=== PATIENT | female | born 2000 | race Caucasian/White ===

== ENCOUNTER 2020-01-25 14:28 | Observation (INO) | payer OTHER, SELFPAY ==
[2020-01-25 14:51] VITALS: BP 123/79; PULSE 106
[2020-01-25 14:55] VITALS: BMI 36.1
--- NOTE | 2020-01-27 13:14 | PM.OBTRLD ---
OB - Triage/Final Diagnosis Final Diagnosis (1) Vaginal discharge during : Code(s): O26.899 - Other specified related conditions, unspecified trimester; N89.8 - Other specified noninflammatory disorders of vagina Status: Acute Plan: ROM was ruled out FHT were reassuring Discharged home in a stable condition
== END 2020-01-25 16:05 | disposition home or self-care (01) ==
PROVIDERS: Admitting Provider Obstetrics & Gynecology; PCP Family Medicine; Visit Provider Obstetrics & Gynecology
DX: O26.893 Other specified pregnancy related conditions, third trimester (principal); Z3A.38 38 weeks gestation of pregnancy; N89.8 Other specified noninflammatory disorders of vagina
CPT/HCPCS: G0378; G0379

== ENCOUNTER 2020-01-30 18:03 | Inpatient (IN) | payer OTHER, SELFPAY ==
[2020-01-30 18:30] VITALS: BMI 36.1
[2020-01-30] MEDS: DINOPROSTONE 10 MG VAG INSERT VAGINAL (19:32)
[2020-01-30 19:38] LABS: Basophils Percent Auto 0.2 % (0.2-1.2); Eosinophils Percent Auto 0.2 % (0-4.4); Hematocrit 36.3 % (37.0-47.0); Hemoglobin 11.8 g/dL (12.0-15.0); Immature Granulocyte Absolute 0.01 K/mm3 (0.00-0.031); Immature Granulocyte Percent A 0.1 % (0-0.5); Lymphocytes Absolute Auto 1.93 K/mm3 (0.9-3.2); Mean Corpuscular HGB Conc 32.5 g/dl (32-36); Mean Corpuscular Hemoglobin 26.9 pg (26-34); Mean Corpuscular Volume 82.7 fl (80-100); Mean Platelet Volume 11.7 fl (7.4-10.4); Monocytes Absolute Auto 0.6 K/mm3 (0.1-0.6); Monocytes Percent Auto 7.2 % (2.6-8.5); Neutrophils Absolute Auto 5.5 K/mm3 (1.3-6.7); Neutrophils Percent Auto 68.3 % (45.5-73.1); Platelet Count Result 250 k/mm3 (150-375); Red Blood Count 4.39 M/mm3 (4.2-5.4); Red Cell Distribution Width 13.7 % (11.5-14.5); White Blood Count 8.1 K/mm3 (4.5-10.0)
--- NOTE | 2020-01-30 19:53 | LDADM ---
This patient, Melissa Jackson, was admitted to Labor/Delivery/Recovery 107 on 01/30/20 at 18:03. Plans for labor, pain management and were discussed with patient. Patient/family oriented to hospital policies and general routines including ID bracelet, bed and alarms, visiting hours, pain management, procedures, bathroom and other care routines, personal items, smoking policy, room service/diet and guest tray routines, security routines, and visiting hours. Patient/Family are encouraged to report perceived risks to care and to ask questions if they do not understand what they are told or what they should do. See OBIX for further documentation.
[2020-01-30] MEDS: AMPICILLIN 2 GM/NS 100 ML 2 GM/100 ML BAG IVPB (20:05)
[2020-01-30] MEDS: metFORMIN HCL 500 MG TABLET PO (20:32)
[2020-01-30 21:37] LABS: Amphetamine Screen Urine Negative (Negative); Barbiturate Screen Urine Negative (Negative); Benzodiazepines Screen Urine Negative (Negative); Cannabinoid Screen Urine Negative (Negative); Cocaine Screen Urine Negative (Negative); Methadone Screen Urine Negative (Negative); Opiate Screen Urine Negative (Negative); Phencyclidine Screen Urine Negative (Negative)
[2020-01-30 22:10] LABS: Glucose Point of Care 102 (65-105)
--- NOTE | 2020-01-30 22:23 | PC.NURSE ---
On arrival @ 1803 pt and significant other smelled strongly of marijuana, pt denies use. Significant other admits use.
[2020-01-30] MEDS: AMPICILLIN 1 GM/NS 50 ML 1 GM/50 ML BAG IVPB (23:52)
[2020-01-30 23:53] VITALS: TEMP 36.7
[2020-01-31] VITALS (175 sets, daily range): BP systolic 79–135; BP diastolic 51–92; PULSE 58–130; RESP 20; TEMP 36.4–36.9; O2SAT 93–100
[2020-01-31] MEDS: AMPICILLIN 1 GM/NS 50 ML 1 GM/50 ML BAG IVPB ×3 (04:08→12:26)
[2020-01-31] MEDS: OXYTOCIN 30 UNITS/NS 500 ML 30 UNITS/500 ML BAG 6 UNITS IV CONT (05:09)
[2020-01-31] MEDS: LACTATED RINGERS 1,000 ML 125 ML IV CONT ×2 (05:10→07:58)
[2020-01-31] MEDS: metFORMIN HCL 500 MG TABLET PO ×2 (06:43→19:15)
[2020-01-31 06:53] LABS: Rapid Plasma Reagin Non-Reactive (NonReactive)
[2020-01-31 06:54] LABS: Glucose Point of Care 97 (65-105)
--- NOTE | 2020-01-31 09:20 | WPDANESEPPF ---
Anes - Initial Pre Proc Eval Date/Time: 01/31/20 08:45 Surgeon: Julio Garcia MD Pre Op Diagnosis: Induction of Labor Patient Data Age: 19 Gender: F Height: 1.52 m Weight: 84 kg Last Vital Signs Temp 36.6 C 01/31/20 08:00 Pulse 87 01/31/20 09:19 BP 124/64 01/31/20 09:19 Pulse Ox 97 01/31/20 09:16 Allergies Allergy/AdvReac Type Severity Reaction Status Date / Time No Known Allergies Allergy Verified 01/26/20 12:36 Home Medications Medication Instructions Recorded Confirmed Type metformin 500 mg PO BID 08/15/19 01/30/20 History aspirin [Aspirin Low Dose] 81 mg PO DAILY 01/26/20 01/26/20 History ferrous sulfate 325 mg PO DAILY 01/26/20 01/26/20 History Laboratory Tests 01/30/20 01/30/20 01/30/20 18:54 18:54 18:54 WBC 8.1 K/mm3 K/mm3 (4.5-10.0) RBC 4.39 M/mm3 M/mm3 (4.2-5.4) Hgb 11.8 g/dL L g/dL (12.0-15.0) Hct 36.3 % L % (37.0-47.0) MCV 82.7 fl fl (80-100) MCH 26.9 pg pg (26-34) MCHC 32.5 g/dl g/dl (32-36) RDW 13.7 % % (11.5-14.5) Plt Count 250 k/mm3 k/mm3 (150-375) MPV 11.7 fl H fl (7.4-10.4) Immature Gran % (Auto) 0.1 % % (0-0.5) Neut % (Auto) 68.3 % % (45.5-73.1) Lymph % (Auto) 24.0 % % (18.3-44.2) [place] % (Auto) 7.2 % % (2.6-8.5) Eos % (Auto) 0.2 % % (0-4.4) Baso % (Auto) 0.2 % % (0.2-1.2) Lymph # (Auto) 1.93 K/mm3 K/mm3 (0.9-3.2) [place] # (Auto) 0.6 K/mm3 K/mm3 (0.1-0.6) Eos # (Auto) 0.0 K/mm3 K/mm3 (0-0.3) Baso # (Auto) 0.0 K/mm3 K/mm3 (0.0-0.1) Abs Immat Gran (auto) 0.01 K/mm3 K/mm3 (0.00-0.031) Absolute Neuts (auto) 5.5 K/mm3 K/mm3 (1.3-6.7) Absolute Nucleated RBC 0.0 K/mm3 K/mm3 (0.0-0.012) Nucleated RBC % 0.0 % % (0.0-0.2) POC Capillary Glucose Urine Opiates Screen Urine Methadone Screen Ur Barbiturates Screen Ur Phencyclidine Scrn Ur Amphetamine Screen U Benzodiazepines Scrn Urine Cocaine Screen U Cannabinoids Screen RPR Non-reactive (NonReactive) Blood Type A Positive Antibody Screen Negative 01/30/20 01/30/20 01/31/20 21:15 22:08 06:52 WBC RBC Hgb Hct MCV MCH MCHC RDW Plt Count MPV Immature Gran % (Auto) Neut % (Auto) Lymph % (Auto) [place] % (Auto) Eos % (Auto) Baso % (Auto) Lymph # (Auto) [place] # (Auto) Eos # (Auto) Baso # (Auto) Abs Immat Gran (auto) Absolute Neuts (auto) Absolute Nucleated RBC Nucleated RBC % POC Capillary Glucose 102 mg/dl mg/dl 97 mg/dl mg/dl (65-105) (65-105) Urine Opiates Screen Negative (Negative) Urine Methadone Screen Negative (Negative) Ur Barbiturates Screen Negative (Negative) Ur Phencyclidine Scrn Negative (Negative) Ur Amphetamine Screen Negative (Negative) U Benzodiazepines Scrn Negative (Negative) Urine Cocaine Screen Negative (Negative) U Cannabinoids Screen Negative (Negative) RPR Blood Type Antibody Screen Patient hx anesthesia problems: none Family hx anesthesia problems: none PMFSH Past Medical History Medical History Anemia Diabetes GERD (gastroesophageal reflux disease) IBS (irritable bowel syndrome) No pertinent past medical history PCOS (polycystic ovarian syndrome) 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
[2020-01-31] MEDS: ONDANSETRON INJ 4 MG/2 ML VIAL IV PUSH (12:53)
--- NOTE | 2020-01-31 16:58 | PM.OBPRVD ---
OB - Delivery Note Procedure Route of delivery: Laceration description: Perineal - 1st Degree Delivery repair: chromic Specimen: No Estimated blood loss (mL): 300 Anesthesia type: Epidural Disposition: floor Narrative: Patient prepped and draped in usual manner for this procedure. Maternal expulsive efforts readily delivered vertex which was section naso-oropharynx. Rest of baby was delivered without difficulty. Placenta delivered spontaneously. Cervix vagina and vulva were inspected with first-degree midline laceration right vulvar laceration noted. Both were approximated using 2 0 chromic in running interlocking manner with good hemostasis and approximation of tissue. Uterus was well contracted this point seizure was considered terminated with immediate postop condition of mother and baby both excellent. [place] Baby Weeks of gestation at delivery: 39 Infant gender: Male Weight (pounds): 6 Weight (ounces): 14 score one minute: 9 score five minutes: 9
[2020-01-31] MEDS: OXYTOCIN 30 UNITS/NS 500 ML 30 UNITS/500 ML BAG 125 UNITS IV CONT (17:12)
[2020-01-31] MEDS: WITCH HAZEL 40 PADS 1 PAD TOPICAL (19:15)
[2020-01-31] MEDS: BENZOCAINE 20% AER SPR (*SP) 56 GM CAN 1 SPRAY TOPICAL (19:15)
--- NOTE | 2020-01-31 19:45 | OBPPTRN ---
Patient transferred to post room #290 at 1945 via . Support person present. Oriented to unit, room, information board, rooming in, admission packet and security measures. Patient verbalizes understanding. Infant brought to room with mother in crib.
--- NOTE | 2020-01-31 19:45 | OBPPTRN ---
Patient transferred to post room # via ( ). Support person present. Oriented to unit, room, information board, rooming in, admission packet and security measures. Patient verbalizes understanding.
[2020-02-01] MEDS: IBUPROFEN 600 MG TABLET PO ×3 (06:11→20:25)
[2020-02-01 06:21] LABS: Hematocrit 30.1 % (37.0-47.0); Hemoglobin 9.6 g/dL (12.0-15.0)
[2020-02-01 08:35] VITALS: BP 104/60; PULSE 85; RESP 18; TEMP 36.9; O2SAT 100
[2020-02-01] MEDS: metFORMIN HCL 500 MG TABLET PO ×2 (09:04→16:50)
--- NOTE | 2020-02-01 11:44 | PM.OBDSVD ---
OB - DS: Summary OB Procedures : None OB Procedures Intrapartum: Spontaneous Vag Delivery OB Procedures: : None Time Spent with Patient Time attestation: Total time spent providing and/or coordinating discharge services: DS: Data Data Completed and Pending Labs on day of discharge: Labs from last 24 hours 02/01/20 04:35 Hgb 9.6 L Hct 30.1 L Discharge Plan Discharge Discharging Clinician: Julio Garcia Patient Disposition: Home, Self-Care Activity: as tolerated Diet: as tolerated Patient Instructions: Antibiotic Form Stand Alone Forms: General Discharge Information Follow-up/Referrals: Julio Garcia MD [Physician] - 3 Weeks Discharge Medications: New ibuprofen 600 mg Tablet 600 mg PO Q6H PRN (Reason: Cramping) Qty: 30 RF: 0 Continued metformin 500 mg Tablet 500 mg PO BID RF: 0 ferrous sulfate 325 mg (65 mg iron) Tablet 325 mg PO DAILY RF: 0 Discontinued aspirin [Aspirin Low Dose] 81 mg Tablet,Delayed Release (Dr/Ec) 81 mg PO DAILY RF: 0 Date of admission: 01/30/20 18:03 Primary Care Provider: Tyrell,Esperanza Cabrales Admitting Provider: Julio Garcia Attending physician on admission: Julio Garcia
--- NOTE | 2020-02-01 12:10 | PC.NURSE ---
Upon entering mother has to breast. Infant does not have nipple drawn in. Mother reports has been eagerly nursing and just stopped. Mother is using the latch assist to draw out nipples. Reviewed feeding cues, frequencies, duration of feedings, feeding elimination flow sheet, and signs of adequate intake. Demonstrated stimulation techniques to wake infant for feeding. Mother does not wish to wake reporting he is sleepy due to circumcision.
--- NOTE | 2020-02-01 16:30 | PC.NURSE ---
Mother called out for assist with feeding. Infant is sleepy and making no attempt to latch. Demonstrated stimulation techniques to wake infant for feeding. Assisted with to breast. Reviewed positioning/alignment in football, holding breast in C hold and guided asymmetrical latch on. Infant was able to latch after 15 minutes of attempts. Offered and explained the nipple shield, mother is willing to attempt. Nipple shield provided to mother due to ineffective feeding/flat nipples. Discussed nipple shield precautions and possible complications. Patient able to return demonstration on proper application of shield. Instructions given on application and cleaning of shield. Discussed the need to initiate pumping if infant continues to nurse with the shield. Patient verbalizes understanding.correctly. Infant was able to latch. Infant made minimal effort to suckle with a few suckles. Attempt for 15 minutes. Discussed feeding options at this time. Mother does not wish to supplement. Discussed with mother report of feeding to primary RN.
[2020-02-02 07:45] VITALS: BP 110/66; PULSE 79; RESP 18; TEMP 36.9; O2SAT 99
--- NOTE | 2020-02-02 07:50 | PC.NURSE ---
Consult with pt., mother reports was more awake and eager during the night. Mother states she used the shield a few times for latching. Mother pumped 20 mls last evening and bottle fed EBM during sleepy period. Mother is now pumping stating she feels full and will bottle feed EBM for this feeding. Offered assist with latching, mother declines stating she will bottle feed at this time. LC has not seen a successful . Mother is feeding as required and waking to feed if needed. is currently meeting outcomes for weight, output, jaundice and feeding frequencies. Mother states she feels confident to continue at home, she will pump and bottle feed if does not latch. Reviewed transition to breast milk, signs of adequate intake, and engorgement/relief. Instructed to call ICP if intake/output less than required. Reviewed regular medications mother is taking. Information provided per [facility]. Reviewed community resources on the [facility] website and in the Mom/Baby guide. Information on outpatient services provided. Mother has no further questions at this time.
--- NOTE | 2020-02-02 09:00 | PC.NURSE ---
PT introductions made and plan of care discussed per post , pain management, breast feeding, daily care activities and pending discharge to home. PT verbalized understanding of such care
[2020-02-02] MEDS: POLYSACCHARIDE IRON COMPLEX 150 MG CAPSULE PO (09:30)
[2020-02-02 09:32] VITALS: PULSE 79; RESP 18; O2SAT 99
[2020-02-02] MEDS: IBUPROFEN 600 MG TABLET PO (09:32)
--- NOTE | 2020-02-02 12:30 | PC.NURSE ---
PT received discharge instructions per protocol and verbalized understanding of such instructions.
--- NOTE | 2020-02-02 13:00 | PC.NURSE ---
PT discharged to home ambulatory accompanied by infant and significant other to waiting car. Follow up appts confirmed
[2020-02-03 08:40] VITALS: BP 117/70; PULSE 89; RESP 22; TEMP 36.9
--- NOTE | 2020-02-08 09:03 | PM.OBPRVD ---
OB - Delivery Note Procedure Laceration description: Perineal - 1st Degree Estimated blood loss (mL): 300 Anesthesia type: Epidural Baby Weeks of gestation at delivery: 39 gender: Male Weight (pounds): 6 Weight (ounces): 14 score one minute: 9 score five minutes: 9
--- NOTE | 2020-02-08 09:03 | PM.OBDSVD ---
DS: Diagnosis Admitting Diagnosis Admitting Diagnosis: Encounter for supervision of normal , unspecified, third trimester OB - DS: Summary OB Procedures : None OB Procedures Intrapartum: Spontaneous Vag Delivery OB Procedures: : None Time Spent with Patient Time attestation: Total time spent providing and/or coordinating discharge services: Discharge Plan Discharge Discharging Clinician: Julio Garcia Patient Disposition: Home, Self-Care Activity: as tolerated Diet: as tolerated Discharge Instructions: Education: Mom and Baby Guide Given to: Mother Follow-Up: Call your delivering provider's office for an appointment to be seen in: 3 weeks Mom and baby should come to the [facility] for the follow-up appointment. Appointment Date/Time: February 03, 2020 at 8:00 am What to expect at your follow-up visit: Blood Pressure Check Call [phone] if you are unable to keep your appointment time. BREAST CARE: 1. Wear a snug supportive bra. 2. For engorgement discomfort: Breast Feeding: A. Apply warm moist washcloths B. Express milk as needed to relieve engorgement C. Wear loose clothing Bottle Feeding: A. May apply ice packs 3. For sore nipples: A. Identify correct latch-on B. Apply warm moist washcloths before and after nursing C. Air dry nipples after nursing D. May apply Lansinoh cream to nipples PERINEAL CARE: 1. Until bleeding stops, use your radha bottle after urinating 2. Change your pad frequently throughout the day 3. You may take sitz baths several times a day (fill your bathtub with warm water and soak for 20 minutes.) Do NOT bathe in the water 4. No tub baths until seen by your physician - You may shower ACTIVITY: 1. Rest as much as possible. 2. Do not exercise or lift anything heavier than your baby (such as laundry or other children.) 3. Avoid stairs or driving as much as possible. 4. Do not put anything into the vagina. No douching, tampons, or sexual activity until seen by physician. NOTIFY PHYSICIAN IF YOU HAVE ANY QUESTIONS OR IF ANY OF THE FOLLOWING SYMPTOMS OCCUR: 1. If your perineum becomes red, swollen, or more painful than what you have experienced in the hospital. 2. If your vaginal bleeding becomes foul smelling. 3. If your vaginal bleeding becomes more heavy than a period or if your bleeding changes from pink to bright red. However, you may pass an occasional walnut-sized clot once or twice for the first week . 4. If you experience a sharp, shooting pain in you calves. 5. If you discover a hard, reddened area on your breast or if you experience flu-like symptoms. DIET: 1. Eat regular, well-balanced meals. 2. Drink plenty of fluids daily. If , drink to thirst. Patient Instructions: Antibiotic Form Stand Alone Forms: General Discharge Information Follow-up/Referrals: Julio Garcia MD [Physician] - 3 Weeks Discharge Medications: New ibuprofen 600 mg Tablet 600 mg PO Q6H PRN (Reason: Cramping) Qty: 30 RF: 0 Continued metformin 500 mg Tablet 500 mg PO BID RF: 0 ferrous sulfate 325 mg (65 mg iron) Tablet 325 mg PO DAILY RF: 0 Discontinued aspirin [Aspirin Low Dose] 81 mg Tablet,Delayed Release (Dr/Ec) 81 mg PO DAILY RF: 0 Date of admission: 01/30/20 18:03 Primary Care Provider: Tyrell,Esperanza Cabrales Admitting Provider: Julio Garcia Discharge Date/Time: 02/02/20 13:00 Attending physician on admission: Julio Garcia
== END 2020-02-02 13:00 | disposition home or self-care (01) | DRG 560 ==
LOC: ANHLDR 18:19 → ANHOB2 01-31 19:48
PROVIDERS: Admitting Provider Obstetrics & Gynecology; PCP Family Medicine; Visit Provider Obstetrics & Gynecology
DX: O99.284 Endocrine, nutritional and metabolic diseases complicating childbirth (principal); E28.2 Polycystic ovarian syndrome; O70.0 First degree perineal laceration during delivery; O24.12 Pre-existing type 2 diabetes mellitus, in childbirth; E11.9 Type 2 diabetes mellitus without complications; Z3A.39 39 weeks gestation of pregnancy; Z37.0 Single live birth; Z23 Encounter for immunization; O99.214 Obesity complicating childbirth; E66.9 Obesity, unspecified
CPT/HCPCS: 36415; 80307; 85014; 85018; 85025; 86592; 86850; 86900; 86901; A9270; J0290; J2405; J2590; J2795; J3010; J7120

== ENCOUNTER 2020-09-16 06:46 | Outpatient (NON) | payer OTHER, SELFPAY ==
[2020-09-17 00:44] LABS: SARS-CoV-2 RNA PCR Negative
== END 2020-09-16 06:47 ==
PROVIDERS: PCP Family Medicine; Visit Provider Nurse Practitioner Family
DX: R07.0 Pain in throat (principal); R50.9 Fever, unspecified; R43.8 Other disturbances of smell and taste; R06.02 Shortness of breath; Z20.828 Contact with and (suspected) exposure to other viral communicable diseases
CPT/HCPCS: 87635; C9803; U0003

== ENCOUNTER 2020-11-07 14:00 | Outpatient (RCR) | payer OTHER, SELFPAY ==
[2020-11-07 14:08] VITALS: BMI 38.0
[2020-11-07 14:12] VITALS: BMI 38.0
== END 2021-01-22 14:43 | disposition home or self-care (01) ==
LOC: ANHDMC 14:00
PROVIDERS: PCP Family Medicine; Visit Provider Family Medicine
DX: E11.9 Type 2 diabetes mellitus without complications (principal); Z71.3 Dietary counseling and surveillance
CPT/HCPCS: 97802

== ENCOUNTER 2021-03-27 18:11 | Emergency (ER) | payer OTHER, SELFPAY ==
[2021-03-27 18:17] VITALS: BP 140/92; PULSE 96; RESP 16; TEMP 37; O2SAT 100
--- NOTE | 2021-03-27 20:36 | ED.GENADULT ---
HPI - General Adult General Chief complaint: Skin/Abscess/Foreign Body Stated complaint: Rash,arms,shoulders,back and face Time Seen by Provider: 03/27/21 19:46 Source: patient and RN notes reviewed Mode of arrival: ambulatory Limitations: no limitations History of Present Illness HPI narrative: Patient is a 21-year-old female who presents with 2 weeks duration of small areas of itching in various locations denies any known allergic exposures or contacts or individuals at home with similar rash patient has not taken anything for symptoms her primary complaint is itching. Patient denies any fever chills nausea vomiting or other complaints patient is currently breast-feeding she has plan follow-up with primary care on Friday Related Data Home Medications Medication Instructions Recorded Confirmed metformin 500 mg PO BID 08/15/19 01/30/20 Allergies Allergy/AdvReac Type Severity Reaction Status Date / Time No Known Allergies Allergy Verified 03/27/21 19:48 Review of Systems Review of Systems: All systems reviewed & are unremarkable except as noted in HPI and below PMFSH Past Medical History Medical History (Updated 03/27/21 @ 20:38 by Sheng Freeman PA-C) Anemia Diabetes GERD (gastroesophageal reflux disease) IBS (irritable bowel syndrome) No pertinent past medical history PCOS (polycystic ovarian syndrome) 16 weeks Sleep apnea UTI (urinary tract infection) Surgical History Surgical History No history of previous surgery Family History Family History Grandparent Diabetes mellitus Social History Social History Smoking status: Never smoker Substance use: never Gender identity (if verbalized by the patient): Female Spiritual care concerns: No Exam Narrative: Exam Narrative: GENERAL: Well-appearing, well-nourished, and in no acute distress. HEAD: Normocephalic, atraumatic. EYES: PERRLA and EOMI. ENT: Nares clear, no rhinorrhea or epistaxis. Mucous membranes moist. EXTREMITIES: Normal range of motion. No edema. SKIN: Warm, dry, patient with a few small patches of raised areas no erythema or other concerning findings NEURO: No focal deficits. Alert and oriented x3. PSYCH: Normal mood and affect. Course Course Emergency Course: Patient will be treated with antihistamines and topical cortisone cream with follow-up on Friday Vital Signs Vital signs: Vital Signs Temperature 98.6 F 03/27/21 18:17 Pulse Rate 96 03/27/21 18:17 Respiratory Rate 16 03/27/21 18:17 Blood Pressure 140/92 H 03/27/21 18:17 Pulse Oximetry 100 03/27/21 18:17 Temperature 98.6 F 03/27/21 18:17 Pulse Rate 96 03/27/21 18:17 Respiratory Rate 16 03/27/21 18:17 Blood Pressure 140/92 H 03/27/21 18:17 Pulse Oximetry 100 03/27/21 18:17 Medical Decision Making MDM Narrative Medical decision making narrative: Patient with nonspecific rash felt appropriate for outpatient reevaluation Vital Signs Vital Signs: Vital Signs Temperature 98.6 F 03/27/21 18:17 Pulse Rate 96 03/27/21 18:17 Respiratory Rate 16 03/27/21 18:17 Blood Pressure 140/92 H 03/27/21 18:17 Pulse Oximetry 100 03/27/21 18:17 Temperature 98.6 F 03/27/21 18:17 Pulse Rate 96 03/27/21 18:17 Respiratory Rate 16 03/27/21 18:17 Blood Pressure 140/92 H 03/27/21 18:17 Pulse Oximetry 100 03/27/21 18:17 Discharge Plan Discharge Clinical Impression: Rash and nonspecific skin eruption Patient Disposition: Home, Self-Care Condition: Stable Instructions: Antibiotic Form, Acute Rash (ED) Additional Instructions: Follow-up with primary care on Friday as planned Return if symptoms worsen or concerns Only take medications as directed Prescriptions: New famotidine [Pepcid] 20 mg tablet 20 mg PO BID Qty
== END 2021-03-27 20:45 | disposition home or self-care (01) ==
PROVIDERS: Emergency Provider Emergency Medicine; PCP Family Medicine
DX: R21 Rash and other nonspecific skin eruption (principal); E11.42 Type 2 diabetes mellitus with diabetic polyneuropathy; K21.9 Gastro-esophageal reflux disease without esophagitis; K58.9 Irritable bowel syndrome, unspecified; E28.2 Polycystic ovarian syndrome; Z87.440 Personal history of urinary (tract) infections; Z86.2 Personal history of diseases of the blood and blood-forming organs and certain disorders involving the immune mechanism; Z79.84 Long term (current) use of oral hypoglycemic drugs
CPT/HCPCS: 99283

== ENCOUNTER 2021-04-29 09:11 | Emergency (ER) | payer OTHER, SELFPAY ==
--- NOTE | ~2021-04-29 | XR_ITS ---
XR ankle LT min 3V DATE: 04/29/2021 09:32 INDICATION: Fall. Lateral ankle pain. TECHNIQUE: 4 views COMPARISON: None FINDINGS: No fracture or dislocation of the ankle or disruption of the ankle mortise is detected. No periosteal reaction or bone destruction. IMPRESSION: No fracture or dislocation Reviewed, dictated and finalized at location A. IMPRESSION: No fracture or dislocation
[2021-04-29 09:20] VITALS: BP 134/88; PULSE 106; RESP 16; TEMP 36.6; O2SAT 100
--- NOTE | 2021-04-29 09:29 | ED.LOWEXIN ---
HPI - Extremity Injury (Lower) General Chief Complaint: Extremity Injury, Lower Stated Complaint: Left ankle Pain Time Seen by Provider: 04/29/21 09:29 Source: patient Mode of arrival: ambulatory Limitations: no limitations History of Present Illness HPI Narrative: Melissa Jackson is a 21 yo female with a PMH of diabetes, comes to [facility] after falling off a curb last night when the morning while looking in her cell phone. She has left lateral ankle pain and swelling and states she is unable to wiggle her toes although she is able to limp on her foot with partial weightbearing. States the pain is 8 of 10. Related Data Home Medications Medication Instructions Recorded Confirmed metformin 500 mg PO BID 04/29/21 04/29/21 terconazole 0.4 applic VAGINAL DIRECTED 04/29/21 04/29/21 triamcinolone acetonide 0.1 applic TOPICAL DAILY 04/29/21 04/29/21 Allergies Allergy/AdvReac Type Severity Reaction Status Date / Time No Known Allergies Allergy Verified 04/29/21 09:23 Review of Systems Review of Systems: Narrative: CONSTITUTIONAL: Denies fever, chills, sweats. EYES: Denies visual changes, redness, discharge. ENT: Denies rhinorrhea, congestion, sore throat, otalgia. CARDIOVASCULAR: Denies chest pain, palpitations, edema. RESPIRATORY: Denies dyspnea, wheezing, cough GASTROINTESTINAL: Denies abdominal pain, nausea, vomiting, diarrhea. GENITOURINARY: Denies dysuria, hematuria, abnormal discharge SKIN: Denies rash or itching. NEUROLOGIC: Denies numbness, or focal weakness. PSYCHIATRIC: Denies anxiety or depression. Left ankle pain and swelling on the lateral side PMFSH Past Medical History Medical History Anemia Diabetes GERD (gastroesophageal reflux disease) IBS (irritable bowel syndrome) PCOS (polycystic ovarian syndrome) 16 weeks Sleep apnea UTI (urinary tract infection) Surgical History Surgical History No history of previous surgery Family History Family History Grandparent Diabetes mellitus Social History Social History (Updated 04/29/21 @ 09:44 by Karely Oviedo CNP) Smoking status: Never smoker Alcohol intake: current Substance use: never Gender identity (if verbalized by the patient): Female Spiritual care concerns: No Comments At time of signature, I agree with nursing past medical, surgical, social and family history. There is no relevant family history pertinent to the presenting complaint. Exam Narrative: Exam Narrative: GENERAL: This is a well-nourished, well-developed patient, in moderate distress. HEAD: normocephalic, atraumatic. EYES: Sclera clear/white. Vision is grossly intact. EARS: External ears normal. Hearing grossly intact. NOSE: External nose normal without nasal discharge, nares without redness, no rhinorrhea. THROAT: Mucous membranes moist, NECK: Neck supple, CARDIOVASCULAR: Tachycardic rate and rhythm without murmurs, gallops, or rubs. RESPIRATORY: Clear to auscultation. Breath sounds equal bilaterally. No wheezes, rales, or rhonchi. GASTROINTESTINAL: Abdomen soft, SKIN: warm, intact with no suspicious lesions or rash, good texture and turgor. NEURO: awake, alert, and oriented to person, place and time. There were no obvious focal neurologic abnormalities. Steady gait EXTREMITIES: Normal range of motion on right, on left she has swelling of the lateral malleolus with pain on palpation no Achilles involvement states the top of her foot is sore and that she cannot walk wiggle her toes without pain, able to partially weight-bear, 2+ pedal pulse BACK: Nontender without deformity Course Course Emergency Course: [facility] left ankle pain and swelling after falling off a curb last night X-ray shows no fracture, no osseous abnormality Please have Jeff w
== END 2021-04-29 09:54 | disposition home or self-care (01) ==
PROVIDERS: Emergency Provider Nurse Practitioner; PCP Family Medicine
DX: S93.402A Sprain of unspecified ligament of left ankle, initial encounter (principal); W10.1XXA Fall (on)(from) sidewalk curb, initial encounter; D64.9 Anemia, unspecified; E11.9 Type 2 diabetes mellitus without complications; K21.9 Gastro-esophageal reflux disease without esophagitis; E28.2 Polycystic ovarian syndrome; G47.30 Sleep apnea, unspecified
CPT/HCPCS: 73610; 99213; G0463

== ENCOUNTER 2021-04-29 19:08 | Emergency (ER) | payer OTHER, SELFPAY ==
--- NOTE | ~2021-04-29 | XR_ITS ---
EXAMINATION: XR ankle LT min 3V EXAM DATE: 04/29/2021 19:40 INDICATION: Left ankle pain and swelling laterally, fall. TECHNIQUE: Left ankle frontal, lateral and oblique projections obtained and reviewed. Comparison is m navin to prior examination from 08/30/2021. FINDINGS: The left ankle mortise appears intact. There are no acute fractures or dislocations ident ified. There is no subcutaneous gas. There is soft tissue swelling over the ankle anterolaterally. T here are no radiopaque foreign bodies. IMPRESSION: 1. Left ankle exam without acute osseous findings. 2. Soft tissue swelling. Reviewed, dictated and finalized at location A.
--- NOTE | ~2021-04-29 | XR_ITS ---
EXAMINATION: XR foot LT min 3V EXAM DATE: 04/29/2021 21:35 INDICATION: Pain anterior foot near toes, fall. TECHNIQUE: Left foot dorsoplantar, lateral and oblique projections obtained and reviewed. Correlation is made to left ankle x-rays earlier same date. FINDINGS: Possible nondisplaced calcaneal fracture identified on an oblique projection, finding indic ated. Large amount of swelling surrounding the ankle and hindfoot. Possible nondisplaced fracture of the left 3rd proximal phalanx. IMPRESSION: 1. Possible nondisplaced calcaneal fracture; recommend left foot/ankle CT scan for further evaluation . 2. Possible nondisplaced 3rd proximal phalangeal shaft fracture. Reviewed, dictated and finalized at location A. IMPRESSION: 1. Possible nondisplaced calcaneal fracture; recommend left foot/ankle CT scan for further evaluation. 2. Possible nondisplaced 3rd proximal phalangeal shaft fracture.
--- NOTE | ~2021-04-29 | CT_ITS ---
EXAMINATION: CT LE LT wo con DATE: 04/29/2021 22:41 INDICATION: Possible fracture seen on recent x-ray. TECHNIQUE: Computed tomography (CT) of the left foot and ankle was performed without intravenous cont rast. The dose-length product was 334.47 mGy-cm. Automated exposure control and iterative reconstruct ion technique were employed. COMPARISON: 04/29/2021 FINDINGS: No acute fracture, subluxation or dislocation. There is mild soft tissue swelling/edema. No foreign bodies identified. Ankle mortise intact. IMPRESSION: 1. No acute fracture. Reviewed, dictated and finalized at location A. IMPRESSION: 1. No acute fracture.
[2021-04-29 19:09] VITALS: BP 144/99; PULSE 80; RESP 20; TEMP 36.5; O2SAT 100
[2021-04-29 21:08] VITALS: BP 142/89; PULSE 78; RESP 18; O2SAT 100
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
[2021-04-29 23:39] VITALS: BP 125/97; PULSE 93; RESP 18; O2SAT 98
[2021-04-30 01:19] VITALS: BP 136/78; PULSE 78; RESP 18; O2SAT 100
== END 2021-04-30 01:20 | disposition home or self-care (01) ==
PROVIDERS: Emergency Provider General Practice; PCP Family Medicine
DX: S93.402A Sprain of unspecified ligament of left ankle, initial encounter (principal); S90.32XA Contusion of left foot, initial encounter; E11.9 Type 2 diabetes mellitus without complications; K21.9 Gastro-esophageal reflux disease without esophagitis; K58.9 Irritable bowel syndrome, unspecified; E28.2 Polycystic ovarian syndrome; G47.30 Sleep apnea, unspecified; Z87.440 Personal history of urinary (tract) infections; Z79.84 Long term (current) use of oral hypoglycemic drugs; R93.6 Abnormal findings on diagnostic imaging of limbs; X50.9XXA Other and unspecified overexertion or strenuous movements or postures, initial encounter
CPT/HCPCS: 73610; 73630; 73700; 99284

== ENCOUNTER 2021-09-06 11:42 | Emergency (ER) | payer OTHER, SELFPAY ==
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
[2021-09-06 11:51] VITALS: BP 138/87; PULSE 87; RESP 20; TEMP 36.6; O2SAT 100
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
[2021-09-06] MEDS: ACETAMINOPHEN 500 MG TABLET 1000 MG PO (12:39)
[2021-09-06] MEDS: ONDANSETRON HCL ODT 4 MG TABLET PO (13:04)
== END 2021-09-06 13:40 | disposition home or self-care (01) ==
PROVIDERS: Emergency Provider Emergency Medicine; PCP Family Medicine
DX: S16.1XXA Strain of muscle, fascia and tendon at neck level, initial encounter (principal); S09.90XA Unspecified injury of head, initial encounter; E11.9 Type 2 diabetes mellitus without complications; E28.2 Polycystic ovarian syndrome; G47.30 Sleep apnea, unspecified; Z86.2 Personal history of diseases of the blood and blood-forming organs and certain disorders involving the immune mechanism; Z87.440 Personal history of urinary (tract) infections; Z87.19 Personal history of other diseases of the digestive system; V43.52XA Car driver injured in collision with other type car in traffic accident, initial encounter; Y92.410 Unspecified street and highway as the place of occurrence of the external cause
CPT/HCPCS: 70450; 72125; 99284; A9270

== ENCOUNTER → 2021-09-26 03:01 | Outpatient (CLI) | payer OTHER, SELFPAY ==
[2021-09-26 19:39] LABS: SARS-CoV-2 RNA PCR Negative
== END ==
PROVIDERS: PCP Family Medicine; Visit Provider Nurse Practitioner Family
DX: Z20.822 Contact with and (suspected) exposure to COVID-19 (principal)
CPT/HCPCS: C9803; U0003; U0005

== ENCOUNTER → 2021-10-11 08:15 | Outpatient (CLI) | payer OTHER, SELFPAY ==
[2021-10-11 20:55] LABS: SARS-CoV-2 RNA PCR Negative
== END ==
PROVIDERS: PCP Family Medicine; Visit Provider Physician Assistant
DX: Z11.52 Encounter for screening for COVID-19 (principal)
CPT/HCPCS: C9803; U0003; U0005

== ENCOUNTER 2023-05-27 21:24 | Emergency (ER) | payer OTHER, SELFPAY | END 2023-05-27 21:43 | disposition left against medical advice (07) | PROVIDERS: PCP Family Medicine | DX: Z53.21 Procedure and treatment not carried out due to patient leaving prior to being seen by health care provider (principal) | CPT/HCPCS: 99199 ==

== ENCOUNTER 2023-06-02 10:52 | Outpatient (CLI) | payer OTHER, SELFPAY ==
[2023-06-02 12:45] LABS: SARS-CoV-2 RNA PCR Positive (Negative)
== END 2023-06-02 10:53 | disposition home or self-care (01) ==
PROVIDERS: PCP Family Medicine; Visit Provider Family Medicine
DX: R05.9 Cough, unspecified (principal)
CPT/HCPCS: 87635

== ENCOUNTER 2024-07-15 08:12 | Emergency (ER) | payer OTHER, SELFPAY ==
[2024-07-15 08:23] VITALS: BP 131/95; RESP 14; O2SAT 100
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
[2024-07-15 08:35] LABS: BEDSIDEPREGUCG Negative (Negative)
[2024-07-15] MEDS: LIDOCAINE 5% PATCH 1 PATCH TRANSDERM (08:45)
[2024-07-15] MEDS: KETOROLAC 10 MG TABLET PO (08:53)
[2024-07-15] MEDS: diazePAM (*CRX) 5 MG TABLET PO (08:53)
== END 2024-07-15 09:18 | disposition home or self-care (01) ==
LOC: ANHED 08:55
PROVIDERS: Emergency Provider Emergency Medicine; PCP Family Medicine
DX: S16.1XXA Strain of muscle, fascia and tendon at neck level, initial encounter (principal); E11.9 Type 2 diabetes mellitus without complications; E28.2 Polycystic ovarian syndrome; K21.9 Gastro-esophageal reflux disease without esophagitis; K58.9 Irritable bowel syndrome, unspecified; G47.30 Sleep apnea, unspecified; Z87.440 Personal history of urinary (tract) infections; Z79.84 Long term (current) use of oral hypoglycemic drugs; X58.XXXA Exposure to other specified factors, initial encounter
CPT/HCPCS: 81025; 99283; A9270

== ENCOUNTER 2024-10-07 07:11 | Emergency (ER) | payer OTHER, SELFPAY ==
[2024-10-07 07:15] VITALS: BP 117/72; PULSE 90; RESP 16; TEMP 37; O2SAT 98
[2024-10-07 07:51] LABS: Strep Group A RT-PCR NOT DETECTED (Negative)
--- NOTE | 2024-10-07 09:42 | ED_ITS ---
HPI - URI/Sore Throat General Chief Complaint: Upper Respiratory Infection Stated Complaint: SORE THROAT X1D Time Seen by Provider: 10/07/24 09:05 History of Present Illness HPI Narrative: 24-year-old female with history of PCOS, IBS, GERD, diabetes presents to emergency department for sore throat per patient states she developed having a mild sore throat yesterday but woke up with a significantly worsened sore throat this morning which prompted her to come to the ED. Reports nasal congestion over the past couple of days. Denies cough, otalgia, fever. Related Data Home Medications ?Medication ?Instructions ?Recorded ?Confirmed ?Last Taken ?Type metformin 500 mg tablet 500 mg PO BID 04/29/21 04/29/21 Unknown History terconazole 0.4 % vaginal cream 0.4 applic vaginal DIRECTED 04/29/21 04/29/21 Unknown History triamcinolone acetonide 0.1 % 0.1 applic topical DAILY 04/29/21 04/29/21 Unknown History topical ointment Allergies Allergy/AdvReac Type Severity Reaction Status Date / Time No Known Allergies Allergy Verified 10/07/24 07:12 Review of Systems Review of Systems: All systems reviewed & are unremarkable except as noted in HPI and below PMFSH Past Medical History Medical History 16 weeks Anemia Diabetes UTI (urinary tract infection) PCOS (polycystic ovarian syndrome) GERD (gastroesophageal reflux disease) IBS (irritable bowel syndrome) Sleep apnea Surgical History Surgical History No history of previous surgery Family History Family History Grandparent Diabetes mellitus Social History Social History Smoking status: Never smoker Alcohol intake: current Substance use: never Gender identity (if verbalized by the patient): Female Spiritual care concerns: No Exam Narrative: GENERAL: Well-appearing, well-nourished, and in no acute distress. HEAD: Normocephalic, atraumatic. EYES: EOMI. ENT: Nares clear, no rhinorrhea or epistaxis. Mucous membranes moist. Bilateral TMs are champion nonbulging with normal canals. Posterior pharynx erythematous with mild exudates to the left tonsil. No unilateral tonsillar hypertrophy, no uvular deviation. Patient tolerating secretions. No trismus. No dysphonia NECK: Supple. CHEST: Clear to auscultation. No respiratory distress. HEART: Regular rate and rhythm. No murmur heard. Normal peripheral pulses. EXTREMITIES: Normal range of motion. No edema. SKIN: Warm, dry, no rash. NEURO: No focal deficits. Alert and oriented x3 Course Vital Signs Vital signs: Vital Signs Temperature 98.6 F 10/07/24 07:15 Pulse Rate 90 10/07/24 07:15 Respiratory Rate 16 10/07/24 07:15 Blood Pressure 117/72 10/07/24 07:15 Pulse Oximetry 98 10/07/24 07:15 Oxygen Delivery Room Air 10/07/24 07:15 Temperature 98.6 F 10/07/24 07:15 Pulse Rate 90 10/07/24 07:15 Respiratory Rate 16 10/07/24 07:15 Blood Pressure 117/72 10/07/24 07:15 Pulse Oximetry 98 10/07/24 07:15 Oxygen Delivery Room Air 10/07/24 07:15 MDM - URI/Sore Throat MDM Narrative Medical decision making narrative: 24-year-old female presents to the emergency department for sore throat for the past couple of days. Triage vitals are stable. Exam is significant for erythema to the posterior pharynx with mild exudates the left tonsil. There is no unilateral tonsillar hypertrophy, no dysphonia, no uvular deviation concerning for F[employer] ED space infection. She is otherwise nontoxic and well- appearing. COVID, flu, RSV and strep tests are negative. Plan to obtain a mono test, however patient declined due to her fear of needles. Will provide prednisone for viral pharyngitis, encouraged ibuprofen/Tylenol at home and saltwater gargles. Advised follow-up with PCP. Discussed strict ED return precautions. She is agreeable with the plan verbalized understanding. Discharged in stable condition. Lab Data Labs: Lab Results 10/07/24 10/07/24 Range/Units 07:21 10:00 Influenza A (RT-PCR) Negative (Negative) Influenza B (RT-PCR) Negative (Negative) RSV (RT-PCR) Negative (Negative) SARS-CoV-2 RNA (RT-PCR) Negative (Negative) Group A Strep (PCR) Not detected (Negative) Discharge Plan Discharge Clinical Impression: Acute viral pharyngitis Patient Disposition: Home, Self-Care Condition: Stable Instructions: Antibiotic Form, Pharyngitis (ED) Additional Instructions: Your evaluated in the emergency department for sore throat. Your strep, COVID, flu test are negative. Your presentation is consistent with viral pharyngitis as discussed. Please take Tylenol and ibuprofen as needed for pain [id number] as directed on the bottle and steroids as prescribed. Gargle salt water and follow up with primary care provider. Return to the emergency department if you develop difficulty swallowing or breathing, significantly worsening pain, fever or other concerning symptoms. Patient Language: Setswana Prescriptions: New prednisone 20 mg tablet 40 mg PO DAILY Qty: 10 0RF No Action metformin 500 mg tablet 500 mg PO BID terconazole 0.4 % cream 0.4 applic VAGINAL DIRECTED triamcinolone acetonide 0.1 % ointment 0.1 applic TOPICAL DAILY ibuprofen 800 mg tablet 800 mg PO TID PRN (Reason: pain) Qty: 30 0RF acetaminophen [Tylenol Extra Strength] 500 mg tablet 1,000 mg PO Q6H PRN (Reason: pain) Qty: 50 0RF methocarbamol 750 mg tablet 750 mg PO TID PRN (Reason: muscle spasm) Qty: 30 0RF lidocaine 5 % adhesive patch,medicated 1 patch topical DAILY Qty: 15 0RF Rx Instructions: leave on most painful area for up to 12 hrs ibuprofen 600 mg tablet 600 mg PO TID PRN (Reason: fever or pain) Qty: 30 0RF Follow-up/Referrals: Tyrell,Esperanza Cabrales MD [Primary Care Provider] -
--- NOTE | 2024-10-07 10:00 | PC.NURSE ---
Patient refusing blood work for mono test
[2024-10-07 10:52] LABS: Influenza A QL RT-PCR Negative (Negative); Influenza B QL RT-PCR Negative (Negative); RSV RNA, RT-PCR Negative (Negative); SARS-CoV-2 RNA PCR Negative (Negative)
[2024-10-07 11:12] VITALS: BP 122/88; PULSE 75; RESP 16; TEMP 36.6; O2SAT 100
--- OUTSIDE RECORDS SUMMARY | 2024-10-14 01:33 | XMS_ITS | Encounter Summary ---
Author Organization [facility] Address [address] [place] [address] Care Team Providers Care Cheese Grader Name Role Phone Esperanza Santillan MD Primary Care Provider [phone] Reason for Visit * Reason Comments FAD NST Encounter Details Date Type Department Care Team (Latest Contact Info) Description 01/04/2020 8:51 AM CDT - 01/04/2020 11:59 PM CDT Hospital Encounter [facility] Maternal & Care [address] [place], [place] [id number] Antoni Morataya MD Discharge Disposition: Home or Self Care Social History Tobacco Use Types Packs/Day Years Used Date Smoking Tobacco: Never Smokeless Tobacco: Never Alcohol Use Standard Drinks/Week Comments No 0 (1 standard drink = 0.6 oz pur e alcohol) Comments Yes Sex and Gender Information Value Date Recorded Sex Assigned at Not on file Gender Identity Not on file Sexual Orientation Not on file documented as of this encounter Last Filed Vital Signs Vital Sign Reading Time Taken Comments Blood Pressure 113/62 01/04/2020 8:57 AM CDT Pulse 84 01/04/2020 8:57 AM CDT Temperature 36.8 ??C (98.3 ??F) 01/04/2020 8:57 AM CD T Respiratory Rate - - Oxygen Saturation - - Inhaled Oxygen Concentration - - Weight - - Height - - Body Mass Index - - documented in this encounter Functional Status Functional Status Response Date of Assess ment Is person deaf or have serious hearing difficult y? No 12/19/2019 Is person blind or have serious difficulty seein g? No 12/19/2019 Does person have serious dif ficulty walking/climbing stairs? No 12/19/2019 Does person have difficulty dressing/bathing? No 12/19/2019 Does person have difficulty doing errands alone? No 12/19/2019 Cognitive Status Response Date of Assessm ent Does person have difficulty concentrating/remembering/making decisions? No 12/19/2019 documented as of this encounter Medications at Time of Discharge Medication Sig Dispensed Refills Start Date End Date aspirin (ASPIRIN) 81 MG tablet Take 2 tablets by mouth once daily 100 tablet 3 08/02/2019 blood glucose (FREESTYLE LITE STRIPS) test strip Use 1 strip 5 times daily 150 strip 5 08/02/2019 blood glucose (ONETOUCH ULTRA TEST STRIPS) test strip Use 2 strips daily. 100 Strip 11 05/20/2013 Blood Glucose Monitoring Suppl (FREESTYLE LITE) TITO Use to check blood sugar twice a day as directed. 1 Device 1 03/23/2015 Blood Glucose Monitoring Suppl (ONE TOUCH ULTRA MINI) W/DEVICE KIT Use to test blood sugar 2 times daily 1 Kit 1 05/20/2013 doxylamine (UNISOM) 25 MG tablet Take 1 tablet by mouth nightly as needed for Insomnia 60 tablet 3 08/02/2019 FREESTYLE LANCETS MISC Use to check blood sugar twice a day or as directed. 100 Each 11 03/23/2015 FREESTYLE LITE STRIPS test strip Use to check blood sugar twice a day or as directed. 100 Strip 11 03/23/2015 metFORMIN (GLUCOPHAGE) 500 MG tabletIndications:Type 2 diabetes mellitus in patient age 13-19 years with HbA1C goal below 7.5 ([facility]) 2 tabs with breakfast and dinner or as directed. 90 day supply 360 Tab 3 01/10/2014 naproxen (NAPROSYN) 500 MG tablet Take 1 Tab by mouth 2 times daily 30 Tab 08/13/2016 norethindrone-ethinyl estradiol (MICROGESTIN) 1.5-30 MG-MCG tablet Take 1 Tab by mouth once daily. One Touch Delica Lancets Use 2 LANCETS DAILY 100 Each 11 05/20/2013 pyridoxine (VITAMIN B-6) 25 MG tablet Take 1 tablet by mouth once daily 60 tablet 3 08/02/2019 documented as of this encounter Progress Notes * Karlie Briones RN - 01/04/2020 9:00 AM CDT Pt here today for NST. Reports feeling good movement and also doing kick counts at home that have been appropriate. NST reactive today. Denies cramping/contractions. Denies leakage of fluid/bleeding. Denies further questions or concerns today. documented in this encounter Plan of Treatment Scheduled Orders Name Type Priority Associated Diagnoses Orde r Schedule NON-STRESS TEST MATRNL MED Routine with type 2 diabetes mellitus in second trimester (HCC) Supervision of high-risk of young primigravida (HCC) Maternal morbid obesity in second trimester, antepartum (HCC) 1 Occurrences starting 01/04/2020 until 01/04/2020 documented as of this encounter Visit Diagnoses Diagnosis with type 2 diabetes mellitus in second trimester (HCC) Supervision of high-risk of young primigravida (HCC) Supervision of high-risk of young primigravida Maternal morbid obesity in second trimester, antepartum (HCC) documented in this encounter Care Teams Cheese Grader Relationship Specialty Start Date End Date Esperanza Santillan MD [address] [place] [address] PCP - General Family Medicine 09/03/12 documented as of this encounter
--- OUTSIDE RECORDS SUMMARY | 2024-10-14 01:33 | XMS_ITS | Encounter Summary ---
Author Organization [facility] Address [address] [place] [address] Care Team Providers Care Overlock Hemmer Name Role Phone Esperanza Santillan MD Primary Care Provider [phone] Reason for Visit * Reason Onset Date Comments Appointment 12/31/2019 Canceled appt fo r today. Not feeling well. Encounter Details Date Type Department Care Team (Late st Contact Info) Description 12/31/2019 Telephone [facility] Women's Health Maternal & Care [address] [place] [phone] Rose Duarte Appointment (Canceled appt for today. Not feeling well.) Social History Tobacco Use Types Packs/Day Years Used Date Smoking Tobacco: Never Smokeless Tobacco: Never Alcohol Use Standard Drinks/Week Comments No 0 (1 standard drink = 0.6 oz pur e alcohol) Comments Yes Sex and Gender Information Value Date Recorded Sex Assigned at Not on file Gender Identity Not on file Sexual Orientation Not on file documented as of this encounter Functional Status Functional Status Response [...] No 12/19/2019 documented as of this encounter Plan of Treatment Not on file documented as of this encounter Visit Diagnoses Not on filedocumented in this encounter Care Teams Overlock Hemmer Relationship Specialty Start Date End Date Esperanza Santillan MD [address] [place] [address] PCP - General Family Medicine 09/03/12 documented as of this encounter
--- OUTSIDE RECORDS SUMMARY | 2024-10-14 01:33 | XMS_ITS | Encounter Summary ---
Author Organization [facility] Address [address] [place] [address] Care Team Providers Care Quill Machine Operator Name Role Phone Esperanza Santillan MD Primary Care Provider [phone] Reason for Visit * Reason Onset Date Comments Reminder Call 12/27/2019 + NO Visitor Hipolito kimberly Encounter Details Date Type Department Care Team (Late st Contact Info) Description 12/27/2019 Telephone [facility] Women's Health Maternal & Care [address] [place] [phone] Rose Duarte A Reminder Call (+ NO Visitor Policy) Social History Tobacco Use Types Packs/Day Years [...] on filedocumented in this encounter Care Teams Quill Machine Operator Relationship Specialty Start Date End Date Esperanza Santillan MD [address] [place] [phone] PCP - General Family Medicine 09/03/12 documented as of this encounter
--- OUTSIDE RECORDS SUMMARY | 2024-10-14 01:33 | XMS_ITS | Encounter Summary ---
Author Organization [facility] Address [address] [facility] [place] [address] Care Team Providers Care Manager Of Sales Name Role Phone Esperanza Santillan MD Primary Care Provider [phone] Reason for Visit * Reason Comments FAD NST Encounter Details Date Type Department Care Team (Latest Contact Info) Description 01/07/2020 8:11 AM CDT - 01/07/2020 11:59 PM CDT Hospital Encounter [facility] Maternal & Care [address] [place], [place] [id number] Jewell Acosta MD [address] [address] Discharge Disposition: Home or Self Care Social [...] Sign Reading Time Taken Comments Blood Pressure 110/69 01/07/2020 9:32 AM CDT Pulse 109 01/07/2020 9:32 AM CDT Temperature 36.6 ??C (97.9 ??F) 01/07/2020 9:32 AM CD T Respiratory Rate - - [...] 13-19 years with HbA1C goal below 7.5 ([facility]) 2 tabs with breakfast and dinner or [...] Progress Notes * Karlie Briones RN - 01/07/2020 8:15 AM CDT Pt here today for NST only. Reports good movement. Denies cramping/contractions. Denies leakage of fluid/ bleeding. Denies headaches, visual changes, edema, and epigastric pain. NST reactive. Denies further questions or concerns for her care today. documented in this encounter Plan of Treatment Not on file documented as of this encounter Visit Diagnoses Not on filedocumented in this encounter Care Teams Manager Of Sales Relationship Specialty Start Date End Date Esperanza Santillan MD [address] [place] [address] [place] [phone] PCP - General Family Medicine 09/03/12 documented as of this encounter
--- OUTSIDE RECORDS SUMMARY | 2024-10-14 01:33 | XMS_ITS | Encounter Summary ---
Author Organization [facility] Address [address] [place] [address] Care Team Providers Care Operating System Programmer Name Role Phone Esperanza Santillan MD Primary Care Provider [phone] Reason for Visit * Reason Comments FAD NST Encounter Details Date Type Department Care Team (Latest Contact Info) Description 01/18/2020 9:00 AM CDT - 01/18/2020 11:59 PM CDT Hospital Encounter [facility] Maternal & Care [address] [place], [place] [id number] Antoni Morataya MD Discharge Disposition: Home or [...] Sign Reading Time Taken Comments Blood Pressure 114/62 01/18/2020 10:59 AM CDT Pulse 89 01/18/2020 10:59 AM CDT Temperature - - Respiratory Rate - - Oxygen Saturation - [...] with HbA1C goal below 7.5 ([facility]) 2 tabs with breakfast and [...] as of this encounter Progress Notes * Lesly Zapata RN - 01/18/2020 9:00 AM CDT Patient here today for NST/BPP performed at 37w1d for diabetes. Patient reports positive movement. Denies cramping, contractions, bleeding, and leakage of fluid. Patient denies headache, epigastric pain and visual changes. VS per flowsheet. Pt seen in office yesterday with Dr. Lira. Pt is scheduled on 01/[address] Garcia at [facility]. Lesly Zapata RN 01/18/2020 11:05 AM documented in this encounter Plan of Treatment Not on file documented as of this encounter Visit Diagnoses Diagnosis with type 2 diabetes mellitus in second trimester (HCC)- Primary Supervision of high-risk of young primigravida (HCC) Supervision of high-risk of young primigravida Maternal morbid obesity in second trimester, antepartum (HCC) documented in this encounter Care Teams Operating System Programmer Relationship Specialty Start Date End Date Esperanza Santillan MD [address] [place] [address] [place] [phone] PCP - General Family Medicine 09/03/12 documented as of this encounter
--- OUTSIDE RECORDS SUMMARY | 2024-10-14 01:33 | XMS_ITS | Encounter Summary ---
Author Organization [facility] Address [address] [place] [address] Care Team Providers Care Transportation Director Name Role Phone Esperanza Santillan MD Primary Care Provider [phone] Reason for Visit * Reason Comments FAD NST Encounter Details Date Type Department Care Team (Latest Contact Info) Description 01/11/2020 9:00 AM CDT - 01/11/2020 11:59 PM CDT Hospital Encounter [facility] Maternal & Care [address] [place], [place] [phone] Antoni oMrataya MD Discharge Disposition: Home or Self Care [...] Sign Reading Time Taken Comments Blood Pressure 116/68 01/11/2020 9:16 AM CDT Pulse 93 01/11/2020 9:16 AM CDT Temperature 36.7 ??C (98 ??F) 01/11/2020 9:16 AM CDT Respiratory Rate - - Oxygen Saturation - [...] 13-19 years with HbA1C goal below 7.5 ([facility]) 2 tabs with breakfast and dinner or [...] Progress Notes * Karlie Briones RN - 01/11/2020 9:00 AM CDT Pt here today for NST only. Reports good movement. NST reactive. Lots of movement audile present. Reports occasional [place] contractions. Denies leakage of fluid or bleeding. States she is still having parts of her mucous plug come out occasionally. Pt heading to appointment withDr. Garcia after her NST here today. Pt states that Dr. Lira is having her see him just in case he does not have privileges at [facility] to deliver yet by the time the patient needs to deliver. Pt states that she was told that she could deliver at [facility] since her diabetes is under control. Denies further questions or concerns today for her care. documented in this encounter Plan of Treatment Not on file documented as of this encounter Visit Diagnoses Diagnosis Decreased movement during , antepartum, single or unspecified fetus (HCC)- Primary Maternal morbid obesity in second trimester, antepartum (HCC) Supervision of high-risk of young primigravida (HCC) Supervision of high-risk of young primigravida with type 2 diabetes mellitus in second trimester (HCC) documented in this encounter Care Teams Transportation Director Relationship Specialty Start Date End Date Esperanza Santillan MD [address] [place] [address] PCP - General Family Medicine 09/03/12 documented as of this encounter
--- OUTSIDE RECORDS SUMMARY | 2024-10-14 01:33 | XMS_ITS | Encounter Summary ---
Author Organization [facility] Address [address] [facility] [place] [address] Care Team Providers Care Dental Secretary Name Role Phone Esperanza Santillan MD Primary Care Provider [phone] Reason for Visit * Reason Comments FAD NST Encounter Details Date Type Department Care Team (Latest Contact Info) Description 12/21/2019 8:45 AM CDT - 12/21/2019 11:59 PM CDT Hospital Encounter [facility] Maternal & Care [address] [place], [place] [phone] Antoni Morataya MD Discharge Disposition: Home or [...] Sign Reading Time Taken Comments Blood Pressure 121/68 12/21/2019 9:23 AM CDT Pulse 93 12/21/2019 9:23 AM CDT Temperature 36.9 ??C (98.4 ??F) 12/21/2019 9:23 AM CD T Respiratory Rate - - [...] 13-19 years with HbA1C goal below 7.5 ([facility]) 2 tabs with breakfast and [...] of this encounter Progress Notes * Lesly Zapata, RN - 12/21/2019 9:00 AM CDT [id number] Called to HOMAR RN, Claudine, and asked her about Melissa showing up today after she just left [facility] office after having BPP & NST done earlier this am. My notes show that repeat was ordered for 12/18/19. [address] Lira's staff, Fanny, to let her know. Lesly Zapata RN 12/17/2019 2:37 PM documented in this encounter Plan of Treatment Not on file documented as of this encounter Visit Diagnoses Not on filedocumented in this encounter Care Teams Dental Secretary Relationship Specialty Start Date End Date Esperanza Santillan MD [address] [place] [address] [place] [phone] PCP - General Family Medicine 09/03/12 documented as of this encounter
--- OUTSIDE RECORDS SUMMARY | 2024-10-14 01:33 | XMS_ITS | Encounter Summary ---
Author Organization [facility] Address [address] [facility] [place] [address] Care Team Providers Care Reinforced Ironworker Name Role Phone Esperanza Santillan MD Primary Care Provider [phone] Reason for Visit * Reason Comments Establish Care acne / face and back of shoulders Encounter Details Date Type Department Care Team (Late st Contact Info) Description 06/16/2020 3:50 PM CDT Office Visit [facility] [address] [place] [address], [facility] [place] [phone] Polina Sutherland MD [address] [place] [address] [address] [place] [phone] Acne vulgaris (Primary Dx) Social History Tobacco Use Types Packs/Day Years Used Date Smoking Tobacco: Never Smokeless Tobacco: Never Alcohol Use Standard Drinks/Week Comments No 0 (1 standard drink = 0.6 oz pur e alcohol) Sex and Gender Information Value Date Recorded [...] No 12/19/2019 documented as of this encounter Progress Notes * Polina Sutherland MD - 06/16/2020 3:56 PM CDT Chief Complaint Patient presents with ??? Establish Care acne / face and back of shoulders HPI: Melissa Jackson a 20 year old female presents with complaint of acne on face, chest and back. Location: face, chest and back Duration: years Symptoms: asymptomatic Exacerbating factors: previously flared with periods, now and not having periods Previous treatments: OTC acne wash, stopped prior to Effect of treatment: mild improvement Allergies and medications were reviewed and verified. Past medical history, social history and family history were reviewed. ROS: As per HPI above. Patient denies fever, chills and night sweats. No other skin related complains. PE: No acute distress. Mood clear/affect appropriate. Alert and oriented. Mucous membranes moist. Sclera anicteric. Waist up skin exam was conducted to include the scalp, face, lips/teeth, lids/conjunctiva, ears, neck, chest, back, right and left hands and forearms and was normal with the following exceptions: Scattered closed and open comedones and few small erythematous papules on face > back and chest A/P: Mild inflammatory and comedonal acne, patient is currently her 4 month old son (plansto breastfeed for at least 1 year.) - Discussed etiologies, natural history and treatment options. Discussed that treatment options arelimited with - Start OTC benzoyl peroxide wash in the shower daily - Start clindamycin 1% gel daily RTC in 1 year, sooner PRN Polina Sutherland MD Clinical Fuel Dock Attendant of Dermatology [facility] documented in this encounter Plan of Treatment Not on file documented as of this encounter Visit Diagnoses Diagnosis Acne vulgaris- Primary Other acne documented in this encounter Care Teams Reinforced Ironworker Relationship Specialty Start Date End Date Esperanza Santillan MD [address] [place] [phone] PCP - General Family Medicine 09/03/12 documented as of this encounter
--- OUTSIDE RECORDS SUMMARY | 2024-10-14 01:33 | XMS_ITS | Encounter Summary ---
Author Organization [facility] Health Address [address] [facility] [place] [address] Care Team Providers Care Handle Machine Operator Name Role Phone Esperanza Santillan MD Primary Care Provider [phone] Reason for Visit * Reason Comments Decreased Movement Encounter Details Date Type Department Care Team (Latest Contact Info) Description 12/19/2019 7:29 PM CDT - 12/19/2019 9:22 PM CDT Hospital Encounter [facility] [address] [place], [place] [id number] Gina Cain MD [address] [place], [place] [id number] Discharge Disposition: Home or Self Care Social History Tobacco Use Types Packs/Day Years Used Date Smoking Tobacco: Never Smokeless Tobacco: Never Tobacco Cessation:Counseling Given: No Alcohol Use Standard Drinks/Week Comments No 0 (1 standard drink = 0.6 oz pur e alcohol) Comments Yes Sex and Gender Information Value Date Recorded Sex Assigned at Not on file Gender Identity Not on file Sexual Orientation Not on file documented as of this encounter Last Filed Vital Signs Vital Sign Reading Time Taken Comments Blood Pressure 122/71 12/19/2019 9:13 PM CDT Pulse - - Temperature - - Respiratory Rate 18 12/19/2019 9:03 PM CDT Oxygen Saturation - - Inhaled Oxygen Concentration - - Weight - - Height 152.4 cm (5') 12/19/2019 7:30 PM CDT Body Mass Index - - documented in [...] No 12/19/2019 documented as of this encounter Discharge Instructions * Discharge Instructions* Lesly Gallego RN - 12/19/2019 9:18 PM CDT UNDELIVERED PATIENT DISCHARGE INSTRUCTIONS CALL YOUR DOCTOR (SEE NUMBER BELOW) ?? If you are less than 37 weeks and have move than 5 contractions an hour. ?? Blurring ofvision or spots before your eyes. ?? Ruptured membranes or leakage of vaginal fluid. ?? May be a steady trickle or large gush ?? May be clear, yellow, pink or green ?? Decreased movement--if your baby has stopped movingor is moving less than it normally does. Do Kick Counts as instructed. ?? Vaginal bleeding--bright red bleeding and/or clots needs medical care immediately. ?? Any temperature above 100 degrees. ?? Headache ?? Any burning or painful urination. ?? Increased swelling in your face, hands, or feet. ?? Stomach pains, cramps, nausea,or diarrhea. Important Telephone Number: Doctor's Office: [phone] documented in this encounter Medications at Time of Discharge [...] 13-19 years with HbA1C goal below 7.5 ([facility]) 2 tabs with breakfast and [...] 3 08/02/2019 documented as of this encounter H&P Notes * Yovani Cain MD - 12/19/2019 7:49 PM CDT PGY1 Obstetric H&P Note 12/19/2019, 7:49 PM CC: Decreased Movement HPI: 19 year old at 32w6d gestation Dating: LMP c/w 7 week ultrasound Estimated Date of Delivery: 02/07/20 care: is with Dr. Lira Patient's is complicated by: Patient Active Problem List Diagnosis Date Noted ??? Decreased movement, antepartum 12/19/2019 Priority: Not Prioritized ??? Maternal morbid obesity in second trimester, antepartum Priority: Not Prioritized ??? Supervision of high-risk of young primigravida 08/02/2019 Priority: Not Prioritized ??? with type 2 diabetes mellitus in second trimester 10/01/2012 Diagnosed 08/20/2012 with a hemoglobin A1c of 7.0% 2015 [facility] Patient presents with complaints of decreased movement starting yesterday. She states that came to the [facility] on Friday for a nonreactive NST and a BPP of 6/8 (-2 for breathing); she was discharged that evening with a reactive strip and a BBP of 8/10. She states she did not feel the baby move much on Friday. She states she did several kick counts today and states she only reached5-6 movements over 2 hours. She states the baby normally moves after she eats, but she was unable to trigger movement today with eating. She states she had one episode of nausea/vomiting this AM, butdenies any further episodes or any current nausea. She states that her sugars have been well controlled. Her AM fasting sugar have been 80 - 90. She also checks her sugars 2hrs after eating and states she is seeing numbers around 100 or under. She states she has had no problems checking her blood sugar at home. Of note, patient's room in the [facility] smelled strongly of marijuana. Patient denied use of alcohol, tobacco or illicit drugs. negative Ctx. negative LOF. negative VB. positive FM. Review of Symptoms: A comprehensive review of systems was negative except as stated above Obstetrical History: OB History Para Term AB Living 1 SAB TAB Ectopic Multiple Live Births # Outcome Date GA Lbr Mono/2nd Weight Sex Delivery Anes PTL Lv 1 Current Gynecologic History: History of abnormal pap smear: Denies History of procedure on cervix: Denies STI History: Denies gonorrhea, chlamydia, trichomonas, herpes, HIV, syphilis Medical History: Past Medical History: Diagnosis Date ??? Anemia ??? Bronchitis acutely ??? Diabetes mellitus ??? Irritable bowel disease ??? PCOS (polycystic ovarian syndrome) She denies history of hypertension, diabetes, asthma or bleeding disorders. Psych History: Depression: No Anxiety: No Bipolar disorder: No Schizophrenia: No Surgeries: Past Surgical History: Procedure Laterality Date ??? MT DENTAL SURGERY PROCEDURE Current Medications: Prior to Admission medications Medication Sig Start Date End Date Taking? Authorizing Provider aspirin (ASPIRIN) 81 MG tablet Take 2 tablets by mouth once daily 08/02/19 Yes Nidhi Araujo MD blood glucose (FREESTYLE LITE STRIPS) test strip Use 1 strip 5 times daily 10/28/19 Yes Kimberly Marquez MD blood glucose (ONETOUCH ULTRA TEST STRIPS) test strip Use 2 strips daily. Patient not taking: Reported on 12/19/2019 05/20/13 Serena Rivera APRN-CNP Blood Glucose Monitoring Suppl (FREESTYLE LITE) TITO Use to check blood sugar twice a day as directed. Patient not taking: Reported on 12/19/2019 03/23/15 Iveth Mueller MD Blood Glucose Monitoring Suppl (ONE TOUCH ULTRA MINI) W/DEVICE KIT Use to test blood sugar 2 times daily 05/20/13 Yes Serena Rivera APRN-CNP doxylamine (UNISOM) 25 MG tablet Take 1 tablet by mouth nightly as needed for Insomnia 08/02/19 YesNidhi Araujo MD FREESTYLE LANCETS MISC Use to check blood sugar twice a day or as directed. 03/23/15 Yes Iveth Mueller MD FREESTYLE LITE STRIPS test strip Use to check blood sugar twice a day or as directed. Patient not taking: Reported on 12/19/2019 03/23/15 Iveth Mueller MD metFORMIN (GLUCOPHAGE) 500 MG tablet 2 tabs with breakfast and dinner or as directed. 90 day supply01/10/14 Iveth Mueller MD naproxen (NAPROSYN) 500 MG tablet Take 1 Tab by mouth 2 times daily Patient not taking: Reported on 08/02/2019 08/13/16 Lakshmi Hunt MD norethindrone-ethinyl estradiol (MICROGESTIN) 1.5-30 MG-MCG tablet Take 1 Tab by mouth once daily. ProviderErma MD One Touch Delica Lancets Use 2 LANCETS DAILY 05/20/13 Yes Serena Rivera APRN-CNP pyridoxine (VITAMIN B-6) 25 MG tablet Take 1 tablet by mouth once daily Patient not taking: Reported on 10/04/2019 08/02/19 Nidhi Araujo MD Allergies: No Known Allergies Social History: Social History Smoking status: Never Smoker Smokeless tobacco: Never Used Alcohol use: No Drug use: No Sexual activity: Never Family History: Family History Problem Relation Name Age of Onset ??? Obesity Mother ??? Obesity Father ??? Diabetes Maternal Grandfather ??? Hypertension Maternal Grandfather ??? Hypercholesterolemia Maternal Grandfather ??? Diabetes Maternal Uncle No history of infants born with defects No history of family members with bleeding disorders or history of blood clots. No history of breast, ovarian, or uterine cancer Objective: Patient Vitals for the past 24 hrs: Resp 12/19/19 1930 18 Assessment/ Non-Stress Test Baseline: 135 beats/minute moderate variability Reactive Contractions: none Decelerations: none Physical Exam General: no acute distress, alert and oriented x3 HEENT: extra-occular movements intact, moist mucous membranes Heart: regular rate and rhythm, no rubs/murmurs/gallops Lungs: clear to auscultation bilaterally, no wheezing/crackles Abdomen: gravid, soft, non-tender Extremities: non-tender bilaterally, no edema bilaterally Neuro: cranial nerves grossly intact, strength and sensation intact and symmetric bilaterally Psych: appropriate affect Bedside ultrasound: Presentation: vertex Placenta: posterior Amniotic fluid index: 24.9 cm Biophysical profile 10 Current Lab Review: No results found for this visit on 12/19/19. labs - will request if admit Assessment/Plan: 19 year old at 32w6d gestation 1. Decreased movement 1. BSUS: reassuring,BPP 10/10 2. NST: reactive with no contrations 3. RICARDO 24.95 cm 4. Mother feels reassured 5. kick counts explained and given to mother 2. Type 2 Diabetes 1. BS in triage 108 2. Patient reports: 1. Fasting blood sugar 80-90 2. 2-hr post prandial 95-110 3. Metformin 1000mg BID 3. F/u: At your scheduled appointment with Dr. Lira tomorrow, 12/20/2019 4. Dispo: Home with PTL precautions Discussed with Dr. Arzate and Dr. Ant Henderson DO 12/19/2019 7:49 PM Findings and plan discussed with resident and above notation is accurate. documented in this encounter Procedure Notes * Gina Price MD - 12/19/2019 9:20 PM CDTAssociated Order(s): NONSTRESS TEST Name: Melissa Jackson Date of : 2000 Today's Date: 12/19/2019 32w6d NST RESULTS (CARTAGENA) OBJECTIVE FINDINGS , , Resp: 18, BP: 122/71 NST Indication(s): Decreased movement Uterine Irritability: Yes Contractions: Not present OBJECTIVE FINDINGS Movement: Present Monitoring Mode: External Baseline: 135 BPM Variability: Moderate Decelerations: None Accelerations: Yes OTHER INFORMATION Lesly Gallego RN PGY1 COMMUNITY ORGANIZATION AIDE Progress Note FHR: baseline 130-140 bpm, moderate variability, reactive, variable decelerations, reassuring TOCO: no ctx Gina Price MD 12/19/2019 9:56 PM * Anais Mendoza MD - 12/19/2019 9:14 PM CDT Bedside OB Ultrasound Indications: Patient Active Problem List: with type 2 diabetes mellitus in second trimester Supervision of high-risk of young primigravida Maternal morbid obesity in second trimester, antepartum Decreased movement, antepartum Pt presented for decreased movement Bedside ultrasound: Presentation: vertex Placenta: posterior Amniotic fluid index 17 cm, Biophysical profile 10/10 FWB reassuring, continue outpatient care and testing as indicated. Anais Mendoza MD 12/19/2019 9:15 PM documented in this encounter Plan of Treatment Not on file documented as of this encounter Procedures Procedure Name Priority Date/Time Associated Diagnosis Comments IMAGING/RADIOLOGY/X RAY RESULTS ORDER 05/01/2020 3:12 PM CDT NONSTRESS TEST Routine 12/19/2019 9:20 PM CDT GLUCOSE - POINT OF CARE Routine 12/19/2019 7:54 PM CDT documented in this encounter Results * IMAGING RADIOLOGY XRAY RESULTS ORDER (05/01/2020 3:12 PM CDT) Anatomical Region Laterality Modality Other Narrative 05/01/2020 3:12 PM CDT Ordered by an unspecified provider. Scanned Document IMAGING * NONSTRESS TEST (12/19/2019 9:20 PM CDT) Narrative Yovani Cain MD - 12/19/2019 9:20 PM CDT Gina Price MD ? 12/19/2019 ??9:59 PM Name: ??Melissa Jackson Date of : ??2000 Today's Date: ??12/19/2019 32w6d ?NST RESULTS (CARTAGENA) OBJECTIVE FINDINGS , ??, Resp: 18, BP: 122/71 NST Indication(s): Decreased movement Uterine Irritability: Yes Contractions: Not present OBJECTIVE FINDINGS Movement: Present Monitoring Mode: External Baseline: 135 BPM Variability: Moderate Decelerations: None Accelerations: Yes OTHER INFORMATION Lesly Gallego RN PGY1 COMMUNITY ORGANIZATION AIDE Progress Note FHR: baseline 130-140 bpm, moderate variability, reactive, variable decelerations, reassuring TOCO: no ctx Gina Price MD 12/19/2019 9:56 PM Nidhi Henderson DO OB GYNE ORD ERABLES * (ABNORMAL) GLUCOSE - POINT OF CARE (12/19/2019 7:54 PM CDT) Glucose WB/POC 108(H) 70 - 106 mg/dL 12/19/2019 8:01 PM CDT [facility] Specimen Type Arterial/C apillary 12/19/2019 8:01 PM CDT [facility] Blood BLOOD SPECIMEN / Unknown 12/19/2019 7:54 PM CDT 12/19/2019 8:01 PM CDT Gina Cain MD LAB - POINT OF CARE ORDERABLES [facility] [address] [place] [address] documented in this encounter Visit Diagnoses Diagnosis Decreased movement during , antepartum, single or unspecified fetus (HCC)- Primary Decreased movement, antepartum (HCC) Decreased movements, affecting management of mother, antepartum documented in this encounter Administered Medications Inactive Administered Medications - up to 3 most recent administrations Medication Order MAR Action Action Date Dose Rate Site 0.9% NaCl injection 1-10 mL 1-10 mL, Intracatheter, PRN, Other, peripheral line flush, Starting on Fri12/19/19 at 1936, Until Fri12/19/19 at 2225, Flush peripheral IV catheter with 1-10 mL of normal saline before and after medications and prn to clear blood from the line or to verify patency. 0.9% NaCl injection 3 mL 3 mL, Intracatheter, EVERY 8 HOURS, First dose on 12/19/19 at 2200, Until Discontinued, Flush peripheral IV catheter with 3 mL of normal saline every 8 hours. documented in this encounter Active and Recently Administered Medications Times are shown in CDT. Scheduled Medication Order 12/17/2019 12/18/2019 12/19/2019 0.9% NaCl injection 3 mL(Linked Group 1) 3 mL, Intracatheter, EVERY 8 HOURS, First dose on 12/19/19 at 2200, Until Discontinued, Flush peripheral IV catheter with 3 mL of normal saline every 8 hours. PRN Medication Order 12/17/2019 12/18/2019 12/19/2019 0.9% NaCl injection 1-10 mL(Linked Group 1) 1-10 mL, Intracatheter, PRN, Other, peripheral line flush, Starting on Fri12/19/19 at 1936, Until Fri12/19/19 at 2225, Flush peripheral IV catheter with 1-10 mL of normal saline before and after medications and prn to clear blood from the line or to verify patency. Linked Groups Order Group 1: SALINE LOCK, INSERT AND MAINTAIN (CANCELED) Routine, CONTINUOUS, Starting on 12/19/19 at 1945, Until Specified, New collection And 0.9% NaCl injection 3 mLJump to med 3 mL, Intracatheter, EVERY 8 HOURS, First dose on 12/19/19 at 2200, Until Discontinued, Flush peripheral IV catheter with 3 mL of normal saline every 8 hours. And 0.9% NaCl injection 1-10 mLJump to med 1-10 mL, Intracatheter, PRN, Other, peripheral line flush, Starting on 12/19/19 at 1936, Until 12/19/19 at 2225, Flush peripheral IV catheter with 1-10 mL of normal saline before and after medications and prn to clear blood from the line or to verify patency. documented in this encounter Care Teams Handle Machine Operator Relationship Specialty Start Date End Date Esperanza Santillan MD [address] [place] [address] [place] [phone] PCP - General Family Medicine 09/03/12 documented as of this encounter
--- OUTSIDE RECORDS SUMMARY | 2024-10-14 01:33 | XMS_ITS | Encounter Summary ---
Author Organization [facility] Address [address] [facility] [place] [address] Care Team Providers Care Lucerne Farmer Name Role Phone Esperanza Santillan MD Primary Care Provider [phone] Reason for Visit * Reason Comments Ultrasound FAD NST * Evaluate & Treat (Routine) - Closed Specialty Diagnoses / Procedures Referred By Contac t Referred To Contact Maternal Medicine Diagnoses Pre-existing type 2 diabetes mellitus, in , unspecified trimester (HCC) Procedures NC SONO FU OR REPEAT Jewell Acosta MD [address] [employer] [address] [address] [facility] [address] [place] [id number] Referral ID Status Reason Start Date Expiration Date Visits Re quested Visits Authorized [id number] Closed 10/29/2019 03/17/2020 4 4 Encounter Details Date Type Department Care Team (Latest Contact Info) Description 01/14/2020 8:47 AM CDT - 01/14/2020 11:59 PM CDT Hospital Encounter [facility] Maternal & Care [address] [place] [address] Jewell Acosta MD [address] [employer] [facility] [address] [place] [address] Antoni Morataya MD Discharge Disposition: Home or [...] Sign Reading Time Taken Comments Blood Pressure 117/74 01/14/2020 9:06 AM CDT Pulse 86 01/14/2020 9:06 AM CDT Temperature 36.8 ??C (98.3 ??F) 01/14/2020 9:06 AM CD T Respiratory Rate - - [...] 13-19 years with HbA1C goal below 7.5 ([facility]) 2 tabs with breakfast and [...] Progress Notes * Karlie Briones RN - 01/14/2020 9:00 AM CDT Pt here today for ultrasound and NST. Reports good movement. NST reactive. Denies cramping/contractions. Denies leakage of fluid/bleeding. Denies headaches, visual changes, edema, and epigastric pain. NST reviewed per Dr. Acosta. Pt scheduled for follow up NST on 01/17. Denies further questions or concerns for her care today. documented in this encounter Plan of Treatment Not on file documented as of this encounter Procedures Procedure Name Priority Date/Time Associated Diagnosis Comments BIOPHYSICAL PROFILE W NST Routine 01/14/2020 10:07 AM CDT with type 2 diabetes mellitus in second trimester ([facility]) Supervision of high-risk of young primigravida ([facility]) Maternal morbid obesity in second trimester, antepartum ([facility]) documented in this encounter Results * BIOPHYSICAL PROFILE W NST (01/14/2020 10:07 AM CDT) Anatomical Region Laterality Modality Other 01/14/2020 10:0 7 AM CDT Narrative 01/14/2020 2:49 PM CDT ? [facility] ?PHONE: ??FAX: Pat. Name: ?VEENA MCRAE Pat. No: ?[id number] Study Date: ?? 01/14/2020 ??10:07am , Age: ? 2000, 19 Pregnancies: ?? 1 Height: ? 60 in LMP: ?05/03/2019 GA by LMP: ?36w4d GA by Base: ?? 36w4d ?? PAVEL: 02/07/2020 GA by US: ? 36w1d ?? PAVEL: 02/10/2020 GA Selected: ??36w4d (From [facility]) PAVEL: ?02/07/2020 Referring MD: Tony Lira MD Offal Worker: ??Yennifer Rajput RDMS, MICHAEL CPT4: ? 19066,71437 Hist/Ind: ? Type 2 diabetes ?Class II obesity ?Normal echo MEASUREMENTS & AGE ? GROWTH EVALUATION Measurement ??GA ? Range ? Srce %for GA Ratios ----- ---- ------- BPD ??8.6 cm 34w4d ([id number]) Hadl BPD 11% FL/BPD 0.83 (0.71 - 0.87) HC ??32.5 cm 36w5d (04n0w-47y8b) Hadl HC ??26% FL/AC ??0.21 (0.20 - 0.24) AC ??34.1 cm 38w0d (53s0l-33g1p) Hadl AC ??90% HC/AC ??0.95 (0.92 - 1.11) FL ?? 7.1 cm 36w3d (50r7x-67t1q) Hadl FL ??44% CI ? 0.74 (0.70 - 0.86) HL ?? 6.3 cm 36w2d (95t1t-87m8d) Cresencio HL ??44% GA for sonogram 36w1d (92q1n-00u9u) ?? Weight Estimate: based on (BPD,HC,AC,FL) [place] ?Weight: 3107 gm (2653-3561gm) Had ? : 6lbs, 13oz ? Normal: 2942 gm (2207- 3677gm) Had ? Wt% ? 67% for 36w4d Heart Rate: 148 bpm Amniotic Fluid Index: 18.3cm (07.6-24.6) Q1: 5.6cm ??Q2: 5.9cm ??Q3: 3.5cm ??Q4: 3.3cm ?? Biophysical Profile: 07/15 Breathin ?? Tone: 2 ?? NST: 2 Movement: ??2 ?? AFV: ??2 EVAL, PLACENTA Presentation: cephalic Placenta: posterior Heart Rate: 148 bpm Amniotic Fluid Volume: Normal CLINICAL SUMMARY Study Number: 7 ? I have reviewed the FHR tracing and it is discontinuous but overall very reassuring and reactive with normal variability (moderate) & baseline (136 bpm) and without decelerations. jt IMPRESSION: 1) Ramos gestation, 36w4d. ?? 2) Biometry is consistent with appropriate growth. ?? 3) The amniotic fluid volume is within normal limits. ?? 4) Reassuring biophysical profile. ?? NOTE: The patient was advised that ultrasound does not allow detection of all structural or chromosomal abnormalities. ?? RECOMMEND: Continue testing as clinically indicated. ?? Thank you for allowing us the opportunity to care for your patient. Antoni Morataya MD <Electronic Signature> ??01/14/2020 02:49pm Jewell Acosta MD [facility] ORDERABLES documented in this encounter Visit Diagnoses Diagnosis with type 2 diabetes mellitus in second trimester (HCC)- Primary Supervision of high-risk of young primigravida (HCC) Supervision of high-risk of young primigravida Maternal morbid obesity in second trimester, antepartum (HCC) Type 2 diabetes mellitus during , third trimester (HCC) 36 weeks gestation of (HCC) state, incidental documented in this encounter Care Teams Lucerne Farmer Relationship Specialty Start Date End Date Esperanza Santillan MD [address] [place] [address] [place] [phone] PCP - General Family Medicine 09/03/12 documented as of this encounter
--- OUTSIDE RECORDS SUMMARY | 2024-10-14 01:33 | XMS_ITS | Encounter Summary ---
Author Organization [facility] Address [address] [facility] [place] [address] Care Team Providers Care Crusher Wet Ground Mica Name Role Phone Esperanza Santillan MD Primary Care Provider [phone] Reason for Visit * Reason Comments FAD NST Encounter Details Date Type Department Care Team (Latest Contact Info) Description 01/25/2020 10:30 AM CDT - 01/25/2020 11:59 PM T Hospital Encounter [facility] Maternal & Care [address] [place] [id number] Antoni Morataya MD Discharge Disposition: Home or [...] 13-19 years with HbA1C goal below 7.5 ([facility]) 2 tabs with breakfast and dinner or [...] Progress Notes * Lesly Zapata RN - 01/25/2020 10:30 AM CDT Patient came in today for NST. Patient states she called Dr. Lira's office (primary OB) regarding possible leakage of fluid and feeling pains in her vagina and abdomen. Patient states she feels like she might be julian. Dr. Lira advised patient to get her cervix checked and ROM plus here at our office because patient told him she had NST scheduled today. Patient triaged and advisedto proceed to Labor and Delivery as instructed by Dr. Lira as we do not have capability to do those things here at this office. Patient states she was 3cm in MD office yesterday.Patient verbalized understanding and states she plans to report to [facility] L&D. No NST performed today in this office. Lesly Zapata RN 01/25/2020 11:01 AM documented in this encounter Plan of Treatment Not on file documented as of this encounter Visit Diagnoses Diagnosis with type 2 diabetes mellitus in second trimester (HCC)- Primary Supervision of high-risk of young primigravida (HCC) Supervision of high-risk of young primigravida Maternal morbid obesity in second trimester, antepartum (HCC) documented in this encounter Care Teams Crusher Wet Ground Mica Relationship Specialty Start Date End Date Esperanza Santillan MD [address] [place] [address] [place] [phone] PCP - General Family Medicine 09/03/12 documented as of this encounter
--- OUTSIDE RECORDS SUMMARY | 2024-10-14 01:33 | XMS_ITS | Encounter Summary ---
Author Organization [facility] Address [address] [address] Care Team Providers Care Sweet Potato Disintegrator Name Role Phone Esperanza Santillan MD Primary Care Provider [phone] Reason for Visit * Reason Comments FAD NST Encounter Details Date Type Department Care Team (Latest Contact Info) Description 01/21/2020 9:38 AM CDT - 01/21/2020 11:59 PM CDT Hospital Encounter [facility] [address] [place], [place] [id number] Jewell Acosta MD [phone] [address] Antoni Morataya MD Discharge Disposition: Home or [...] Sign Reading Time Taken Comments Blood Pressure 105/76 01/21/2020 10:52 AM CDT Pulse 91 01/21/2020 10:52 AM CDT Temperature 36.5 ??C (97.7 ??F) 01/21/2020 10:52 AM C DT Respiratory Rate - - Oxygen Saturation - [...] 13-19 years with HbA1C goal below 7.5 ([facility]) 2 tabs with breakfast [...] Progress Notes * Lesly Zapata, RN - 01/21/2020 9:45 AM CDT Patient here today for NSTperformed at 37w4d [place] for diabetes. Patient reports positive movement. Denies cramping, contractions, bleeding, and leakage of fluid. Patient denies headache, epigastric pain and visual changes. VS per flowsheet. Lesly Zapata RN 01/21/2020 11:04 AM documented in this encounter Procedure Notes * Jewell Acosta MD - 01/21/2020 9:45 AM CDTProcedure(s): NONSTRESS TEST Non-Stress Test (NST) Melissa Jackson [id number] Indications: type 2 diabetes (with 90th %ile AC on 01/13) BP 105/76 Pulse 91 Temp 97.7 ??F (36.5 ??C) (Oral) Interpretation: FHR baseline: 140 beats/minute, moderate variability, reactive, no decels lasting >30 seconds Contractions: none Recommendations: Close maternal movement monitoring and twice weekly NSTs Jewell Acosta MD [facility] documented in this encounter Plan of Treatment Not on file documented as of this encounter Visit Diagnoses Diagnosis Type 2 diabetes mellitus during , antepartum (HCC) Weeks of gestation of not specified (HCC) state, incidental documented in this encounter Care Teams Sweet Potato Disintegrator Relationship Specialty Start Date End Date Esperanza Santillan MD [address] [place] [address] PCP - General Family Medicine 09/03/12 documented as of this encounter
--- OUTSIDE RECORDS SUMMARY | 2024-10-14 01:33 | XMS_ITS | Data Portability ---
Author Organization [facility] Address [address] [facility] [place] [address] Assessment No assessment recorded. Plan of Treatment Reminders Order Date Submit Date Provider Last Modified By Organization Details Last Modified Time Details Appointments None recorded . Lab urinalys is, dipstick 2019 [facility] Order, Internal Use Only DO Not Attach Compendium DO Not Attach Compendium, Do Not Delete/merge, [id number] 11:43:27 pregnanc y test, urine 2019 020 [facility] In-Office Order, Internal Use Only DO Not Attach Compendium DO Not Attach Compendium, Do Not Delete/merge, [id number] 0 10:45:30 urinalys is, dipstick 2019 020 [facility] In-Office Order, Internal Use Only DO Not Attach Compendium DO Not Attach Compendium, Do Not Delete/merge, [id number] 0 10:45:30 bacteria l vaginosi s panel, vaginal 2020 021 [facility], [address] [place] [address], [address], [place], [address], 1 15:11:54 culture, vaginal/ rectal, streptoc occus group B 2020 021 [facility], [address] [place] [address], [address], [place], [address], 1 15:11:54 hepatiti s panel (A+B+C), acute, serum 2020 021 [facility], [address] [facility], [address], [place], [address], 1 16:37:25 hepatiti s B surface Ab, qualitat ana, serum 2020 021 [facility], [address] [facility], [address], [place], [address], 1 16:37:25 HIV 1+2 AB + HIV 1 p24 Ag, qualitat ana immunoas say, serum 2020 [facility], 20[address] Florence Bob, [address], [address], 1 16:37:26 HSV 2 IgG Ab, QN, IA, serum 2020 GL[facility], [address] [place] [address], [address], [place], [address], 1 13:50:18 RPR (rapid plasma reagin), serum 2020 [facility], [address] [place] [address], [address], [place], [address], 1 16:37:26 Referral counseli ng referral 2019 020 tania Cihng (), [address] [place] [address], [address], 0 10:55:35 Procedures None recorded . Surgeries None recorded . Imaging None recorded . Medication Orders Slynd 4 mg (28) tablet 2019 020 [facility], [address], [place], [place], [id number], 1 12:15:56 multivit marte tablet 2019 [facility]34457, [address], [place], [place], [id number], 1 12:16:02 Calcium with Vitamin D 600 mg-10 mcg (400 unit) tablet 2019 020 [facility] #27234, [address], [place], [place], [id number], 1 12:16:17 metformi n 500 mg tablet 2019 [facility] #23509, [address], [place], [place], [id number], 0 11:37:25 Slynd 4 mg (28) tablet 2019 [facility] #84556, [address], [place], [place], [id number], 1 12:15:56 Calcium with Vitamin D 600 mg-10 mcg (400 unit) tablet 2019 [facility] #90760, [address], [place], [place], [id number], 1 12:16:17 multivit marte tablet 2019 020 [facility] #43198, [address], [place], [place], [id number], 1 12:16:02 ferrous gluconat e 324 mg (38 mg iron) tablet 2019 020 [facility] #17063, [address], [place], [place], [id number], 0 10:27:23 escitalo pram 10 mg tablet 2019 [facility] #54681, [address], [place], [place], [id number], 1 12:16:12 metformi n 500 mg tablet 2019 020 [facility] #03859, [address], [place], [place], [id number], 0 10:54:11 Slynd 4 mg (28) tablet 2019 [facility] #84755, [address], [place], [id number], 1 12:15:56 multivit marte tablet 2019 [facility] #37894, [address], [place], [place], [id number], 1 12:16:02 Calcium with Vitamin D 600 mg-10 mcg (400 unit) tablet 2019 020 [facility] #40117, [address], [place], [id number], 1 12:16:17 Linzess 145 mcg capsule 2020 021 [facility] #57607, [address], [place], [place], [id number], 1 15:11:54 multivit marte tablet 2020 021 [facility] #25145, [address], [place], [id number], 1 15:11:54 Calcium with Vitamin D 600 mg-10 mcg (400 unit) tablet 2020 021 [facility] #26492, [address], [place], [place], [id number], 15:11:54 Patient TargetsNo targets recorded. 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 [facility] Not available 08/15/2020 10:55:24 stress in parents of infants: care instructions [facility] Not available 08/15/2020 10:55:24 12/05/2020 [id number] constipation: care instructions [facility] Not available 12/05/2020 15:11:54 Reason for Referral Counseling 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 Referring Physician: Tony Lira, DIRECTOR OF LITIGATION, Encounter Date: 08/15/2020 Results Created Date Observation Date Name Description Value Unit Range Abnormal Flag Note LastModifiedBy Organization Detail LastModifiedTime 08/15/2020 urina lysis , dipst ick Leukocytes Negati ve Not Available In-Office Order Internal Use Only DO Not Attach Compendium DO Not Attach Compendium, Do Not Delete/merge, [id number] 08/15/2020 10:29:53 08/15/2020 urina lysis , dipst ick Nitrite negati ve Not Available In-Office Order Internal Use Only DO Not Attach Compendium DO Not Attach Compendium, Do Not Delete/merge, [id number] 08/15/2020 10:29:53 08/15/2020 urina lysis , dipst ick Urobilinogen .2 Not Available In-Of fice Order Internal Use Only DO Not Attach Compendium DO Not Attach Compendium, Do Not Delete/merge, [id number] 08/15/2020 10:29:53 08/15/2020 urina lysis , dipst ick Protein Negati ve Not Available In-Office Order Internal Use Only DO Not Attach Compendium DO Not Attach Compendium, Do Not Delete/merge, [id number] 08/15/2020 10:29:53 08/15/2020 urina lysis , dipst ick pH 5.5 Not Available In-Office Order Internal Use Only DO Not Attach Compendium DO Not Attach Compendium, Do Not Delete/merge, [id number] 08/15/2020 10:29:53 08/15/2020 urina lysis , dipst ick Blood Negati ve Not Available In-Office Order Internal Use Only DO Not Attach Compendium DO Not Attach Compendium, Do Not Delete/merge, [id number] 08/15/2020 10:29:53 08/15/2020 urina lysis , dipst ick Specific Chetek 1.025 Not Available In-Off ice Order Internal Use Only DO Not Attach Compendium DO Not Attach Compendium, Do Not Delete/merge, [id number] 08/15/2020 10:29:53 08/15/2020 urina lysis , dipst ick Ketone Negati ve Not Available In-Office Order Internal Use Only DO Not Attach Compendium DO Not Attach Compendium, Do Not Delete/merge, [id number] 08/15/2020 10:29:53 08/15/2020 urina lysis , dipst ick Bilirubin Negati ve Not Available In-Office Order Internal Use Only DO Not Attach Compendium DO Not Attach Compendium, Do Not Delete/merge, 08/15/2020 10:29:53 08/15/2020 urina lysis , dipst ick Glucose 500 Not Available In-Office Order Internal Use Only DO Not Attach Compendium DO Not Attach Compendium, Do Not Delete/merge, [id number] 08/15/2020 10:29:53 08/15/2020 pregn keeley test, urine HCG negati ve Not Available In-Office Order Internal Use Only DO Not Attach Compendium DO Not Attach Compendium, Do Not Delete/merge, [id number] 08/15/2020 10:29:40 01/17/2020 urina lysis , dipst ick Leukocytes Small Not Available In-Offi ce Order Internal Use Only DO Not Attach Compendium DO Not Attach Compendium, Do Not Delete/merge, [id number] 01/17/2020 11:04:25 01/17/2020 urina lysis , dipst ick Nitrite negati ve Not Available In-Office Order Internal Use Only DO Not Attach Compendium DO Not Attach Compendium, Do Not Delete/merge, 01/17/2020 11:04:25 01/17/2020 urina lysis , dipst ick Urobilinogen 1 Not Available In-Of fice Order Internal Use Only DO Not Attach Compendium DO Not Attach Compendium, Do Not Delete/merge, 01/17/2020 11:04:25 01/17/2020 urina lysis , dipst ick Protein 100 Not Available In-Office Order Internal Use Only DO Not Attach Compendium DO Not Attach Compendium, Do Not Delete/merge, 01/17/2020 11:04:25 01/17/2020 urina lysis , dipst ick pH 6.0 Not Available In-Office Order Internal Use Only DO Not Attach Compendium DO Not Attach Compendium, Do Not Delete/merge, 01/17/2020 11:04:25 01/17/2020 urina lysis , dipst ick Blood Modera te Not Available In-Office Order Internal Use Only DO Not Attach Compendium DO Not Attach Compendium, Do Not Delete/merge, 01/17/2020 11:04:25 01/17/2020 urina lysis , dipst ick Specific Chetek 1.025 Not Available In-Off ice Order Internal Use Only DO Not Attach Compendium DO Not Attach Compendium, Do Not Delete/merge, 01/17/2020 11:04:25 01/17/2020 urina lysis , dipst ick Ketone Trace Not Available In-Office Order Internal Use Only DO Not Attach Compendium DO Not Attach Compendium, Do Not Delete/merge, 01/17/2020 11:04:25 01/17/2020 urina lysis , dipst ick Bilirubin Small Not Available In-Offic e Order Internal Use Only DO Not Attach Compendium DO Not Attach Compendium, Do Not Delete/merge, 01/17/2020 11:04:25 01/17/2020 urina lysis , dipst ick Glucose Negati ve Not Available In-Office Order Internal Use Only DO Not Attach Compendium DO Not Attach Compendium, Do Not Delete/merge, 01/17/2020 11:04:25 01/10/2020 urina lysis , dipst ick Leukocytes Negati ve Not Available In-Office Order Internal Use Only DO Not Attach Compendium DO Not Attach Compendium, Do Not Delete/merge, 01/10/2020 11:01:30 01/10/2020 urina lysis , dipst ick Nitrite negati ve Not Available In-Office Order Internal Use Only DO Not Attach Compendium DO Not Attach Compendium, Do Not Delete/merge, 01/10/2020 11::30 01/10/2020 urina lysis , dipst ick Urobilinogen 1 Not Available In-Of fice Order Internal Use Only DO Not Attach Compendium DO Not Attach Compendium, Do Not Delete/merge, 01/10/2020 11:01:30 01/10/2020 urina lysis , dipst ick Protein Negati ve Not Available In-Office Order Internal Use Only DO Not Attach Compendium DO Not Attach Compendium, Do Not Delete/merge, 01/10/2020 11::30 01/10/2020 urina lysis , dipst ick pH 6.5 Not Available In-Office Order Internal Use Only DO Not Attach Compendium DO Not Attach Compendium, Do Not Delete/merge, 01/10/2020 11::30 01/10/2020 urina lysis , dipst ick Blood Negati ve Not Available In-Office Order Internal Use Only DO Not Attach Compendium DO Not Attach Compendium, Do Not Delete/merge, 01/10/2020 11:01:30 01/10/2020 urina lysis , dipst ick Specific Chetek 1.025 Not Available In-Off ice Order Internal Use Only DO Not Attach Compendium DO Not Attach Compendium, Do Not Delete/merge, 01/10/2020 11:01:30 01/10/2020 urina lysis , dipst ick Ketone Small Not Available In-Office Order Internal Use Only DO Not Attach Compendium DO Not Attach Compendium, Do Not Delete/merge, 01/10/2020 11:01:30 01/10/2020 urina lysis , dipst ick Bilirubin Negati ve Not Available In-Office Order Internal Use Only DO Not Attach Compendium DO Not Attach Compendium, Do Not Delete/merge, 01/10/2020 11:01:30 01/10/2020 urina lysis , dipst ick Glucose Negati ve Not Available In-Office Order Internal Use Only DO Not Attach Compendium DO Not Attach Compendium, Do Not Delete/merge, 01/10/2020 11:01:30 12/27/2019 urina lysis , dipst ick Leukocytes Negati ve Not Available In-Office Order Internal Use Only DO Not Attach Compendium DO Not Attach Compendium, Do Not Delete/merge, 12/27/2019 10:50:48 12/27/2019 urina lysis , dipst ick Nitrite negati ve Not Available In-Office Order Internal Use Only DO Not Attach Compendium DO Not Attach Compendium, Do Not Delete/merge, 12/27/2019 10:50:48 12/27/2019 urina lysis , dipst ick Urobilinogen .2 Not Available In-Of fice Order Internal Use Only DO Not Attach Compendium DO Not Attach Compendium, Do Not Delete/merge, 12/27/2019 10:50:48 12/27/2019 urina lysis , dipst ick Protein Negati ve Not Available In-Office Order Internal Use Only DO Not Attach Compendium DO Not Attach Compendium, Do Not Delete/merge, 12/27/2019 10:50:48 12/27/2019 urina lysis , dipst ick pH 6.5 Not Available In-Office Order Internal Use Only DO Not Attach Compendium DO Not Attach Compendium, Do Not Delete/merge, 12/27/2019 10:50:48 12/27/2019 urina lysis , dipst ick Blood Negati ve Not Available In-Office Order Internal Use Only DO Not Attach Compendium DO Not Attach Compendium, Do Not Delete/merge, 12/27/2019 10:50:48 12/27/2019 urina lysis , dipst ick Specific Chetek 1.020 Not Available In-Off ice Order Internal Use Only DO Not Attach Compendium DO Not Attach Compendium, Do Not Delete/merge, 12/27/2019 10:50:48 12/27/2019 urina lysis , dipst ick Ketone Negati ve Not Available In-Office Order Internal Use Only DO Not Attach Compendium DO Not Attach Compendium, Do Not Delete/merge, 12/27/2019 10:50:48 12/27/2019 urina lysis , dipst ick Bilirubin Negati ve Not Available In-Office Order Internal Use Only DO Not Attach Compendium DO Not Attach Compendium, Do Not Delete/merge, 12/27/2019 10:50:48 12/27/2019 urina lysis , dipst ick Glucose Negati ve Not Available In-Office Order Internal Use Only DO Not Attach Compendium DO Not Attach Compendium, Do Not Delete/merge, 12/27/2019 10:50:48 12/20/2019 urina lysis , dipst ick Leukocytes Trace Not Available In-Offi ce Order Internal Use Only DO Not Attach Compendium DO Not Attach Compendium, Do Not Delete/merge, 12/20/2019 10:16:32 12/20/2019 urina lysis , dipst ick Nitrite negati ve Not Available In-Office Order Internal Use Only DO Not Attach Compendium DO Not Attach Compendium, Do Not Delete/merge, 12/20/2019 10:16:32 12/20/2019 urina lysis , dipst ick Urobilinogen 1 Not Available In-Of fice Order Internal Use Only DO Not Attach Compendium DO Not Attach Compendium, Do Not Delete/merge, 12/20/2019 10:16:32 12/20/2019 urina lysis , dipst ick Protein Negati ve Not Available In-Office Order Internal Use Only DO Not Attach Compendium DO Not Attach Compendium, Do Not Delete/merge, 12/20/2019 10:16:32 12/20/2019 urina lysis , dipst ick pH 7.0 Not Available In-Office Order Internal Use Only DO Not Attach Compendium DO Not Attach Compendium, Do Not Delete/merge, 12/20/2019 10:16:32 12/20/2019 urina lysis , dipst ick Blood Negati ve Not Available In-Office Order Internal Use Only DO Not Attach Compendium DO Not Attach Compendium, Do Not Delete/merge, 12/20/2019 10:16:32 12/20/2019 urina lysis , dipst ick Specific Chetek 1.025 Not Available In-Off ice Order Internal Use Only DO Not Attach Compendium DO Not Attach Compendium, Do Not Delete/merge, [id number] 12/20/2019 10:16:32 12/20/2019 urina lysis , dipst ick Ketone Small Not Available In-Office Order Internal Use Only DO Not Attach Compendium DO Not Attach Compendium, Do Not Delete/merge, 12/20/2019 10:16:32 12/20/2019 urina lysis , dipst ick Bilirubin Small Not Available In-Offic e Order Internal Use Only DO Not Attach Compendium DO Not Attach Compendium, Do Not Delete/merge, 12/20/2019 10:16:32 12/20/2019 urina lysis , dipst ick Glucose Negati ve Not Available In-Office Order Internal Use Only DO Not Attach Compendium DO Not Attach Compendium, Do Not Delete/merge, 12/20/2019 10:16:32 01/10/20 20 01/12/2020 bacte rial vagin osis + vagin itis panel , vagin al trich vag by CHANCE NEGATI VE negati ve Not Available [facility] ([facility]) [address] [place], [address], 01/14/2020 08:10:10 01/10/20 20 01/12/2020 bacte rial vagin osis + vagin itis panel , vagin al chlamydia trachomatis, CHANCE NEGATI VE negati ve Not Available [facility] ([facility]) [address] [place], [address], 01/14/2020 08:10:10 01/10/20 20 01/12/2020 bacte rial vagin osis + vagin itis panel , vagin al neisseria gonorrhoeae, CHANCE NEGATI VE negati ve Not Available [facility] ([facility]) [address] [place], [address], 01/14/2020 08:10:10 01/10/20 20 01/14/2020 bacte rial vagin osis + vagin itis panel , vagin al atopobium vaginae LOW - 0 score Not Available [facility] ([facility]) [address] [place], [address], 01/14/2020 08:10:10 01/10/20 20 01/14/2020 bacte rial vagin osis + vagin itis panel , vagin al bvab 2 LOW - 0 score Not Available [facility] ([facility]) [address] [facility], [place], [address], 01/14/2020 08:10:10 01/10/2001/14/2020 bacte rial vagin osis + vagin itis panel , vagin al megasphaera 1 LOW - 0 score Calcu late total score by nestor jenkins the 3 indiv idual bacte rial vagin osis (BV) marke r score s toget her. Total score is inter prete d as follo ws: Total score 0-1: Indic ates the absen ce of BV. Total score 2: Indet ermin ate for BV. Addit ional clini annalisa data shoul d be evalu ated to estab gabrielle a diagn osis. Total score 3-6: Indic ates the prese nce of BV. This test was devel oped and its perfo rmanc e jose cteri stics deter mined by [facility]. It has not been clear ed or appro michael by the Food and Drug Admin istra tion. The FDA has deter mined that such clear ance or appro porsche is not neces kerry. Not Available [facility] ([facility]) [address] [facility], [place], [address], 01/14/2020 08:10:10 01/10/2001/14/2020 bacte rial vagin osis + vagin itis panel , vagin al aslly albicans, CHANCE NEGATI VE negati ve Not Available [facility] ([facility]) [address] [facility], [place], [address], 01/14/2020 08:10:10 01/10/20 20 01/14/2020 bacte rial vagin osis + vagin itis panel , vagin al sally glabrata, CAHNCE NEGATI VE negati ve Not Available [facility] ([facility]) [address] [facility], [place], [address], 01/14/2020 08:10:10 01/10/2001/14/2020 HSV (1+2) DNA, qual, PCR, unspe cifie d speci men hsv 1 CHANCE NEGATI VE negati ve Not Available [facility] ([facility]) [address] [place], [address], 01/14/2020 08:10:11 01/10/20 20 01/14/2020 HSV (1+2) DNA, qual, PCR, unspe cifie d speci men hsv 2 CHANCE NEGATI VE negati ve Not Available [facility] ([facility]) [address] [facility], [place], [address], 01/14/2020 08:10:11 01/10/20 20 01/12/2020 cultu re, vagin al/re ctal, strep tococ cus group B strep gp B CHANCE NEGATI VE negati ve Cente rs for Disea se Contr ol and Preve ntion (CDC) and Ameri can Congr ess of Obste trici ans and Gynec ologi sts (ACOG ) guide lines for preve ntion of perin atal group B strep tococ annalisa (GBS) disea se speci fy co-co llect ion of a vagin al and recta l swab speci men to maxim ize sensi tivit y of GBS detec tion. Per the CDC and ACOG, swabb ing both the lower vagin a and rectu m subst antia lly incre ases the yield of detec tion keara red with sampl ing the vagin a alone . Penic illin G, ampic illin , or cefaz melissa are indic ated for intra partu m proph ylaxi s of perin atal GBS colon izati on. Refle x susce ptibi lity testi ng shoul d be perfo rmed prior to use of clind amyci n only on GBS isola jet from penic illin -[place] rgic women who are consi dered a high risk for anaph ylaxi s. Treat ment with vanco mycin witho ut addit ional testi ng is warra nted if resis tance to clind amyci n is noted . Not Available [facility] ([facility]) [address] [facility], [place], [address], 01/14/2020 08:10:12 12/24/19 20 12/24/2019 imagi ng/di agnos tic resul t No observ ation record ed. [facility] [address], [address], 12/28/2019 08:03:46 12/27/19 20 12/24/2019 imagi ng/di agnos tic resul t No observ ation record ed. [facility] [address] [place] [address], [address], 12/28/2019 08:03:46 01/14/20 20 01/14/2020 US, obste tric, 3rd trime ster No observ ation record ed. [facility] [address] [place] [address], [address], 01/17/2020 11:47:00 01/17/20 20 01/14/2020 US, obste tric, bioph ysica l profi le + non-s tress test No observ ation record ed. [facility] [address] [place] [address], [address], 01/17/2020 15:06:45 Result Notes None recorded. 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 Active 2018 [place] - [facility] 0 11:41:40 Polycyst ic ovary syndrome 765701362 Completed 2018 TRINID[place] Vasquez - [facility] 0 11:41:40 Anemia 831327216 Completed 2018 Tony garcia [place] - [facility] 0 11:41:40 Anemia 155350409 Active 2018 [place] [facility] 0 11:41:40 Irritabl e bowel syndrome 67378313 Completed 2018 [place] - [facility] 0 11:41:40 Irritabl e bowel syndrome 68422328 Active 2018 [place] - [facility] 0 11:41:40 [facility] 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 Procedures Surgical History Date Name Laterality Status Provider Name and Address Organization Details Recorded Time 09/14/2019 Date of Last Pap Smear completed [place] - [facility] 09/14/2019 15:53:29 Imaging Results Imaging Date Name Status LastModified by Organiz ation Details LastModified Time 12/24/2019 imaging/diagnos tic result completed [facility] [address], [address], 12/28/2019 08:03:46 12/24/2019 imaging/diagnos tic result completed [facility] [address], [address], 12/28/2019 08:03:46 01/14/2020 US, obstetric, 3rd trimester completed [facility] [address], [address], 01/17/2020 11:47:00 01/14/2020 US, obstetric, biophysical profile + non-stress test completed [facility] [address], [address], 01/17/2020 15:06:45 Procedure Notes None recorded. Medical Equipment None Reported. Allergies No known drug allergies Medications Name Sig Start Date Stop Date Status Note LastModified by Organization Details LastModified Time multivitami n tablet Take 1 tablet every day by oral route. 2020 active Not Available Not Available Not Avai lable dicloxacill in 500 mg capsule 08/15 completed Not Available Not Available Not Available metformin 500 mg tablet TK 1 T PO BID active Not Available Not Available No t Available terconazole 0.4 % vaginal cream 09/14 completed Not Available Not Available Not Available Vitamin B-6 25 mg tablet 09/14 completed Not Available Not Available Not Available fluconazole 150 mg tablet Take 1 tablet by oral route. 12/05 completed Not Available Not Available Not Available FreeStyle Lancets 28 gauge active Not Available Not Available Not Available phenazopyri dine 200 mg tablet 09/14 completed Not Available Not Available Not Available terconazole 0.8 % vaginal cream Insert 1 applicato rful every day by vaginal route at bedtime. 12/05 completed Not Available Not Available Not Available penicillin V potassium 500 mg tablet Take 1 tablet twice a day by oral route for 10 days. 10/15 completed Not Available Not Available Not Available sulfamethox azole 800 mg-trimetho prim 160 mg tablet 12/05 completed Not Available Not Available Not Available aspirin 81 mg tablet,sharron yed release Take 2 tablets every day by oral route. 02/16 completed Not Available Not Available Not Available Vitamin tablet Take 1 tablet every day by oral route as directed for 90 days. 12/26 completed Not Available Not Available Not Available terconazole 80 mg vaginal suppository 09/14 completed Not Available Not Available Not Available erythromyci n 5 mg/gram (0.5 %) eye ointment 08/15 completed Not Available Not Available Not Available nystatin 100,000 unit/gram topical cream 09/14 completed Not Available Not Available Not Available progesteron e micronized 200 mg capsule Take 1 capsule twice a day by oral route. 01/09 completed Not Available Not Available Not Available folic acid 1 mg tablet Take 4 tablets every day by oral route. 08/15 completed Not Available Not Available Not Available ibuprofen 600 mg tablet active Not Available Not Available Not Available azithromyci n 200 mg/5 mL oral suspension 08/15 completed Not Available Not Available Not Available letrozole 2.5 mg tablet 09/14 completed Not Available Not Available Not Available ondansetron 4 mg disintegrat ing tablet Take 1 tablet every 8 hours by oral route as needed. 02/16 completed Not Available Not Available Not Available metformin ER 500 mg tablet,exte nded release 24 hr 09/14 completed Not Available Not Available Not Available dicyclomine 10 mg capsule Take 1 capsule 3 times a day by oral route as needed. 01/09 completed Not Available Not Available Not Available metoclopram maikel 10 mg tablet Take 1 tablet 4 times a day by oral route as directed. 08/15 completed Not Available Not Available Not Available escitalopra m 10 mg tablet TK 1 T PO QD 12/05 completed Not Available Not Available Not Available nitrofurant oin monohydrate /macrocryst als 100 mg capsule 09/14 completed Not Available Not Available Not Available ferrous gluconate 324 mg (38 mg iron) tablet Take 1 tablet twice a day by oral route. 08/15 completed Not Available Not Available Not Available FreeStyle Lite Strips active Not Available Not Available Not Available Calcium with Vitamin D3 600 mg (carbonate) -10 mcg (400 unit) capsule Take 1 capsule twice a day by oral route. 01/09 completed Not Available Not Available Not Available Calcium with Vitamin D 600 mg-10 mcg (400 unit) tablet Take 1 tablet twice a day by oral route. 2020 active Not Available Not Available Not Avai lable Linzess 145 mcg capsule TAKE 1 CAPSULE BY MOUTH EVERY DAY active Not Available Not Available No t Available Virtussin AC 10 mg-100 mg/5 mL oral liquid 09/14 completed Not Available Not Available Not Available Vol-Plus 27 mg iron-1 mg tablet 09/14 completed Not Available Not Available Not Available clindamycin 1 % topical gel, once daily 08/15 completed Not Available Not Available Not Available Slynd 4 mg (28) tablet Take 1 tablet every day by oral route. 12/05 completed Not Available Not Available Not Available Vitals Date Recorded Body height Body mass index (BMI) Systolic blood pressure Diastolic blood pressure Provider Name and Address Organization Details Last Updated DateTime 01/17/2020 152.4 cm 36.3 kg/m2 110 mm[Hg] 64 mm[Hg] Samaria Raza MA [facility] 01/17/2020 11:11:16 Date Recorded Body weight Provider Name an d Address Organization Details Last Updated DateTime 01/17/2020 68408.24535 g Tony Lira [facility] 020 16:09:49 Date Recorded Body height Body mass index (BMI) Body weight Provider Name and Address Organization Details Last Updated DateTime 02/17/2020 152.4 cm 34 kg/m2 92478.07 g Milana River MA [facility] 02/17/2020 12:15:28 Date Recorded Body height Body mass index (BMI) Systolic blood pressure Diastolic blood pressure Provider Name and Address Organization Details Last Updated DateTime 04/03/2020 152.4 cm 36.3 kg/m2 110 mm[Hg] 86 mm[Hg] Milana River MA [facility] 04/03/2020 10:49:31 Date Recorded Body weight Provider Name an d Address Organization Details Last Updated DateTime 04/03/2020 99754.05312 g Tony Lira [facility] 020 11:26:49 Date Recorded Body height Provider Name an d Address Organization Details Last Updated DateTime 08/15/2020 152.4 cm Madiha lowe MA [facility] 08/15/2020 10:17:03 Date Recorded Body mass index (BMI) Body weight Systolic blood pressure Diastolic blood pressure Provider Name and Address Organization Details Last Updated DateTime 08/15/2020 38.5 kg/m2 61508.7 g 122 mm[Hg] 76 mm[Hg] Milana River MA [facility] 08/15/2020 10:31:41 Date Recorded Body height Body mass index (BMI) Body weight Provider Name and Address Organization Details Last Updated DateTime 12/05/2020 152.4 cm 36.9 kg/m2 11451.96 g Dorita Bennett MA [facility] 12/05/2020 12:15:28 Social History Question Answer Notes LastModified by Organizat ion Details LastModified Time Tobacco Smoking Status Never Smoker Milana River MA null, [facility] 09/14/2019 16:04:02 Do You Have An Advance Directive? No Information not available 12/27/2019 What Is Your Level Of Alcohol Consumption? None Information not available 09/14/2019 If You Are , What Was Your Level Of Alcohol Consumption Prior To ? Occasional Information not available 09/14/2019 Is Anesthesia Consult Planned? No Epidural Only If Needed Information not available 12/27/2019 Plan Yes Information n ot available 12/27/2019 Is Blood Transfusion Acceptable In An Emergency? Yes Information not available 09/14/2019 What Is Your Level Of Caffeine Consumption? Moderate TEA AND SODA Information not available 12/05/2020 Live With Cats/exposure To Cat Litter Yes Pt States Partner Changes Litter Box Information not available 09/14/2019 How Much Tobacco Do You Chew? None Information not available 09/14/2019 In The 14 Days Before Symptom Onset, Have You Had Close Contact With A Laboratory-confi rmed COVID-19 While That Case Was Ill? No Information not available 12/05/2020 In The 14 Days Before Symptom Onset, Have You Had Close Contact With A Person Who Is Under Investigation For COVID-19 While That Person Was Ill? No Information not available 12/05/2020 Have You Been To An Area Known To Be High Risk For COVID-19? No Information not available 12/05/2020 What Type Of Diet Are You Following? REGULAR Information not available 09/14/2019 Which Illicit Or Recreational Drugs Have You Used? None Information not available 09/14/2019 Do You Or Have You Ever Used E-cigarettes Or Vape? Never Used Electronic Cigarettes Information not available 09/14/2019 Education 12 GED Information n ot available 09/14/2019 What Is The Highest Grade Or Level Of School You Have Completed Or The Highest Degree You Have Received? [id number] Information not available 12/05/2020 What Is Your Occupation? [employer] Information not available 12/05/2020 Have There Been Any Changes To Your Family Or Social Situation? No Information not available 09/14/2019 Frequent Air Travel No Information not available 09/14/2019 Illicit Drugs Pre- None Information not available 09/14/2019 Live Alone Or With Others? With Others Information not available 09/14/2019 Marital Status Domestic Partner Information not available 09/14/2019 What Was The Date Of Your Most Recent Tobacco Screening? 08/15/2020 Information not available 08/15/2020 How Many Children Do You Have? 1 Information not available 02/17/2020 Do You Have Any Pets? No Information not available 12/05/2020 Do You Use Protection During Sex? Usually Information not available 12/05/2020 What Is Your Relationship Status? Single Information not available 12/05/2020 Do You Use Your Seat Belt Or Car Seat Routinely? Yes Information not available 12/05/2020 Seat Belts Used Routinely Yes Information not available 09/14/2019 Are You Sexually Active? Yes Information not available 09/14/2019 Do You Have Smoke And Carbon Monoxide Detectors In Your Home? Yes Information not available 09/14/2019 Are You Passively Exposed To Smoke? Yes Information not available 09/14/2019 Do You Or Have You Ever Used Smokeless Tobacco? Never Used Smokeless Tobacco Information not available 09/14/2019 How Much Tobacco Do You Smoke? No Information not available 11/15/2019 Smoking Pre- No Information not available 09/14/2019 General Stress Level Medium Information not available 09/14/2019 Do You Feel Stressed (tense, Restless, Nervous, Or Anxious, Or Unable To Sleep At Night)? [id number] Information not available 12/05/2020 Do You Use Any Illicit Or Recreational Drugs? No Information not available 12/05/2020 Do You Use Sunscreen Routinely? No Information not available 09/14/2019 Supplements None Information not available 09/14/2019 On What Date Was Tobacco Cessation Counseling Provided? 08/15/2020 Information not available 08/15/2020 How Many Years Have You Smoked Tobacco? 0 Information not available 11/15/2019 Do You Or Have You Ever Used Any Other Forms Of Tobacco Or Nicotine? No Information not available 12/05/2020 Sex: Female Functional Status Question Answer Note LastModified by Organization D etails LastModified Time What is your exercise level? None Information not available 09/14/2019 Mental Status None recorded. Family History Relationship Description Onset Age of this Age Resolved Age Notes LastModified by Organization Details LastModified Time Maternal Grandmother Lymphoma finding grandm a Dx late 50,s still living , cb-rma cbradshawma Not available 09/14/2019 15:55:57 Medical History Condition Response Other N High Blood Pressure N Breast Cancer N Thyroid Problems N Kidney or Bladder Problems N Lung Disease N Depression N Blood Clots N GI Problems Y Acne N Breast Problem N Eating Disorder N Anemia Y Anesthesia Complications N Headaches/Migraines N Ovarian Cancer N Diabetes Y Anxiety Disorder N Muscle, Joint, or Bone Problems N Blood Transfusions N Seizures/Epilepsy N Polyps N Infertility Y Acid Reflux (GERD) Y Cancer N Abuse/Domestic Violence N Asthma N Endometriosis N High Cholesterol N Hepatitis N Liver Disease N Heart Disease N Pre-Eclampsia N Osteoporosis N Gynecological History Statement/Question Response Flow Moderate Date of LMP 11/02/2020 On BCP's at Conception? N STIs/STDs Y HPV Vaccine N Duration of Flow (days) 7 Age at Menarche 13 Current Control Method None Age at First Child 19 Frequency of Cycle (Q days) 28 Sexually Active? Y Menses Monthly Y Date of Last Pap Smear 09/14/2019 Sexual Problems? N LMP Approximate Desired Control Method None Obstetrics History GPAL:G 1 P 1 0 0 1 Type Value Multiple Births 0 Full Term 1 Induced 0 Spontaneous 0 Premature 0 Living 1 Ectopics 0 Total 1 Past Encounters Encounter ID Performer Location Encounter Start Date Encounter Closed Date Diagnosis/Indication Diagnosis SNOMED-CT Code Diagnosis ICD10 Code Diagnosis Note [id number] Tony Ching (DIRECTOR OF LITIGATION) [address] [place] [address] [id number] 09/14/2019 14:49:02 09/15/2019 11:45:08 Routine care 304153572 Z34.90 Venereal d isease screening 647072555 Z11.3 screening 2437 88407 Z36.85 Diabetes mellitus 456209 09 E11.9 Irritable bowel syndrome 40825728 K58.9 Polycystic ovary syndrome 707873088 E28.2 Anemia 919511594 D64.9 Candidiasis of vagina 72 779297 B37.3 Candidiasis 95775583 B37 .9 [id number] HUGO CORCORAN (DIRECTOR OF LITIGATION) [address] [place] [address] [id number] 09/27/2019 11:30:33 09/28/2019 12:03:52 Routine care 796644415 Z34.02 Homozygous methylenetetrahydrofo late reductase mutation 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 [id number] HUGO CORCORAN (DIRECTOR OF LITIGATION) [address] [place] [address] [id number] 10/15/2019 10:53:26 10/21/2019 07:56:31 Routine care 427465462 Z34.02 Homozygous methylenetetrahydrofo late reductase mutation 2352698085 81103 E72.12 Diabetes mellitus 683181 09 E11.9 On metformin, FBG 80-90s. Follows with MFM. Advised pt to continue taking fasting and postprandi al BG and keep journal. Low lying placenta 87270 2007 O44.42 Seen on US 10/04. Has f/u US scheduled with MFM on 11/01. Irritable bowel syndrome 22430019 K58.9 No BM in 3 days. Likely contributi ng to abdominal pain. Pt has dicyclomin e at home but has not taken it since being . Take medication s as prescribed . 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 Routine an tenatal care 811629662 Z34.90 [id number] Tony Ching (DIRECTOR OF LITIGATION) [address] [place] [address] [id number] 11/15/2019 10:32:47 11/16/2019 10:07:01 Routine care 231215564 Z34.90 Diabetes mellitus 509493 09 E11.9 continue NST/BPP weekly Group [facility] reptococcus carrier 3143126564 103 Z22.330 Homozygous methylenetetrahydrofo late reductase mutation 3850552292 87986 E72.12 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 Polycystic ovary syndrome 686445103 E28.2 Irritable bowel syndrome 33941307 K58.9 screening 2437 68822 Z36.9 to be done in lue of 1hr GTT due to T2DM [id number] Tony Ching (DIRECTOR OF LITIGATION) [address] [place] [address] [id number] 0 11/29/2019 11:29:47 11/30/2019 11:18:06 Routine care 225004892 Z34.90 Homozygous methylenetetrahydrofo late reductase mutation 7400812099 24552 E72.12 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 3526370653 103 Z22.330 Diabetes mellitus 933739 09 E11.9 On metformin alone continue NST/BPP weekly [id number] Tony Ching (DIRECTOR OF LITIGATION) [address] [place] [address] [id number] 0 12/13/2019 11:11:26 12/13/2019 12:06:28 Homozygous methylenetetrahydrofo late reductase mutation 2750271598 52853 E72.12 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 9546132444 103 Z22.330 Diabetes mellitus 221293 09 E11.9 On metformin alone continue NST/BPP weekly Polycystic ovary syndrome 408323974 E28.2 Routine an tenatal care 736657043 Z34.90 4/ for night induction Anemia 325952229 D64.9 Gastroesop hageal reflux disease without esophagitis 038580091 K21.9 Banana therapy- eat one banana before bed and another in the morning [id number] Tony Ching (DIRECTOR OF LITIGATION) [address] [place] [address] [id number] 12/20/2019 09:47:22 12/21/2019 09:00:39 Routine care 631438413 Z34.90 4/ for night induction, may need to be done at [facility] due to DM Diabetes mellitus 622414 09 E11.9 On metformin alone continue NST/BPP weekly Group B [facility] reptococcus carrier 5543615094 103 Z22.330 Homozygous methylenetetrahydrofo late reductase mutation 3667042599 03648 E72.12 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 Irritable bowel syndrome 88781690 K58.9 Polycystic ovary syndrome 760945520 E28.2 Anemia 657279588 D64.9 [id number] Tony Ching (DIRECTOR OF LITIGATION) [address] [place] [address] [id number] 12/27/2019 10:10:55 12/27/2019 11:35:13 Routine care 016697714 Z34.90 01/26 for night induction, may need to be done at [facility] due to DM Homozygous methylenetetrahydrofo late reductase mutation 3734917427 28288 E72.12 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 2936359050 103 Z22.330 Diabetes mellitus 878244 09 E11.9 On metformin alone continue NST/BPP twice weekly Irritable bowel syndrome 98052070 K58.9 Anemia 625647014 D64.9 Family judy nning surveillance 529442703 Z30.09 [id number] Tony Ching [facility] (DIRECTOR OF LITIGATION) [address] [place] [address] [id number] 0 01/10/2020 10:45:53 01/11/2020 09:14:29 Routine care 429302504 Z34.90 01/26 for night induction, may need to be done at [facility] due to DM pt [facility] Diabetes mellitus 314143 09 E11.9 On metformin alone continue NST/BPP twice weekly Anemia 096849214 D64.9 Homozygous methylenetetrahydrofo late reductase mutation 0108776088 44600 E72.12 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 4174004531 103 Z22.487 [id number] Tony Ching [facility] (DIRECTOR OF LITIGATION) [address] [place] [address] [id number] 0 01/17/2020 10:47:03 01/28/2020 11:11:50 Routine care 912862878 Z34.90 01/[address] Garcia, pt [facility] Homozygous methylenetetrahydrofo late reductase mutation 3403641337 77413 E72.12 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 Diabetes mellitus 033786 09 E11.9 On metformin alone continue NST/BPP twice weekly Group B St reptococcus carrier 1518860956 103 Z22.330 Irritable bowel syndrome 06063383 K58.9 [id number] Tony Ching [facility] (DIRECTOR OF LITIGATION) [address] [place] [address] [id number] 0 02/17/2020 11:21:15 02/18/2020 11:16:26 care 035651741 Z39.2 Family judy nning surveillance 743137005 Z30.09 [id number] Tony Ching (DIRECTOR OF LITIGATION) [address] [place] [address] [id number] 0 04/03/2020 10:36:35 04/04/2020 09:43:03 care 584989535 Z39.2 [facility] nning surveillance 578605498 Z30.09 Diabetes mellitus 141673 09 E11.9 On metformin alone continue NST/BPP twice weekly Anemia 061055101 D64.9 [id number] Tony Ching (DIRECTOR OF LITIGATION) [address] [place] [address] [id number] 0 08/15/2020 10:13:17 08/24/2020 12:34:41 Family planning surveillance 451722747 Z30.09 Homozygous methylenetetrahydrofo late reductase mutation 1264514188 84915 E72.12 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 9793504317 103 Z22.330 Diabetes mellitus 709046 09 E11.9 On metformin alone continue NST/BPP twice weekly depression 58 642901 F53.0 [id number] Tony Ching (DIRECTOR OF LITIGATION) [address] [place] [address] [id number] 0 12/05/2020 12:12:31 12/14/2020 17:53:39 Homozygous methylenetetrahydrofo late reductase mutation 6737641406 24585 E72.12 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 Polycystic ovary syndrome 905404954 E28.[address] reptococcus carrier 8988233290 103 Z22.330 [facility] nning surveillance 506088464 Z30.09 Constipation 99334518 K5 9.00 Exposure t o sexually transmissible disorder 426660109 Z20.2 Diabetes mellitus 561958 09 E11.9 On metformin alone continue NST/BPP twice weekly Health Concerns Section Related Observation LastModified by Organization Detai ls LastModified Time None Recorded Concern Status LastModified by Organization Details LastModified Time None Recorded Advance Directives Directive N: Payers Encounter Date Sequence Insurance Name Policy Number Policy Pierce Covered Member ID Pierce Member ID Guarantor Name 01/17/2020 1 [facility] PRIOR TO 04/05/2021 (MEDICAID REPLACEMENT - HMO) Melissa Cole [id number] Melissa Manuel 02/17/2020 1 [facility] PRIOR TO 04/05/2021 (MEDICAID REPLACEMENT - HMO) Melissa Cole [id number] Melissa Manuel 04/03/2020 1 [facility] PRIOR TO 04/05/2021 (MEDICAID REPLACEMENT - HMO) Melissa Jackson [id number] Melissa Manuel 08/15/2020 1 [facility] PRIOR TO 04/05/2021 (MEDICAID REPLACEMENT - HMO) Melissa Jackson [id number] Melissa Manuel 12/05/2020 1 [facility] PRIOR TO 04/05/2021 (MEDICAID REPLACEMENT - HMO) Melissa Jackson [id number] Melissa Jackson Notes Date Note Type Note Provider Name and Address Organization Details Recorded Time 01/17/2020 text/html OB ProblemReport ed bypatient.Associated Symptoms:no abdominal pain; no cramping; no contractions; normal movement; no bleeding; no ROM; no vaginal discharge; no vaginal/vulvar itching or irritation; no dysuria; no frequency; no urgency; no hematuria; no fever; no nausea; no emesis; no constipation; no diarrhea/loose stool; no edema; no visual changes; no headache; no dizziness 19 yo WF here for ANDRIA at 37.2 wks. Hx of DM on metformin, MTHR, GBS, PCOS, and IBS. She has had movement today. nst 2x/week [facility] [place] TRINIDAD Vasquez SIKwasi 01/17/2020 16:10:27 02/17/2020 text/html VisitReported bypatient.Associated Symptoms:no abnormal bleeding; no pelvic pain; laceration well healed; no constipation; no fecal incontinence; no dysuria; no urinary incontinence; no fever; no problems; no mastitis 19 yo WF here for pp. Hx of DM on metformin, MTHR, GBS, PCOS, and IBS. She had SVVD @ [facility] in [place] by TRINIDAD Nicholas SIKwasi 02/17/2020 12:22:14 04/03/2020 text/html VisitReported bypatient.Associated Symptoms:no abnormal bleeding; no pelvic pain; laceration well healed; no constipation; no fecal incontinence; no dysuria; no urinary incontinence; no fever; no problems; no mastitis 19 yo WF here for pp. Hx of DM on metformin, MTHR, GBS, PCOS, and IBS. She had SVVD @ [facility] in [facility] by Dr Radha garcia [facility] 04/03/2020 11:42:20 08/15/2020 text/html VisitReported bypatient.Associated Symptoms:no abnormal bleeding; no pelvic pain; laceration well healed; no constipation; no fecal incontinence; no dysuria; no urinary incontinence; no fever; no problems; no mastitisNotes:20 y/o s/p in January 2020 presenting for post- depression. Reports worsening depressive symptoms x 1 month. Endorses low mood, anhedonia, increased sleep, eating more, feelings of hopelessness. No difficulty concentrating. No suicidal ideation. Has never been treated for depression in the past. No psychiatric Hx. TRINIDAD Vasquez SI 08/15/2020 16:59:47 12/05/2020 text/html Sexually Transmi tted InfectionReported bypatient.Associated Symptoms:no abdominal pain; no anal warts; no back pain; no chills; no constipation; no diarrhea; no dribbling; no dysuria; no emptying; no fever; no frequency; no groin pain; no hematuria; no nausea; no nocturia; no odor; no painful intercourse; no penile blisters; no penile rash; no penile warts; no perineum warts; no pruritus; no straining stream; no stress incontinence; no temperature; no urethral discharge; no urethral itch; no urgency; no urge incontinence; no vomiting; no weight loss; clear discharge, thick mucus 20yo F with h/o MTHFR, PCOS, GERD, anemia, GBS, type 2 DM, IBS, infertility who presents by phone who requests STD testing because of exposure. TRINIDAD Vasquez SI 12/05/2020 21:08:56 OBGyn Episode Ob Episode Information Episode Created Date Number of Fetuses Patient Bloodtype Patient rh Status Prepregnancy Weight lbs Domestic Partner Domestic Partner Phone Father Name Portable Track Line Marker Status 09/14/20 19 1 187 CLOSED Fetus Data First Name Last Name Admitted to NICU Weight (g) Sex Living Outcome Pediatric Complications Fetus ID Race Codes Race Delivery Type Thu Dubois false 3118.44 5 M true Full Term PEDS Dr. 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 [employer] 12/27/2019 mds Pt wants to deliver of Tristen if not [facility], -a Pt has an appointment on 01/[address] 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 Diabetes mellitus 9 20045796 Westley Calculation Initial Westley Date Initial Exam Date Initial Exam Provider Initial Ultrasound Date Last Menstrual Period Date Ultra Sound Weeks Gestation 02/05/2020 09/14/2019 tania 09/14/2019 05/01/2019 19 Eighteen To Twenty Week Westley Update Ultra Sound Date Fundal Height At Umbil Quickening Date Ultra Sound Latest Weeks Gestation Final Westley Confirmed By Final Westley Confirmed Date Final Westley Date Ultra Sound Latest Days Gestation 09/14/20 19 [facility] 09/21/2019 05/ 020 3 Pre- Flowsheet Flowsheet Date 09/14/2019 Patel Score Blood Edema Fundus Height Fundus Units Glucose Ketones Leukocytes Nitrite Labor Signs Protein Cervic Dilation Cervic Effacement Cervic Station neg none 19 wks none negative none neg Type Weight in lbs Pre/Post Dialysis Refused Weight 187.230114010860 BP Diastolic BP Location Tested BP Systolic BP Type 64 110 sitting Fetus Heart Rate Present A 150 Present Fetus Movement A Yes Comments nob hi risk T2DM Flowsheet Date 09/27/2019 Patel Score Blood Edema Fundus Height Fundus Units Glucose Ketones Leukocytes Nitrite Labor Signs Protein Cervic Dilation Cervic Effacement Cervic Station neg none none small neg Type Weight in lbs Pre/Post Dialysis Refused Weight 185.306479642286 BP Diastolic BP Location Tested BP Systolic BP Type 70 118 sitting Fetus Heart Rate Present Fetus Movement Comments ACOG. New OB packet reviewed and provided to patient. Flowsheet Date 10/15/2019 Patel Score Blood Edema Fundus Height Fundus Units Glucose Ketones Leukocytes Nitrite Labor Signs Protein Cervic Dilation Cervic Effacement Cervic Station neg none 23 wks none negative Cramping neg Type Weight in lbs Pre/Post Dialysis Refused Weight 185.295669914497 BP Diastolic BP Location Tested BP Systolic BP Type 80 110 sitting Fetus Heart Rate Present A 145 Present Fetus Movement A Yes Comments Pt follows with MFM for DM2. Will continue on oral medications at this time. Checking fasting and postprandial BG. US on 10/04 with low lying placenta - follow up US scheduled for 11/01. echocardiogram scheduled for 10/19. Case discussed with Dr. Lira. Flowsheet Date 10/26/2019 Patel Score Blood Edema Fundus Height Fundus Units Glucose Ketones Leukocytes Nitrite Labor Signs Protein Cervic Dilation Cervic Effacement Cervic Station Cramping Type Weight in lbs Pre/Post Dialysis Refused BP Diastolic BP Location Tested BP Systolic BP Type 76 110 sitting Fetus Heart Rate Present A 147 Present Fetus Movement Comments Flowsheet Date 11/15/2019 Patel Score Blood Edema Fundus Height Fundus Units Glucose Ketones Leukocytes Nitrite Labor Signs Protein Cervic Dilation Cervic Effacement Cervic Station none 28 wks none Type Weight in lbs Pre/Post Dialysis Refused With clothes 187.442527333862 BP Diastolic BP Location Tested BP Systolic BP Type 74 110 sitting Fetus Heart Rate Present A 143 Present Fetus Movement A Yes Comments Flowsheet Date 11/29/2019 Patel Score Blood Edema Fundus Height Fundus Units Glucose Ketones Leukocytes Nitrite Labor Signs Protein Cervic Dilation Cervic Effacement Cervic Station neg trace 30 wks none negative none neg Type Weight in lbs Pre/Post Dialysis Refused Weight 190.481515236697 BP Diastolic BP Location Tested BP Systolic BP Type 82 126 sitting Fetus Heart Rate Present A 148 Present Fetus Movement A Yes Comments Flowsheet Date 12/13/2019 Patel Score Blood Edema Fundus Height Fundus Units Glucose Ketones Leukocytes Nitrite Labor Signs Protein Cervic Dilation Cervic Effacement Cervic Station neg none 30 cm none trace [place] neg Type Weight in lbs Pre/Post Dialysis Refused With clothes 186.386589532172 BP Diastolic BP Location Tested BP Systolic BP Type 82 122 sitting Fetus Heart Rate Present A 140 Present Fetus Movement A Yes Comments Banana therapy- eat one bana na before bed and another in the morning Flowsheet Date 12/20/2019 Patel Score Blood Edema Fundus Height Fundus Units Glucose Ketones Leukocytes Nitrite Labor Signs Protein Cervic Dilation Cervic Effacement Cervic Station neg none 32 cm none trace none neg Type Weight in lbs Pre/Post Dialysis Refused Weight 185.242889317759 BP Diastolic BP Location Tested BP Systolic BP Type 70 112 sitting Fetus Heart Rate Present A 150 Present Fetus Movement A Yes Comments Patient notified about [place] [facility] shortage, and on diversion. Patient was given options for delivery and chose to deliver at [facility]. Information given, phone number, sent. Flowsheet Date 12/27/2019 Patel Score Blood Edema Fundus Height Fundus Units Glucose Ketones Leukocytes Nitrite Labor Signs Protein Cervic Dilation Cervic Effacement Cervic Station neg none 34 wks none negative none neg Type Weight in lbs Pre/Post Dialysis Refused With clothes 186.477981006329 BP Diastolic BP Location Tested BP Systolic BP Type 68 118 sitting Fetus Heart Rate Present A 135 Present Fetus Movement A Yes Comments Patient notified about [place] [facility], and on diversion. Patient was given options for delivery and chose to deliver at [place] or [facility] if needed for T2DM; Information given, phone number, sent. Flowsheet Date 01/10/2020 Patel Score Blood Edema Fundus Height Fundus Units Glucose Ketones Leukocytes Nitrite Labor Signs Protein Cervic Dilation Cervic Effacement Cervic Station neg none 36 cm none negative Pressure neg 0cm 0% -4 Type Weight in lbs Pre/Post Dialysis Refused With clothes 184.646777595895 BP Diastolic BP Location Tested BP Systolic BP Type 68 106 sitting Fetus Heart Rate Present A 147 Present Fetus Movement A Yes Comments 36w labs wtcc/wlbPatient not ified about [place] [facility] shortage, and on diversion. Patient was given options for delivery and chose to deliver at [facility]. Information given, phone number, sent. Flowsheet Date 01/17/2020 Patel Score Blood Edema Fundus Height Fundus Units Glucose Ketones Leukocytes Nitrite Labor Signs Protein Cervic Dilation Cervic Effacement Cervic Station neg none 38 cm none negative none neg 0cm 0% - 4 Type Weight in lbs Pre/Post Dialysis Refused With clothes 186.578482083671 BP Diastolic BP Location Tested BP Systolic BP Type 64 110 sitting Fetus Heart Rate Present A 144 Present Fetus Movement A Yes Comments iol 39 weeks Patient notifie d about [place] Nursing shortage, and on diversion. Patient was given options for delivery and chose to deliver at [place] Information given, phone number, sent Flowsheet Date 02/17/2020 Patel Score Blood Edema Fundus Height Fundus Units Glucose Ketones Leukocytes Nitrite Labor Signs Protein Cervic Dilation Cervic Effacement Cervic Station Type Weight in lbs Pre/Post Dialysis Refused With clothes 174.570261527254 BP Diastolic BP Location Tested BP Systolic BP Type Fetus Heart Rate Present Fetus Movement Comments Flowsheet Date 04/03/2020 Patel Score Blood Edema Fundus Height Fundus Units Glucose Ketones Leukocytes Nitrite Labor Signs Protein Cervic Dilation Cervic Effacement Cervic Station Type Weight in lbs Pre/Post Dialysis Refused With clothes 186.992243948978 BP Diastolic BP Location Tested BP Systolic BP Type 86 110 sitting Fetus Heart Rate Present Fetus Movement Comments Menstrual History Last Menstrual Date Menses Monthly On Bcp Conception Prior Menses Frequency Hcg Plus Date Menarche Onset Age 0705/01/2019 false Genetic Screening And Infection History Question Response Note Patient's Age Will Be 35 Yea rs Or Older At Estimated Date of Delivery false Thalassemia (Armenian, Bahamian, Mediterranean, Or Background): MCV < 80 false Neural Tube Defect (Meningom yelocele, Spina Bifida, Or Anencephaly) false Congenital Heart Defect false Down Syndrome false Brad-Sachs (eg, Zoroastrianism, Cajun , Japanese-Mcclure) false Shayne Disease false Sickle Cell Disease Or Trait () false Hemophilia Or Other Blood Disorders false Muscular Dystrophy false Cystic Fibrosis false Deng's Chorea false Mental Retardation/Autism false If Yes, Was Person Tested For Fragile X? 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 Maternal Metabolic Disorder (eg, Type 1 Diabetes, PKU) true diabetes Patient Or Baby's Father Had A Child With Defects Not Listed Above false Recurrent Loss, Or A Stillbirth false Medications (including Suppl ements, Vitamins, Herbs, OTC Drugs), Illicit/Recreational Drugs, Alcohol false If Yes, Agent(s) And Strength/Dosage false Any Other Genetic History false Live With Someone With TB Or Exposed To TB false Patient Or Partner Has Histo ry Of Genital Herpes false Rash Or Viral Illness Since Last Menstrual Period false History Of STD, Gonorrhea, C hlamydia, HPV, Syphilis false Other Infection History true GBS+ History of HIV false History of Hepatitis false Prior GBS-infected child false Plans and Education First Trimester Discussed Date Discussion Item Discussion Note Discuss ed By 09/27/2019 [place] [id number] 09/27/2019 [place] [id number] 09/27/2019 [facility] 09/[facility]/2019 Environmental/work [place] [id number] 09/27/2019 [facility]2019 Nutrition counseling ; special diet; dietary precautions (mercury, listeriosis) [place] [address] 09/27/2019 Childbirth classes/hospital facilities [email or web address] 09/27/2019 HIV and other routine tests [email or web address] 09/27/2019 Risk factors identif ied by history [email or web address] 09/27/2019 Weight gain counseling ort [email or web address] 09/27/2019 Exercise [email or web address] 09/27/2019 Teratogens [email or web address] 09/27/2019 Use of any medicatio ns (including supplements, vitamins, herbs, or OTC drugs) [email or web address] 09/27/2019 [email or web address] 09/27/2019 Sexual activity [email or web address] 09/27/2019 Tobacco/smoking cess ation counseling (ask, advise, assess, assist, and arrange) [facility] 09/27/2019 Illicit/recreational drugs [place] [id number] 09/27/2019 Dental care [email or web address] 09/27/2019 Travel [email or web address] 09/27/2019 Seat belt use [email or web address] 09/27/2019 Indications for ultrasonography [email or web address] 09/27/2019 Avoidance of saunas or hot tubs [facility] 09/27/2019 Toxoplasmosis precautions (cats/raw meat) [email or web address] Second Trimester Discussed Date Discussion Item Discussion Note Discuss ed By 10/15/2019 Selecting a care provider dorita santillan md [place], [place] [email or web address] 10/15/2019 family planning/tubal sterilization none [email or web address] 10/15/2019 Depression screening (when indicated) [email or web address] 10/15/2019 Abnormal lab values jcortopa [email or web address] 10/15/2019 Signs and symptoms o f labor wtc/wlb given [email or web address] 10/15/2019 Intimate partner violence annemarie [email or web address] 10/15/2019 Tobacco/smoking cess ation counseling (ask, advise, assess, assist, and arrange) [facility] Third Trimester Discussed Date Discussion Item Discussion Note Discuss ed By 12/27/2019 Intimate partner violence [facility] 12/27/2019 Anesthesia plans ncb epidural only if nee ded [facility] 12/27/2019 [place] education (n ewborn screening, jaundice, SIDS/safe sleeping position, car seat) [facility] 12/27/2019 [facility]2019 Postterm counseling [facility] 12/27/2019 movement monitoring [facility] 12/27/2019 yes cbradco 12/27/2019 Labor signs given wtc/wlb cbradshma 12/27/2019 depression [facility] 12/27/2019 Family medical leave or disability forms [facility] 12/27/2019 Tobacco/smoking cess ation counseling (ask, advise, assess, assist, and arrange) [facility] 12/27/2019 Trial of labor after (TOLAC) counseling [facility] 12/27/2019 Signs and symptoms o f preeclampsia [facility] Delivery Information Delivery Date Delivery Type Labor Anesthesia Weeks Gestation Incision Type Labor Labor Length Hrs Delivered By Post Complications Tubal Sterilization Discharge Date Comments 0 Induce d Regional-Ep idural 39.[address]Hurford RODRIGUEZ None false 02/02/2020 Induction with Pitocin and episiotom y first degree with repair Discharge Information Feeding Method Contraceptive Method Maternal HG B and HCT Levels Breast Slynd
--- OUTSIDE RECORDS SUMMARY | 2024-10-14 01:33 | XMS_ITS | Encounter Summary ---
Author Organization [facility] Address [address] [place] [address] Care Team Providers Care Satellite Manager Name Role Phone Esperanza Santillan MD Primary Care Provider [phone] Reason for Visit * Reason Onset Date Comments Reminder Call 12/20/2019 Appt Reminder. E xplained COVID19 office procedures. Encounter Details Date Type Department Care Team (Late st Contact Info) Description 12/20/2019 Telephone [facility] Maternal & Care [address] [place] [id number] Rose Duarte A Reminder Call (Appt Reminder. Explained COVID19 office procedures.) Social History Tobacco Use Types Packs/Day Years [...] on filedocumented in this encounter Care Teams Satellite Manager Relationship Specialty Start Date End Date Esperanza Santillan MD [address] [place] [id number] PCP - General Family Medicine 09/03/12 documented as of this encounter
--- OUTSIDE RECORDS SUMMARY | 2024-10-14 01:33 | XMS_ITS | Patient Health Summary ---
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 [facility] [address] [place] [address] * IGA BLOOD (12/02/2013 3:50 PM LAW OFFICE RECEPTIONIST) [facility] IgA 131 65 - 421 mg/dL 12/02/2013 4:39 PM LAW OFFICE RECEPTIONIST [facility] Blood BLOOD SPECIMEN / Unknown Lab Venipuncture / Unknown 12/02/2013 3:50 PM LAW OFFICE RECEPTIONIST 12/02/2013 3:53 PM LAW OFFICE RECEPTIONIST Parviz Nolan MD LAB - CHEMISTRY KASEY SWEENEY Performing Organization Address [facility] de Phone Number [facility] [address] [place] [address] * (ABNORMAL) PLATELET FUNCTION SCREEN PANEL (06/09/2013 3:23 PM CDT) [facility] Collagen Epinephrine 236(H) 80 - 184 seconds 06/09/2013 4:57 PM CDT [facility] Collagen ADP 144(H) 56 - 102 seconds 06/09/2013 4:57 PM CDT [facility] Blood BLOOD SPECIMEN / Unknown Lab Venipuncture / Unknown 06/09/2013 3:23 PM CDT 06/09/2013 3:34 PM CDT Anais Romero MD LAB - COAGULATI ON ORDERABLES Performing Organization Address [facility] Co de Phone Number [facility] [address] [place], [place] [address] [address] * FACTOR VIII VW ANTIGEN (06/09/2013 3:23 PM CDT) von Willebrand Factor Antigen 73 57 - 199 % 06/12/2013 11:48 AM CDT [facility] Comment: REFERENCE INTERVAL: von Willebrand Factor, Antigen Access complete set of age- and/or gender-specific reference intervals for this test in the [facility] Test [facility] ([employer]). Blood specimen (specimen) BLOOD SPECIMEN / Unknown Lab Venipuncture / Unknown 06/09/2013 3:23 PM CDT 06/09/2013 3:31 PM CDT Anais Romero MD LAB - COAGULATI ON ORDERABLES Performing Organization Address [facility]/ZIP Co de Phone Number [facility] [address] [place] [address] * (ABNORMAL) FACTOR VIII RISTOCETIN COFACTOR (06/09/2013 3:23 PM CDT) [facility] von Willebrand Factor RCF 43(L) 50 - 203 % 06/12/2013 5:06 PM CDT [facility] Comment: REFERENCE INTERVAL: von Willebrand Factor, Activity (RCF) Access complete set of age- and/or gender-specific reference intervals for this test in the [facility] ([employer]). Blood specimen (specimen) BLOOD SPECIMEN / Unknown Lab Venipuncture / Unknown 06/09/2013 3:23 PM CDT 06/09/2013 3:32 PM CDT Anais Romero MD LAB - COAGULATI ON ORDERABLES Performing Organization Address City/[facility]/ZIP Co de Phone Number [facility] [address] [place] [address] * FACTOR VIII ASSAY (06/09/2013 3:23 PM CDT) [facility] Factor VIII Activity 87 60 - 140 % NHP 06/11/2013 1:33 PM CDT [facility] Blood BLOOD SPECIMEN / Unknown Lab Venipuncture / Unknown 06/09/2013 3:23 PM CDT 06/09/2013 3:34 PM CDT Anais Romero MD LAB - COAGULATI ON ORDERABLES [facility] [place] [address] * T4 FREE DIRECT DIALYSIS (02/22/2013 5:26 PM CDT) T4 Free Direct Dialysis 1.8 1.1 - 2.0 ng/dL 02/25/2013 4:55 PM CDT [facility] Comment: FREE T4 BY EQUIL DIALYSIS-TMS: REFERENCE INTERVALS ?1ST TRIMESTER ...... 0.7 - 2.0 ng/dL ?2ND TRIMESTER ...... 0.7 - 2.1 ng/dL ? 3RD TRIMESTER ...... 0.5 - 1.6 ng/dL INTERPRETIVE INFORMATION: FT4 ED-TMS Test developed and characteristics determined by [facility] [employer]. See Compliance Statement B: [employer] Blood specimen (specimen) BLOOD SPECIMEN / Unknown Lab Venipuncture / Unknown 02/22/2013 5:26 PM CDT 02/22/2013 5:26 PM CDT Felecia Vigil MD LAB - CHEMISTRY OR DERABLES [facility] [address] [place] [address] * PROLACTIN (02/22/2013 5:26 PM CDT) Prolactin 15.24 ng/mL 02/23/2013 11:09 AM CDT [facility] Blood specimen (specimen) BLOOD SPECIMEN / Unknown Lab Venipuncture / Unknown 02/22/2013 5:26 PM CDT 02/22/2013 5:26 PM CDT Narrative [facility] - 02/23/2013 11:09 AM CDT Prolactin Reference Interval: ?Female Non: 2.80 - ??29.20 ??ng/mL ? Female : 9.70 - 208.50 ??ng/mL Female Postmenopausal: 1.80 - ??20.39 ??ng/mL ?Male: 2.10 - ??17.70 ??ng/mL Felecia Vigil MD LAB - CHEMISTRY OR DERABLES [facility] [address] [place] [address] * TESTOSTERONE TOTAL FEM/CHLD HYPOGNDL MALE (02/22/2013 5:26 PM CDT) Only the most recent of4 resultswithin the time period is included. [facility] Testosterone by [employer] 32 6 - 52 ng/dL 02/25/2013 10:53 AM CDT [facility] Comment: INTERPRETIVE INFORMATION: Total Testosterone, Jose G Stage ?Male ?Female Jose G Stage I ? 2-15 ng/dL ? 2-17 ng/dL Jose G Stage II ?3-303 ng/dL ?5-40 ng/dL Jose G Stage III ?10-851 ng/dL ? 10-63 ng/dL Jose G Stage IV-V ??162-847 ng/dL ? 11-62 ng/dL Total testosterone values may not reflect optimal concentrations in all individuals. ??Free or bioavailable testosterone measurements may provide supportive information. REFERENCE INTERVAL: Testosterone, LC-MS/MS Access complete set of age- and/or gender-specific reference intervals for this test in the [facility] ([employer]). Test developed and characteristics determined by [email or web address]. See Compliance Statement B: [employer]/ Blood specimen (specimen) BLOOD SPECIMEN / Unknown Lab Venipuncture / Unknown 02/22/2013 5:26 PM CDT 02/22/2013 5:26 PM CDT Felecia Vigil MD LAB - CHEMISTRY OR DERABLES Performing Organization Address City/[facility]/ZIP Co de Phone Number [facility] [address] [place] [address] * CHLAMYDIA + GC AMPLIFIED PROBE (02/22/2013 4:41 PM CDT) Chlamydia Amplified Probe Negative Negative 02/24/2013 1:33 PM CDT [facility] GC Amplified Probe Negative Negative 02/24/2013 1:33 PM CDT [facility] Urine specimen (specimen) URINE / Unknown Collection / Unknown 02/22/2013 4:41 PM CDT 02/22/2013 4:47 PM CDT Felecia Vigil MD LAB - MICROBIOLOGY ORDERABLES Performing Organization Address [facility] Co de Phone Number [facility] [address] [place] [address] * LAB RESULTS ORDER (11/20/2012 10:58 AM LAW OFFICE RECEPTIONIST) Narrative 11/20/2012 10:58 AM LAW OFFICE RECEPTIONIST Procedure Note Document, Scanned - 11/20/2012 10:58 AM CST Scanned Document LAB - THERAPEUTIC DR MONAE MONITORING ORDERABLES * PATHOLOGY/CYTOLOGY REPORT ORDER (11/20/2012 7:07 AM LAW OFFICE RECEPTIONIST) Narrative 11/20/2012 7:07 AM LAW OFFICE RECEPTIONIST Procedure Note Document, Scanned - 11/20/2012 7:06 AM CST Scanned Document LAB - PATHOLOGY/CYTO LOGY ORDERABLES * EGD (11/19/2012 11:21 AM LAW OFFICE RECEPTIONIST) Narrative [facility] - 11/19/2012 11:21 AM LAW OFFICE RECEPTIONIST Procedure Note Parviz Nolan MD - 11/19/2012 11:21 AM CST Parviz Nolan MD GI PROCEDURE ORDERAB LES Performing Organization Address [facility] Co de Phone Number [facility] [address] [place] [address] * GROSS + MICRO EXAM (STL) (11/19/2012 11:08 AM LAW OFFICE RECEPTIONIST) Case Report Surgical Pathology Report ? Case: [id number] ? Authorizing Provider: ??aPrviz Nolan MD ?Ordering Provider: ?? Parviz Nolan MD ? Ordering Location: ? [facility] ?Collected: ? 11/19/2012 11:08 AM ? Pathologist: ? Sabino Collins MD ? Received: ?11/19/2012 ??2:03 PM ?Signed Out: ?11/23/2012 ??3:05 PM (Final) ? Specimens: ?? A) - Esophagus ? B) - Duodenum ? C) - Stomach ? 11/23/2012 3:06 PM [facility] Final Diagnosis A) ESOPHAGUS, BIOPSY: - NO PATHOLOGIC DIAGNOSIS. B) DUODENUM, BIOPSY: - NO PATHOLOGIC DIAGNOSIS. C) STOMACH, BIOPSY: - NO PATHOLOGIC DIAGNOSIS. 11/23/2012 3:06 PM [facility] Clinical History The patient is a 12-year-old girl with abdominal pain who underwent upper endoscopy with biopsy. 11/23/2012 3:06 PM [facility] Gross Description The specimens are received fixed in formalin in three containers for gross and microscopic examination. ??All containers are labeled with the patient's name, Veena Jackson. Specimen A, esophagus, consists of two 0.3 and 0.5 cm soft, yellow-agosto tissue fragments submitted in toto as A. Specimen B, duodenum, consists of five 0.1 to 0.5 cm soft, yellow-agosto tissue fragments submitted in toto as B. Specimen C, stomach, consists of two 0.4 and 0.6 cm soft, yellow-agosto tissue fragments submitted in toto as C. ??(SKS/mal) 11/23/2012 3:06 PM [facility] Microscopic Description A) 3 H&E; B) 3 H&E; C) 3 H&E. A. Sections of esophagus show two fragments of unremarkable stratified squamous epithelium. ?? B. Sections of duodenum show multiple fragments of unremarkable small intestinal mucosa. C. Sections of stomach show two fragments of unremarkable body-type gastric mucosa except for a lymphoid aggregate. () 11/23/2012 3:06 PM [facility] Disclaimer The performance characteristics of all immunohistochemical and indirect ??immunofluorescence stains (if any) cited in this report were determined by the Histopathology Laboratory of [facility] (immunohistochemistry ) or the Histology Laboratory of [facility] (indirect immunofluorescence) in compliance with CLIA `88 regulations. ??Some of these tests rely on the use of analyte-specific reagents and are subject to specific labeling requirements by the FDA. ??Such tests were developed by the ??[facility] Laboratory of [facility] or the Histology Laboratory of [facility] and have not been cleared or approved by the FDA. ??The FDA has determined that such clearance or approval is not necessary. ??These tests are used for clinical purposes and should not be regarded as investigational or for research. ? This case has been personally reviewed and interpreted by the attending (teaching) pathologist. 11/23/2012 3:06 PM [facility] Synoptic Report 11/23/2012 3:06 PM [facility] Miscellaneous samples (specimen) REGION OF ESOPHAGUS / Unknown 11/19/2012 11:08 AM LAW OFFICE RECEPTIONIST 11/19/2012 2:03 PM LAW OFFICE RECEPTIONIST Miscellaneous samples (specimen) PART OF DUODENUM / Unknown 11/19/2012 11:08 AM LAW OFFICE RECEPTIONIST 11/19/2012 2:03 PM LAW OFFICE RECEPTIONIST Miscellaneous samples (specimen) ENTIRE STOMACH / Unknown 11/19/2012 11:08 AM LAW OFFICE RECEPTIONIST 11/19/2012 2:03 PM LAW OFFICE RECEPTIONIST Parviz Nolan MD LAB - PATHOLOGY/CYTO LOGY ORDERABLES Performing Organization Address City/State/[facility] Co de Phone Number [facility] [address] [place] [address] * HELICOBACTER PYLORI UREASE (11/19/2012 11:08 AM LAW OFFICE RECEPTIONIST) Helicobacter pylori Urease Initial Negative Negative 11/20/2012 12:09 PM LAW OFFICE RECEPTIONIST [facility] Helicobacter pylori Urease Final Negative Negative 11/20/2012 12:09 PM LAW OFFICE RECEPTIONIST [facility] Comment:This is an appended report. These results have been appended to a previously preliminary verified report. Miscellaneous samples (specimen) GASTRIC ANTRAL BIOPSY SPECIMEN / Unknown 11/19/2012 11:08 AM LAW OFFICE RECEPTIONIST 11/19/2012 11:27 AM LAW OFFICE RECEPTIONIST Parviz Nolan MD LAB - MICROBIOLOGY O RDERABLES [facility] [address] [place] [address] * US ABDOMEN LIMITED (10/26/2012 9:00 AM LAW OFFICE RECEPTIONIST) Anatomical Region Laterality Modality Abdomen Ultrasound 10/26/2012 9:51 AM LAW OFFICE RECEPTIONIST Impressions 10/26/2012 9:51 AM LAW OFFICE RECEPTIONIST Normal right upper quadrant sonogram. Narrative 10/26/2012 9:51 AM LAW OFFICE RECEPTIONIST Limited abdominal sonogram The study is comprised by the patient's body habitus. The hepatobiliary system, right kidney, visible pancreas and retroperitoneal vessels are normal. Procedure Note Lyric Ryder MD - 10/26/2012 Limited abdominal sonogram The study is comprised by the patient's body habitus. The hepatobiliary system, right kidney, visible pancreas and retroperitoneal vessels are normal. IMPRESSION Normal right upper quadrant sonogram. Parviz Nolan MD US ORDERABLES * (ABNORMAL) DEOXYCORTICOSTERONE (DOC) (10/09/2012 10:20 AM LAW OFFICE RECEPTIONIST) Only the most recent of2 resultswithin the time period is included. Deoxycorticosterone 50(H) ng/dL 10/15 12:30 PM LAW OFFICE RECEPTIONIST [facility] Comment: ?Reference Range: ?< OR = 35 Pediatric Reference Ranges for Deoxycorticosterone, LC/MS/MS: ??6-17 years: < or = 35 ng/dL Performed at: [facility] [id number] [place] [address] Blood specimen (specimen) BLOOD SPECIMEN / Unknown 10/09/2012 10:20 AM LAW OFFICE RECEPTIONIST 10/09/2012 10:32 AM LAW OFFICE RECEPTIONIST Serena Rivera [facility] - CHEMISTRY ORDERABLES Performing Organization Address [facility] de Phone Number [facility] [address] [place] [address] * (ABNORMAL) HYDROXYPREGNENOLONE 17- (10/09/2012 10:20 AM LAW OFFICE RECEPTIONIST) Only the most recent of2 resultswithin the time period is included. 17 Hydroxypregnenolone 1980(H) <=407 ng/dL 10/12/2012 6:[address] [facility] Startist Comment: REFERENCE INTERVAL for 17-Hydroxypregnenolone in girls: Jose G Stage I ?Less than or equal to 235 ng/dL Jose G Stage II ? Less than or equal to 367 ng/dL Jose G Stage III ?Less than or equal to 430 ng/dL Jose G Stage IV and V ? Less than or equal to 412 ng/dL REFERENCE INTERVAL: 17-Hydroxypregnenolone Quant, MS/MS, Ser Access complete set of age- and/or gender-specific reference intervals for this test in the [facility] ([employer]). BLOOD SPECIMEN / Unknown 10/09/2012 10:20 AM LAW OFFICE RECEPTIONIST 10/09/2012 10:32 AM LAW OFFICE RECEPTIONIST Serena [facility] LAB - CHEMISTRY ORDERABLES Performing Organization Address [facility] Co de Phone Number [facility] [address] [place] [address] * PROGESTERONE (10/09/2012 10:20 AM LAW OFFICE RECEPTIONIST) Only the most recent of2 resultswithin the time period is included. Progesterone 1.45 10/09/2012 5:40 PM LAW OFFICE RECEPTIONIST [facility] Blood specimen (specimen) BLOOD SPECIMEN / Unknown 10/09/2012 10:20 AM LAW OFFICE RECEPTIONIST 10/09/2012 10:32 AM LAW OFFICE RECEPTIONIST Narrative [facility] - 10/09/2012 5:40 PM LAW OFFICE RECEPTIONIST ?PROGESTERONE NORMALS Males ? 0.28 - 1.22 ng/ml Normal Menstruating Females Follicular Phase ?0.15 - 1.40 ng/ml Luteal Phase ? 3.34 - 25.56 ng/ml Mid-luteal Phase ?4.44 - 28.03 ng/ml ? Postmenopausal Females ?ND* - 0.73 ng/ml *ND = Not Detectable Serena Rivera [employer] SALESPERSON-MAJOR ACCOUNT REPRESENTATIVE LAB - CHEMISTRY ORDERABLES Performing Organization Address [facility] Co de Phone Number [facility] [address] [place] [address] * HYDROXYPROGESTERONE 17- (10/09/2012 10:20 AM LAW OFFICE RECEPTIONIST) Only the most recent of3 resultswithin the time period is included. Pathologist [facility] 17 Hydroxyprogesterone 403 ng/dL 6:43 PM LAW OFFICE RECEPTIONIST [facility] Comment: +60 17-HYDROXYPROGESTERONE: Jose G Stages, Females Age 7-17 Jose G Stage I ? Less than or equal to 74 ng/dL Jose G Stage II ?Less than or equal to 164 ng/dL Jose G Stage III ? 13-209 ng/dL Jose G Stage IV-V ?7-170 ng/dL INTERPRETIVE INFORMATION: 17-Hydroxyprogesterone FEMALE: Premature (26-28 weeks) ......... 124-841 ng/dL Premature (29-35 weeks) .......... 26-568 ng/dL Full term, Day 3 .................. 7-77 ??ng/dL 4 days-30 days..................... 7-106 ng/dL 1-5 months ....................... 13-106 ng/dL 6 months-1 year Less than or equal to 148 ng/dL 2-3 years ..... Less than or equal to 256 ng/dL 4-6 years ......Less than or equal to 299 ng/dL 7-9 years ...... Less than or equal to 71 ng/dL 10-12 years ... Less than or equal to 129 ng/dL 13-15 years ....................... 9-208 ng/dL 16-17 years ... Less than or equal to 178 ng/dL 18 years and older ........ Less than 207 ng/dL Follicular ....................... 15-70 ??ng/dL Luteal ........................... 35-290 ng/dL MALE: Premature (26-28 weeks) ......... 124-841 ng/dL Premature (29-35 weeks) .......... 26-568 ng/dL Full term, Day 3 .................. 7-77 ??ng/dL 4 days-2 months ........... Less than 200 ng/dL 3-5 months ..... Less than or equal to 90 ng/dL 6 months-1 year Less than or equal to 148 ng/dL 2-3 years ..... Less than or equal to 228 ng/dL 4-6 years ..... Less than or equal to 208 ng/dL 7-9 years ...... Less than or equal to 63 ng/dL 10-12 years .... Less than or equal to 79 ng/dL 13-15 years ....................... 9-140 ng/dL 16-17 years ...................... 24-192 ng/dL 18 years and older ........ Less than 139 ng/dL Blood specimen (specimen) BLOOD SPECIMEN / Unknown 10/09/2012 10:20 AM LAW OFFICE RECEPTIONIST 10/09/2012 10:32 AM LAW OFFICE RECEPTIONIST Serena Rivera [employer] SALESPERSON-MAJOR ACCOUNT REPRESENTATIVE LAB - CHEMISTRY ORDERABLES Performing Organization Address City/State/[facility] Co de Phone Number [facility] [address] [place] [address] * (ABNORMAL) DEOXYCORTISOL-11 (10/09/2012 10:20 AM LAW OFFICE RECEPTIONIST) Only the most recent of2 resultswithin the time period is included. 11-Deoxycortiso l 249(H) <=107 ng/dL 10/12/2012 6:22 AM LAW OFFICE RECEPTIONIST [facility] Comment: Reference interval for 11-Deoxycortisol in girls: Jose G Stage I: ?? less than or equal to 94 ng/dL Jose G Stage II: ??less than or equal to 136 ng/dL Jose G Stage III: less than or equal to 99 ng/dL Jose G Stage IV & V: less than or equal to 50 ng/dL REFERENCE INTERVAL: 11-Deoxycortisol Access complete set of age- and/or gender-specific reference intervals for this test in the [facility] Laboratory Test Directory (Telkonet). Blood specimen (specimen) BLOOD SPECIMEN / Unknown 10/09/2012 10:20 AM LAW OFFICE RECEPTIONIST 10/09/2012 10:32 AM LAW OFFICE RECEPTIONIST Serenarogelio Rivera [facility] LAB - CHEMISTRY ORDERABLES Performing Organization Address [facility] de Phone Number [facility] [address] [place] [address] * DHEA (10/09/2012 10:20 AM LAW OFFICE RECEPTIONIST) Only the most recent of2 resultswithin the time period is included. Dehydroepiandrosterone (DHEA) 5.970 1.220 - 7.010 ng/mL 10/11/2012 6:12 PM LAW OFFICE RECEPTIONIST SDOngo Comment: INTERPRETIVE INFORMATION: Dehydroepiandrosterone, Female Jose G Stage ??Jose G Stage I ? 0.14-2.76 ng/mL ??Jose G Stage II ?0.83-4.87 ng/mL ??Jose G Stage III ?? 1.08-7.56 ng/mL ??Jose G Stage IV-V ??1.24-7.88 ng/mL REFERENCE INTERVAL: Dehydroepiandrosterone by [facility] Access complete set of age- and/or gender-specific reference intervals for this test in the [facility] Laboratory Test Directory (Telkonet). Blood specimen (specimen) BLOOD SPECIMEN / Unknown 10/09/2012 10:20 AM LAW OFFICE RECEPTIONIST 10/09/2012 10:32 AM LAW OFFICE RECEPTIONIST Serena Monica Miguel [facility] LAB - CHEMISTRY ORDERABLES Performing Organization Address [facility] de Phone Number [facility] [address] [place] [address] * (ABNORMAL) ANDROSTENEDIONE (10/09/2012 10:20 AM LAW OFFICE RECEPTIONIST) Only the most recent of2 resultswithin the time period is included. Androstenedione 2.310(H) 0.390 - 2.000 ng/mL 10/11/2012 6:12 PM LAW OFFICE RECEPTIONIST Startist Comment: INTERPRETIVE INFORMATION: Androstenedione, Female Jose G Stage Jose G Stage I ? 0.05-0.51 ng/mL Jose G Stage II ?0.15-1.37 ng/mL Jose G Stage III ?? 0.37-2.24 ng/mL Jose G Stage IV-V ??0.35-2.05 ng/mL REFERENCE INTERVAL: Androstenedione by TMS Access complete set of age- and/or gender-specific reference intervals for this test in the [facility] Test Directory (Telkonet). Blood specimen (specimen) BLOOD SPECIMEN / Unknown 10/09/2012 10:20 AM LAW OFFICE RECEPTIONIST 10/09/2012 10:32 AM LAW OFFICE RECEPTIONIST Serena Rivera [employer] SALESPERSON-[facility] LAB - CHEMISTRY ORDERABLES Performing Organization Address City/[facility] Co de Phone Number [address] [place] [address] * CORTISOL BLOOD (10/09/2012 10:20 AM LAW OFFICE RECEPTIONIST) Only the most recent of2 resultswithin the time period is included. Cortisol 30.50 ug/dL 10/09/2012 11:37 AM [facility] Blood specimen (specimen) BLOOD SPECIMEN / Unknown 10/09/2012 10:20 AM LAW OFFICE RECEPTIONIST 10/09/2012 10:32 AM LAW OFFICE RECEPTIONIST Narrative [facility] - 10/09/2012 11:[address] [facility] CORTISOL REFERENCE RANGE COMMENT Cortisol AM (7-10 a.m.) ??3.70 - 19.40 ??ug/dl Cortisol PM (3-5 p.m.) ?? 2.90 - 17.30 ??ug/dl Note: No reference range available for random cortisol levels. All results interpreted by ordering physician. Normal cortisol levels are generally highest in the morning hours and lowest from late evening through the diagram clerk hours (8 PM to 4 AM). ??The PM measurements of cortisol run approximately one-half to one-third of the AM values. Seerna Rivera [employer] [facility] - CHEMISTRY ORDERABLES Performing Organization Address City/[facility]/ZIP Co de Phone Number [facility] [address] [place] [id number] * DHEA SULFATE (10/09/2012 9:24 AM LAW OFFICE RECEPTIONIST) Only the most recent of2 resultswithin the time period is included. Dehydroepiandrosterone Sulfate (DHEAS) 89.5 8.6 - 169.8 ug/dL 10/09/2012 10:55 AM LAW OFFICE RECEPTIONIST [facility] Blood specimen (specimen) BLOOD SPECIMEN / Unknown 10/09/2012 9:24 AM LAW OFFICE RECEPTIONIST 10/09/2012 9:34 AM LAW OFFICE RECEPTIONIST Narrative [facility] - 10/09/2012 10:[address] [facility] JOSE G RANGES: Male: ?? Stage 1 ?7-209 mcg/dL ? Stage 2 ?? 28-260 mcg/dL ? Stage 3 ?? 39-390 mcg/dL ? Stage 4 ?? 81-488 mcg/dL Female: Stage 1 ?7-126 mcg/dL ? Stage 2 ?? 13-241 mcg/dL ? Stage 3 ?? 32-446 mcg/dL ? Stage 4 ?? 65-371 mcg/dL Serena Rivera APRN-[facility] LAB - CHEMISTRY ORDERABLES Performing Organization Address [facility] de Phone Number [facility] [address] [place] [address] * DIABETES - IA 2 AB (10/02/2012 11:[address] [facility]) Pathologist [facility] Insulinoma Associated 2 Antibody <0.8 0.0 - 0.8 U/mL 10/06/2012 1:00 PM LAW OFFICE RECEPTIONIST Startist Comment: INTERPRETIVE INFORMATION: IA-2 Antibody A value greater than 0.8 Kronus Units/mL is considered positive for IA-2 Antibodies. Blood specimen (specimen) BLOOD SPECIMEN / Unknown 10/02/2012 11:15 AM LAW OFFICE RECEPTIONIST 10/02/2012 11:27 AM LAW OFFICE RECEPTIONIST Serena [facility] - SEROLOGY O RDERABLES Performing Organization Address [facility] Co de Phone Number [facility] [place] [address] * DIABETES - ISLET CELL (10/02/2012 11:15 AM LAW OFFICE RECEPTIONIST) Pathologist [facility] Islet Cell Antibody IgG <1:4 <1:4 10/04/2012 3:03 PM LAW OFFICE RECEPTIONIST [facility] Comment: INTERPRETIVE INFORMATION: Islet Cell Ab, IgG Islet cell antibodies (ICAs) are associated with type 1 diabetes (TID), an autoimmune endocrine disorder. These antibodies may be present in individuals years before the onset of clinical symptoms. To calculate Juvenile Diabetes Foundation (JDF) units: multiply the titer x 5 (1:8 ??8 x 5 = 40 JDF Units). Blood specimen (specimen) BLOOD SPECIMEN / Unknown 10/02/2012 11:15 AM LAW OFFICE RECEPTIONIST 10/02/2012 11:27 AM LAW OFFICE RECEPTIONIST Serena Rivera [facility] LAB - SEROLOGY O RDERABLES Performing Organization Address [facility] Co de Phone Number [address] [address] * (ABNORMAL) C-PEPTIDE (10/02/2012 11:15 AM LAW OFFICE RECEPTIONIST) Pathologist [facility] C-Peptide 2.70(H) 0.78 - 1.89 10/02/2012 5:25 PM LAW OFFICE RECEPTIONIST [facility] Blood specimen (specimen) BLOOD SPECIMEN / Unknown 10/02/2012 11:15 AM LAW OFFICE RECEPTIONIST 10/02/2012 11:27 AM LAW OFFICE RECEPTIONIST Serena Rivera [facility] LAB - CHEMISTRY ORDERABLES Performing Organization Address City/[facility]/ZIP Co de Phone Number [facility] [address] [place] [address] * LH (10/02/2012 11:15 AM LAW OFFICE RECEPTIONIST) Pathologist [facility] LH 25.7 mIU/mL 10/02/2012 5:26 PM LAW OFFICE RECEPTIONIST [facility] Blood specimen (specimen) BLOOD SPECIMEN / Unknown 10/02/2012 11:15 AM LAW OFFICE RECEPTIONIST 10/02/2012 11:27 AM LAW OFFICE RECEPTIONIST Narrative [facility] - 10/02/2012 5:26 PM LAW OFFICE RECEPTIONIST ? LH Reference Range Adult Female: ?Normally menstruating: ?Follicular ? 1.9 - 12.5 ??mIU/mL ?Midcycle Peak ?8.7 - 76.3 ??MIU/mL ?Luteal ? 0.5 - 16.9 ??mIU/mL ?<0.1 - ??1.5 ??mIU/mL ?Postmenopausal ?15.9 - 54.0 ??mIU/mL ?Contraceptives ? 0.7 - ??5.6 ??mIU/mL Adult Male: 20 - 70 years : 1.5 - ??9.3 ??mIU/mL ?> 70 years : 3.1 - 34.6 ??mIU/mL Children : ? <0.1 - 6.0 ?? mIU/mL ? Serena Rivera [employer] SALESPERSON-MAJOR ACCOUNT REPRESENTATIVE LAB - CHEMISTRY ORDERABLES Performing Organization Address City/State/[facility] Co de Phone Number [facility] [address] [place] [address] * FSH (10/02/2012 11:15 AM LAW OFFICE RECEPTIONIST) FSH 6.72 0.2 - 8.0 mIU/mL 10/02/2012 1:11 PM LAW OFFICE RECEPTIONIST [facility] Blood specimen (specimen) BLOOD SPECIMEN / Unknown 10/02/2012 11:15 AM LAW OFFICE RECEPTIONIST 10/02/2012 12:01 PM LAW OFFICE RECEPTIONIST Narrative [facility] - 10/02/2012 1:11 PM LAW OFFICE RECEPTIONIST ?FSH Reference Range Normal Female Menses: ? Normally menstruating: ? Follicular ?3.0 - ?? 8.1 ??mIU/mL ? Midcycle Peak ? 2.6 - ??16.7 ??mIU/mL ? Luteal ?1.4 - ?? 5.5 ??mIU/mL ? Postmenopausal ?? 26.7 - 133.4 ??mIU/mL ? Serena Rivera APRN-MAJOR ACCOUNT REPRESENTATIVE LAB - CHEMISTRY ORDERABLES Performing Organization Address [facility] Co de Phone Number [facility] [address] [place] [address] * DIABETES - YUNG AB (10/02/2012 11:15 AM LAW OFFICE RECEPTIONIST) Glutamic Acid Decarboxylase Antibody <5.0 0.0 - 5.0 IU/mL 10/04/2012 4:[address] [facility] Startist Comment: INTERPRETIVE INFORMATION: ??Glutamic Acid Decarboxylase Antibody A value greater than 5.0 IU/mL is considered positive for Glutamic Acid Decarboxylase Antibody. Blood specimen (specimen) BLOOD SPECIMEN / Unknown 10/02/2012 11:15 AM LAW OFFICE RECEPTIONIST 10/02/2012 11:27 AM LAW OFFICE RECEPTIONIST Serena [facility] - SEROLOGY O RDERABLES Performing Organization Address [facility] Co de Phone Number [facility] [place] [address] * TESTOSTERONE FREE FEM/CHLD HYPOGNDL MALE (10/02/2012 11:15 AM LAW OFFICE RECEPTIONIST) Testosterone Free LC-MS 5.5 1.2 - 7.5 pg/mL 10/05/2012 8:[address] [facility] Startist Comment: Testosterone, Free LC-MS/MS: Jose G Stage Reference Intervals ? Male ?Female Jose G Stage I ?Less than 3.8 pg/mL ??Less than 2.2 pg/mL Jose G Stage II ?? 0.3-21 pg/mL ? 0.4-4.5 pg/mL Jose G Stage III ??1-98 pg/mL ? 1.3-7.5 pg/mL Jose G Stage IV ?? 35-169 pg/mL ? 1.1-15.5 pg/mL Jose G Stage V ?41-239 pg/mL ? 0.8-9.2 pg/mL To convert to pmol/L, multiply pg/mL by 3.47 The concentration of Free Testosterone is derived from a mathematical expression based on the constant for the binding of testosterone to sex hormone binding globulin. REFERENCE INTERVAL: Testosterone, Free LC-MS/MS Access complete set of age- and/or gender-specific reference intervals for this test in the [facility] Test Directory (Telkonet). Blood specimen (specimen) BLOOD SPECIMEN / Unknown 10/02/2012 11:15 AM LAW OFFICE RECEPTIONIST 10/02/2012 11:27 AM LAW OFFICE RECEPTIONIST Serena Rivera [facility] LAB - CHEMISTRY ORDERABLES [facility] [address] [place] [address] * (ABNORMAL) GLUCOSE (10/02/2012 11:15 AM LAW OFFICE RECEPTIONIST) Glucose 115(H) 70 - 105 mg/dL 10/02/2012 12:06 PM LAW OFFICE RECEPTIONIST [facility] Blood specimen (specimen) BLOOD SPECIMEN / Unknown 10/02/2012 11:15 AM LAW OFFICE RECEPTIONIST 10/02/2012 11:27 AM LAW OFFICE RECEPTIONIST Serena Rivera [employer] [facility] LAB - CHEMISTRY ORDERABLES [facility] [address] [place] [address] Care Teams Motorboat Mechanic Inboard/Outboard Relationship Specialty Start Date End Date Esperanza Santillan MD [address] [place] [address] [place] [id number] PCP - General Family Medicine 09/03/12
--- OUTSIDE RECORDS SUMMARY | 2024-10-14 01:33 | XMS_ITS | Referral Summary ---
Author Organization [facility] Address [address] [facility] [place] [address] Care Team Providers Care Attic Fans Mechanic Name Role Phone Esperanza Santillan MD Primary Care Provider [phone] Source Comments [facility],non-owned Affiliates and Associated Physician Practices is amultiple site organization consisting of ambulatory clinics and hospital sitesin [place], [place], [place] and [place]. This disclosure is being madepursuant to the Care Everywhere program and may not contain all information available regarding this patient. Last updated 18.[facility] Appinions Allergies No known active allergies Medications * Be aware that medications may not be up to date on this document. Alwaysverify current medications with the patient. Medication Sig Dispensed Refills Start Date End Date Status Blood Glucose Monitoring Suppl (ONE TOUCH ULTRA MINI) W/DEVICE KIT Use to test blood sugar 2 times daily 1 Kit 1 05/20/2013 Active blood glucose (ONETOUCH ULTRA TEST STRIPS) test strip Use 2 strips daily. 100 Strip 05/20/2013 Active Additional Information Patient not taking.Reported on 12/19/2019 One Touch Delica Lancets Use 2 LANCETS DAILY 100 Each 05/20/2013 Active Additional Information Patient not taking.Reported on 06/16/2020 metFORMIN (GLUCOPHAGE) 500 MG tabletIndications: Type 2 diabetes mellitus in patient age 13-19 years with HbA1C goal below 7.5 ([facility]) 2 tabs with breakfast and dinner or as directed. 90 day supply 360 Tab 3 01/10/2014 Active norethindrone-ethi nyl estradiol (MICROGESTIN) 1.5-30 MG-MCG tablet Take 1 Tab by mouth once daily. Active Blood Glucose Monitoring Suppl (FREESTYLE LITE) TITO Use to check blood sugar twice a day as directed. 1 Device 1 03/23/2015 Active Additional Information Patient not taking.Reported on 12/19/2019 FREESTYLE LITE STRIPS test strip Use to check blood sugar twice a day or as directed. 100 Strip 11 03/23/2015 Active FREESTYLE LANCETS MISC Use to check blood sugar twice a day or as directed. 100 Each 11 03/23/2015 Active naproxen (NAPROSYN) 500 MG tablet Take 1 Tab by mouth 2 times daily 30 Tab 08/13/2016 Active Additional Information Patient not taking.Reported on 08/02/2019 doxylamine (UNISOM) 25 MG tablet Take 1 tablet by mouth nightly as needed for Insomnia 60 tablet 3 08/02/2019 Active Additional Information Patient not taking.Reported on 06/16/2020 pyridoxine (VITAMIN B-6) 25 MG tablet Take 1 tablet by mouth once daily 60 tablet 3 08/02/2019 Active Additional Information Patient not taking.Reported on 10/04/2019 aspirin (ASPIRIN) 81 MG tablet Take 2 tablets by mouth once daily 100 tablet 3 08/02/2019 Active Additional Information Patient not taking.Reported on 06/16/2020 blood glucose (FREESTYLE LITE STRIPS) test strip Use 1 strip 5 times daily 150 strip 5 08/02/2019 Active clindamycin (CLEOCIN) 1 % gel Apply thin layer daily to face, chest and back 30 g 2 06/16/2020 Active Active Problems Patient Care Coordination No te Formatting of this note migh t be different from the original. 08/02/2019 Enrolled in diaper program Problem Noted Date Diagnosed Date Supervision of high-risk of young prim igravida 08/02/2019 with type 2 diabetes mellitus in secon d trimester 10/01/2012 Overview (12/30/2015): Diagnosed 08/20/2012 with a hemoglobin A1c of 7.0% 2015 O Updt Assessment & Plan (12/06/2015 9:30 AM EXTENSION COURSE COORDINATOR): 1) continue current metformin dose 2) try to test BG at least once daily 3) call if over 150 x3 in a week 4) follow up with adult doc in 6 months Maternal morbid obesity in second trimester, ant [...] CDT Oxygen Saturation 99% 08/13/2016 5:58 PM EXTENSION COURSE COORDINATOR Inhaled Oxygen Concentration - - Weight 85.8 kg (189 lb 3.2 oz) 12/17/2019 11:33 AM CDT Height 152.4 cm (5') 12/19/2019 7:30 PM CDT Body Mass Index 36.95 12/17/2019 11:33 AM CDT Functional Status Functional Status Response Date of [...] person have difficulty concentrating/remembering/making decisions? No 12/19/2019 Plan of Treatment Not on file Procedures Procedure Name Priority Date/Time Associated Diagnosis Comments BASIC METABOLIC PANEL (CALCIUM TOTAL) STAT 02/06/2016 1:11 AM CDT HEMOGLOBIN A1C - POCT (IP) BEAKER Routine 12/04/2015 12:08 PM EXTENSION COURSE COORDINATOR MICROALB/CREAT RATIO URINE RANDOM PANEL Routine 01/10/2014 12:27 PM CDT Type 2 diabetes mellitus in patient age 13-19 years with HbA1C goal below 7.5 from Last 3 Months or Most Recently Relevant to Health Maintenance Results * (ABNORMAL) BASIC METABOLIC PANEL (CALCIUM TOTAL) (02/06/2016 1:11 AM CDT) Glucose 138(H) 70 - 105 mg/dL 02/06/2016 1:41 AM CDT [facility] Sodium 140 136 - 145 mmol/L 02/06/2016 1:41 AM CDT [facility] Potassium 3.7 3.5 - 5.1 mmol/L 02/06/2016 1:41 AM T [facility] Chloride 107 98 - 107 mmol/L 02/06/2016 1:41 AM CDT [facility] CO2 23 20 - 28 mmol/L 02/06/2016 1:41 AM CDT [facility] Calcium 8.72(L) 9.08 - 10.48 mg/dL 02/06/2016 1:41 AM T [facility] Anion Gap 10 5 - 20 mmol/L 02/06/2016 1:41 AM CDT [facility] BUN 5.9 5.3 - 18.7 mg/dL 02/06/2016 1:41 AM T [facility] Creatinine 0.60(L) 0.61 - 1.07 mg/dL 02/06/2016 1:41 AM CDT [facility] eGFR by MDRD >60 mL/min/1. 73m2 02/06/2016 1:41 AM T [facility] Comment: eGFR calculations are not performed for children under 18 years old. eGFR by MDRD >60 mL/min/1. 73m2 02/06/2016 1:41 AM CDT [facility] Comment: eGFR calculations are not performed for children under 18 years old. Blood BLOOD SPECIMEN / Unknown Lab Venipuncture / Unknown 02/06/2016 1:11 AM CDT 02/06/2016 1:24 AM CDT Cheli Jefferson MD LAB - CHEMISTRY [place] Performing Organization Address City/[facility]/ZIP Co de Phone Number [facility] [address] [place] [address] * (ABNORMAL) HEMOGLOBIN A1C - POCT (IP) CARMEN (12/04/2015 12:08 PM EXTENSION COURSE COORDINATOR) Hemoglobin A1c POCT 6.8(A) 3.4 - 6.1 % [facility] QC Verified Yes Yes [facility] PO [facility] TESTING Blood specimen (specimen) BLOOD SPECIMEN / Unknown 12/04/2015 12:08 PM EXTENSION COURSE COORDINATOR Parminder Orta APRN-ROLL FORMING SUPERVISOR LAB - POINT OF CARE ORDERABLES Performing Organization Address City/[facility]/ZIP Co de Phone Number [facility] [address] [phone] * MICROALB/CREAT RATIO URINE RANDOM PANEL (01/10/2014 12:27 PM CDT) Creatinine Urine 178.25 mg/dL 01/11/20 14 1:40 PM CDT [facility] Microalbumin Urine 1.1 <1.7 mg/dL 01/10/2014 1:40 PM CDT [facility] Microalbumin/Crea tinine Ratio 6 <30 mg/g 01/10/2014 1:40 PM CDT [facility] Urine URINE SPECIMEN OBTAINED BY CLEAN CATCH PROCEDURE / Unknown Collection / Unknown 01/10/2014 12:27 PM CDT 01/10/2014 1:02 PM CDT Iveth Mueller MD LAB - URINE CHEMISTR Y ORDERABLES [facility] [address] [facility] [place] [address] from Last 3 Months or Most Recently Relevant to Health Maintenance Advance Directives * Full Code (Latest Code Status on File) Date Activated Date Inactivated Comments 12/19/2019 7:37 PM 12/19/2019 10:25 PM * Full Code Date Activated Date Inactivated Comments 12/17/2019 11:40 AM 12/17/2019 3:24 PM Care Teams Attic Fans Mechanic Relationship Specialty Start Date End Date Esperanza Santillan MD [address] [place] [address] [place] [phone] PCP - General Family Medicine 09/03/12
--- OUTSIDE RECORDS SUMMARY | 2024-10-14 01:33 | XMS_ITS | Clinical Summary ---
Author Organization [facility] Address [address] [place] [address] Care Team Providers Care Unit Manager [employer] Name Role Phone Esperanza Santillan MD Primary Care Provider [phone] Source Comments [facility],non-owned Affiliates and Associated Physician Practices is amultiple site organization consisting of ambulatory clinics and hospital sitesin [place], [place] and [place]. This disclosure is being madepursuant to the Care Everywhere program and may not contain all information available regarding this patient. Last updated 18.[facility] Allergies No known active allergies Medications * [...] 13-19 years with HbA1C goal below 7.5 ([facility]) 2 tabs with breakfast and dinner or [...] Updt Assessment & Plan (12/06/2015 9:30 AM SOFTWARE INTEGRATOR): 1) continue current metformin dose 2) try [...] for scre ening for cervical length 10/04/2019 Family History Medical History Relation Name Comments Obesity Father Diabetes Maternal Grandfather Hypercholesterolemia Maternal Grandfather Hypertension Maternal Grandfather Diabetes Maternal Uncle Obesity Mother Relation Name Status Comments Father Maternal Grandfather Maternal Uncle Mother Social History Tobacco Use Types Packs/Day Years [...] CDT Oxygen Saturation 99% 08/13/2016 5:58 PM SOFTWARE INTEGRATOR Inhaled Oxygen Concentration - - Weight 85.8 kg (189 lb 3.2 oz) 12/17/2019 11:33 AM CDT Height 152.4 cm (5') 12/19/2019 7:30 PM CDT Body Mass Index 36.95 12/17/2019 11:33 AM CDT Plan of Treatment Health Maintenance Due Date Last Done Comments PAP SMEAR 2000 HIV SCREENING 2013 HPV VACCINE (1 - 3-dose series) 2013 DIABETES RETINOPATHY SCREENING 01/10/2014 DIABETES-FOOT EXAM WITH MONOFILAMENT 01/10/2014 HEPATITIS C SCREENING 02/26/2016 DIABETES-HGB A1C 06/03/2016 12/04/2015, 04/2014, 01/14/2013, Additional history exists DIABETES-SERUM CREATININE 02/05/20172015, 12/27/2013, 12/02/2013, Additional history exists DTAP/TDAP/TD VACCINES (1 - Tdap) 2017 HEPATITIS B VACCINE (1 of 3 - 19+ 3-dose series) 2017 DEPRESSION SCREENING 10/06/2023 COVID-19 VACCINE ( - season) 2024 INFLUENZA VACCINE (#1) 2024 ZOSTER VACCINE (1 of 2) 2048 HIB VACCINE Aged Out No longer eligi ble based on patient's age to complete this topic MENINGOCOCCAL VACCINE Aged Out No aliya mark eligible based on patient's age to complete this topic PNEUMOCOCCAL VACCINE Aged Out No long er eligible based on patient's age to complete this topic Procedures Procedure Name Priority Date/Time Associated Diagnosis Comments BASIC METABOLIC PANEL (CALCIUM TOTAL) STAT 02/06/2016 1:11 AM CDT HEMOGLOBIN A1C - POCT (IP) BEAKER Routine 12/04/2015 12:08 PM SOFTWARE INTEGRATOR MICROALB/CREAT RATIO URINE RANDOM PANEL Routine 01/10/2014 12:27 PM CDT Type 2 diabetes mellitus in patient age 13-19 years with HbA1C goal below 7.5 from Last 3 Months or Most Recently Relevant to Health Maintenance Results * (ABNORMAL) BASIC METABOLIC PANEL (CALCIUM TOTAL) (02/06/2016 1:11 AM CDT) Glucose 138(H) 70 - 105 mg/dL 02/06/2016 1:41 AM CDT [facility] Sodium 140 136 - 145 mmol/L 02/06/2016 1:41 AM [facility] Potassium 3.7 3.5 - 5.1 mmol/L 02/06/2016 1:41 AM [facility] Chloride 107 98 - 107 mmol/L 02/06/2016 1:41 AM [facility] CO2 23 20 - 28 mmol/L 02/06/2016 1:41 AM [facility] Calcium 8.72(L) 9.08 - 10.48 mg/dL 02/06/2016 1:41 AM [facility] Anion Gap 10 5 - 20 mmol/L 02/06/2016 1:41 AM [facility] BUN 5.9 5.3 - 18.7 mg/dL 02/06/2016 1:41 AM [facility] Creatinine 0.60(L) 0.61 - 1.07 mg/dL 02/06/2016 1:41 AM [facility] eGFR by MDRD >60 mL/min/1. 73m2 02/06/2016 1:41 AM [facility] Comment: eGFR calculations are not performed for children under 18 years old. eGFR by MDRD >60 mL/min/1. 73m2 02/06/2016 1:41 AM [facility] Comment: eGFR calculations are not performed for children under 18 years old. Blood BLOOD SPECIMEN / Unknown Lab Venipuncture / Unknown 02/06/2016 1:11 AM CDT 02/06/2016 1:24 AM T Cheli Jefferson MD LAB - CHEMISTRY [place] [facility] Organization Address City/State/[facility] Co de Phone Number [facility] [address] [place] [address] * (ABNORMAL) HEMOGLOBIN A1C - POCT (IP) CARMEN (12/04/2015 12:08 PM SOFTWARE INTEGRATOR) Hemoglobin A1c POCT 6.8(A) 3.4 - 6.1 % [facility] POCT TESTING QC Verified Yes Yes [facility] PO CT TESTING Blood specimen (specimen) BLOOD SPECIMEN / Unknown 12/04/2015 12:08 PM SOFTWARE INTEGRATOR Parminder Orta EXECUTIVE RECRUITER-PEDIATRIC ORTHODONTIST LAB - POINT OF CARE ORDERABLES Performing Organization Address City/[facility]/ZIP Co de Phone Number [facility] POCT TESTING [address] [place], [place] [address] [phone] * MICROALB/CREAT RATIO URINE RANDOM PANEL (01/10/2014 12:27 PM CDT) Creatinine Urine 178.25 mg/dL 01/11/20 14 1:40 PM CDT [facility] Microalbumin Urine 1.1 <1.7 mg/dL 01/10/2014 1:40 PM CDT [facility] Microalbumin/Crea tinine Ratio 6 <30 mg/g 01/10/2014 1:40 PM CDT [facility] Urine URINE SPECIMEN OBTAINED BY CLEAN CATCH PROCEDURE / Unknown Collection / Unknown 01/10/2014 12:27 PM CDT 01/10/2014 1:02 PM CDT Iveth Mueller MD LAB - URINE CHEMISTR Y ORDERABLES Performing Organization Address City/[facility]/ZIP Co de Phone Number [facility] [address] [place] [phone] from Last 3 Months or Most Recently Relevant to Health Maintenance Advance Directives * Full Code (Latest Code Status on File) Date Activated Date Inactivated Comments 12/19/2019 7:37 PM 12/19/2019 10:25 PM * Full Code Date Activated Date Inactivated Comments 12/17/2019 11:40 AM 12/17/2019 3:24 PM Care Teams Unit Manager [employer] Relationship Specialty Start Date End Date Esperanza Santillan MD [address] [place] [address] [place] Molina [phone] PCP - General Family Medicine 09/03/12
--- OUTSIDE RECORDS SUMMARY | 2024-10-14 01:33 | XMS_ITS | Encounter Summary ---
Author Organization [facility] Address [address] [address] Care Team Providers Care Soft Metals Hand Engraver Name Role Phone Esperanza Santillan MD Primary Care Provider [phone] Reason for Visit * Reason Comments FAD NST Encounter Details Date Type Department Care Team (Latest Contact Info) Description 12/28/2019 9:00 AM CDT - 12/28/2019 11:59 PM CDT Hospital Encounter [facility] Maternal & Care [address] [place], [place] [id number] Antoni Morataya MD Discharge Disposition: Home or [...] Sign Reading Time Taken Comments Blood Pressure 123/85 12/28/2019 10:05 AM CDT Pulse 102 12/28/2019 10:05 AM CDT Temperature 36.3 ??C (97.3 ??F) 12/28/2019 10:05 AM C DT Respiratory Rate - - [...] years with HbA1C goal below 7.5 ([facility]) 2 tabs with breakfast and dinner or [...] as of this encounter Progress Notes * Antoni Morataya MD - 12/28/2019 9:00 AM CDT FHR tracing is discontinuous but appears reactive with a baseline of 140 bpm and no obvious decels documented in this encounter Plan of Treatment Not on file documented as of this encounter Visit Diagnoses Diagnosis state, incidental (HCC) state, incidental documented in this encounter Care Teams Soft Metals Hand Engraver Relationship Specialty Start Date End Date Esperanza Santillan MD [address] [place] [address] [place] [phone] PCP - General Family Medicine 09/03/12 documented as of this encounter
--- OUTSIDE RECORDS SUMMARY | 2024-10-14 01:33 | XMS_ITS | Encounter Summary ---
Author Organization [facility] Address [address] [place] [address] Care Team Providers Care Warper Tender Name Role Phone Esperanza Santillan MD Primary Care Provider [phone] Reason for Visit * Reason Comments Biophysical Profile FAD NST * Evaluate & Treat (Routine) - Closed Specialty Diagnoses / Procedures Referred By Contac t Referred To Contact Maternal Medicine Diagnoses Pre-existing type 2 diabetes mellitus, in , unspecified trimester (HCC) Procedures [place] BIOPHYSICAL PROFILE Jewell Acosta MD [address] [place] [address] [facility] [address] [place] [phone] Referral ID Status Reason Start Date Expiration Date Visits Re quested Visits Authorized [id number] Closed 10/29/2019 03/17/2020 8 8 Encounter Details Date Type Department Care Team (Latest Contact Info) Description 12/24/2019 9:44 AM CDT - 12/24/2019 11:59 PM CDT Hospital Encounter [facility] Maternal & Care [address] [place] [address] Jewell Acosta MD [address] [place] [address] Antoni Morataya MD Discharge Disposition: Home or [...] Sign Reading Time Taken Comments Blood Pressure 123/73 12/24/2019 11:17 AM CDT Pulse 96 12/24/2019 11:17 AM CDT Temperature 36.7 ??C (98.1 ??F) 12/24/2019 11:17 AM C DT Respiratory Rate - - [...] years with HbA1C goal below 7.5 ([facility]) 2 tabs with breakfast and dinner or [...] Progress Notes * Lesly Zapata, RN - 12/24/2019 9:45 AM CDT Patient prescreened prior to entering waiting room. Patient afebrile. Patient's FOB 97.9. Patient denies fever, cough & travel in past 14 days.Patient here today for NST/BPP performed at 33w4d for gdm. Pt states delivery plans are at [facility] related to [facility] OB closure and Dr. Larry unable to deliver her. Patient reports positive movement. Denies cramping, contractions, bleeding, and leakage of fluid. Patient denies headache, epigastric pain and visual changes. VS per flowsheet. BPP today 05/13. Lesly Zapata RN 12/24/2019 11:19 AM documented in this encounter Plan of Treatment Not on file documented as of this encounter Procedures Procedure Name Priority Date/Time Associated Diagnosis Comments BIOPHYSICAL PROFILE W NST Routine 12/24/2019 9:59 AM CDT with type 2 diabetes mellitus in second trimester ([facility]) Supervision of high-risk of young primigravida (HCC) Maternal morbid obesity in second trimester, antepartum (HCC) documented in this encounter Results * BIOPHYSICAL PROFILE W NST (12/24/2019 9:59 AM CDT) Anatomical Region Laterality Modality Other 12/24/2019 9:59 AM CDT Narrative 12/24/2019 6:52 PM CDT ? [facility] ?PHONE: ??FAX: Pat. Name: ?VEENA MCRAE Pat. No: ?[id number] Study Date: ?? 12/24/2019 ??9:59am , Age: ? 2000, 19 Pregnancies: ?? 1 Height: ? 60 in Weight: ? 198 lb LMP: ?05/03/2019 GA by LMP: ?33w4d GA by Base: ?? 33w4d ?? PAVEL: 02/07/2020 GA Selected: ??33w4d (From [place]) PAVEL: ?02/07/2020 Referring MD: Tony Lira MD Right Of Way Clearer: ??Karina Kirby RDMS CPT4: ? [address] BMI: ?38.67 Hist/Ind: ? Type 2 diabetes ?Class II obesity ?Normal echo Heart Rate: 149 bpm Amniotic Fluid Index: 12.5cm (08.2-24.7) Q1: 2.8cm ??Q2: 2.7cm ??Q3: 3.6cm ??Q4: 3.4cm ?? Biophysical Profile: 07/15 Breathin ?? Tone: 2 ?? NST: 2 Movement: ??2 ?? AFV: ??2 EVAL, PLACENTA Presentation: cephalic Placenta: posterior Heart Rate: 149 bpm Amniotic Fluid Volume: Normal CLINICAL SUMMARY Study Number: 6 ?? A single fetus is seen in cephalic presentation. ??The amniotic fluid volume is within normal limits. ?? I have reviewed the FHR tracing and it is very reassuring, reactive, normal variability (moderate) & baseline (130 bpm) and without decelerations. jt IMPRESSION: Single, live, intrauterine at 33w4d. Amniotic fluid volume: within normal limits. ?? Biophysical profile and NST are reassuring. RECOMMEND: Continue weekly testing ?? Repeat growth assessment in 2 weeks ?? Thank you for allowing us the opportunity to care for your patient. ?? Antoni Morataya MD <Electronic Signature> ??12/24/2019 06:52pm Joshua Lira MD M ORDERABLES documented in this encounter Visit Diagnoses Diagnosis with type 2 diabetes mellitus in second trimester (HCC) Supervision of high-risk of young primigravida ([facility]) Supervision of high-risk of young primigravida Maternal morbid obesity in second trimester, antepartum ([facility]) Type 2 diabetes mellitus during , third trimester ([facility]) 33 weeks gestation of ([facility]) state, incidental documented in this encounter Care Teams Warper Tender Relationship Specialty Start Date End Date Esperanza Santillan MD [address] [place] [address] [place] [phone] PCP - General Family Medicine 09/03/12 documented as of this encounter
--- OUTSIDE RECORDS SUMMARY | 2024-10-14 01:34 | XMS_ITS | Encounter Summary ---
Author Organization [facility] Address [address] [place] [address] Care Team Providers Care Collator Name Role Phone Esperanza Santillan MD Primary Care Provider [phone] Reason for Visit * Reason Comments FAD NST Encounter Details Date Type Department Care Team (Latest Contact Info) Description 12/14/2019 8:52 AM CDT - 12/14/2019 11:59 PM CDT Hospital Encounter [facility] Maternal & Care [address] [place], [place] [phone] Antoni Morataya MD Discharge Disposition: Home or [...] Sign Reading Time Taken Comments Blood Pressure 99/65 12/14/2019 10:07 AM CDT Pulse 78 12/14/2019 10:07 AM CDT Temperature - - Respiratory Rate - - Oxygen Saturation - - Inhaled Oxygen Concentration - - Weight - - Height - - Body Mass Index - - documented in this encounter Medications at Time [...] 13-19 years with HbA1C goal below 7.5 ([facility]) 2 tabs with breakfast and dinner or [...] Progress Notes * Lesly Zapata RN - 12/14/2019 9:00 AM CDT Patient here today for NST performed at 32w1d for diabetes. Patient reports positive movement. Denies cramping, contractions, bleeding, and leakage of fluid. Patient denies headache, epigastricpain and visual changes. VS per flowsheet. Lesly Zapata RN 12/14/2019 10:11 AM documented in this encounter Plan of Treatment Scheduled Orders Name Type Priority Associated Diagnoses Orde r Schedule BIOPHYSICAL PROFILE W NST MATRNL MED Routine with type 2 diabetes mellitus in second trimester (HCC) Supervision of high-risk of young primigravida (HCC) Maternal morbid obesity in second trimester, antepartum (HCC) 1 Occurrences starting 12/10/2019 until 12/09/2020 NON-STRESS TEST MATRNL MED Routine with type 2 diabetes mellitus in second trimester ([facility]) Supervision of high-risk of young primigravida ([facility]) Maternal morbid obesity in second trimester, antepartum ([facility]) 1 Occurrences starting 12/15/2019 until 12/14/2020 documented as of this encounter Visit Diagnoses Diagnosis with type 2 diabetes mellitus in second trimester (HCC)- Primary Supervision of high-risk of young primigravida (HCC) Supervision of high-risk of young primigravida Maternal morbid obesity in second trimester, antepartum ([facility]) documented in this encounter Care Teams Collator Relationship Specialty Start Date End Date Esperanza Santillan MD [address] [place] [address] [place] [phone] PCP - General Family Medicine 09/03/12 documented as of this encounter
--- OUTSIDE RECORDS SUMMARY | 2024-10-14 01:34 | XMS_ITS | Encounter Summary ---
Author Organization [facility] Address [address] [place] [address] Care Team Providers Care Circulation Clerk Name Role Phone Esperanza Santillan MD Primary Care Provider [phone] Reason for Visit * Reason Comments HIGH BLOOD SUGAR To ER for high sugar s today. The highest today was 235. 1 emesis today. Nausea. Has been diabetic 2 years. Takes metformin Encounter Details Date Type Department Care Team (Late st Contact Info) Description 02/05/2016 10:16 PM CDT - 02/06/2016 2:02 AM CDT Emergency ER at [address] [address] Cheli Jefferson MD [address] [place] [address] [id number] Hyperglycemia due to type 2 diabetes mellitus (HCC); Ketonuria Discharge Disposition: Home or Self Care Social History Tobacco Use Types Packs/Day Years Used Date Smoking Tobacco: Passive Smo ke Exposure - Never Smoker Smokeless Tobacco: Never Alcohol Use Standard Drinks/Week Comments No 0 (1 standard drink = 0.6 oz pur e alcohol) Sex and Gender Information Value Date Recorded Sex Assigned at Not on file Gender Identity Not on file Sexual Orientation Not on file documented as of this encounter Last Filed Vital Signs Vital Sign Reading Time Taken Comments Blood Pressure 133/85 02/05/2016 10:05 PM CDT Pulse 88 02/05/2016 11:47 PM CDT Temperature 36.7 ??C (98.1 ??F) 02/05/2016 1 1:47 PM CDT Respiratory Rate 24 02/05/2016 11:4 7 PM CDT Oxygen Saturation - - Inhaled Oxygen Concentration - - Weight 92.5 kg (203 lb 14.8 oz) 016 10:05 PM CDT Height 161 cm (5' 3.39 ) 02/05/2016 10: 05 PM CDT Body Mass Index 35.69 02/05/2016 10:05 PM CDT Body Mass Index Percentile 97.77% 02/04 10:05 PM CDT Growth Chart: [facility] (Girls, 2- 20 Years) documented in this encounter Discharge Instructions * Discharge Instructions* Cheli Jefferson MD - 02/06/2016 1:25 AM CDT Images from the original note were not included. Diabetic Hyperglycemia WHAT YOU SHOULD KNOW: Diabetic hyperglycemia is a blood glucose (sugar) level that is higher than your healthcare provider recommends. You may have increased thirst and urinate more often than usual. Over time, uncontrolled diabetes can damage your nerves, blood vessels, tissues, and organs. That is why it is important to manage diabetic hyperglycemia. Without treatment, diabetic hyperglycemia can lead to diabetic ketoacidosis (DKA) or hyperglycemic hyperosmolar state (HHS). These are serious conditions that can become life-threatening. INSTRUCTIONS: Return to the emergency department if: ?? You have shortness of breath. ?? Your breath smells fruity. ?? You have nausea and vomiting. ?? You have symptoms of dehydration, such as dark yellow urine, dry mouth and lips, and dry skin. Contact your healthcare provider if: ?? You continue to have higher blood sugar levels than your healthcare provider recommends. ?? Your blood sugar level is over 240 mg/dl and you have ketones in your urine. ?? You have questions or concerns about your condition or care. Medicines: ?? Medicines such as insulin and hypoglycemic medicine decrease blood sugar levels. ?? Take your medicine as directed. Call your healthcare provider if you think your medicine is not helping or if you have side effects. Tell him if you are allergic to any medicine. Keep a list of the medicines, vitamins, and herbs you take. Include the amounts, and when and why you take them. Bring the list or the pill bottles to follow-up visits. Carry your medicine list with you in case of an emergency. Follow up with your healthcare provider or specialist as directed: Your healthcare provider may refer you to a dietitian or curatorial specialist. Write down your questions so you remember to ask them during your visits. Manage diabetic hyperglycemia: ?? If you take diabetes medicine or insulin, take it as directed. Missed or wrong doses can cause your blood sugar to go up. ?? Tell your healthcare provider if you continue to have trouble managing your blood sugar. He may change the type, amount, or timing of your diabetes medicine or insulin. If you do not take diabetesmedicine or insulin, you may need to start. ?? Work with your healthcare provider to develop a sick day plan. Illness can cause your blood sugar to rise. A sick day plan helps you control your blood sugar level when you are sick. Prevent diabetic hyperglycemia: ?? Check your blood sugar levels regularly. Ask your healthcare provider how often to check your blood sugar and what your levels should be. ?? Follow your meal plan. Your blood sugar can go up if you eat a large meal or you eat more carbohydrates than recommended. Work with a dietitian to develop a meal plan that is right for you. ?? Exercise regularly to help lower your blood sugar when it is high. It can also keep your blood sugar levels steady over time. Exercise for at least 30 minutes, 5 days a week. Include muscle strengthening activities 2 days each week. Do not sit for longer than 90 minutes at a time. Work with yourhealthcare provider to create an exercise plan. Children should get at least 60 minutes of physicalactivity each day. ?? Check your ketones before exercise if your blood sugar level is above 240 mg/dl. Do not exerciseif you have ketones in your urine, because your blood sugar level may rise even more. Ask your healthcare provider how to lower your blood sugar when you have ketones. ?? 2015 [employer]. Information is for End User's use only and may not be sold, redistributed or otherwise used for commercial purposes. All illustrations and images included in CareNotes?? are the copyrighted property of [employer].A[employer] Inc. or [employer]. The above information is an personal clothing laundry aide only. It is not intended as medical advice for individual conditions or treatments. Talk to your doctor, nurse or pharmacist before following any medical regimen to see if it is safe and effective for you. Type 2 Diabetes Management for Adolescents WHAT YOU SHOULD KNOW: As you get older, you will be able to manage your own health. You may be away from home more often spending time with your friends or being involved in sports. When you manage your blood sugar levels, you will feel well and be able to enjoy your activities. Your healthcare providers can show you how to fit diabetes care within your schedule. Adults, such as your parents and healthcare providers, are available to help you as you become more active in your diabetes care. INSTRUCTIONS: What you can do to manage your blood sugar levels: ?? Make healthy food choices. Healthy foods can give you energy to learn and be active. Healthy foods can also help you keep your blood sugar in balance, and manage or lose weight safely. Work with adietitian to develop a meal plan that works for you and your schedule. A dietitian can help you learn how to eat the right amount of carbohydrates during your meals and snacks. Carbohydrates can raise your blood sugar if you eat too many at one time. Some foods that contain carbohydrates include breads, cereals, rice, pasta, sweets, soda, and juice. ?? Get regular physical activity. Physical activity helps to lower your blood sugar levels. It can also help you manage your weight. Get at least 60 minutes of physical activity throughout your day. ?? Maintain a healthy weight. Ask your healthcare provider how much you should weigh. Ask him to help you create a safe weight loss plan if you are overweight. Weight loss can improve your blood sugar levels. ?? Check your blood sugar level as directed and as needed. Ask your healthcare provider what your blood sugar levels should be. ?? Look at your schedule and make a plan for how you will check your blood sugar levels throughout the day. ?? Check more often if you think your blood sugar is too high or too low. This will allow you to take care of any low or high blood sugar levels so they do not interfere with your activities. ?? Rotate the sites where you do fingersticks. This will help make the checks less painful, and make fingerstick sites less noticeable. ?? Write down your blood sugar levels so you can show them to your healthcare provider during your visits. Talk to your healthcare provider if you are having trouble keeping your blood sugar at the recommended levels. ?? Take your diabetes medicine or insulin as directed. You may need diabetes medicine, insulin, or both to help control your blood sugar levels. Your healthcare provider will teach you how and when to take your diabetes medicine or insulin. What you need to know about high blood sugar: High blood sugar may not cause any symptoms. It may cause you to feel more thirsty than usual or urinate more often than usual. Over time, high blood sugar levels can damage your nerves, blood vessels, tissues, and organs. ?? Large meals or large amounts of carbohydrates at one time can raise your blood sugar. ?? Decreased physical activity can raise your blood sugar. For example, your blood sugar can increase if you stop playing a sport or getting regular physical activity. Do not sit for longer than 90 minutes at a time. ?? Stress can raise your blood sugar. Ask your parents or healthcare provider for help if you are having trouble managing stress. ?? Illness can raise your blood sugar. This can happen even if you eat less than usual while you are sick. Work with your healthcare provider and parents to develop a sick day plan. This is a plan that helps you manage your blood sugar levels while you are sick. ?? A lower dose of medicine or insulin, or a late dose, can raise your blood sugar. There is not enough time for your medicine or insulin to work as it should if you take it late. When you take a lower dose, there is not enough medicine or insulin needed to lower your blood sugar. What you need to know about low blood sugar: You can prevent symptoms such as shakiness, dizziness,irritability, or confusion by preventing your blood sugar from going too low. ?? Treat low blood sugar right away. Eat 15 grams of carbohydrate. Have 4 ounces of juice or 3 to 4tablets of glucose. Check your blood sugar again 10 to 15 minutes later. When your blood sugar goesback to normal, eat a meal or snack to prevent another decrease in blood sugar. ?? Your blood sugar can get too low if you take diabetes medicine or insulin and do not eat enough food. It can also happen if you skip a meal or snack. ?? Increased physical activity can cause low blood sugar. Check your blood sugar before you exercise. If your blood sugar is below 100 mg/dL, eat 15 grams of carbohydrate. If you will exercise for more than 1 hour, check your blood sugar every 30 minutes. You may need to adjust your insulin before exercise and have a carbohydrate snack during exercise. Other things you can do to manage your diabetes: ?? Wear medical alert jewelry or carry a card that says you have diabetes. Ask where to get these items. ?? Be safe when you learn to drive. Check your blood sugar before you drive if you use insulin, andyou think your blood sugar is low. If your blood sugar is low, eat 15 grams of carbohydrate and wait for your blood sugar to go back to normal. Keep snacks that contain carbohydrate in the car. If you feel like your blood sugar is low while you are driving, box puller and check your blood sugar level. Treat low blood sugar before you start driving again, if needed. ?? Do not drink alcohol or smoke. Alcohol affects your blood sugar level and can make it harder foryou to manage your diabetes. You may not be aware of low blood sugar when you drink alcohol. Nicotine can damage blood vessels and make it more difficult to manage your diabetes. Do not use e-cigarettes or smokeless tobacco in place of cigarettes or to help you quit. They still contain nicotine. Ask your healthcare provider for information if you currently smoke and need help quitting. Follow up with your healthcare provider as directed: You may need to return to have your A1c every 3 months. An A1c test shows the average amount of sugar in your blood over the past 2 to 3 months. Your healthcare provider will tell you what your A1c level should be. You may also need to return at least once each year to have your feet checked. ?? 2015 [employer]. Information is for End User's use only and may not be sold, redistributed or otherwise used for commercial purposes. All illustrations and images included in CareNotes?? are the copyrighted property of [employer] or [employer]. The above information is an personal clothing laundry aide only. It is not intended as medical advice for individual conditions or treatments. Talk to your doctor, nurse or pharmacist before following any medical regimen to see if it is safe and effective for you. documented in this encounter Medications at Time of Discharge Medication Sig Dispensed Refills Start Date End Date blood glucose (ONETOUCH ULTRA TEST STRIPS) test strip Use 2 strips daily. 100 Strip 05/20/2013 Blood Glucose Monitoring Suppl (FREESTYLE LITE) TITO Use to check blood sugar twice a day as directed. 1 Device 1 03/23/2015 Blood Glucose Monitoring Suppl (ONE TOUCH ULTRA MINI) W/DEVICE KIT Use to test blood sugar 2 times daily 1 Kit 1 05/20/2013 FREESTYLE LANCETS MISC Use to check blood sugar twice a day or as directed. 100 Each 03/23/2015 FREESTYLE LITE STRIPS test strip Use to check blood sugar twice a day or as directed. 100 Strip 11 03/23/2015 metFORMIN (GLUCOPHAGE) 500 MG tabletIndications:Type 2 diabetes mellitus in patient age 13-19 years with HbA1C goal below 7.5 (HCC) 2 tabs with breakfast and dinner or as directed. 90 day supply 360 Tab 3 01/10/2014 norethindrone-ethinyl estradiol (MICROGESTIN) 1.5-30 MG-MCG tablet Take 1 Tab by mouth once daily. One Touch Delica Lancets Use 2 LANCETS DAILY 100 Each 05/20/2013 documented as of this encounter ED Notes * Cheli Jefferson MD - 02/06/2016 12:23 AM CDT EMERGENCY DEPARTMENT 02/06/2016 Dear Doctor, We had the pleasure of caring for your patient, Melissa Jackson in our emergency department on 02/06/2016. A note from the provider(s) who cared for your patient is attached. Should you wish to access any laboratory results, please call . Should you wish to access any radiology results, please call , option 3. In addition, you can access patient information 24 hours a day, from any computer, through Webjam, the online version of our electronic medical record. If you would like to use this service, please call Ida Cutler, Connectivity Coordinator, at . We appreciate the opportunity to care for your patients. If you would like additional information, please call the emergency department directly at . Sincerely, Cheli Jefferson MD Division of Emergency Medicine [facility] [place], [place] [facility] [place] DESIGNATED EMERGENCY DEPARTMENT Provider contact with the patient: 02/06/2016 00:23 Melissanahid Jackson [id number] [facility] EMERGENCY DEPARTMENT History Chief Complaint Patient presents with ??? HIGH BLOOD SUGAR To ER for high sugars today. The highest today was 235. 1 emesis today. Nausea. Has been diabetic 2years. Takes metformin HPI 15 y/o female with hx of DM 2 for a couple of years, on metformin and has been doing well. Pt not feeling well last couple of days, nonspecific. Having elevated BS measurements, was 265 yesterdayand 235 today. No vomiting, some nausea, feeling shakey. Does not have urine dipsticks to measure ketones at home. Afebrile, denies sore throat or other sx. PMHx DM, PCOS, IBD Past Medical History Diagnosis Date ??? Diabetes mellitus ??? Anemia ??? Irritable bowel disease ??? Bronchitis acutely ??? PCOS (polycystic ovarian syndrome) Past Surgical History Procedure Laterality Date ??? Pr dental surgery procedure History Social History ??? Marital Status: Single Spouse Name: N/A Number of Children: N/A ??? Years of Education: N/A Occupational History ??? Not on file. Social History Main Topics ??? Smoking status: Passive Smoke Exposure - Never Smoker ??? Smokeless tobacco: Never Used ??? Alcohol Use: No ??? Drug Use: No ??? Sexual Activity: No Other Topics Concern ??? Not on file Social History Narrative HEADS: 12/27/2013 H: Mom, shanelle, younger sister and brother. 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 Drinks water S: 4 total partners, no hx STD, same partner since last year, condoms everytime, on OCP, regular follow up with wanigan clerk Medications Current Outpatient Prescriptions Medication Sig Dispense Refill ??? norethindrone-ethinyl estradiol (MICROGESTIN) 1.5-30 MG-MCG tablet Take 1 Tab by mouth once daily. ??? metFORMIN (GLUCOPHAGE) 500 MG tablet 2 tabs with breakfast and dinner or as directed. 90 day supply 360 Tab 3 ??? Blood Glucose Monitoring Suppl (FREESTYLE LITE) TITO Use to check blood sugar twice a day as directed. 1 Device 1 ??? FREESTYLE LITE STRIPS test strip Use to check blood sugar twice a day or as directed. 100 Strip11 ??? FREESTYLE LANCETS MISC Use to check blood sugar twice a day or as directed. 100 Each 11 ??? Blood Glucose Monitoring Suppl (ONE TOUCH ULTRA MINI) W/DEVICE KIT Use to test blood sugar 2 times daily 1 Kit 1 ??? blood glucose (ONETOUCH ULTRA TEST STRIPS) test strip Use 2 strips daily. 100 Strip 11 ??? One Touch Delica Lancets Use 2 LANCETS DAILY 100 Each 11 Review of Systems Review of Systems Constitutional: Positive for activity change, appetite change and fatigue. Negative for fever. HENT: Negative for sore throat. Eyes: Negative for photophobia and redness. Respiratory: Negative for cough and shortness of breath. Gastrointestinal: Positive for nausea. Negative for vomiting, abdominal pain and constipation. Genitourinary: Negative for decreased urine volume. Musculoskeletal: Negative for neck pain and neck stiffness. Skin: Negative for color change, pallor, rash and wound. Neurological: Negative for headaches. Psychiatric/Behavioral: Negative for confusion. All other systems reviewed and are negative. BP 133/85 mmHg Pulse 88 Temp(Src) 98.1 ??F Resp 24 Ht 161 cm (63.39 ) Wt 92.5 kg (203 lb 14.8 oz) BMI 35.69 kg/m2 Physical Exam Physical Exam Constitutional: She is oriented to person, place, and time. She appears well- developed and well-nourished. No distress. Obese adolescent, pleasant, not ill appearing HENT: Head: Normocephalic and atraumatic. Eyes: Conjunctivae are normal. Pupils are equal, round, and reactive to light. Neck: Normal range of motion. Neck supple. Cardiovascular: Normal rate and regular rhythm. Pulmonary/Chest: Effort normal and breath sounds normal. No respiratory distress. Abdominal: Soft. She exhibits no distension. There is no tenderness. Musculoskeletal: Normal range of motion. Neurological: She is alert and oriented to person, place, and time. No cranial nerve deficit. Skin: Skin is warm. No rash noted. Psychiatric: She has a normal mood and affect. Her behavior is normal. Procedures Procedures ECG Interpretation ECG Interpretation Lab/SPO2 Interpretation Progress Notes ED Course Pt with DM II, has been doing well on metformin, but having inc BS last couple of days and not feeling as well, somewhat shakey by report. BS in 110's on 2 measurements here and taking po well but has 1+ ketones in urine and still not feeling well, so given IVFs. Improved, feeling much better, homewith continued care and return if problems. Medical Decision Making I have reviewed the: Nursing Notes and Vitals. I have interpreted the following results: Labs. I have discussed the case with Family/Caregiver. I have personally seen and examined this patient. I have fully participated in the care of this patient. I have reviewed all pertinent clinical information available to me during this encounter, including history, physical exam and plan. I have reviewed available labs and radiographic studies. Withrespect to physicians in training and midlevel providers, I agree with the assessment and plan except if revised in my note I reviewed the nurses notes I reviewed the vital signs The total time providing critical care (excluding time spent for procedures) was: 0 minutes. Clinical Impression Final diagnoses: Hyperglycemia due to type 2 diabetes mellitus Ketonuria z * Mabel Davidson - 02/05/2016 10:44 PM CDT Pt. Reports baseline sugars are approximately 115. * Mabel Davidson - 02/05/2016 10:38 PM CDT Pt. Reports high sugars at home. MAX 265. Glucose was 235 today. Pt. Reports taking Metformin. documented in this encounter Plan of Treatment Not on file documented as of this encounter Procedures Procedure Name Priority Date/Time Associated Diagnosis Comments BASIC METABOLIC PANEL (CALCIUM TOTAL) STAT 02/06/2016 1:11 AM CDT URINALYSIS REFLEX TO MICROSCOPIC NO CULTURE STAT 02/05/2016 11:43 PM CDT URINE MICROSCOPIC ONLY STAT 02/05/2016 11:43 PM CDT GLUCOSE - POINT OF CARE Routine 02/05/2016 10:44 PM CDT GLUCOSE - POINT OF CARE Routine 02/05/2016 10:09 PM CDT documented in this encounter Results * (ABNORMAL) BASIC METABOLIC PANEL (CALCIUM TOTAL) (02/06/2016 1:11 AM CDT) Glucose 138(H) 70 - 105 mg/dL 02/06/2016 1:41 AM [facility] Sodium 140 136 - 145 mmol/L 02/06/2016 1:41 AM [facility] Potassium 3.7 3.5 - 5.1 mmol/L 02/06/2016 1:41 AM [facility] Chloride 107 98 - 107 mmol/L 02/06/2016 1:41 AM [facility] CO2 23 20 - 28 mmol/L 02/06/2016 1:41 AM [facility] Calcium 8.72(L) 9.08 - 10.48 mg/dL 02/06/2016 1:41 AM [facility] Anion Gap 10 5 - 20 mmol/L 02/06/2016 1:41 AM [facility] BUN 5.9 5.3 - 18.7 mg/dL 02/06/2016 1:41 AM [facility] Creatinine 0.60(L) 0.61 - 1.07 mg/dL 02/06/2016 1:41 AM [facility] eGFR by MDRD >60 mL/min/1. 73m2 02/06/2016 1:41 AM [facility] Comment: eGFR calculations are not performed for children under 18 years old. eGFR by MDRD >60 mL/min/1. 73m2 02/06/2016 1:41 AM [facility] Comment: eGFR calculations are not performed for children under 18 years old. Blood BLOOD SPECIMEN / Unknown Lab Venipuncture / Unknown 02/06/2016 1:11 AM CDT 02/06/2016 1:24 AM CDT Cheli Jefferson MD LAB - CHEMISTRY ORDE RABLES Performing Organization Address [facility]/ZIP Co de Phone Number [facility] [address] [place] [phone] * (ABNORMAL) URINALYSIS MICROSCOPIC ONLY (02/05/2016 11:43 PM CDT) RBC UA 2-5 0-2, 2-5 # /hpf 02/06/2016 12:10 AM CDT [facility] WBC UA 2-5 0-2, 2-5 # /hpf 02/06/2016 12:10 AM CDT [facility] Bacteria UA 3+(A) None Seen, Trace 02/06/2016 12:10 AM CDT [facility] Epithelial Cell UA 2-5 0-2, 2-5 # /hpf 02/06/2016 12:10 AM CDT [facility] Mucus UA 1+ 02/06/2016 12:10 AM T [facility] Urine URINE SPECIMEN OBTAINED BY CLEAN CATCH PROCEDURE / Unknown 02/05/2016 11:43 PM CDT 02/05/2016 11:47 PM CDT Cheli Jefferson MD LAB - URINALYSIS ORD ERABLES Performing Organization Address [facility]/ZIP Co de Phone Number [facility] [address] [place] [phone] * (ABNORMAL) URINALYSIS ROUTINE AUTO (02/05/2016 11:43 PM CDT) Color UA Yellow Straw, Yellow, Dark Yellow 02/05/2016 11:55 PM CDT [facility] Clarity UA Clear 02/05/2016 11:55 PM CDT [facility] Specific [place] UA 1.020 1.005 - 1.030 02/05/2016 11:55 PM CDT [facility] pH UA 6.0 5.0 - 8.0 pH 02/05/2016 11:55 PM CDT [facility] Protein UA Negative Negative 02/05/2016 11:55 PM CDT [facility] Blood UA Negative Negative 02/05/2016 11:55 PM CDT [facility] [facility] Leukocyte UA 1+(A) Negative 02/05/2016 11:55 PM CDT [facility] Nitrite UA Negative Negative 02/05/2016 11:55 PM CDT [facility] Glucose UA 1+(A) Negative 02/05/2016 11:55 PM CDT [facility] Ketone UA Negative Negative 02/05/2016 11:55 PM CDT [facility] Bilirubin UA Negative Negative 02/05/2016 11:55 PM T [facility] Urobilinogen UA 0.2 0.1 - 1.0 EU/dL 02/05/2016 11:55 PM T [facility] Urine URINE SPECIMEN OBTAINED BY CLEAN CATCH PROCEDURE / Unknown 02/05/2016 11:43 PM CDT 02/05/2016 11:47 PM CDT Cheli Jefferson MD LAB - URINALYSIS ORD ERABLES Performing Organization Address City/[facility]/ZIP Co de Phone Number [facility] [address] [place] [phone] * (ABNORMAL) GLUCOSE - POINT OF CARE (02/05/2016 10:44 PM CDT) Glucose WB/POC 115(H) 70 - 106 mg/dL 02/05/2016 10:48 PM T [facility] Blood BLOOD SPECIMEN / Unknown 02/05/2016 10:44 PM CDT 02/05/2016 10:48 PM CDT Provider Unknown LAB - POINT OF CARE ORDERABLES Performing Organization Address [facility]/ZIP Co de Phone Number [facility] [address] [place] [address] * (ABNORMAL) GLUCOSE - POINT OF CARE (02/05/2016 10:09 PM CDT) Glucose WB/POC 111(H) 70 - 106 mg/dL 02/05/2016 10:16 PM CDT [facility] Blood BLOOD SPECIMEN / Unknown 02/05/2016 10:09 PM CDT 02/05/2016 10:16 PM CDT Provider Unknown LAB - POINT OF CARE ORDERABLES [facility] [address] [place] [address] documented in this encounter Visit Diagnoses Diagnosis Hyperglycemia due to type 2 diabetes mellitus (HCC) Ketonuria Acetonuria documented in this encounter Administered Medications Inactive Administered Medications - up to 3 most recent administrations Medication Order MAR Action Action Date Dose Rate Site 0.9 % nacl IV BOLUS 1,000 mL 1,000 mL, Intravenous, ONCE, 1 dose, On Fri02/06/16 at 0045 $ Given 02/06/2016 12:49 AM CDT 1,000 mL 0.9% NaCl infusion ADS Med 1 dose, Starting on Fri02/06/16 at 0035, Until Fri02/06/16 at 0049, Eliz Lu : cabinet override ondansetron (disintegrating) (ZOFRAN ODT) tablet 8 mg 8 mg, Oral, ONCE, 1 dose, On Fri02/05/16 at 2230, Weight 8 to 15 kg= 2 mg Weight >15 kg up to 30 kg= 4 mg Weight >30 kg = 8 mg $ Given 02/05/2016 10:15 PM CDT 8 mg documented in this encounter Active and Recently Administered Medications Times are shown in CDT. Scheduled Medication Order 02/04/2016 02/05/2016 02/06/2016 0.9 % nacl IV BOLUS 1,000 mL (COMPLETED) 1,000 mL, Intravenous, ONCE, 1 dose, On Fri02/06/16 at 0045 0049 ($ Given - Provider: Eliz Lu, DARRICK) ondansetron (disintegrating) (ZOFRAN ODT) tablet 8 mg (COMPLETED) 8 mg, Oral, ONCE, 1 dose, On Fri02/05/16 at 2230, Weight 8 to 15 kg= 2 mg Weight >15 kg up to 30 kg= 4 mg Weight >30 kg = 8 mg 2215 ($ Given - Provider: Starla Coburn RN) documented in this encounter Care Teams Circulation Clerk Relationship Specialty Start Date End Date Esperanza Santillan MD [address] [place] [address] [place] [phone] PCP - General Family Medicine 09/03/12 documented as of this encounter
--- OUTSIDE RECORDS SUMMARY | 2024-10-14 01:34 | XMS_ITS | Encounter Summary ---
Author Organization [facility] Address [address] [facility] [place] [address] Care Team Providers Care Epic Cadence Analyst Name Role Phone Esperanza Santillan MD Primary Care Provider [phone] Reason for Visit * Reason Comments Diabetes Type 2 Follow-up Encounter Details Date Type Department Care Team (Latest Contact Info) Description 01/10/2014 11:15 AM CDT - 01/10/2014 12:11 PM CDT Hospital Encounter [facility] - Diabetes [address] [address] Iveth Mueller MD [address] [place] [id number] Discharge Disposition: Home or Self Care Social [...] Sign Reading Time Taken Comments Blood Pressure 124/84 01/10/2014 11:15 AM CDT Pulse - - Temperature - - Respiratory Rate - - Oxygen Saturation - - Inhaled Oxygen Concentration - - Weight 97 kg (213 lb 12.8 oz) 04/07/201 4 11:15 AM CDT Height 157.5 cm (5' 2.01 ) 01/10/2014 1 1:15 AM CDT Body Mass Index 39.09 01/10/2014 11:15 AM CDT Body Mass Index Percentile 99.45% 01/10 11:15 AM CDT Growth Chart: [facility] (Girls, 2- 20 Years) documented in this encounter Discharge Instructions * Patient Instructions* Iveth Mueller MD - 01/10/2014 11:55 AM CDT Melissa's Hemoglobin A1c was 6.1% today which is an increase from last year at 5.8%. Continue taking your Metformin 2 tablets with breakfast and 2 tablets with dinner. It is best to take it with food (take in the middle of meal if possible) as this will help with thenausea. Recommend taking a multi-vitamin while on the Metformin. Continue checking blood sugars twice a day - fasting in the morning before breakfast and at bedtime. Call Diabetes office if blood sugars in the morning are >125 two or more times in a week. [phone] (option 4) Call Diabetes office if blood sugars at bedtime are >200 three or more times in a week. Call to schedule an appointment with Nancy Sherman, our violin restorer, to come with your mother to the visit. [phone] Call to schedule an appointment with Dr. Vigil in the Adolescent clinic to follow up on irregular periods. [phone] Recommend evaluation in Sleep Clinic for sleep apnea - can call for appointment [phone]. Will get lab work today to check cholesterol levels and check kidney function. Follow up in Diabetes clinic in 4-6 months. documented in this encounter Medications at Time of Discharge Medication Sig Dispensed Refills Start Date End Date blood glucose (ONETOUCH ULTRA TEST STRIPS) test strip Use 2 strips daily. 100 Strip 11 05/20/2013 Blood Glucose Monitoring Suppl (ONE TOUCH ULTRA MINI) W/DEVICE KIT Use to test blood sugar 2 times daily 1 Kit 1 05/20/2013 metFORMIN (GLUCOPHAGE) 500 MG tabletIndications:Ty pe 2 diabetes mellitus in patient age 13-19 years with HbA1C goal below 7.5 ([facility]) 2 tabs with breakfast and dinner or as directed. 90 day supply 360 Tab 3 01/10/2014 One Touch Delica Lancets Use 2 LANCETS DAILY 100 Each 11 05/20/2013 dicyclomine (BENTYL) 20 MG tablet Take 20 mg by mouth 4 times daily. 12/04/2015 ferrous sulfate 325 (65 FE) MG tablet Take 1 Tab by mouth once daily. 30 Tab 4 02/22/2013 03/23/2014 norethindone-ethinyl estradiol-FE (LOESTRIN 24 FE) 1-20 MG-MCG(24) tabletIndications:Dy sfunctional Uterine Bleeding Take 1 Tab by mouth once daily. Indications: Dysfunctional Bleeding From the Uterus 1 Packet 1 06/09/2013 07/01/2014 norethindone-ethinyl estradiol-FE (LOESTRIN 24 FE) 1-20 MG-MCG(24) tabletIndications:Dy sfunctional Uterine Bleeding Take 1 Tab by mouth once daily. Indications: Dysfunctional Bleeding From the Uterus 2 Packet 0 06/09/2013 07/01/2014 omeprazole EC (PRILOSEC OTC) 20 MG tablet Take 1 Tab by mouth daily before breakfast. 90 Tab 1 12/02/2013 07/01/2014 promethazine (PHENERGAN) 25 MG tablet Take 25 mg by mouth every 6 hours as needed. 12/04/2015 documented as of this encounter Progress Notes * Iveth Mueller MD - 01/10/2014 11:19 AM CDT Melissa Jackson and her father were seen in our Pediatric Endocrinology offices on January 10, 2014. She is a 13 y.o. 10 m.o. girl who has had type 2 diabetes mellitus since September 2012. Melissa's last visit in Diabetes clinic was a year ago. She has been noncompliant in the past (and has missed multiple appointments). The glucose meter she brought to the appointment is not the one she uses regularly which is the one she has at school. She does not keep a log book. She reports being compliant now with her Metformin though her last prescription was from a year ago for a 3 months supply with no refills. When asked she said she had gotten refills through her primary care provider. Melissa has been followed by GI for abdominal pain and diagnosed with IBS. Recommended limited fatty and spicy foods from diet. She has been prescribed Omeprazole for her GI complaints. She also reports taking an anti-nausea pill with her metformin twice a day that has helped with the GI side effects of the metformin. For her irregular periods and PCOS, she had been followed by Dr. Vigil in Adolescent clinic buthas not been seen in a long time. She reports few periods but having large blood clots which prompted a recent visit to the ED last month with abdominal pain. She had been on LoLoEstrin with good effect but other OCPs have led to heavy bleeding and large clots. She had called Dr. Vigil in July and reported a positive home test. She reports today that it was a false positive and subsequent tests have been negative. Oral Diabetic Therapy Metformin 1000 mg BID Missed doses per week: reports good compliance. Blood Glucose Monitoring Checked 2 times/day by self, using a Free Style meter. Target Range: 80-200 mg/dl. Patient has meter No; patient has logbook No. There was one blood sugar on the meter she brought that was 139 mg/dL. Melissa reports that her blood sugars are always 100-200 mg/dL Hypoglycemia Melissa has not had any low blood sugars, has not had any blood sugars <100 mg/dL and denies anysymptoms. Urine Ketone Monitoring: No. Meal Plan Counts carbs: No. 3 meals/day; 0-1 snacks/day Interviewed by dietitian today: No. Melissa requested not meeting with the Aluminum Polisher today as she felt it would be better to come with her mother, with whom she lives and prepares a lot of the meals at home. Did discuss diet and Melissa reports poor compliance with prior dietary recommendations. Breakfast is at school and usually a sugary cereal with 1% milk. Lunch at school - nachos Rare snack after school Dinner - whatever mother cooks which is usually unhealthy No bedtime snack Drinking water, regular Liban Aid and juice. Complications of Diabetes none. Other Medical Diagnoses: PCOS, IBS, anemia Other medications: Omeprazole, ferrous sulfate Review of systems General: No fevers; positive weight gain. Skin: No rashes but reports dry skin diffusely and hirsutism along sideburns, upper lip, abdomen and legs. Reports acne on face and shoulders HEENT: No recent vision changes though wears glasses - has been about 1 year since last eye exam. No dental problems but over a year since last cleaning. She does snore at night. Cardiovascular: No heart palpitations or chest pain with exercise Pulmonary: No shortness of breaht Gastrointestinal: Nausea and vomiting when started taking Metformin which has improved with anti-nausea pill . No diarrhea or constipation. Complains of intermittent abdominal pain of unknown cause that occurs in stomach and radiates toward back with a stinging pain. Genitourinary: Has nocturia 2 times every night though not drinking at night. Unsure when last menstrual period was but did have small blood clot yesterday. Endocrine: no fatigue or temperature intolerance Musculoskeletal: No joint pain or muscle weakness or pain Psychiatric: Reports good mood Neurologic: no headaches or tremors Social History: Melissa lives with her mother, stepfather, sister and brother. She is in 10th gradeat [employer] and reports that it is good . She is not involved in any extra-curricular activities. Forexercise she has gym class at school daily for 25-40 minutes. 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 Melissa reports being sexually active with one partner for the past two years. She had been on OCPs previously but stopped them and is now using condoms. She is interested in getting back on a control method especially if it will help with her irregular cycles. Physical Examination: BP 124/84 Ht 1.575 m (5' 2.01 ) Wt 96.979 kg (213 lb 12.8 oz) BMI 39.09 kg/m2 98.78%ile based on CDC 2-20 Years [id number] data. 22.08%ile based on CDC 2- 20 Years [id number] data. Body mass index is 39.09 kg/(m^2). 99.12%ile based on CDC 2-20 Years BMI-for-age data. General: Well appearing, well hydrated obese AA girl HEENT: PERRL, EOMI, optic discs difficult to visualize. Oropharynx clear with dentition appropriatefor age. Neck: Supple with no lymphadenopathy or thyromegaly Chest/Breast: Jose G V Lungs: Clear to auscultation, unlabored breathing Heart: Regular rate and rhythm with no murmurs Abdomen/Rectum: obese, soft and nontender with no organomegaly Musculoskeletal: Normal symmetric bulk and strength Lymphatic: No abnormally enlarged lymph nodes. Skin: Acanthosis nigricans on neck, axilla, and groin. Hirsutism of lower abdomen though hair removed from face. Faded stretch recinso on abdomen and no dark red striae. Neurologic: Mental status normal, no cranial nerve deficits, normal strength and tone, normal gait Medic-Alert tag Status: She does not have one Laboratory Data: Results for orders placed during the hospital encounter of 01/10/14 HEMOGLOBIN A1C - POCT (IP) BEAKER Component Value Range Hgb A1C POCT 6.1 3.4 - 6.1 % QC Verified Yes Yes MICROALB/CREAT RATIO URINE RANDOM PANEL Component Value Range Creat Urine mg/dL 178.25 Microalbumin Ur mg/dL 1.1 <1.7 mg/dL Microalb/Creat Ratio 6 <30 mg/g Lipid panel ordered - pending collection. Assessment: Melissa is a 13 year old girl with type 2 Diabetes which has been controlled with her Hgb A1c at 6.1% today. She also has PCOS and IBS and slight elevations in her liver transaminases for which she is followed by GI. For her PCOS she has been followed by the Adolescent clinic for her irregular cycles. I recommended that she follow up in the Adolescent clinic to restart an OCP or other form of contraception with Dr. Vigil. I also encouraged her to continue taking her Metformin as that might help treat her PCOS symptoms as well as treatment for her diabetes. For her nocturia, she is at riskof having obstructive sleep apnea which may be contributing, as based on her HbA1c I don't think it's driven by overnight hyperglycemia. I recommended that she be evaluated at the Sleep Clinic for this. Management Plan: - Continue taking Metformin 2 tablets (1000 mg) with breakfast and 2 tablets with dinner. It is best to take it with food (take in the middle of meal if possible) as this will help with thenausea. Recommend taking a multi-vitamin while on the Metformin. - Continue checking blood sugars twice a day - fasting in the morning before breakfast and at bedtime. Call Diabetes office if blood sugars in the morning are >125 two or more times in a week. [phone] (option 4) Call Diabetes office if blood sugars at bedtime are >200 three or more times in a week. - Call to schedule an appointment with Nancy Sherman, our violin restorer, to come with your mother to the visit. [phone] - Call to schedule an appointment with Dr. Vigil in the Adolescent clinic to follow up on irregular periods. [phone] - Recommend evaluation in Sleep Clinic for sleep apnea - can call for appointment [phone]. - Will get lab work today to check cholesterol levels and check kidney function. - Follow up in Diabetes clinic in 4-6 months. Of the 30 minutes spent with Melissa, 20 minutes were spent discussing HgbA1c, exercise, control, blood glucose monitoring, target blood glucose range and co-morbidities associated with diabetes. Iveth Mueller MD documented in this encounter Miscellaneous Notes * Miscellaneous Scans - Document, Scanned - 01/11/2014 6:09 PM CDT documented in this encounter Plan of Treatment Not on file documented as of this encounter Procedures Procedure Name Priority Date/Time Associated Diagnosis Comments MICROALB/CREAT RATIO URINE RANDOM PANEL Routine 01/10/2014 12:27 PM CDT Type 2 diabetes mellitus in patient age 13-19 years with HbA1C goal below 7.5 HEMOGLOBIN A1C - POCT (IP) BEAKER Routine 01/10/2014 11:35 AM CDT Type 2 diabetes mellitus in patient age 13-19 years with HbA1C goal below 7.5 documented in this encounter Results * MICROALB/CREAT RATIO URINE RANDOM PANEL (01/10/2014 12:27 PM CDT) Creatinine Urine 178.25 mg/dL 01/11/20 14 1:40 PM CDT [facility] Microalbumin Urine 1.1 <1.7 mg/dL 01/10/2014 1:40 PM CDT [facility] Microalbumin/Crea tinine Ratio 6 <30 mg/g 01/10/2014 1:40 PM CDT [facility] Urine URINE SPECIMEN OBTAINED BY CLEAN CATCH PROCEDURE / Unknown Collection / Unknown 01/10/2014 12:27 PM CDT 01/10/2014 1:02 PM CDT Iveth Mueller MD LAB - URINE CHEMISTR Y ORDERABLES Performing Organization Address [facility] Co de Phone Number [facility] [address] [place] [address] * HEMOGLOBIN A1C - POCT (IP) CARMEN (01/10/2014 11:35 AM CDT) Hemoglobin A1c POCT 6.1 3.4 - 6.1 % [facility] QC Verified Yes Yes [facility] PO [facility] TESTING Blood specimen (specimen) BLOOD SPECIMEN / Unknown 01/10/2014 11:35 AM CDT Serena Rivera FIELD PROPERTY LOSS SPECIALIST-CONCRETE SWIMMING POOL INSTALLER LAB - POINT OF C ARE ORDERABLES Performing Organization Address [facility] Co de Phone Number [facility] [address] [place] [address] documented in this encounter Visit Diagnoses Diagnosis Type 2 diabetes mellitus in patient age 13-19 years with HbA1C goal below 7.5 (HCC)- Primary Type II or unspecified type diabetes mellitus without mention of complication, not stated as uncontrolled Type I (juvenile type) diabetes mellitus without mention of complication, not stated as uncontrolled (HCC) Type I (juvenile type) diabetes mellitus without mention of complication, not stated as uncontrolled documented in this encounter Care Teams Epic Cadence Analyst Relationship Specialty Start Date End Date Esperanza Santillan MD [address] [place] [address] [place] [id number] PCP - General Family Medicine 09/03/12 documented as of this encounter
--- OUTSIDE RECORDS SUMMARY | 2024-10-14 01:34 | XMS_ITS | Encounter Summary ---
Author Organization [facility] Address [address] [place] [address] Care Team Providers Care Wheat Combine Driver Name Role Phone Esperanza Santillan MD Primary Care Provider [phone] Reason for Visit * Reason Comments Sleep Problem Sore throats Encounter Details Date Type Department Care Team (Latest Contact Info) Description 02/14/2014 10:30 AM CDT - 02/14/2014 11:59 PM T Hospital Encounter [facility] - E[facility] [place] [address] Miryam England, SALON SHAMPOO ASSISTANT-WASTE HANDLING TECHNICIAN [address] [place] [address] Discharge Disposition: Home or Self Care Social [...] Sign Reading Time Taken Comments Blood Pressure - - Pulse - - Temperature - - Respiratory Rate - - Oxygen Saturation - - Inhaled Oxygen Concentration - - Weight 97.5 kg (215 lb) 02/14/2014 10:49 AM CDT Height 157.6 cm (5' 2.05 ) 02/14/2014 10:49 AM C DT Body Mass Index 39.26 02/14/2014 10:49 AM CDT Body Mass Index Percentile 99.46% 02/14/2014 10: 49 AM CDT Growth Chart: [facility] (Girls, 2- 20 Years) documented in this encounter Discharge Instructions * Patient Instructions* Delmis Pride, RN - 02/14/2014 11:17 AM CDT Sleep Study scheduled for at [facility]. Patient to arrive at . Further instructions will be mailed to family by Sleep Lab. Sleep study [phone] documented in this encounter Medications at Time of Discharge Medication Sig Dispensed Refills Start Date End Date blood glucose (BkamUCH ULTRA TEST STRIPS) test strip Use 2 strips daily. 100 Strip 11 05/20/2013 Blood Glucose Monitoring Suppl (ONE TOUCH ULTRA MINI) W/DEVICE KIT Use to test blood sugar 2 times daily 1 Kit 1 05/20/2013 metFORMIN (GLUCOPHAGE) 500 MG tabletIndications:Ty pe 2 diabetes mellitus in patient age 13-19 years with HbA1C goal below 7.5 ([facility]) 2 tabs with breakfast and dinner [...] as of this encounter Progress Notes * Miryam Simmons, SALON SHAMPOO ASSISTANT-WASTE HANDLING TECHNICIAN - 02/14/2014 11:00 AM CDT Chief Complaint Patient presents with ??? Sleep Problem Sore throats History of Present Illness: Melissa Jackson is a 13 y.o. 11 m.o. female who present to the [facility] for evaluation of Obstructive Sleep Apnea accompanied by father. Melissa Jackson has had difficulty with sleep for 1year(s). She has the following symptoms: snoring and witnessed apnea. She does not have recurrent throat infections. She does not have persistent mouth breathing and/or nasal congestion. Past medical history: Past Medical History Diagnosis Date ??? Diabetes mellitus ??? Anemia ??? Irritable bowel disease ??? Bronchitis acutely History: full term hearing screen passed Hospitalizations? No Previous Surgery No Immunizations: are up to date Growth and development: Age appropriate yes Social history: Lives with mother. Exposure to smoking? No. Melissa attends school. Family history: Sleep apnea No. Obesity Yes. Bleeding disorder No. Surgical or anesthesia problems.No. Review of systems: Constitutional: child is weight appropriate Eyes: does not have double vision Ears, Nose, Mouth, Throat: no tonsillitis or strep throat; rare URI's Cardiovascular: does not have heart disease Respiratory: does not have asthma or wheezing Gastointestinal: Negative Genitourinary: negative Integumentary: has had no rash or eczema Neurological: has had no seizures; negative for ADD / ADHD Endocrine: has a history of thyroid problems Hematologic: does not bruise easily Medications: Current outpatient prescriptions:metFORMIN (GLUCOPHAGE) 500 MG tablet, 2 tabs with breakfast and dinner or as directed. 90 day supply, Disp: 360 Tab, Rfl: 3; blood glucose (TillsterTOUCH ULTRA TEST STRIPS) test strip, Use 2 strips daily., Disp: 100 Strip, Rfl: 11; promethazine (PHENERGAN) 25 MG tablet, Take 25 mg by mouth every 6 hours as needed., Disp: , Rfl: ferrous sulfate 325 (65 FE) MG tablet, Take 1 Tab by mouth once daily., Disp: 30 Tab, Rfl: 4; omeprazole EC (PRILOSEC OTC) 20 MG tablet, Take 1 Tab by mouth daily before breakfast., Disp: 90 Tab, Rfl: 1; norethindone-ethinyl estradiol-FE (LOESTRIN 24 FE) 1-20 MG-MCG(24) tablet, Take 1 Tab by mouth once daily. Indications: Dysfunctional Bleeding From the Uterus, Disp: 1 Packet, Rfl: 1 norethindone-ethinyl estradiol-FE (LOESTRIN 24 FE) 1-20 MG-MCG(24) tablet, Take 1 Tab by mouth oncedaily. Indications: Dysfunctional Bleeding From the Uterus, Disp: 2 Packet, Rfl: 0; Blood Glucose Monitoring Suppl (ONE TOUCH ULTRA MINI) W/DEVICE KIT, Use to test blood sugar 2 times daily, Disp: 1 Kit, Rfl: 1; One Touch Delica Lancets, Use 2 LANCETS DAILY, Disp: 100 Each, Rfl: 11 dicyclomine (BENTYL) 20 MG tablet, Take 20 mg by mouth 4 times daily., Disp: , Rfl: Allergies: Review of patient's allergies indicates no known allergies. Physical Exam: Height: 157.6 cm (5' 2.05 ) Weight: 97.523 kg (215 lb) Body mass index is 39.26 kg/(m^2). 99.12%ile based on CDC 2-20 Years BMI-for-age data. Constitutional: no retractions or cyanosis Head and Face: no lesions or masses; facies symmetrical Eyes: sclera and conjunctiva clear Ears: Inspection: normal pinnae shape and position Otoscopy: External canal: normal and Tympanic membrane: Right: normal appearance and landmarks Left: normal appearance and landmarks Nasal: normal external nose, mucous membranes and septum Oral Cavity: moist mucous membranes; normal uvula, palate and tongue size Throat: tonsil 1+ [place] 2 Neck: supple without tenderness or crepitus; no palpable adenopathy and acanthosis nigricans Cranial Nerve Exam: grossly intact; CN VII symmetrical Respiration: unlabored breathing Skin: skin healthy ASSESSMENT: 13 y.o. 11 m.o. female with clinically suspicious sleep apnea and obesity. PLAN: Patient will benefit from sleep study. If positive; CPAP. Patient is not a candidate for surgery due to small tonsils/adenoids. documented in this encounter Miscellaneous Notes * Miscellaneous Scans - Document, Scanned - 02/15/2014 8:40 PM CDT documented in this encounter Plan of Treatment Not on file documented as of this encounter Visit Diagnoses Not on filedocumented in this encounter Care Teams Wheat Combine Driver Relationship Specialty Start Date End Date Esperanza Santillan MD [address] [place] [address] PCP - General Family Medicine 09/03/12 documented as of this encounter
--- OUTSIDE RECORDS SUMMARY | 2024-10-14 01:34 | XMS_ITS | Encounter Summary ---
Author Organization [facility] Address [address] [place] [address] Care Team Providers Care Dry Drug Worker Name Role Phone Esperanza Santillan MD Primary Care Provider [phone] Encounter Details Date Type Department Care Team (Latest Contact Info) Description 01/10/2014 12:12 PM CDT - 01/10/2014 11:59 PM T Hospital Encounter [address] [id number] Iveth Mueller MD [address] [place] [id number] Discharge Disposition: Home or Self Care Social [...] on file documented as of this encounter Medications at [...] with HbA1C goal below 7.5 ([facility]) 2 tabs with breakfast and dinner [...] needed. 12/04/2015 documented as of this encounter Plan of Treatment Not on file documented as of this encounter Visit Diagnoses Not on filedocumented in this encounter Care Teams Dry Drug Worker Relationship Specialty Start Date End Date Esperanza Santillan MD [address] [place] [address] [place] [address] PCP - General Family Medicine 09/03/12 documented as of this encounter
--- OUTSIDE RECORDS SUMMARY | 2024-10-14 01:34 | XMS_ITS | Encounter Summary ---
Author Organization [facility] Address [address] [place] [address] Care Team Providers Care Clinical Data Manager Name Role Phone Esperanza Santillan MD Primary Care Provider [phone] Reason for Visit * Reason Comments Pain Back Mid-lower back pain for past couple of days, radiating into lower abdomen. 2 episodes of diarrhea today. No fever, denies any vaginal discharge. Diabetic, checked her sugar yesterday and it was 121, has not been taking her metformin regularly. Treated twice for UTIs in the ast month Encounter Details Date Type Department Care Team (Late st Contact Info) Description 12/27/2013 9:33 PM CDT - 12/28/2013 12:16 AM CDT Emergency ER at [address] [address] Zeny Santos DO [address] [place] [id number] Type 2 diabetes mellitus in patient age 13-19 years with HbA1C goal below 7.5 (Primary Dx); Abdominal pain, generalized; Back pain Discharge Disposition: Home or Self Care Social [...] Sign Reading Time Taken Comments Blood Pressure 125/87 12/28/2013 12:15 AM CDT Pulse 78 12/28/2013 12:15 AM CDT Temperature 36.4 ??C (97.6 ??F) 12/27/2013 11:20 PM C DT Respiratory Rate 16 12/28/2013 12:15 AM CDT Oxygen Saturation - - Inhaled Oxygen Concentration - - Weight 97.3 kg (214 lb 8.1 oz) 12/27/2013 9:39 PM CDT Height - - Body Mass Index - - documented in this encounter Discharge Instructions * Discharge Instructions* Ida Kinsey RN - 12/28/2013 12:16 AM CDT Images from the original note were not included. Abdominal Pain Abdominal pain can be caused by many things. Your caregiver decides the seriousness of your pain byan examination and possibly blood tests and X-rays. Many cases can be observed and treated at home.Most abdominal pain is not caused by a disease and will probably improve without treatment. However, in many cases, more time must pass before a clear cause of the pain can be found. Before that point, it may not be known if you need more testing, or if hospitalization or surgery is needed. HOME CARE INSTRUCTIONS ?? Do not take laxatives unless directed by your caregiver. ?? Take pain medicine only as directed by your caregiver. ?? Only take alhr-aig-tymsmzz or prescription medicines for pain, discomfort, or fever as directed by your caregiver. ?? Try a clear liquid diet (broth, tea, or water) for as long as directed by your caregiver. Slowlymove to a bland diet as tolerated. SEEK IMMEDIATE MEDICAL CARE IF: ?? The pain does not go away. ?? You have a fever. ?? You keep throwing up (vomiting). ?? The pain is felt only in portions of the abdomen. Pain in the right side could possibly be appendicitis. In an adult, pain in the left lower portion of the abdomen could be colitis or diverticulitis. ?? You pass bloody or black tarry stools. MAKE SURE YOU: ?? Understand these instructions. ?? Will watch your condition. ?? Will get help right away if you are not doing well or get worse. Document Released: 07/02/2006 Document Revised: 12/14/2012 Document Reviewed: 05/10/2009 ExitCare?? Patient Information ??2013 [employer].Blood Sugar Monitoring, Adult GLUCOSE METERS FOR SELF-MONITORING OF BLOOD GLUCOSE It is important to be able to correctly measure your blood sugar (glucose). You can use a blood glucose monitor (a small battery-operated device) to check your glucose level at any time. This allows you and your caregiver to monitor your diabetes and to determine how well your treatment plan is working. The process of monitoring your blood glucose with a glucose meter is called self-monitoring ofblood glucose (SMBG). When people with diabetes control their blood sugar, they have better health. To test for glucose with a typical glucose meter, place the disposable strip in the meter. Then place a small sample of blood on the test strip. The test strip is coated with chemicals that combinewith glucose in blood. The meter measures how much glucose is present. The meter displays the glucose level as a number. Several new models can record and store a number of test results. Some models can connect to personal computers to store test results or print them out. Newer meters are often easier to use than older models. Some meters allow you to get blood from places other than your fingertip. Some new models have automatic timing, error codes, signals, or barcode readers to help with proper adjustment (calibration). Some meters have a large display screen or spoken instructions for people with visual impairments. INSTRUCTIONS FOR USING GLUCOSE METERS ?? Wash your hands with soap and warm water, or clean the area with alcohol. Dry your hands completely. ?? Prick the side of your fingertip with a lancet (a sharp-pointed tool used by hand). ?? Hold the hand down and gently milk the finger until a small drop of blood appears. Catch the blood with the test strip. ?? Follow the instructions for inserting the test strip and using the SMBG meter. Most meters require the meter to be turned on and the test strip to be inserted before applying the blood sample. ?? Record the test result. ?? Read the instructions carefully for both the meter and the test strips that go with it. Meter instructions are found in the user manual. Keep this manual to help you solve any problems that may arise. Many meters use error codes when there is a problem with the meter, the test strip, or the blood sample on the strip. You will need the manual to understand these error codes and fix the problem. ?? New devices are available such as laser lancets and meters that can test blood taken from alternative sites of the body, other than fingertips. However, you should use standard fingertip testingif your glucose changes rapidly. Also, use standard testing if: ?? You have eaten, exercised, or taken insulin in the past 2 hours. ?? You think your glucose is low. ?? You tend to not feel symptoms of low blood glucose (hypoglycemia). ?? You are ill or under stress. ?? Clean the meter as directed by the rod welder. ?? Test the meter for accuracy as directed by the rod welder. ?? Take your meter with you to your caregiver's office. This way, you can test your glucose in front of your caregiver to make sure you are using the meter correctly. Your caregiver can also take a sample of blood to test using a routine lab method. If values on the glucose meter are close to the lab results, you and your caregiver will see that your meter is working well and you are using good technique. Your caregiver will advise you about what to do if the results do not match. FREQUENCY OF TESTING Your caregiver will tell you how often you should check your blood glucose. This will depend on your type of diabetes, your current level of diabetes control, and your types of medicines. The following are general guidelines, but your care plan may be different. Record all your readings and the time of day you took them for review with your caregiver. ?? Diabetes type 1. ?? When you are using insulin with good diabetic control (either multiple daily injections or via apump), you should check your glucose 4 times a day. ?? If your diabetes is not well controlled, you may need to monitor more frequently, including before meals and 2 hours after meals, at bedtime, and occasionally between 2 a.m. and 3 a.m. ?? You should always check your glucose before a dose of insulin or before changing the rate on your insulin pump. ?? Diabetes type 2. ?? Guidelines for SMBG in diabetes type 2 are not as well defined. ?? If you are on insulin, follow the guidelines above. ?? If you are on medicines, but not insulin, and your glucose is not well controlled, you should test at least twice daily. ?? If you are not on insulin, and your diabetes is controlled with medicines or diet alone, you should test at least once daily, usually before breakfast. ?? A weekly profile will help your caregiver advise you on your care plan. The week before your visit, check your glucose before a meal and 2 hours after a meal at least daily. You may want to test before and after a different meal each day so you and your caregiver can tell how well controlled your blood sugars are throughout the course of a 24 hour period. ?? Gestational diabetes (diabetes during ). ?? Frequent testing is often necessary. Accurate timing is important. ?? If you are not on insulin, check your glucose 4 times a day. Check it before breakfast and 1 hour after the start of each meal. ?? If you are on insulin, check your glucose 6 times a day. Check it before each meal and 1 hour after the first bite of each meal. ?? General guidelines. ?? More frequent testing is required at the start of insulin treatment. Your caregiver will instruct you. ?? Test your glucose any time you suspect you have low blood sugar (hypoglycemia). ?? You should test more often when you change medicines, when you have unusual stress or illness, or in other unusual circumstances. OTHER THINGS TO KNOW ABOUT GLUCOSE METERS ?? Measurement Range. Most glucose meters are able to read glucose levels over a broad range of values from as low as 0 to as high as 600 mg/dL. If you get an extremely high or low reading from your meter, you should first confirm it with another reading. Report very high or very low readings to your caregiver. ?? Whole Blood Glucose versus Plasma Glucose. Some older home glucose meters measure glucose in your whole blood. In a lab or when using some newer home glucose meters, the glucose is measured in your plasma (one component of blood). The difference can be important. It is important for you and yourcaregiver to know whether your meter gives its results as whole blood equivalent or plasma equivalent. ?? Display of High and Low Glucose Values. Part of learning how to operate a meter is understandingwhat the meter results mean. Know how high and low glucose concentrations are displayed on your meter. ?? Factors that Affect Glucose Meter Performance. The accuracy of your test results depends on manyfactors and varies depending on the brand and type of meter. These factors include: ?? Low red blood cell count (anemia). ?? Substances in your blood (such as uric acid, vitamin C, and others). ?? Environmental factors (temperature, humidity, altitude). ?? Name-brand versus generic test strips. ?? Calibration. Make sure your meter is set up properly. It is a good idea to do a calibration testwith a control solution recommended by the rod welder of your meter whenever you begin using a fresh bottle of test strips. This will help verify the accuracy of your meter. ?? Improperly stored, , or defective test strips. Keep your strips in a dry place with the lid on. ?? Soiled meter. ?? Inadequate blood sample. NEW TECHNOLOGIES FOR GLUCOSE TESTING Alternative site testing Some glucose meters allow testing blood from alternative sites. These include the: ?? Upper arm. ?? Forearm. ?? Base of the thumb. ?? Thigh. Sampling blood from alternative sites may be desirable. However, it may have some limitations. Blood in the fingertips show changes in glucose levels more quickly than blood in other parts of the body. This means that alternative site test results may be different from fingertip test results, not because of the meter's ability to test accurately, but because the actual glucose concentration can be different. Continuous Glucose Monitoring Devices to measure your blood glucose continuously are available, and others are in development. These methods can be more expensive than self-monitoring with a glucose meter. However, it is uncertain how effective and reliable these devices are. Your caregiver will advise you if this approach makes sense for you. IF BLOOD SUGARS ARE CONTROLLED, PEOPLE WITH DIABETES REMAIN HEALTHIER. SMBG is an important part of the treatment plan of patients with diabetes mellitus. Below are reasons for using SMBG: ?? It confirms that your glucose is at a specific, healthy level. ?? It detects hypoglycemia and severe hyperglycemia. ?? It allows you and your caregiver to make adjustments in response to changes in lifestyle for individuals requiring medicine. ?? It determines the need for starting insulin therapy in temporary diabetes that happens during (gestational diabetes). Document Released: 09/24/2004 Document Revised: 12/14/2012 Document Reviewed: 01/16/2012 ExitCare?? Patient Information ??2013 [employer].Back Pain, Child The usual adult back problems of slipped discs and arthritis are usually not the back problems found in children. However, preteens and adolescents most often have back pain due to the same issues that adults do. This includes strain and direct injury. Under age 10, it is unusual for a child to complain of back pain.??It is important to take these complaints seriously and??to schedule a visit with your child's caregiver. The most common problems of low back pain and muscle strain usually get better with rest. CAUSES Depending on the age of the child, some common causes of back pain include: ?? Strain from sports that involve a lot of back arching (gymnastics, diving) or impact (football, wrestling).??Strain can also result from something as simple as a backpack that is too heavy. ?? Direct injury. ?? defects in the spinal bones. ?? Infection in or near the spine. ?? Arthritis of the spinal joints. ?? Kidney infection or kidney stones. ?? Muscle aches due to a viral infection. ?? Pneumonia. ?? Abdominal organ problems. ?? Tumors. DIAGNOSIS Most back pain in children can be diagnosed by taking the child's history and a physical exam. Lab work and imaging tests (X-rays or MRIs) ??may be done if the reason for the problem is not obvious. HOME CARE INSTRUCTIONS ?? Avoid actions and activities that worsen pain. In children, the cause of back pain is often related to soft tissue injury, so avoiding activities that cause pain usually makes the pain go away. These activities can usually be resumed gradually without trouble. ?? Only give mqoh-ipu-dkllrwf or prescription medicines as directed by your child's caregiver. ?? Make sure your child's backpack never weighs more than 10% to 20% of the child's weight. ?? Avoid soft mattresses. ?? Make sure your child exercises regularly. Activity helps protect the back by keeping muscles strong and flexible. ?? Make sure your child eats healthy foods and maintains a healthy weight. Excess weight puts extrastress on the back and makes it difficult to maintain good posture. ?? Make sure your child gets enough sleep. It is hard for children to sit up straight when they areovertired. SEEK MEDICAL CARE IF: ?? Your child's pain is the result of an injury or athletic event. ?? Your child has pain that is not relieved with rest or medicine. ?? Your child has increasing pain going down into the legs or buttocks. ?? Your child has pain that does not improve in 1 week. ?? Your child has night pain. ?? Your child has weight loss. ?? Your child refuses to walk. ?? Your child has a fever or chills. ?? Your child has a cough. ?? Your child has abdominal pain. ?? Your child has new symptoms. ?? Your child misses sports, gym, or recess because of back pain. ?? Your child is leaning to one side because of pain. SEEK IMMEDIATE MEDICAL CARE IF: ?? Your child develops problems with walking. ?? Your child has weakness or numbness in the legs. ?? Your child has problems with bowel or bladder control. ?? Your child has blood in the urine or stools or pain with urination. ?? Your child develops warmth or redness over the spine. ?? Your child has a fever above 101?? F (38.3?? C). Document Released: 03/05/2007 Document Revised: 12/14/2012 Document Reviewed: 02/10/2012 ExitCare?? Patient Information ??2013 [employer]. * Discharge Instructions* Document, Scanned - 12/28/2013 10:05 PM CDT documented in this encounter Medications at Time of Discharge Medication Sig Dispensed Refills Start Date End Date blood glucose (ONETOUCH ULTRA TEST STRIPS) test strip Use 2 strips daily. 100 Strip 11 05/20/2013 Blood Glucose Monitoring Suppl (ONE TOUCH ULTRA MINI) W/DEVICE KIT Use to test blood sugar 2 times daily 1 Kit 1 05/20/2013 One Touch Delica Lancets Use 2 LANCETS DAILY 100 Each 11 05/20/2013 dicyclomine (BENTYL) 20 MG tablet Take 20 mg by mouth 4 times daily. 12/04/2015 ferrous sulfate 325 (65 FE) MG tablet Take 1 Tab by mouth once daily. 30 Tab 4 02/22/2013 03/23/2014 metFORMIN (GLUCOPHAGE) 500 MG tabletIndications:Typ e I (juvenile type) diabetes mellitus without mention of complication, not stated as uncontrolled (HCC) 2 tabs with breakfast and dinner or as directed. 90 day supply 360 Tab 0 2013 01/10/2014 norethindone-ethinyl estradiol-FE (LOESTRIN 24 FE) 1-20 MG-MCG(24) tabletIndications:Dys functional Uterine Bleeding Take 1 Tab by mouth once daily. Indications: Dysfunctional Bleeding From the Uterus 1 Packet 1 06/09/2013 07/01/2014 norethindone-ethinyl estradiol-FE (LOESTRIN 24 FE) 1-20 MG-MCG(24) tabletIndications:Dys functional Uterine Bleeding Take 1 Tab by mouth once daily. Indications: Dysfunctional Bleeding From the Uterus 2 Packet 0 06/09/2013 07/01/2014 omeprazole EC (PRILOSEC OTC) 20 MG tablet Take 1 Tab by mouth daily before breakfast. 90 Tab 1 12/02/2013 07/01/2014 promethazine (PHENERGAN) 25 MG tablet Take 25 mg by mouth every 6 hours as needed. 12/04/2015 documented as of this encounter ED Notes * Ida Kinsey RN - 12/27/2013 11:35 PM CDT Patient is resting comfortably. pt resting, texting and talking with mother. Rates pain at 5. * Starla Coburn RN - 12/27/2013 10:46 PM CDT Patient refusing fingerstick labs. * Zeny Santos DO - 12/27/2013 10:05 PM CDT Provider contact with the patient: 12/30/2013 07:05 Melissa Jackson [id number] [facility] EMERGENCY DEPARTMENT History Chief Complaint Patient presents with ??? Pain Back Mid-lower back pain for past couple of days, radiating into lower abdomen. 2 episodes of diarrhea today. No fever, denies any vaginal discharge. Diabetic, checked her sugar yesterday and it was 121, has not been taking her metformin regularly. Treated twice for UTIs in the ast month I have read the resident/[employer] history. Unless appended by me below, I agree with findings as documented. HPI Comments: CC: back pain Onset of achy back pain and lower abdominal pain 2 days ago, denies any trauma. No n/v, +diarrhea Pt has h/o DM type 2 and has been seen here by GI for abdominal pain and diagnosed with functional abdominal pain, non-compliant with medications. No fever. No change in appetite or activity level. Review of Systems Review of Systems Constitutional: Negative for fever, activity change and appetite change. Gastrointestinal: Positive for abdominal pain. Negative for nausea and vomiting. Musculoskeletal: Positive for back pain. All other systems reviewed and are negative. BP 125/87 Pulse 78 Temp 97.6 ??F Resp 16 Wt 97.3 kg (214 lb 8.1 oz) Physical Exam I have reviewed the resident/[employer] physical exam. Unless appended by me below, I agree with the PE as documented. Physical Exam Procedures Procedures Progress Notes ED Course 2300: awaiting lab results, care of pt transferred to Dr Vasques at this time Medical Decision Making The total time providing critical care (excluding time spent for procedures) was: 0 minutes. Clinical Impression Final diagnoses: Type 2 diabetes mellitus in patient age 13-19 years with HbA1C goal below 7.5 (Primary) Abdominal pain, generalized Back pain * Blanca Bray MD - 12/27/2013 10:01 PM CDT Images from the original note were not included. EMERGENCY DEPARTMENT 12/27/2013 Dear Doctor, We had the pleasure of caring for your patient, Melissa Jackson in our emergency department on 12/27/2013. A note from the provider(s) who cared for your patient is attached. Should you wish to access any laboratory results, please call . Should you wish to access any radiology results, please call , option 3. In addition, you can access patient information 24 hours a day, from any computer, through [employer] the online version of our electronic medical record. If you would like to use this service, please call Ida Cutler, Connectivity Coordinator, at . We appreciate the opportunity to care for your patients. If you would like additional information, please call the emergency department directly at . Sincerely, Blanca Bray MD Division of Emergency Medicine [facility], [place] [facility] [place]GENCY [facility]PARTMENT Provider contact with the patient: 12/27/2013 22:01 Melissa Jackson [id number] [facility] EMERGENCY DEPARTMENT History Chief Complaint Patient presents with ??? Pain Back Mid-lower back pain for past couple of days, radiating into lower abdomen. 2 episodes of diarrhea today. No fever, denies any vaginal discharge. Diabetic, checked her sugar yesterday and it was 121, has not been taking her metformin regularly. Treated twice for UTIs in the ast month HPI Melissa Jackson is 13 y.o. with history of Diabetes Mellitus (type 2), and iron deficiency anemia presents with back pain. Back pain started 2 days while sitting on a bed and suddenly felt an aching pain. New onset pain and never had this pain before. No fall or trauma, no change in her bed. No dysuria but polyuria every 1 hour - wakes up twice a night to urinate. She also has been having periumbical, stabbing abdomen pain (6/10) that has radiated to the same spot in her back. No change in either pain and not worsening. Laying down makes it better, sitting up makes it worse, no change with eating. No vomiting but diarrhea. She has had diarrhea x 2 starting today - watery at 1st and not as demarco radha the 2nd time, nonbloody. Sugars at home 121 yesterday (after eating). Sugars usually between 100-140. Last took metformin was last week - feels nausea. Tylenol and Ibuprofen helped the pain. Backpain relief OTC helped the pain. Stopped control because periods lasting too long - 1 months.Not taking Prilosec though occasional symptoms of GERD LMP - 2 months ago PMH: shots utd Past Medical History Diagnosis Date ??? Diabetes mellitus ??? Anemia ??? Irritable bowel disease ??? Asthma Past Surgical History Procedure Date ??? Pr dental surgery procedure History Social History ??? Marital Status: Single Spouse Name: N/A Number of Children: N/A ??? Years of Education: N/A Occupational History ??? Not on file. Social History Main Topics ??? Smoking status: Never Smoker ??? Smokeless tobacco: Never Used ??? Alcohol Use: No ??? Drug Use: No ??? Sexually Active: No Other Topics Concern ??? Not on file Social History Narrative HEADS:12/27/2013 H: Mom, shanelle, younger sister and brother. Another bro lives w/ his father All 4 children have different fathers Mom employed as a waitressE: 10th gradeA: No physical activity, liketo walkD: Denies EtOH, drugs. Drinks Galo: 4 total partners, no hx STD, same partner since last year, condoms everytime, stopped control Medications Current Outpatient Prescriptions Medication Sig Dispense Refill ??? omeprazole EC (PRILOSEC OTC) 20 MG tablet Take 1 Tab by mouth daily before breakfast. 90 Tab 1 ??? norethindone-ethinyl estradiol-FE (LOESTRIN 24 FE) 1-20 MG-MCG(24) tablet Take 1 Tab by mouth once daily. Indications: Dysfunctional Bleeding From the Uterus 1 Packet 1 ??? norethindone-ethinyl estradiol-FE (LOESTRIN 24 FE) 1-20 MG-MCG(24) tablet Take 1 Tab by mouth once daily. Indications: Dysfunctional Bleeding From the Uterus 2 Packet 0 ??? Blood Glucose Monitoring Suppl (ONE TOUCH ULTRA MINI) W/DEVICE KIT Use to test blood sugar 2 times daily 1 Kit 1 ??? blood glucose (ONETOUCH ULTRA TEST STRIPS) test strip Use 2 strips daily. 100 Strip 11 ??? One Touch Delica Lancets Use 2 LANCETS DAILY 100 Each 11 ??? metFORMIN (GLUCOPHAGE) 500 MG tablet 2 tabs with breakfast and dinner or as directed. 90 day supply 360 Tab 0 ??? dicyclomine (BENTYL) 20 MG tablet Take 20 mg by mouth 4 times daily. ??? promethazine (PHENERGAN) 25 MG tablet Take 25 mg by mouth every 6 hours as needed. ??? ferrous sulfate 325 (65 FE) MG tablet Take 1 Tab by mouth once daily. 30 Tab 4 Review of Systems Review of Systems Constitutional: Negative for fever, activity change and appetite change. HENT: Negative for congestion and rhinorrhea. Eyes: Negative for pain. Respiratory: Negative for cough and shortness of breath. Cardiovascular: Negative for chest pain. Gastrointestinal: Positive for abdominal pain and diarrhea. Negative for vomiting and constipation. Genitourinary: Negative for decreased urine volume and difficulty urinating. UTI 2 weeks ago - blood in urine treated with antibiotics, cleared Musculoskeletal: Positive for myalgias. Skin: Negative for rash. Neurological: Negative for weakness and headaches. Hematological: Negative for adenopathy. Psychiatric/Behavioral: Positive for sleep disturbance. Pulse 86 Temp 97.8 ??F Resp 16 Wt 97.3 kg (214 lb 8.1 oz) Physical Exam Physical Exam Constitutional: She appears well-developed and well-nourished. No distress. HENT: Head: Normocephalic and atraumatic. Eyes: Conjunctivae normal are normal. Pupils are equal, round, and reactive to light. Neck: Normal range of motion. Cardiovascular: Normal rate, regular rhythm and normal heart sounds. No murmur heard. Pulmonary/Chest: Effort normal and breath sounds normal. No respiratory distress. Abdominal: Soft. Bowel sounds are normal. She exhibits no distension and no mass. There is tenderness. There is no rebound and no guarding. Obese, tenderness in umbilical area, epigastric area, RLQ/RUQ, LUQ, no CVA tenderness Musculoskeletal: Normal range of motion. Neurological: She is alert. Skin: Skin is warm and dry. Procedures Procedures Lab/SPO2 Interpretation Labs Reviewed COMPREHENSIVE METABOLIC PANEL - Abnormal; Notable for the following: Glucose 115 (*) Potassium 5.9 (*) Mod hemolysis Alk Phos 54 (*) AST/SGOT 52 (*) Protein Total 8.7 (*) Bili Total 0.2 (*) All other components within normal limits HCG URINE QUALITATIVE - POCT (IP) BEAKER - Normal URINALYSIS MICROSCOPIC ONLY - Normal LIPASE BLOOD - Normal URINALYSIS ROUTINE AUTO CULTURE URINE Progress Notes ED Course 10:47 PM possible pancreatitis - ordered CMP, Lipase - pending results 11:48 PM labs show slight elevation in AST - likely from fatty liver disease due to obesity and poor diet, will need to stay on the metformin for better weight management and diabetes control, K slightly elevated but moderate hemolysis - patient laying on stomach - on the phone playing on [employer],no acute distress - reports she feels better, will discharge and follow up with PCP or GI, stressed the importance of a good diet and continuing the metformin Medical Decision Making Clinical Impression Final diagnoses: Type 2 diabetes mellitus in patient age 13-19 years with HbA1C goal below 7.5 (Primary) Abdominal pain, generalized Back pain documented in this encounter Miscellaneous Notes * Miscellaneous Scans - Document, Scanned - 12/28/2013 10:05 PM CDT documented in this encounter Plan of Treatment Not on file documented as of this encounter Procedures Procedure Name Priority Date/Time Associated Diagnosis Comments COMPREHENSIVE METABOLIC PANEL STAT 12/27/2013 11:05 PM CDT LIPASE BLOOD STAT 12/27/2013 11:05 PM CDT HCG URINE QUALITATIVE - POCT (IP) BEAKER STAT 12/27/2013 9:53 PM CDT CULTURE URINE STAT 12/27/2013 9:48 PM CDT URINALYSIS REFLEX TO MICROSCOPIC NO CULTURE STAT 12/27/2013 9:48 PM CDT URINE MICROSCOPIC ONLY STAT 4 9:48 PM CDT documented in this encounter Results * LIPASE BLOOD (12/27/2013 11:05 PM CDT) Lipase 25 10 - 220 U/L 12/27/2013 11:36 PM CDT [facility] Blood BLOOD SPECIMEN / Unknown 12/27/2013 11:05 PM CDT 12/27/2013 11:15 PM CDT Blanca Bray MD LAB - CHEMISTRY ORD ERABLES [facility] [address] [place] [address] * (ABNORMAL) COMPREHENSIVE METABOLIC PANEL (12/27/2013 11:05 PM CDT) Glucose 115(H) 70 - 105 mg/dL 12/27/2013 11:36 PM [facility] Sodium 139 136 - 145 mmol/L 12/27/2013 11:36 PM [facility] Potassium 5.9(H) 3.5 - 5.1 mmol/L 12/27/2013 11:36 PM [facility] Comment:Mod hemolysis Chloride 107 98 - 107 mmol/L 12/27/2013 11:36 PM [facility] CO2 26 20 - 28 mmol/L 12/27/2013 11:36 PM [facility] Calcium 9.53 9.08 - 10.48 mg/dL 12/27/2013 11:36 PM [facility] Anion Gap 6 5 - 20 mmol/L 12/27/2013 11:36 PM [facility] BUN 13.0 5.3 - 18.7 mg/dL 12/27/2013 11:36 PM [facility] Creatinine 0.66 0.61 - 1.07 mg/dL 12/27/2013 11:36 PM [facility] eGFR by MDRD mL/min/1.7 3m2 12/27/2013 11:36 PM [facility] Comment:eGFR calculations ar e not performed for children under 18 years old. eGFR by MDRD mL/min/1.7 3m2 12/27/2013 11:36 PM [facility] Comment:eGFR calculations ar e not performed for children under 18 years old. Alkaline Phosphatase 54(L) 100 - 390 U/L 12/27/2013 11:36 PM [facility] ALT 26 8 - 65 U/L 12/27/2013 11:36 PM [facility] AST 52(H) 3 - 35 U/L 12/27/2013 11:36 PM [facility] Protein Total 8.7(H) 6.3 - 8.2 gm/dL 12/27/2013 11:36 PM [facility] Albumin 4.3 3.3 - 4.9 gm/dL 12/27/2013 11:36 PM [facility] Bilirubin Total 0.2(L) 0.3 - 1.2 mg/dL 12/27/2013 11:36 PM [facility] Blood BLOOD SPECIMEN / Unknown 12/27/2013 11:05 PM CDT 12/27/2013 11:15 PM CDT Blanca Bray MD LAB - CHEMISTRY ORD ERABLES Performing Organization Address [facility] Co de Phone Number [facility] [address] [place] [address] * HCG URINE QUALITATIVE - POCT (IP) BEAKER (12/27/2013 9:53 PM CDT) HCG Qual Urine Negative Negative [facility] POCT TESTING QC Verified Yes Yes [facility] PO CT TESTING Urine specimen (specimen) URINE / Unknown 12/27/2013 9:53 PM CDT Zeny Santos DO LAB - POINT OF CARE ORDERABLES Performing Organization Address [facility] de Phone Number [facility] POCT TESTING [address] [place] [address] * CULTURE URINE (12/27/2013 9:48 PM CDT) Pathologist [facility] Culture 10,000-50,000 CFU/mL normal urogenital lisa 12/30/2013 10:50 AM CDT [facility] MICROBIOLOGY Urine URINE SPECIMEN OBTAINED BY CLEAN CATCH PROCEDURE / Unknown 12/27/2013 9:48 PM CDT 12/27/2013 10:01 PM CDT Zeny Santos DO LAB - MICROBIOLOGY O RDERABLES Performing Organization Address [facility] Co de Phone Number [facility] MICRO[facility]OLOGY [address] [place] * URINALYSIS ROUTINE AUTO (12/27/2013 9:48 PM CDT) Color UA Yellow Straw, Yellow, Dark Yellow 12/27/2013 10:06 PM CDT [facility] Clarity UA Clear 12/27/2013 10:06 PM CDT [facility] Specific Hardy UA 1.020 1.005 - 1.030 12/27/2013 10:06 PM CDT [facility] pH UA 7.0 5.0 - 8.0 pH 12/27/2013 10:06 PM CDT [facility] Protein UA Negative Negative 12/27/2013 10:06 PM CDT [facility] Blood UA Negative Negative 12/27/2013 10:06 PM CDT [facility] Leukocyte UA Negative Negative 12/27/2013 10:06 PM CDT [facility] Nitrite UA Negative Negative 12/27/2013 10:06 PM CDT [facility] Glucose UA Negative Negative 12/27/2013 10:06 PM CDT [facility] Ketone UA Negative Negative 12/27/2013 10:06 PM CDT [facility] Bilirubin UA Negative Negative 12/27/2013 10:06 PM CDT [facility] Urobilinogen UA 0.2 0.1 - 1.0 EU/dL 12/27/2013 10:06 PM CDT [facility] Urine URINE SPECIMEN OBTAINED BY CLEAN CATCH PROCEDURE / Unknown 12/27/2013 9:48 PM CDT 12/27/2013 10:01 PM CDT Zeny Santos DO LAB - URINALYSIS ORD ERABLES Performing Organization Address City/[facility] Co de Phone Number [facility] [address] [place] [address] * URINALYSIS MICROSCOPIC ONLY (12/27/2013 9:48 PM CDT) RBC UA 0-2 0-2, 2-5 # /hpf 12/27/2013 10:30 PM T [facility] WBC UA 2-5 0-2, 2-5 # /hpf 12/27/2013 10:30 PM T [facility] Bacteria UA Trace None Seen, Trace 12/27/2013 10:30 PM T [facility] Epithelial Cell UA 0-2 0-2, 2-5 12/27/2013 10:30 PM T [facility] Urine URINE SPECIMEN OBTAINED BY CLEAN CATCH PROCEDURE / Unknown 12/27/2013 9:48 PM CDT 12/27/2013 10:01 PM CDT William Ramachandran MD LAB - URINALYSIS ORD ERABLES Performing Organization Address City/[facility]/ZIP Co de Phone Number [facility] [address] [place] [address] documented in this encounter Visit Diagnoses Diagnosis Type 2 diabetes mellitus in patient age 13-19 years with HbA1C goal below 7.5 ([facility])- Primary Type II or unspecified type diabetes mellitus without mention of complication, not stated as uncontrolled Abdominal pain, generalized Back pain Backache, unspecified documented in this encounter Care Teams Clinical Data Manager Relationship Specialty Start Date End Date Esperanza Santillan MD [address] [place] [id number] PCP - General Family Medicine 09/03/12 documented as of this encounter
--- OUTSIDE RECORDS SUMMARY | 2024-10-14 01:34 | XMS_ITS | Encounter Summary ---
Author Organization [facility] Health Address [address] [facility] [place] [address] Care Team Providers Care Preschool Teacher Assistant Name Role Phone Esperanza Santillan MD Primary Care Provider [phone] Reason for Referral * Procedure (Routine) - Closed Specialty Diagnoses / Procedures Referred By Conttammy t Referred To Contact Cardiology Diagnoses , unspecified gestational age (HCC) Type 2 diabetes mellitus affecting in second trimester, antepartum (HCC) Procedures EKG 12-LEAD Nidhi Araujo MD [address] [place] [address] Referral ID Status Reason Start Date Expiration Date Visits Re quested Visits Authorized [id number] Closed 08/02/2019 01/29/2020 1 1 Reason for Visit * Reason Comments Initial Visit Encounter Details Date Type Department Care Team (Latest Contact Info) Description 08/02/2019 7:58 AM CDT - 08/02/2019 8:00 AM CDT Hospital Encounter [facility] MATERNAL/ EVALUATION UNIT [address] [place] [address] Terri Rojas MD [address] [facility] [address] [place], [place] [id number] Discharge Disposition: Home or Self Care Social [...] 2 LANCETS DAILY 100 Each 11 05/20/2013 documented as of this encounter Progress Notes * Nneka Hickman RN - 08/02/2019 11:06 AM CDT Melissa Jackson is a 19 year old [id number] Date of Delivery: 02/07/20 Patient seen today for Initial Diabetes Self Management Education ( DSME) History of Diabetes: dx with T2 diabetes at age 12. Initial education through [facility] Endocrinology. 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 Allowed 1/yr. Last renal assessment: to collect Recent Labs Component Name 12/04/15 1208 01/10/14 1135 01/14/13 1605 HGBA1C 6.8* 6.1 5.8 No recent value for A1C. Comments re Diabetes Self Management: Monitoring: Name of glucometer: Using Freestyle Lite glucometer. Doing alternate site testing. Describes needle phobia. Submitted PA to [employer] for testing 5times per day, 150 / mo test strips and lancets. Healthy Eating Met with RD today - initial meal planning. Taking Medication: Taking Metformin 500mg bid States that she has a goal to not take insulin due to needle phobia and not wanting to be addicted.Reviewed changing insulin requirements during , discussed myths about diabetes. Assured ptthat if glucose control indicated need for insulin, health care team would support adjustment. 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 Knowledge/Skills presented: Diabetes Definition and Symptoms Risk factors, Types of diabetes, Blood Glucose Targets,Changing insulin requirements during Rationale for Normal BG levels Maternal / risks: including defects, maternal DKA, progression of maternal retinopathy and nephropathy, trauma, delivery, polyhydramnios, delivery, preeclampsia, infections, abnormalities of growth (IUGR or macrosomia), hypoglycemia, hyperbilirubinemia as well as the risk for stillbirth with suboptimal control, child's risk of metabolic disease inlater life secondary to programming of adult disease. In addition, children of women with pregestational diabetes may have higher risks for diabetes, heart disease, metabolic syndrome and obesity later in life. We discussed the importance of good glucose control as measured through SMBG and A1C to minimize these risks, in that poor control worsens, and good control can lessen, but does not eliminate these risks. Routine Health Screenings Recommended Eye exam, 24 hour urine, EKG, Maternal Echo, Echo Self Blood Glucose Monitoring (SBGM) Target glucose levels Fingerstick technique, blood glucose meter use, when to test/record readings,keeping accurate records of blood glucose, exercise and food. Logsheets were provided with contact numbers . Instructed to call if BG are over or under targets. Appropriate Weight Gain during Healthy Eating/Meal Planning Choosing healthy types and amounts of carbohydrates She met with RD today for overall nutrition, meal planning, carb counting. Risk Reduction Factors that affect blood sugar levels including food, activity, medication, stress/illness. Sick Day Management Hyperglycemia Potential for complication related to poor blood glucose control. Prevention, symptoms, treatment of hyperglycemia. Importance of reporting of high blood glucose levels to MD. DKA Hypoglycemia Safety/ concerns of hypoglycemia. Prevention, symptoms, treatment, reporting of low blood glucose levels to MD. Exercise Benefits/precautions/exercise choices. Encouraged to begin walking program, 30 minutes daily, guidelines provided. Medications for blood glucose control: Introduced /overview. Will expand education when prescribed. Benefits for mother/infant. Post Medical Care Handouts were given to reinforce instruction today. Provided Diabetes and Manual and log sheets. Instructed to test blood glucose fasting and 1 hour after each meal, keep records of blood glucose,food and exercise. Stressed the importance of bringing her glucometer and completed logs to each appointment. [facility]. Instructed to call if there is any obstacle to obtaining medication, glucometer supplies or questions regarding recommended treatment plan. Engagement/Motivation: 90% Understandin Will follow up in [facility] clinic to assess, reinforce and expand DSME. SUPPLIES: Glucometer strips and lancets # 150. Eprescribed to pharmacy supplies for 5 times per day testing. Submitted PA for additional supplies. * Sharri Cavazos, YASMIN/LD - 08/02/2019 10:47 AM CDT [facility]: Nutrition DM 19 year old woman, , at 13w0d with Estimated Date of Delivery: 02/07/20 Height: 5' (152.4 cm) Weight: 186 lb (84.4 kg) Pre- Weight: 198 lb (89.8 kg) Pre- BMI: 38.75 Weight change this : Current weight loss this is 12 lb, recommend a 0-4 lb weight gain for current gestation and pregravid BMI. Visit Summary: Pt seen in clinic today 2/2 T2DM during initial appointment. Patient is 13 weeks gestation today, reports having T2DM since she was 12 years old. Patient reports managing her DM with metformin and has a glucometer to check her BG levels, which she typically checks BID. Patient reports having been educated on nutrition education for BG control back when she was diagnosed, but was open toadditional education today. Reports great fear of needles and being started on insulin, stated, Even if you diagnose me on insulin, I will not take it. Reports this is her first . 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 Patient reports a poor appetite since becoming , snacks all throughout the day but doesn't typically have meals. States at times she will have something for dinner like a cheese burger or chili. Drinks water and the occasional soda/juice, as well as chocolate milk. Reports UBW/pre-gravid of 198 lb, indicates weight loss of 12 lbs in her first 13 weeks of gestation; recommend a 0-4 lb weight gain at this point in gestation based on pre-gravid BMI. Provided the [facility] BG Control and the [facility] Nutrition book guides, as we as a carbohydrate picture page today and fully educated patient on nutritioneducation for BG control. Patient seemed receptive to education at times, but other times became defensive, stating that she really doesn't eat very much, or I just drink juice sometimes. Encour ed the patient to keep daily food/BG logs and bring this and her meter to all appointments. Will continue to follow up. Discussed healthy eating during with regards to diabetes. Reviewed recommended servings of fruits, vegetables, whole grains, protein, and calcium rich foods. Reviewed all foods with carbohydrates in them with pt. Taught the pt how to count carbohydrates using the nutrition food label, a smart phone, and with a carbohydrate reference list. Educated pt on sources of protein and encouragedpt to add a protein food at all meals/snacks. Recommended CHO meal/snack pattern of 30 gm CHO with breakfast, 45-60 gm CHO at lunch/dinner, and 15 gm CHO per snack and recommended protein with all meals. Encouraged movement as tolerated/as recommended per MD, and discouraged consumption of high-fat/high-calorie foods. Recommended pt consume adequate fluids from water (recommendation of 64 oz/day)and avoid soda and sugary beverages. Encouraged for 6 months to 1 year and discussed benefits to mother and baby. Provided the pt with the [facility] BG Control/Carbohydrate Consistent Diet/Nutrition booklet to have as a resource. Educated pt on healthy nutrition during with pt; reviewed adequate nutrition and balance,proper weight gain, common difficulties with (nausea, heartburn, anemia, and constipation), and food safety and provided pt with the [facility] Nutrition booklet for a reference. Typical daily intake as follows: Breakfast: an apple; chips Snack:chips, snacks at work ([employer]) Lunch: snacks at work ([employer]) Snack: chips, crackers, fruit, ice cream Dinner: chili; soups; chicken; cheeseburgers Drinks of choice: water, juice or regular soda here and there Estimated Needs: KCAL: 1920 kcal/day(18 kcal/kg PPW + 300 kcal for 2nd trimester) Protein (g): 50 gm/day(1.1 gm/kg IBW/day for 2nd trimester) Pertinent Labs: No results for input(s): GESTDIABSCRN in the last 61500 hours. No results for input(s): GLUCOSEFAST, GTT1HR, GTT3HR in the last 05956 hours. Invalid input(s): HVRB3ZY Nutritional Diagnostic Statement: Diagnosis: Altered nutrition related laboratory values Related to: endocrine dysfunction As evidenced by: T2DM Intervention: Patient educated on a consistent carbohydrate intake and it's impacts on BG levels using the Carbohydrate Counting method. Goals: Nutrition Goal #1: Keep daily food and BG logs. Nutrition Goal #1Progress: New goal established;Continue with current goal Nutrition Goal #2: Aim for carbohydrate gram goals of 15 gm snacks, 30 gm breakfast, and 45-60 gm lunch/dinner. Nutrition Goal #2 Progress: New goal established;Continue with current goal Nutrition Goal #3: Add protein food(s) to all meals/snacks. Nutrition Goal #3 Progress: New goal established;Continue with current goal Monitor: Pt encouraged to call/email RD with questions and/or concerns. Evaluation of Overall Compliance Potential: Thank you very much for this referral. Sharri Cavazos RD/J[facility] [id number] * Valerie Nair RN - 08/02/2019 9:02 AM CDT Patient was given New OB Education packet, which includes: During : Care for yourself. Care for your baby Important Vaccines [address] is Important Resources for Mom's Woman and Resource Guide Safe Connections Crisis helpline Verification of letter Dental Referral letter Dental Clinic's list Centering brochure [place] [facility] Transportation Services Sheet [facility] [place] offices FMLA Request Process Handout EPDS completed ADRIANA completed Diaper form completed today and diapers given. documented in this encounter H&P Notes * Nidhi Araujo MD - 08/02/2019 8:49 AM CDT [facility] Initial Visit 08/02/2019 CC: they sent me HPI: 19 year old at 13w0d weeks gestation, dated by LMP c/w 7wk US. Estimated Date of Delivery: 02/07/20. care previously with Dr Torres. Her is complicated by: Patient Active Problem List: Type 2 diabetes mellitus affecting in second trimester, antepartum Obese Supervision of high-risk of young primigravida Patient is doing well today and denies complaints. Mild nausea overall controlled. Patient denies cramping/contractions/VB/LOF. Movement: present. Obstetrical History: OB History Para Term AB Living 1 SAB TAB Ectopic Multiple Live Births # Outcome Date GA Lbr Mono/2nd Weight Sex Delivery Anes PTL Lv 1 Current Gynecologic History: Patient denies history of abnormal pap smears. Denies history of cervical procedures. Remote hx chlamydia otherwise denies STDs or HSV. Reports history of normal monthly menses. Medical History: Past Medical History: Diagnosis Date ??? Anemia ??? Bronchitis acutely ??? Diabetes mellitus ??? Irritable bowel disease ??? PCOS (polycystic ovarian syndrome) Surgeries: Past Surgical History: Procedure Laterality Date ??? [place] DENTAL SURGERY PROCEDURE Curent Medications: Current Outpatient Medications on File Prior to Encounter Medication Sig Dispense Refill ??? blood glucose (ONETOUCH ULTRA TEST STRIPS) test strip Use 2 strips daily. 100 Strip 11 ??? Blood Glucose Monitoring Suppl (FREESTYLE LITE) TITO Use to check blood sugar twice a day as directed. 1 Device 1 ??? Blood Glucose Monitoring Suppl (ONE TOUCH ULTRA MINI) W/DEVICE KIT Use to test blood sugar 2 times daily 1 Kit 1 ??? FREESTYLE LANCETS MISC Use to check blood sugar twice a day or as directed. 100 Each 11 ??? FREESTYLE LITE STRIPS test strip Use to check blood sugar twice a day or as directed. 100 Strip11 ??? metFORMIN (GLUCOPHAGE) 500 MG tablet 2 tabs with breakfast and dinner or as directed. 90 day supply 360 Tab 3 ??? naproxen (NAPROSYN) 500 MG tablet Take 1 Tab by mouth 2 times daily (Patient not taking: Reported on 08/02/2019) 30 Tab 0 ??? norethindrone-ethinyl estradiol (MICROGESTIN) 1.5-30 MG-MCG tablet Take 1 Tab by mouth once daily. ??? One Touch Delica Lancets Use 2 LANCETS DAILY 100 Each 11 No current facility-administered medications on file prior to encounter. Allergies: No Known Allergies Social History: Social History Socioeconomic History ??? Marital status: Single Spouse name: Not on file ??? Number of children: Not on file ??? Years of education: Not on file ??? Highest education level: Not on file Occupational History ??? Not on file Social Needs ??? Financial resource strain: Not on file ??? Food insecurity: Worry: Not on file Inability: Not on file ??? Transportation needs: Medical: Not on file Non-medical: Not on file Tobacco Use ??? Smoking status: Never Smoker ??? Smokeless tobacco: Never Used Substance and Sexual Activity ??? Alcohol use: No ??? Drug use: No ??? Sexual activity: Never Lifestyle ??? Physical activity: Days per week: Not on file Minutes per session: Not on file ??? Stress: Not on file Relationships ??? Social connections: Talks on phone: Not on file Gets together: Not on file Attends voodoo service: Not on file Active member of club or organization: Not on file Attends meetings of clubs or organizations: Not on file Relationship status: Not on file ??? Intimate partner violence: Fear of current or ex partner: Not on file Emotionally abused: Not on file Physically abused: Not on file Forced sexual activity: Not on file Other Topics Concern ??? Special Diet Not Asked Social History Narrative HEADS: 12/27/2013 H: Mom, shanelle, younger sister and brother. Another bro lives w/ his father All 4 children have different fathers Mom employed as a rehabilitation case coordinator E: GED, would like to attend A: No physical activity, like to walk D: Denies EtOH, drugs. Drinks water S: 4 total partners, no hx STD, same partner since last year, condoms everytime, on OCP, regular follow up with caterpillar mechanic Family History: Family History Problem Relation Age of Onset ??? Obesity Mother ??? Obesity Father ??? Diabetes Maternal Grandfather ??? Diabetes Maternal Uncle ??? Hypertension Maternal Grandfather ??? Hypercholesterolemia Maternal Grandfather Objective: BP 131/69 Pulse 84 Ht 5' (1.524 m) Wt 186 lb (84.4 kg) BMI 36.33 kg/m2 heart tones: per US today Physical Exam: General: alert, cooperative, no distress Lungs: clear to auscultation bilaterally, no wheezing Heart: regular rate and rhythm Abdomen: soft, obese, gravid Extremities: normal, non-tender bilaterally Psych: normal affect Skin: no rashes, no lesions Lab Review: Recent Labs Component Name 08/02/19 0901 PROTEINUA trace GLUCOSEUA neg KETONEUA neg Assessment/Plan: 19 year old at 13w0d with 1. Supervision of 1. ALTA from Dr Torres 2. Dating: LMP c/w 7wk US 3. PNL: collected at OSH, patient has significant needle phobia. Will request today, labs drawn last week. To be faxed once resulted. 4. Gc/Chl: neg 5. Ucx: neg 6. UDS: neg 7. Hgb Elec: collected at OSH 8. Genetics: NIPT at OSH 9. Pap: collected at OSH 10. Breast/Does not desire contraception 2. T2DM 1. Diagnosed at age 12, seen at . Negative antibodies and elevated C-peptide 2. Currently taking metformin 500 BID 3. No logs to review today. Met with DME and nutrition and discussed accuchecks. 4. Order placed for EKG and maternal echo 5. Order placed for echo at 24-28 weeks 6. Patient has ophthalmology appointment within the next 2-3 months, encouraged compliance 7. Will start ASA 162mg qd 8. 24 hour urine supplies given today 9. testing at 32 weeks with 2x weekly NST and 1x weekly BPP. Serial growth US 10. Discussed likelihood of requiring insulin therapy with . Patient with severe needle phobia and concerned about possibility of compliance with insulin therapy. Will continue to address. Discussed compliance with diabetic diet as well as exercise to assist with glycemic control. Discussed risks of uncontrolled diabetes in including increased risk of anomalies, stillbirth, excessive growth, and hyperglycemia/ hypoglycemia. 3. FOB with child with SCT 1. Recommended paternal hemoglobin electrophoresis 2. Maternal labs pending at OSH, requested instructions were discussed including weight gain, exercise, diet (including intake of fish products with regards to Hg content), sexual activity, and common OTC medication use. Calcium intake of 1200 mg per day and vitamins with folate were recommended. Alcohol and smoking were discussed and advised to avoid during . The course of care was outlined. SAB and bleeding precautions discussed. RTC 1 week. Seen and discussed with Dr. Rojas. Nidhi Araujo MD 08/02/2019 9:58 AM Associated attestation - Terri Rojas MD - 08/02/2019 10:04 AM CDT MFM Attending I have seen and evaluated the patient with Dr. Araujo. I agree with the above assessment, exams and plans. Exam: BP 131/69 Pulse 84 Ht 5' (1.524 m) Wt 186 lb (84.4 kg) BMI 36.33 kg/m2 Gen - NAD Patient Active Problem List Diagnosis Date Noted Supervision of high-risk of young primigravida 08/02/2019 Priority: Not Prioritized Obese 06/09/2013 Type 2 diabetes mellitus affecting in second trimester, antepartum 10/01/2012 Diagnosed 08/20/2012 with a hemoglobin A1c of 7.0% 2015 IMO Updt I have the following to add to the plan: - New OB transfer of care - T2DM - on metformin 500 mg BID. Reports good control but no glucose logs available. Met with DM educator today. Patient has a strong fear of needles - reports she will not take insulin if advised. We discussed that diet, exercise and metformin may be able to control her glucose, however, insulin would be the next step in management if these fail. Patient to come back in 1 week with glucose logsfor review. Begin ASA 162 mg daily for preE risk reduction. Reports labs completed with primary OB - results not available tpday for review. Will obtain from their office. - Genetic testing - thinks she had NIPT done in prior visit. Will await for results - US done today - verbal report is reassuring. Official report pending - [place] 1 week for glucose review Terri Rojas MD Maternal- Medicine documented in this encounter Plan of Treatment Scheduled Orders Name Type Priority Associated Diagnoses Orde r Schedule EKG 12-LEAD ECG Routine , unspecified gestational age (HCC) Type 2 diabetes mellitus affecting in second trimester, antepartum (HCC) 1 Occurrences starting 08/02/2019 until 08/02/2020 documented as of this encounter Procedures Procedure Name Priority Date/Time Associated Diagnosis Comments GLUCOSE PROTEIN KETONE URINE - POINT OF CAR Routine 08/02/2019 9:01 AM CDT , unspecified gestational age (HCC) documented in this encounter Results * GLUCOSE PROTEIN KETONE URINE - POINT OF CARE (08/02/2019 9:01 AM CDT) Glucose UA neg Negative [facility] Protein UA trace Negative [facility] Ketone UA neg Negative [facility] TEST[facility] QC Verified Yes Yes [facility] POC T TESTING Urine URINE / Unknown 08/02/2019 9 :01 AM CDT Gina Price MD LAB - POINT OF CARE ORDERABLES [facility] [address] [phone] documented in this encounter Visit Diagnoses Diagnosis , unspecified gestational age (HCC)- Primary Type 2 diabetes mellitus affecting in second trimester, antepartum (HCC) documented in this encounter Care Teams Preschool Teacher Assistant Relationship Specialty Start Date End Date Esperanza Santillan MD [address] [place] [address] TRINIDAD Molina [id number] PCP - General Family Medicine 09/03/12 documented as of this encounter
--- OUTSIDE RECORDS SUMMARY | 2024-10-14 01:34 | XMS_ITS | Encounter Summary ---
Author Organization [facility] Health Address [address] [place] [address] Care Team Providers Care Poultry Picker Name Role Phone Esperanza Santillan MD Primary Care Provider [phone] Reason for Visit * Reason Onset Date Comments Results 08/10/2019 Encounter Details Date Type Department Care Team (Late st Contact Info) Description 08/10/2019 Telephone [facility] MATERNAL/ EVALUATION UNIT [address] [place] [address]. [address] [place] [address] Rose Dewitt RN Results Social History Tobacco Use Types Packs/Day Years Used Date Smoking Tobacco: Never Smokeless Tobacco: Never Alcohol Use Standard Drinks/Week Comments No 0 (1 standard drink = 0.6 oz pur e alcohol) Comments Yes Sex and Gender Information Value Date Recorded Sex Assigned at Not on file Gender Identity Not on file Sexual Orientation Not on file documented as of this encounter Miscellaneous Notes * Telephone Encounter - Rose Dewitt RN - 08/10/2019 9:31 AM CST Pt called inquiring about lab results, ordered by Dr Torres. Pt stated concerns as she is aware results are showing she is positive for a genetic issue that may result in a still . Pt stateshas a telephone consult scheduled today with a genetic counselor. In looking in Media, preliminary lab results are in on this particular blood work appt, however the testing she is inquiring about states will follow . Pt is uncertain as to who is calling her, and/or where the Genetic Counselor is from. Encouraged pt to await her phone call from the Genetic Counselor today at 10:30 am, at which time she can address her questions and concerns re: her test results. Pt verbalizes understanding. CTOR OF CONSULTING SERVICES documented in this encounter Plan of Treatment Not on file documented as of this encounter Visit Diagnoses Not on filedocumented in this encounter Care Teams Poultry Picker Relationship Specialty Start Date End Date Esperanza Santillan MD [address] [place] [address] PCP - General Family Medicine 09/03/12 documented as of this encounter
--- OUTSIDE RECORDS SUMMARY | 2024-10-14 01:34 | XMS_ITS | Encounter Summary ---
Author Organization [facility] Health Address [address] [facility] [place] [address] Care Team Providers Care School Secretary Name Role Phone Esperanza Santillan MD Primary Care Provider [phone] Reason for Visit * Reason Comments Ultrasound Encounter Details Date Type Department Care Team (Latest Contact Info) Description 08/02/2019 7:30 AM CDT - 08/02/2019 7:57 AM CDT Hospital Encounter [facility] MATERNAL/ EVALUATION UNIT [address] [facility] [place] [address] Terri Rojas MD [address] [facility] [address] [place] [address] Discharge Disposition: Home or Self Care Social [...] a day or as directed. 100 Strip 03/23/2015 metFORMIN (GLUCOPHAGE) 500 MG tabletIndications:Type 2 [...] 11 05/20/2013 documented as of this encounter Plan of Treatment Not on file documented as of this encounter Procedures Procedure Name Priority Date/Time Associated Diagnosis Comments SONOGRAM - COMPLETE Routine 08/02/2019 7 :12 AM CDT Type 2 diabetes mellitus in patient 13 to 19 years of age with hemoglobin A1c goal of less than 7.5% (HCC) documented in this encounter Results * SONOGRAM - COMPLETE (08/02/2019 7:12 AM CDT) Anatomical Region Laterality Modality Other 08/02/2019 7:12 AM CDT Narrative 08/02/2019 10:35 AM CDT ? [facility] ? Maternal & Care Center ?PHONE: ??FAX: Pat. Name: ?VEENA MCRAE. No: ?[id number] Study Date: ?? 08/02/2019 ??7:12am , Age: ? 2000, 19 Pregnancies: ?? 1 Height: ? 60 in Weight: ? 198 lb LMP: ?05/03/2019 GA by LMP: ?13w0d GA by US: ? 13w2d ?? PAVEL: 02/05/2020 GA Selected: ??13w0d (LMP) PAVEL: ?02/07/2020 Referring MD: Surya, , [facility] Baster Hand: ??Yoon Hassan, KEN, MICHAEL CPT4: ? 38107 BMI: ?38.67 Hist/Ind: ? Type II DM- Metformin ?Class II Obesity MEASUREMENTS & AGE ? GROWTH EVALUATION Measurement ??GA ? Range ? Srce %for GA Ratios ----- ---- ------- CRL ??7.1 cm 13w2d (66t0b-21z6b) Hadl CRL 61% GA for sonogram 13w2d (84v9p-55n4m) based on (CRL) Avg ? Heart Rate: 164 bpm EVAL, PLACENTA Presentation: transverse Location: intrauterine Placenta: posterior Heart Rate: 164 bpm Anatomy!Seen!Not Seen!Comments Myometrium ?? ! ??x ! ?! Right Ovary ??! ?! ?x ?? ! Left Ovary ?? ! ??x ! ?! Cul de sac ?? ! ??x ! ?! Calvarium ?! ??x ! ?! Midline Falx ! ??x ! ?! 4th Ventricle! ?! ?x ?? ! Ventricles ?? ! ?! ?x ?? ! Choroid Plexu! ??x ! ?! Nasal Bone ?? ! ?! ?x ?? ! Neck/Dorsum ??! ?! ?x ?? ! 4 CH ? ! ?! ?x ?? ! Transtracheal! ?! ?x ?? ! Ventral Wall ! ?! ?x ?? ! Abdominal Cor! ?! ?x ?? ! Diaphragm ?! ?! ?x ?? ! Spine ?! ?! ?x ?? ! Stomach ?! ??x ! ?! Kidneys ?! ?! ?x ?? ! Bladder ?! ??x ! ?! Upper Extremi! ??x ! ?! Lower Extremi! ??x ! ?! CLINICAL SUMMARY Study Number: 1 A single intrauterine gestational sac is seen. ??The gestational sac contains a fetus. ??The right ovary was not visualized but no adnexal masses were appreciated. ??The left ovary was seen and appears normal. ??There is no free fluid in the cul de sac. IMPRESSION: Single live IUP at 13w0d size is consistent with menstrual-based dating and a prior outside scan at 7w1d RECOMMEND: ?? Follow up ultrasound at approximately 20 weeks for the anatomy survey and cervical length screening. ?? echo at approximately 24-28 weeks gestation with maternal history of Type 2 diabetes mellitus. and morbid obesity. Thank you for allowing us the opportunity to care for your patient. Daquan Ndiaye MD <Electronic Signature> ??08/02/2019 10:35am Dakota Heard MD MFM ORDERABLES documented in this encounter Visit Diagnoses Diagnosis Type 2 diabetes mellitus in patient 13 to 19 years of age with hemoglobin A1c goal of less than 7.5% ([facility])- Primary documented in this encounter Care Teams School Secretary Relationship Specialty Start Date End Date Esperanza Santillan MD [address] [place] [address] [place] [address] PCP - General Family Medicine 09/03/12 documented as of this encounter
--- OUTSIDE RECORDS SUMMARY | 2024-10-14 01:34 | XMS_ITS | Encounter Summary ---
Author Organization [facility] Address [address] [facility] [place] [address] Care Team Providers Care Backend Java Developer Name Role Phone Esperanza Santillan MD Primary Care Provider [phone] Reason for Visit * Reason Comments Ultrasound * Evaluate & Treat (Routine) - Closed Specialty Diagnoses / Procedures Referred By Carson t Referred To Contact Maternal Medicine Procedures NV SONO FU OR REPEAT Jewell Acosta MD [address] [facility] [address] [place] [address] Referral ID Status Reason Start Date Expiration Date Visits Re quested Visits Authorized [id number] Closed 10/29/2019 04/26/2020 8 8 Encounter Details Date Type Department Care Team (Latest Contact Info) Description 11/19/2019 8:07 AM SAMPLE PATTERNMAKER - 11/19/2019 11:59 PM SAMPLE PATTERNMAKER Hospital Encounter [facility] Maternal & Care [address] [place] [address] Jewell Acosta MD [address] [facility] [address] [place] [address] Discharge Disposition: Home or Self Care Social [...] 13-19 years with HbA1C goal below 7.5 ([facility]) 2 tabs with breakfast and dinner [...] 3 08/02/2019 documented as of this encounter Plan of Treatment Not on file documented as of this encounter Procedures Procedure Name Priority Date/Time Associated Diagnosis Comments SONOGRAM - COMPLETE Routine 11/19/2019 8:16 AM SAMPLE PATTERNMAKER with type 2 diabetes mellitus in second trimester (HCC) Supervision of high-risk of young primigravida (HCC) Maternal morbid obesity in second trimester, antepartum (HCC) documented in this encounter Results * SONOGRAM - COMPLETE (11/19/2019 8:16 AM SAMPLE PATTERNMAKER) Anatomical Region Laterality Modality Other 11/19/2019 8:16 AM SAMPLE PATTERNMAKER Narrative 11/19/2019 8:57 AM SAMPLE PATTERNMAKER ? [facility] Maternal Medicine ? Maternal & Care Center ?PHONE: ??FAX: Pat. Name: ?VEENA MCRAE. No: ?[id number] Study Date: ?? 11/19/2019 ??8:16am , Age: ? 2000, 19 Pregnancies: ?? 1 Height: ? 60 in Weight: ? 198 lb LMP: ?05/03/2019 GA by LMP: ?28w4d GA by Base: ?? 28w4d ?? PAVEL: 02/07/2020 GA by US: ? 28w6d ?? PAVEL: 02/05/2020 GA Selected: ??28w4d (LMP) PAVEL: ?02/07/2020 Referring MD: Tony Lira MD Small Business Consultant: ??Karina Kirby RDMS CPT4: ? 32908 BMI: ?38.67 Hist/Ind: ? Type 2 diabetes ?Class II obesity MEASUREMENTS & AGE ? GROWTH EVALUATION Measurement ??GA ? Range ? Srce %for GA Ratios ----- ---- ------- BPD ??7.0 cm 28w0d (05t2w-72l2u) Hadl BPD 19% FL/BPD 0.83 (0.71 - 0.87) HC ??25.8 cm 28w0d (66q2t-60e5f) Hadl HC ??7% FL/AC ??0.23 (0.20 - 0.24) AC ??24.7 cm 29w0d (25m1g-50s5e) Hadl AC ??53% HC/AC ??1.04 (0.99 - 1.18) FL ?? 5.8 cm 30w2d (57u9d-29y4i) Hadl FL ??80% CI ? 0.77 (0.70 - 0.86) HL ?? 5.0 cm 29w2d (08r8o-11z9u) Cresencio HL ??61% GA for sonogram 28w6d (87w4u-05k0w) ?? Weight Estimate: based on (BPD,HC,AC,FL) Avg [...] review of the anatomy. IMPRESSION: ?? 1) Ramos gestation, 28w4d 2) Biometry is consistent with [...] <Electronic Signature> ??11/19/2019 08:56am Tony Lira MD [facility] ORDERABLES documented in this encounter Visit Diagnoses Diagnosis with type 2 diabetes mellitus in second trimester (HCC)- Primary Supervision of high-risk of young primigravida (HCC) Supervision of high-risk of young primigravida Maternal morbid obesity in second trimester, antepartum (HCC) Type 2 diabetes mellitus complicating , antepartum, third trimester (HCC) 28 weeks gestation of (HCC) state, incidental documented in this encounter Care Teams Backend Java Developer Relationship Specialty Start Date End Date Esperanza Santillan MD [address] [place] [address] PCP - General Family Medicine 09/03/12 documented as of this encounter
--- OUTSIDE RECORDS SUMMARY | 2024-10-14 01:34 | XMS_ITS | Encounter Summary ---
Author Organization [facility] Address [address] [facility] [place] [address] Care Team Providers Care Sap Basis Architect Name Role Phone Esperanza Santillan MD Primary Care Provider [phone] Encounter Details Date Type Department Care Team (Latest Contact Info) Description 03/23/2014 12:06 PM CDT - 03/23/2014 11:59 PM T Hospital Encounter [facility] [address] [place] [address] Tana Avendaño, HAR[employer] TICKETER[facility] [address] [place] [address] Discharge Disposition: Home or Self Care Social [...] with HbA1C goal below 7.5 ([facility]) 2 tabs with breakfast and dinner or as directed. 90 day supply 360 Tab 3 01/10/2014 One Touch Delica Lancets Use 2 LANCETS DAILY 100 Each 11 05/20/2013 dicyclomine (BENTYL) 20 MG tablet Take 20 mg by mouth 4 times daily. 12/04/2015 ferrous sulfate 325 (65 FE) MG tablet Take 1 Tab by mouth 2 times daily. 60 Tab 4 03/23/2014 12/04/2015 norethindone-ethinyl estradiol-FE (LOESTRIN 24 FE) 1-20 MG-MCG(24) [...] Procedure Name Priority Date/Time Associated Diagnosis Comments IRON + TIBC PANEL Routine 03/23/2014 12: 34 PM CDT Low iron stores FERRITIN Routine 03/23/2014 12:34 PM CDT Low iron stores documented in this encounter Results * IRON + TIBC PANEL (03/23/2014 12:34 PM CDT) Iron 80 30 - 160 ug/dL 03/24/2014 7:41 AM CDT [facility] Comment: REFERENCE INTERVAL: Iron, Serum or Plasma Access complete set of age- and/or gender-specific reference intervals for this test in the [employer] Laboratory Test Directory ([employer]). TIBC 393 250 - 400 ug/dL 03/24/2014 7:41 AM CDT [facility] Comment: REFERENCE INTERVAL: Iron Binding Capacity Total Access complete set of age- and/or gender-specific reference intervals for this test in the [facility] Test Directory ([employer]). Transferrin Saturation % 20 20 - 50 %sat 03/24/2014 7:41 AM CDT [facility] Blood specimen (specimen) BLOOD SPECIMEN / Unknown Lab Venipuncture / Unknown 03/23/2014 12:34 PM CDT 03/23/2014 1:02 PM CDT Tana Avendaño APRN-SOLAR ENERGY ADVISOR LAB - CHEMISTR Y ORDERABLES [facility] [address] [place] [address] * FERRITIN (03/23/2014 12:34 PM CDT) Ferritin 30 10 - 120 ng/mL 03/23/2014 1:23 PM CDT [facility] Blood BLOOD SPECIMEN / Unknown Lab Venipuncture / Unknown 03/23/2014 12:34 PM CDT 03/23/2014 12:43 PM CDT Tana Avendaño APRN-SOLAR ENERGY ADVISOR LAB - CHEMISTR Y ORDERABLES [facility] [address] [place] [address] documented in this encounter Visit Diagnoses Diagnosis Low iron stores Other abnormal blood chemistry documented in this encounter Care Teams Sap Basis Architect Relationship Specialty Start Date End Date Esperanza Santillan MD [address] [place] [address] TRINIDAD Molina [phone] PCP - General Family Medicine 09/03/12 documented as of this encounter
--- OUTSIDE RECORDS SUMMARY | 2024-10-14 01:34 | XMS_ITS | Encounter Summary ---
Author Organization [facility] Health Address [address] [facility] [place] [address] Care Team Providers Care College Or University Department Head Name Role Phone Esperanza Santillan MD Primary Care Provider [phone] Reason for Visit * Reason Comments Routine Visit Encounter Details Date Type Department Care Team (Latest Contact Info) Description 10/04/2019 8:20 AM MILL TENDER SECOND OPERATOR - 10/04/2019 12:08 PM [facility] Hospital Encounter [facility] MATERNAL/ EVALUATION UNIT [address] [facility] [place] [address] Dakota Heard MD [address] [facility] [address] [place] [address] Robina Mejia MD [address] [place] [address] Discharge Disposition: Home or Self Care Social [...] Sign Reading Time Taken Comments Blood Pressure 124/69 10/04/2019 9:45 AM MILL TENDER SECOND OPERATOR Pulse 77 10/04/2019 9:45 AM MILL TENDER SECOND OPERATOR Temperature - - Respiratory Rate - - Oxygen Saturation - - Inhaled Oxygen Concentration - - Weight 83.9 kg (185 lb) 10/04/2019 9:45 AM MILL TENDER SECOND OPERATOR Height - - Body Mass Index 36.13 08/02/2019 8:47 AM CDT documented in this encounter Medications at [...] as of this encounter Progress Notes * [place] - 10/04/2019 2:40 PM CST PT does not bring any meter or logs to today's appt. Non adherence continued. Last appt was in July. Pt to transfer care to sid. TENDER SECOND OPERATOR * Yeny Arzate MD - 10/04/2019 10:01 AM CST [facility] Return Visit 10/04/2019 S: Melissa Jackson is a 19 year old @ 22w0d Today she notes she is overall doing well. Denies CTX, LOF, VB. She states she is switching her care to Dr. Lira. Her is c/b: Patient Active Problem List Diagnosis Date Noted ??? Supervision of high-risk of young primigravida 08/02/2019 Priority: Not Prioritized ??? Maternal morbid obesity, antepartum, first trimester 06/09/2013 ??? Encounter for ultrasound 06/09/2013 ??? Type 2 diabetes mellitus affecting in first trimester, antepartum 10/01/2012 Diagnosed 08/20/2012 with a hemoglobin A1c of 7.0% 2015 IMO Updt O: Vitals: 10/04/19 0945 BP: 124/69 Pulse: 77 Weight: 185 lb (83.9 kg) FHT/EFW per sono today Recent Labs Component Name 08/02/19 0901 PROTEINUA trace GLUCOSEUA neg KETONEUA neg A/P: Melissa Jackson is a 19 year old at 22w0d 1. Supervision of 1. ALTA from Dr Torres 2. Dating: LMP c/w 7wk US 3. PNL: 4. Gc/Chl: neg 5. Ucx: neg 6. UDS: neg 7. Hgb Elec: alpha thalassemia 8. Genetics: NIPT at OSH 9. Pap: collected at OSH 10. Breast/Does not desire contraception ?? 2. T2DM 1. Diagnosed at age 12, seen at . Negative antibodies and elevated C-peptide 2. Currently taking metformin 500 BID 3. A1c at new OB 8.5. Patient reports it is 6 now 4. Patient still without BG logs today - has extreme needle phobia 1. Says at home her highest blood sugar was 122 5. Patient has ophthalmology appointment within the next 2-3 months, encouraged compliance 6. 24 hour urine supplies given today 7. Plan: 1. Continue ASA 162mg qday 2. Obtain labs today, as patient has not completed baseline labs 3. Recommended baseline EKG, ECHO 4. Obtain ECHO 5. testing at 32 weeks with 2x weekly NST and 1x weekly BPP. Serial growth US ?? 3. Low lying placenta 1. Noted on sono today 2. Pelvic rest precautions given 3. Re-evaluated in 4 weeks 4. 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 Recommended paternal hemoglobin electrophoresis Reviewed PTL precautions Recommend RTC 1 week for MD and DE visit Also recommend genetics appointment due to alpha thalassemia, FOB with child with SCT Patient reports she is transferring care to Dr. Lira. Still recommended to follow up with the aforementioned recommendations. D/W Dr Jackie Arzate MD 10/04/2019 10:01 AM TENDER SECOND OPERATOR Associated attestation - Robina Mejia MD - 10/04/2019 1:53 PM MILL TENDER SECOND OPERATOR SYSTEMS INTEGRATOR Attending Patient seen and examined with the resident/fellow/nurse practitioner. Please see Dr. Arzate's documentation for further details. I confirmed/revise history, exam, assessment and plan. In addition I note: History: Transferring care to Dr. Lira to be closer to home. Reports he has accepted her care.She has good FM. No VB or LOF. EKG and echo planned. Exam: BP 124/69 Pulse 77 Wt 185 lb (83.9 kg) BMI 36.13 kg/m2 General: comfortable, alert, cooperative HEENT: normocephalic, atraumatic. Eyes PERRLA Cardiovascular: heart regular rate and rhythm, no pathologic murmurs Pulmonary: respirations unlabored, lungs clear to auscultation, no cough or wheeze Abd: soft, nontender, Fundus soft, obese Ext: no edema, nontender. Skin:warm, normal turgor, no rashes nor lesions Neuro: cranial nerves 2-12 grossly intact, intact sensory and motor. Assessment/Plan: 19 year old @ 22w0d Patient Active Problem List: with type 2 diabetes mellitus in second trimester Maternal morbid obesity, antepartum, first trimester Encounter for ultrasound Supervision of high-risk of young primigravida Screening, , for anatomic survey Maternal morbid obesity in second trimester, antepartum Encounter for screening for cervical length T2DM. echo ordered. Prt:cr ratio today. No glucose logs, no insulin adjustment. Twice weekly testing at 32 weeks. Low lying placenta. Obesity. Weight stable. Incomplete anatomy. F/u in 4 weeks. Follow up: Transferring care to Dr. Lira. Robina Mejia MD 10/04/2019 10:30 AM documented in this encounter Plan of Treatment Scheduled Orders Name Type Priority Associated Diagnoses Orde r Schedule GLUCOSE PROTEIN KETONE URINE - POINT OF CARE Point of Care Testing Routine 22 weeks gestation of (HCC) ONCE for 1 Occurrences starting 10/04/2019 until 10/04/2019 documented as of this encounter Procedures Procedure Name Priority Date/Time Associated Diagnosis Comments URINE MICROSCOPIC ONLY REFLEX TO CULTURE Routine 10/04/2019 10:45 AM MILL TENDER SECOND OPERATOR Type 2 diabetes mellitus affecting in first trimester, antepartum ([facility]) URINALYSIS REFLEX MICROSCOPIC REFLEX CULTURE Routine 10/04/2019 10:45 AM MILL TENDER SECOND OPERATOR Type 2 diabetes mellitus affecting in first trimester, antepartum ([facility]) CULTURE URINE Routine 10/04/2019 10:45 AM MILL TENDER SECOND OPERATOR Type 2 diabetes mellitus affecting in first trimester, antepartum ([facility]) PROTEIN CREATININE RATIO URINE RANDOM PNL Routine 10/04/2019 10:45 AM MILL TENDER SECOND OPERATOR Type 2 diabetes mellitus affecting in first trimester, antepartum ([facility]) documented in this encounter Results * CULTURE URINE (10/04/2019 10:45 AM MILL TENDER SECOND OPERATOR) Culture Urine <10,000 CFU/mL urogenital lisa DAVID 10/05/2019 2:47 PM MILL TENDER SECOND OPERATOR [facility] MICROBIOLOGY Urine URINE SPECIMEN OBTAINED BY CLEAN CATCH PROCEDURE / Unknown Collection / Unknown 10/04/2019 10:45 AM MILL TENDER SECOND OPERATOR 10/04/2019 11:01 AM MILL TENDER SECOND OPERATOR Yeny Arzate MD LAB - MICROBIOLOGY O RDERABLES [facility] MICROBIOLOGY [address] [place] [phone] * (ABNORMAL) URINE MICROSCOPIC ONLY REFLEX TO CULTURE (10/04/2019 10:45 AM MILL TENDER SECOND OPERATOR) Reflex Status Culture to follow 10/04/2019 11:37 AM [facility] RBC UA 0-2 None Seen, 0-2, 3-5 # /hpf 10/04/2019 11:37 AM MILL TENDER SECOND OPERATOR [facility] WBC UA 0-5 None Seen, 0-5 # /hpf 10/04/2019 11:37 AM [facility] Bacteria UA None Seen None Seen 10/04/2019 11:37 AM [facility] Squamous Epithelial Cells 6-10(A) None Seen, 0-2, 3-5 /hpf 10/04/2019 11:37 AM [facility] Mucus UA 1+ /LPF 10/04/2019 11:37 AM [facility] Urine URINE SPECIMEN OBTAINED BY CLEAN CATCH PROCEDURE / Unknown Collection / Unknown 10/04/2019 10:45 AM MILL TENDER SECOND OPERATOR 10/04/2019 11:01 AM MILL TENDER SECOND OPERATOR Narrative [facility] - 10/04/2019 11:37 AM MILL TENDER SECOND OPERATOR Yeny Arzate MD LAB - URINALYSIS ORD ERABLES Performing Organization Address City/[facility]/ZIP Co de Phone Number [facility] [address] [place] [address] * PROTEIN CREATININE RATIO URINE RANDOM PNL (10/04/2019 10:45 AM MILL TENDER SECOND OPERATOR) Protein Urine 7.8 <11.9 mg/dL 10/04/2019 11:36 AM [facility] Creatinine Urine 74.56 mg/dL 10/04/2019 11:36 AM [facility] Protein/Creatin ine Ratio Urine 0.10 10/04/2019 11:36 AM [facility] Urine URINE SPECIMEN OBTAINED BY CLEAN CATCH PROCEDURE / Unknown Collection / Unknown 10/04/2019 10:45 AM MILL TENDER SECOND OPERATOR 10/04/2019 11:01 AM MILL TENDER SECOND OPERATOR Yeny Arzate MD LAB - URINE CHEMISTR Y ORDERABLES Performing Organization Address [facility]/ZIP Co de Phone Number [facility] [address] [place] [address] * (ABNORMAL) URINALYSIS REFLEX MICROSCOPIC REFLEX CULTURE (10/04/2019 10:45 AM MILL TENDER SECOND OPERATOR) Color UA Yellow Straw, Yellow 10/04/2019 11:26 AM [facility] Clarity UA Slt Cloudy(A) Clear 10/04/2019 11:26 AM [facility] Glucose UA Negative Negative 10/04/2019 11:26 AM [facility] Bilirubin UA Negative Negative 10/04/2019 11:26 AM [facility] Ketone UA Trace(A) Negative 10/04/2019 11:26 AM [facility] Specific Summers UA 1.014 1.005 - 1.030 10/04/2019 11:26 AM [facility] Blood UA Negative Negative 10/04/2019 11:26 AM [facility] pH UA 7.0 5.0 - 8.0 pH 10/04/2019 11:26 AM [facility] Protein UA Negative Negative 10/04/2019 11:26 AM [facility] Urobilinogen UA Negative Negative mg/dL 10/04/2019 11:26 AM [facility] Nitrite UA Negative Negative 10/04/2019 11:26 AM [facility] Leukocyte UA Trace(A) Negative 10/04/2019 11:26 AM [facility] Urine Microscopy Urine microscopy to follow 10/04/2019 11:26 AM [facility] Reflex Status Culture to follow 10/04/2019 11:26 AM [facility] Urine URINE SPECIMEN OBTAINED BY CLEAN CATCH PROCEDURE / Unknown Collection / Unknown 10/04/2019 10:45 AM MILL TENDER SECOND OPERATOR 10/04/2019 11:01 AM MILL TENDER SECOND OPERATOR Narrative [facility] - 10/04/2019 11:26 AM MILL TENDER SECOND OPERATOR Yeny Arzate MD LAB - URINALYSIS ORD ERABLES Performing Organization Address City/[facility]/ZIP Co de Phone Number [facility] [address] [place] [address] documented in this encounter Visit Diagnoses Diagnosis 22 weeks gestation of (HCC)- Primary state, incidental Type 2 diabetes mellitus affecting in first trimester, antepartum (HCC) with type 2 diabetes mellitus in second trimester (HCC) Maternal morbid obesity, antepartum, first trimester (HCC) Supervision of high-risk of young primigravida (HCC) Supervision of high-risk of young primigravida documented in this encounter Care Teams [employer] Department Head Relationship Specialty Start Date End Date Esperanza Santillan MD [address] [place] [address] [place] [phone] PCP - General Family Medicine 09/03/12 documented as of this encounter
--- OUTSIDE RECORDS SUMMARY | 2024-10-14 01:34 | XMS_ITS | Encounter Summary ---
Author Organization [facility] Address [address] [place] [address] Care Team Providers Care Active Directory Engineer Name Role Phone Esperanza Santillan MD Primary Care Provider [phone] Encounter Details Date Type Department Care Team (Late st Contact Info) Description 12/04/2015 Orders Only [facility] Pediatrics - Endocrinology [address] [place] [address] Parminder Orta APRN-SWITCHBOARD INSPECTOR [address] [place] [address] Type 2 diabetes mellitus in patient age 13-19 years with HbA1C goal below 7.5 Social History Tobacco Use Types Packs/Day Years [...] on file documented as of this encounter Plan of Treatment Not on file documented as of this encounter Visit Diagnoses Diagnosis Type 2 diabetes mellitus in patient age 13-19 years with HbA1C goal below 7.5 ([facility])- Primary Type II or unspecified type diabetes mellitus without mention of complication, not stated as uncontrolled documented in this encounter Care Teams Active Directory Engineer Relationship Specialty Start Date End Date Esperanza Santillan MD [address] [place] [address] PCP - General Family Medicine 09/03/12 documented as of this encounter
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
--- OUTSIDE RECORDS SUMMARY | 2024-10-14 01:34 | XMS_ITS | Encounter Summary ---
Author Organization [facility] Health Address [address] [facility] [place] [address] Care Team Providers Care Meat Boner Name Role Phone Esperanza Santillan MD Primary Care Provider Reason for Visit * Reason Comments Ultrasound Encounter Details Date Type Department Care Team (Late st Contact Info) Description 10/04/2019 8:15 AM MYCOLOGIST - 10/04/2019 8:19 AM [facility] Hospital Encounter [facility] MATERNAL/ EVALUATION UNIT [address] [facility] [place] [address] Robina Mejia MD [address] [place], [place] [address] Norris Granados MD [address] [facility] [address] [place] [address] Discharge Disposition: Home or Self Care Social [...] 13-19 years with HbA1C goal below 7.5 ([facility]) 2 tabs with breakfast and dinner [...] Associated Diagnosis Comments SONOGRAM - COMPLETE Routine 10/04/2019 8 :30 AM MYCOLOGIST documented in this encounter Results * SONOGRAM - COMPLETE (10/04/2019 8:30 AM MYCOLOGIST) Anatomical Region Laterality Modality Other 10/04/2019 8:30 AM MYCOLOGIST Narrative 10/04/2019 10:16 AM MYCOLOGIST ? [facility] ? Maternal & Care Center ?PHONE: ??FAX: Pat. Name: ?VEENA MCRAE Pat. No: ?[id number] Study Date: ?? 10/04/2019 ??8:30am , Age: ? 2000, 19 Pregnancies: ?? 1 Height: ? 60 in Weight: ? 198 lb LMP: ?05/03/2019 GA by LMP: ?22w0d GA by Base: ?? 22w0d ?? PAVEL: 02/07/2020 GA by US: ? 22w1d ?? PAVEL: 02/06/2020 GA Selected: ??22w0d (LMP) PAVEL: ?02/07/2020 Referring MD: Surya, MD, [facility] Judicial Assistant: ??Keri Luna, YASMINMS, RVT,NE CPT4: ? 89488,95143 BMI: ?38.67 Hist/Ind: ? Type II DM- Metformin ?Class II Obesity ? echo scheduled MEASUREMENTS & AGE ? GROWTH EVALUATION Measurement ??GA ? Range ? Srce %for GA Ratios ----- ---- ------- BPD ??5.3 cm 22w1d (23w1v-29j9j) Hadl BPD 55% FL/BPD 0.76 HC ??19.6 cm 21w6d (51c5c-87a5q) Hadl HC ??32% FL/AC ??0.23 (0.20 - 0.24) AC ??17.7 cm 22w4d (04g8d-18f7u) Hadl AC ??60% HC/AC ??1.11 (1.04 - 1.23) FL ?? 4.1 cm 23w1d (84m0u-14w0o) Hadl FL ??76% CI ? 0.79 (0.70 - 0.86) HL ?? 3.8 cm 23w2d (00f7n-33x9s) Cresencio HL ??72% Cere 2.5 cm 22w5d (87z4k-04c8c) Hill Cere68% GA for sonogram 22w1d (89l7o-20t8g) ?? Weight Estimate: based on (BPD,HC,AC,FL) Hadlock ?Weight: 527 gm (450-603gm) Hadloc ? : 1lbs, 2oz ? Normal: 479 gm (359-598gm) Hadloc ? Wt% ? 79% for 22w0d Cervix: ??Length: 4.1 cm ??Approach: transvaginal ??Funneling: not present Heart Rate: 161 bpm Amniotic Fluid Index: 04.7cm (Deepest Pocket) EVAL, PLACENTA Presentation: breech Umbilical Cord: 3 Vessels Placenta: posterior Previa: low-lying Tip to Internal Os: 0.5 cm Heart Rate: 161 bpm Amniotic Fluid Volume: normal Anatomy!Normal!Abnormal!Suboptimal!Prev. Seen!Comments Cranium ?! ?? x ??! ?! ?! ?! Mdl (CSP/Thal! ?? x ??! ?! ?! ?! Ventricles ?? ! ?? x ??! ?! ?! ?! Choroid Plexu! ?? x ??! ?! ?! ? x ?! Cerebellum ?? ! ?? x ??! ?! ?! ?! Cisterna M. ??! ?? x ??! ?! ?! ?! Nuchal Fold ??! ?? x ??! ?! ?! ?! Profile ?! ?! ?! ? x ?! ?! Nasal Bone ?? ! ?! ?! ? x ?! ?! Lip ?! ?? x ??! ?! ?! ?! Spine ?! ?? x ??! ?! ?! ?! Lungs ?! ?? x ??! ?! ?! ?! 4 Chamber Hea! ?! ?! ? x ?! ?! LVOT ? ! ?! ?! ? x ?! ?! RVOT ? ! ?! ?! ? x ?! ?! 3 Vessel View! ?! ?! ? x ?! ?! Cross-over ?? ! ?! ?! ? x ?! ?! Ductal Arch ??! ?! ?! ? x ?! ?! Aortic Arch ??! ?! ?! ? x ?! ?! Caval View ?? ! ?! ?! ? x ?! ?! Situs ?! ?? x ??! ?! ?! ?! Diaphragm ?! ?? x ??! ?! ?! ?! Stomach ?! ?? x ??! ?! ?! ? x ?! Bowel ?! ?? x ??! ?! ?! ?! Kidneys ?! ?? x ??! ?! ?! ?! Bladder ?! ?? x ??! ?! ?! ? x ?! 3 Vessel Cord! ?? x ??! ?! ?! ?! Cord In! ?? x ??! ?! ?! ?! Upper Extremi! ?? x ??! ?! ?! ? x ?! Hands ?! ?? x ??! ?! ?! ?! Lower Extreme! ?? x ??! ?! ?! ?! Feet ? ! ?? x ??! ?! ?! ?! External Kelsie! ?! ?! ?! ?!Male Placental Cor! ?? x ??! ?! ?! ?! CLINICAL SUMMARY Study Number: 2 ?? A single fetus is identified in breech presentation. ??The measurements today are consistent with appropriate size for the PAVEL provided. ??The PAVEL selected is based on her LMP. ??The amniotic fluid volume is normal. ??The placenta is posterior. IMPRESSION: Single, live intrauterine at 22w0d Appropriate size ?? normal amniotic fluid volume ?? Low lying posterior placenta Incomplete anatomic survey due to challenging maternal acoustic properties and position (see table) No major malformations seen today within the limits of ultrasound Reassuring TVU cervical length RECOMMEND: Follow up ultrasound in 4 weeks to complete the anatomic survey, reassess placental location, and to assess growth echocardiogram scheduled on 10/19/19 ?? Thank you for allowing us the opportunity to care for your patient. Jackson Granados MD <Electronic Signature> ??10/04/2019 10:14am Dakota Heard MD M ORDERABLES documented in this encounter Visit Diagnoses Not on filedocumented in this encounter Care Teams Meat Boner Relationship Specialty Start Date End Date Esperanza Santillan MD [address] [place] [address] [place] [address] PCP - General Family Medicine 09/03/12 documented as of this encounter
--- OUTSIDE RECORDS SUMMARY | 2024-10-14 01:34 | XMS_ITS | Encounter Summary ---
Author Organization [facility] Address [address] [facility] [place] [address] Care Team Providers Care Track Laying Equipment Operator Name Role Phone Esperanza Santillan MD Primary Care Provider [phone] Reason for Visit * Reason Onset Date Comments Missed Appointment 07/12/2013 Encounter Details Date Type Department Care Team (Late st Contact Info) Description 07/12/2013 Telephone [facility] Pediatrics - Endocrinology [address] [place] [address] Iveth Mueller MD [address] [place] [phone] Missed Appointment Social History Tobacco Use Types Packs/Day Years Used Date Smoking Tobacco: Never Alcohol Use Standard Drinks/Week Comments Not Asked 0 (1 standard drink = 0.6 oz pur e alcohol) Sex and Gender Information Value Date Recorded Sex Assigned at Not on file Gender Identity Not on file Sexual Orientation Not on file documented as of this encounter Miscellaneous Notes * Telephone Encounter - Maribeth Marie - 07/12/2013 2:16 PM CDT Called mother; patient rescheduled for 08/02 at 8:40AM with Dr. Mueller documented in this encounter Plan of Treatment Not on file documented as of this encounter Visit Diagnoses Not on filedocumented in this encounter Care Teams Track Laying Equipment Operator Relationship Specialty Start Date End Date Esperanza Santillan MD [address] [place] [address] [place] [id number] PCP - General Family Medicine 09/03/12 documented as of this encounter
--- OUTSIDE RECORDS SUMMARY | 2024-10-14 01:34 | XMS_ITS | Encounter Summary ---
Author Organization [facility] Address [address] [facility] [place] [address] Care Team Providers Care Ada Accommodation Consultant Name Role Phone Esperanza Santillan MD Primary Care Provider [phone] Reason for Visit * Reason Onset Date Comments MEDICATION REFILL 06/17/2014 Encounter Details Date Type Department Care Team (Late st Contact Info) Description 06/17/2014 Refill [facility] Pediatrics - Sleep [address] [place] [address] Mary Hopper MD [address] [place] [phone] MEDICATION REFILL Social History Tobacco Use Types Packs/Day Years [...] on filedocumented in this encounter Care Teams Ada Accommodation Consultant Relationship Specialty Start Date End Date Esperanza Santillan MD [address] [place] [address] [place] [phone] PCP - General Family Medicine 09/03/12 documented as of this encounter
--- OUTSIDE RECORDS SUMMARY | 2024-10-14 01:34 | XMS_ITS | Encounter Summary ---
Author Organization [facility] Address [address] [place] [address] Care Team Providers Care Tapper Hand Name Role Phone Esperanza Santillan MD Primary Care Provider [phone] Reason for Visit * Reason Comments FAD NST Biophysical Profile * Evaluate & Treat (Routine) - Closed Specialty Diagnoses / Procedures Referred By Contac t Referred To Contact Maternal Medicine Diagnoses Pre-existing type 2 diabetes mellitus, in , unspecified trimester (HCC) Procedures ME SONO FU OR REPEAT Jewell Acosta MD [address] [place] [address] [facility] [address] [place] [address] Referral ID Status Reason Start Date Expiration Date Visits Re quested Visits Authorized [id number] Closed 10/29/2019 03/17/2020 4 4 Encounter Details Date Type Department Care Team (Latest Contact Info) Description 12/17/2019 8:08 AM CDT - 12/17/2019 11:29 AM CDT Hospital Encounter [facility] Women's Health Maternal & Care [address] [place] [address] Jewell Acosta MD [address] [place] [address] Discharge Disposition: Home or Self Care Social [...] Sign Reading Time Taken Comments Blood Pressure 113/75 12/17/2019 10:27 AM CDT Pulse 79 12/17/2019 10:27 AM CDT Temperature - - Respiratory Rate - - Oxygen Saturation - - Inhaled Oxygen Concentration - - Weight - - Height - - Body Mass Index - - documented in this encounter Functional Status Functional Status Response Date of Assess ment Is person deaf or have serious hearing difficult y? No 12/17/2019 Is person blind or have serious difficulty seein g? No 12/17/2019 Does person have serious dif ficulty walking/climbing stairs? No 12/17/2019 Does person have difficulty dressing/bathing? No 12/17/2019 Does person have difficulty doing errands alone? No 12/17/2019 Cognitive Status Response Date of Assessm ent Does person have difficulty concentrating/remembering/making decisions? No 12/17/2019 documented as of this encounter Medications at [...] HbA1C goal below 7.5 ([facility]) 2 tabs with breakfast and dinner or [...] Progress Notes * Lesly Zapata RN - 12/17/2019 8:15 AM CDT Patient here today for NST/BPP performed at 32w4d for Type 2 Diabetes.Patient reports positive movement. Denies cramping, contractions, bleeding, and leakage of fluid. Patient denies headache, epigastric pain and visual changes. VS per flowsheet. BPP today 03/13 (no practice breathing).Patient NST non reactive today. Dr. Acosta aware and orders for repeat BPP & NST at [facility] tomorrow. Evangelina ent advised to eat prior to going tomorrow. Reviewed kick counts with patient. Pt. Verbalizes understanding. Directions and phone number for U given to patient. Lesly Zapata RN 12/17/2019 10:02 AM documented in this encounter Plan of Treatment Scheduled Orders Name Type Priority Associated Diagnoses Orde r Schedule BIOPHYSICAL PROFILE W NST MATRNL MED Routine with type 2 diabetes mellitus in second trimester ([facility]) Supervision of high-risk of young primigravida ([facility]) Maternal morbid obesity in second trimester, antepartum ([facility]) 1 Occurrences starting 12/17/2019 until 12/17/2019 documented as of this encounter Procedures Procedure Name Priority Date/Time Associated Diagnosis Comments BIOPHYSICAL PROFILE W NST Routine 12/17/2019 8:13 AM CDT with type 2 diabetes mellitus in second trimester (HCC) Supervision of high-risk of young primigravida (HCC) Maternal morbid obesity in second trimester, antepartum (HCC) documented in this encounter Results * BIOPHYSICAL PROFILE W NST (01/14/2020 10:07 AM CDT) Anatomical Region Laterality Modality Other 01/14/2020 10:0 7 AM CDT Narrative 01/14/2020 2:49 PM CDT ? [facility] ? Maternal & Care Center ?PHONE: ??FAX: Pat. Name: ?VEENA MCRAE Pat. No: ?[id number] Study Date: ?? 01/14/2020 ??10:07am , Age: ? 2000, 19 Pregnancies: ?? 1 Height: ? 60 in LMP: ?05/03/2019 GA by LMP: ?36w4d GA by Base: ?? 36w4d ?? PAVEL: 02/07/2020 GA by US: ? 36w1d ?? PAVEL: 02/10/2020 GA Selected: ??36w4d (From [facility]) PAVEL: ?02/07/2020 Referring MD: Tony Lira MD Transportation Inspector: ??Yennifer Rajput, RDMS, RDCS CPT4: ? 37235,65824 Hist/Ind: ? Type 2 diabetes ?Class II obesity ?Normal echo MEASUREMENTS & AGE ? GROWTH EVALUATION Measurement ??GA ? Range ? Srce %for GA Ratios ----- ---- ------- BPD ??8.6 cm 34w4d (34v0v-66q3r) Hadl BPD 11% FL/BPD 0.83 (0.71 - 0.87) HC ??32.5 cm 36w5d (17w9u-92l7d) Hadl HC ??26% FL/AC ??0.21 (0.20 - 0.24) AC ??34.1 cm 38w0d (43d4w-30z7q) Hadl AC ??90% HC/AC ??0.95 (0.92 - 1.11) FL ?? 7.1 cm 36w3d (86i2j-31j6z) Hadl FL ??44% CI ? 0.74 (0.70 - 0.86) HL ?? 6.3 cm 36w2d (50c8x-58n1s) Cresencio HL ??44% GA for sonogram 36w1d (17l0o-29y6d) ?? Weight Estimate: based on (BPD,HC,AC,FL) Hadlock [...] <Electronic Signature> ??01/14/2020 02:49pm Jewell Acosta MD [facility] ORDERABLES * BIOPHYSICAL PROFILE W NST (12/17/2019 8:13 AM CDT) Anatomical Region Laterality Modality Other 12/17/2019 8:13 AM CDT Narrative 12/17/2019 1:17 PM CDT ? [facility] Maternal Medicine ? Maternal & Care Center ?PHONE: ??FAX: Pat. Name: ?VEENA MCRAE Pat. No: ?[id number] Study Date: ?? 12/17/2019 ??8:13am , Age: ? 2000, 19 Pregnancies: ?? 1 Height: ? 60 in Weight: ? 198 lb LMP: ?05/03/2019 GA by LMP: ?32w4d GA by Base: ?? 32w4d ?? PAVEL: 02/07/2020 GA by US: ? 33w3d ?? PAVEL: 02/01/2020 GA Selected: ??32w4d (LMP) PAVEL: ?02/07/2020 Referring MD: Tony Lira MD Transportation Inspector: ??Karina Kirby RDMS CPT4: ? 30480,32243 BMI: ?38.67 Hist/Ind: ? Type 2 diabetes ?Class II obesity ?Normal echo MEASUREMENTS & AGE ? GROWTH EVALUATION Measurement ??GA ? Range ? Srce %for GA Ratios ----- ---- ------- BPD ??8.1 cm 32w3d (08k5v-06u2z) Hadl BPD 39% FL/BPD 0.81 (0.71 - 0.87) HC ??30.5 cm 34w0d (86m8o-55x4s) Hadl HC ??50% FL/AC ??0.22 (0.20 - 0.24) AC ??29.9 cm 33w6d (58o5l-57v1e) Hadl AC ??82% HC/AC ??1.02 (0.95 - 1.14) FL ?? 6.5 cm 33w4d (59b1h-29l0y) Hadl FL ??65% CI ? 0.73 (0.70 - 0.86) HL ?? 5.7 cm 33w1d (18c4m-76i2h) Cresencio HL ??59% GA for sonogram 33w3d (87i6e-23t3g) ?? Weight Estimate: based on (HL,BPD,HC,AC,FL) Avg ? Weight: 2244 gm (1916-2571gm) Had ? : 4lbs, 15oz ? Normal: 2079 gm (1559- 2598gm) Had ? Wt% ? 73% for 32w4d Heart Rate: 141 bpm Amniotic Fluid Index: 17.6cm (08.4-24.4) Q1: 6.9cm ??Q2: 6.3cm ??Q3: 1.1cm ??Q4: 3.3cm ?? Biophysical Profile: 03/15 Breathin ?? Tone: 2 ?? NST: 0 Movement: ??2 ?? AFV: ??2 EVAL, PLACENTA Presentation: cephalic Umbilical Cord: 3 Vessels Placenta: posterior Heart Rate: 141 bpm Amniotic Fluid Volume: normal Anatomy!Normal!Abnormal!Suboptimal!Prev. Seen!Comments Situs ?! ?? x ??! ?! ?! ?! Stomach ?! ?? x ??! ?! ?! ?! Kidneys ?! ?? x ??! ?! ?! ?! Bladder ?! ?? x ??! ?! ?! ?! CLINICAL SUMMARY Study Number: 5 ?? No abnormalities were detected during today's limited review of the anatomy. The FHR baseline was 140 bpm during today's NST. The tracing was not reactive but the FHR variability was moderate and no decelerations were detected. IMPRESSION: ?? 1) Ramos gestation, 32w4d 2) Biometry is consistent with appropriate growth 3) The amniotic fluid volume is within normal limits 4) Equivocal biophysical profile NOTE: The patient was advised that ultrasound does not allow detection of all structural or chromosomal abnormalities. ?? RECOMMEND: ?? 1) Close maternal movement monitoring while awaiting repeat 10-point BPP within 24 hours (to be performed in the [facility] at [facility] tomorrow morning) 2) Twice weekly NSTs 2) Repeat growth and AFV assessment in 3-4 weeks Thank you for allowing us the opportunity to care for your patient. Jewell Acosta MD <Electronic Signature> ??12/17/2019 01:15pm Joshua Lira MD [facility] ORDERABLES documented in this encounter Visit Diagnoses Diagnosis with type 2 diabetes mellitus in second trimester (HCC)- Primary Supervision of high-risk of young primigravida ([facility]) Supervision of high-risk of young primigravida Maternal morbid obesity in second trimester, antepartum (HCC) Type 2 diabetes mellitus during , third trimester (HCC) Obesity complicating , third trimester ([facility]) Obesity, unspecified classification, unspecified obesity type, unspecified whether serious comorbidity present 32 weeks gestation of ([facility]) state, incidental with type 2 diabetes mellitus in second trimester ([facility])- Primary Supervision of high-risk of young primigravida ([facility]) Supervision of high-risk of young primigravida Maternal morbid obesity in second trimester, antepartum ([facility]) Type 2 diabetes mellitus during , third trimester ([facility]) 36 weeks gestation of ([facility]) state, incidental documented in this encounter Care Teams Tapper Hand Relationship Specialty Start Date End Date Esperanza Santillan MD [address] [place] [address] [place] [phone] PCP - General Family Medicine 09/03/12 documented as of this encounter
--- OUTSIDE RECORDS SUMMARY | 2024-10-14 01:34 | XMS_ITS | Encounter Summary ---
Author Organization [facility] Address [address] [place] [address] Care Team Providers Care Bundle Helper Name Role Phone Esperanza Santillan MD Primary Care Provider [phone] Reason for Referral * Sleep - Closed Specialty Diagnoses / Procedures Referred By Carson mclaughlin Referred To Contact Diagnoses Snoring Procedures SPLIT NIGHT PROTOCOL Tana Avendaño APRN-CNP [address] [place] [address] [address] Referral ID Status Reason Start Date Expiration Date Visits Re quested Visits Authorized [id number] Closed 05/19/2014 09/19/2014 1 1 Reason for Visit * Reason Comments Sleep Problem Encounter Details Date Type Department Care Team (Latest Contact Info) Description 03/23/2014 11:00 AM CDT - 03/23/2014 12:05 PM CDT Hospital Encounter [facility] Pediatrics - Sleep [address] [place] [address] Tana Avendaño APRN-ZHEN [address] [place] [address] [phone] Discharge Disposition: Home or Self Care Social [...] Sign Reading Time Taken Comments Blood Pressure 110/72 03/23/2014 11:17 AM CDT Pulse - - Temperature - - Respiratory Rate - - Oxygen Saturation - - Inhaled Oxygen Concentration - - Weight 98.6 kg (217 lb 6.4 oz) 03/23/20 14 11:17 AM CDT Height 158 cm (5' 2.21 ) 03/23/2014 11: 17 AM CDT Body Mass Index 39.5 03/23/2014 11:17 AM CDT Body Mass Index Percentile 99.48% 03/23 11:17 AM CDT Growth Chart: [facility] (Girls, 2- 20 Years) documented in this encounter Discharge Instructions * Patient Instructions* Tana Avendaño APRN-CNP - 03/23/2014 11:49 AM CDT 1. CPAP teaching today 2. Split night sleep study 3. Labs today 4. Start iron twice a day every day. Take with vitamin C source such as OJ. Miralax for tummy upset. 5. Bedtimes and wake up times should not vary by more than one hour every day Please call our nurse's line with any questions. ([phone]) documented in this encounter Medications at Time [...] with HbA1C goal below 7.5 ([facility]) 2 tabs with breakfast and dinner [...] as of this encounter Progress Notes * Tana Avendaño, ELIU-GARMENT MANUFACTURER - 03/23/2014 11:11 AM CDT Chief Complaint Patient presents with ??? Sleep Problem HPI: Melissa Jackson is a 14 y.o. female who presents to the Pediatric Sleep Disorders Clinic at [facility] on 03/23/14 for evaluation of snoring and nocturia. She was accompanied by her mother who assisted in providing the history. Melissa has snored nightly for the past 10 years. Snoring can be heard inside of her room. Mother is unsure if there are any pauses in breathing, gasping, choking, or mouth breathing during sleep. Melissa gets up to void at least 3 times per night. Melissa is described as a very restless sleeper. She is difficult to awaken in the morning and is sleepy throughout the day. She does fall asleep at school occasionally. No previous polysomnogram. She has, however, been evaluated by ENT recently and was not found to lindsey candidate for adenotonsillectomy. Melissa complains of leg pains 0-1 nights per week. Pain is better with movement and worsened with lying still. She has a history of low iron and is prescribed ferrous sulfate. She does not take it currently. There are no sleep terrors, nightmares, sleep talking or sleep walking. During the week, Melissa goes to bed at 9:30 PM and wakes up at 6 AM. On weekends, She goes to bed at 1:30 PM and wakes up at 10 AM. Sleep latency is less than five minutes. She takes naps 7 days perweek lasting 2 hours. Bedtime routine includes dinner, homework, TV, shower, an light out. She sleeps in her own room, in her own bed. There is a television in the room although she states that it israrely on. She drinks 0-1 caffeinated beverages per day. Review of Systems: Psychological ROS: negative Ophthalmic ROS: positive for - uses glasses and stye currently ENT ROS: negative Allergy and Immunology ROS: negative Respiratory ROS: negative Cardiovascular ROS: negative Gastrointestinal ROS: negative Urinary ROS: positive for - nocturia Musculoskeletal ROS: negative Neurological ROS: negative Dermatological ROS: positive for - dark lines on neck and arms [place] Sleepiness Scale: Sitting and Reading high chance of dozing Watching TV high chance of dozing Sitting, inactive in a public place would never doze Car passenger for an hour high chance of dozing Lying down to rest in afternoon high chance of dozing Sitting and Talking would never doze Sitting Quietly after lunch would never doze While playing a video game would never doze Total Dozing Score 12 Past Surgical History Procedure Date ??? Pr dental surgery procedure Past Medical History Diagnosis Date ??? Diabetes mellitus ??? Anemia ??? Irritable bowel disease ??? Bronchitis acutely ??? PCOS (polycystic ovarian syndrome) FAMILY HISTORY OF SLEEP DISORDERS: Paternal grandfather- AGUSTIN, wears CPAP. Brother- Sleep walking, Past AGUSTIN SOCIAL HISTORY: Melissa lives at home with mother, step-father, 2 brother, 1 sister. Father smokes outside of the home. She will be in the 11th grade and receives D/F grades. She is currently in summer school due to poor grades. She does not get in trouble at school. No Known Allergies Current Outpatient Prescriptions Ordered in [facility] Medication Sig Dispense Refill ??? metFORMIN (GLUCOPHAGE) 500 MG tablet 2 tabs with breakfast and dinner or as directed. 90 day supply 360 Tab 3 ??? omeprazole EC (PRILOSEC OTC) 20 MG [...] 2 LANCETS DAILY 100 Each 11 ??? dicyclomine (BENTYL) 20 MG tablet Take 20 mg by mouth 4 times daily. ??? promethazine (PHENERGAN) 25 MG tablet Take 25 mg by mouth every 6 hours as needed. ??? ferrous sulfate 325 (65 FE) MG tablet Take 1 Tab by mouth once daily. 30 Tab 4 Exam: Height: 158 cm (5' 2.21 ) Weight: 98.612 kg (217 lb 6.4 oz) Vitals: 03/23/14 1117 BP: 110/72 Weight: 98.612 kg (217 lb 6.4 oz) Constitutional:obese Head and Face: no lesions or masses; facies symmetrical Eyes: sclera and conjunctiva clear, EOMI and PERRLA, lids normal Ears: Inspection: normal pinnae shape and position Nasal: normal external nose, mucous membranes and septum Oral Cavity: moist mucous membranes; normal uvula, palate and tongue size Throat: tonsil 1+ Mallampati 1 Neck: supple without tenderness or crepitus; no palpable adenopathy Respiration: unlabored breathing Skin: acanthosis nigricans to neck Impression/Plan: 1. Obstructive Sleep Apnea (possible): I reviewed the diagnosis, etiology and treatment of AGUSTIN at length with mother. A split night polysomnogram was ordered and scheduled as she is not a candidate for T&A. . CPAP education done with family. 2. Restless Legs Syndrome: I reviewed the diagnosis, etiology and treatment of RLS at length with mother. Melissa meets all 4 of the classic criteria for RLS diagnosis. Restless legs syndrome is caused by a defect in the dopamine pathway, either with decreased production, incorrect production, or failed transport across the blood-brain barrier. Iron is a necessary cofactor for dopamine production. Ferritin level to be checked today; goal is > 50. Melissa restarted on ferrous sulfate BID. Instructed mother to give iron with a source of vitamin C. I reviewed the potential side effects of iron including gas, bloating, and constipation. Mother will use Miralax as needed for GI disturbances. I also discussed possible stool discoloration. We will plan to recheck ferritin level in three months. Melissa will also have a lipid profile done with iron studies as she was supposed to have it donemonths ago and has not eaten anything today. 3. Poor Sleep Hygiene: We discussed the importance of keeping bedtime and wake up times the same 7 days per week. They should not vary by more than one hour. Follow-up 3 months. Thank you for allowing me to participate in the care of your patient. Please call me with any questions at [phone]. [facility] documented in this encounter Miscellaneous Notes * Miscellaneous Scans - Document, Scanned - 03/24/2014 11:19 PM CDT documented in this encounter Plan of Treatment Not on file documented as of this encounter Procedures Procedure Name Priority Date/Time Associated Diagnosis Comments LIPID PROFILE Routine 03/23/2014 12:34 PM CDT Obese documented in this encounter Results * SPLIT NIGHT PROTOCOL (05/19/2014) Tana Avendaño APRN-GARMENT MANUFACTURER [facility] O RDERABLES * LIPID PROFILE (03/23/2014 12:34 PM CDT) Cholesterol 165 <170 mg/dL 03/23/2014 1:22 PM CDT [facility] Triglycerides 171 46 - 227 mg/dL 03/23/2014 1:22 PM CDT [facility] HDL Cholesterol 46 >40 mg/dL 4 1:22 PM CDT [facility] LDL Calculated 85 <100 mg/dL 03/23/2014 1:22 PM T [facility] VLDL Calculated 34 12 - 38 mg/dL 03/23/2014 1:22 PM T [facility] Chol HDL Ratio 3.6 <=5.0 03/23/2014 1:22 PM T [facility] Blood BLOOD SPECIMEN / Unknown Lab Venipuncture / Unknown 03/23/2014 12:34 PM CDT 03/23/2014 12:43 PM CDT Narrative [facility] - 03/23/2014 1:22 PM CDT Lipid Profile Comment: Adult references ranges are the recommendation of the [place] [employer] , for those patients >18 [...] may alter some of these results. Tana Avendaño APRNDANA-[facility] - CHEMISTR Y ORDERABLES Performing Organization Address City/[facility]/ZIP Co de Phone Number [facility] [address] [place] [address] * IRON + TIBC PANEL (03/23/2014 12:34 PM CDT) Iron 80 30 - 160 ug/dL 03/24/2014 7:41 AM CDT [employer] Comment: REFERENCE INTERVAL: Iron, Serum or Plasma Access complete set of age- and/or gender-specific reference intervals for this test in the [facility] Test Directory (Audiosocket). TIBC 393 250 - 400 ug/dL 03/24/2014 7:41 AM CDT [employer] Comment: REFERENCE INTERVAL: Iron Binding Capacity Total Access complete set of age- and/or gender-specific reference intervals for this test in the [employer] [facility] Test Directory (Audiosocket). Transferrin Saturation % 20 20 - 50 %sat 03/24/2014 7:41 AM CDT [facility] Blood specimen (specimen) BLOOD SPECIMEN / Unknown Lab Venipuncture / Unknown 03/23/2014 12:34 PM CDT 03/23/2014 1:02 PM CDT Tana Avendaño APRN-GARMENT MANUFACTURER LAB - CHEMISTR Y ORDERABLES Performing Organization Address City/[facility]/ZIP Co de Phone Number [facility] [employer] [address] [place] [address] * FERRITIN (03/23/2014 12:34 PM CDT) Ferritin 30 10 - 120 ng/mL 03/23/2014 1:23 PM CDT [facility] Blood BLOOD SPECIMEN / Unknown Lab Venipuncture / Unknown 03/23/2014 12:34 PM CDT 03/23/2014 12:43 PM CDT Tana Avendaño ELECTRON BEAM PHOTO MASK TECHNICIAN-GARMENT MANUFACTURER LAB - CHEMISTR Y ORDERABLES [facility] [address] [place] [address] documented in this encounter Visit Diagnoses Diagnosis Snoring- Primary Other dyspnea and respiratory abnormality Low iron stores Other abnormal blood chemistry Obese Obesity, unspecified documented in this encounter Care Teams Bundle Helper Relationship Specialty Start Date End Date Esperanza Santillan MD [address] [place] [phone] PCP - General Family Medicine 09/03/12 documented as of this encounter
--- OUTSIDE RECORDS SUMMARY | 2024-10-14 01:34 | XMS_ITS | Encounter Summary ---
Author Organization [facility] Address [address] [place] [address] Care Team Providers Care Fur Farmer Name Role Phone Esperanza Santillan MD Primary Care Provider [phone] Reason for Visit * Reason Onset Date Comments Biophysical Profile 12/17/2019 Spoke with Henrik MARSHALL RN and heads up given that patient will come to [facility] tomorrow for BPP and NST per Dr. Acosta. Encounter Details Date Type Department Care Team (Late st Contact Info) Description 12/17/[address] [facility] Women's Health Maternal & Care [address] [place] [id number] Lesly Zapata RN Biophysical Profile (Spoke with HOMAR RN and heads up given that patient will come to [facility] tomorrow for BPP and NST per Dr. Acosta. ) Social History Tobacco Use Types Packs/Day Years [...] No 12/17/2019 documented as of this encounter Miscellaneous Notes * Telephone Encounter - Lesly Zapata RN - 12/17/2019 10:05 AM CDT Spoke with HOMAR RN. BPP & NST order placed for patient to have repeat on Friday12/18/19 due tononreactive NST and BPP 6/8 on 12/17/19. Pt advised to eat prior to appt. Lesly Zapata RN 12/17/2019 10:06 AM documented in this encounter Plan of Treatment Not on file documented as of this encounter Visit Diagnoses Not on filedocumented in this encounter Care Teams Fur Farmer Relationship Specialty Start Date End Date Esperanza Santillan MD [address] [place] [address] [place] [phone] PCP - General Family Medicine 09/03/12 documented as of this encounter
--- OUTSIDE RECORDS SUMMARY | 2024-10-14 01:34 | XMS_ITS | Encounter Summary ---
Author Organization [facility] Address [address] [place] [address] Care Team Providers Care Ip Paralegal Name Role Phone Esperanza Santillan MD Primary Care Provider [phone] Reason for Visit * Reason Onset Date Comments Update 12/06/2013 Encounter Details Date Type Department Care Team (Late st Contact Info) Description 12/06/[address] [facility] - [address] [address] Parviz Nolan MD [address] [place] [id number] Update Social History Tobacco Use Types Packs/Day Years [...] Miscellaneous Notes * Telephone Encounter - Lesly Braun RN - 12/06/2013 3:04 PM DIRECTOR GOVERNMENT Spoke to mother informing her of lab results and plan per Dr. Nolan. She verbalized understanding and will keep us updated. CTOR GOVERNMENT * Telephone Encounter - Parviz Nolan MD - 12/06/2013 2:48 PM CST Labs with some changes, non diagnostic of etiology. Avoidance of spicy and greasy foods. Eat healthy. Regular exercise. Avoid sodas, caffeine containing beverages. Avoid stress / stressful situations as much as possible. Limit screen time - video games, computer time, television etc. Proper sleep wake cycle. Sleep on time and get adequate rest. Keep us informed of patient progress. FU with GI in clinic in 3-6 months / earlier for any concerns. CTOR GOVERNMENT documented in this encounter Plan of Treatment Not on file documented as of this encounter Visit Diagnoses Not on filedocumented in this encounter Care Teams Ip Paralegal Relationship Specialty Start Date End Date Esperanza Santillan MD [address] [place] [phone] PCP - General Family Medicine 09/03/12 documented as of this encounter
--- OUTSIDE RECORDS SUMMARY | 2024-10-14 01:34 | XMS_ITS | Encounter Summary ---
Author Organization [facility] Address [address] [place] [address] Care Team Providers Care Unix System Administrator Name Role Phone Esperanza Santillan MD Primary Care Provider Encounter Details Date Type Department Care Team (Late st Contact Info) Description 11/30/2019 Orders Only [facility] Maternal & Care [address] [place] [id number] Lesly Zapata RN Social History Tobacco Use Types Packs/Day Years [...] on filedocumented in this encounter Care Teams Unix System Administrator Relationship Specialty Start Date End Date Esperanza Santillan MD [address] [place] [address] [place] [phone] PCP - General Family Medicine 09/03/12 documented as of this encounter
--- OUTSIDE RECORDS SUMMARY | 2024-10-14 01:34 | XMS_ITS | Encounter Summary ---
Author Organization [facility] Address [address] [place] [address] Care Team Providers Care Lead Designer Name Role Phone Esperanza Santillan MD Primary Care Provider [phone] Reason for Visit * Reason Onset Date Comments Results 06/23/2014 Encounter Details Date Type Department Care Team (Late st Contact Info) Description 06/23/2014 Telephone [facility] Pediatrics - Sleep [address] [place] [phone] Tana Avendaño APRN-CNP [address] [place] [address] Results Social History Tobacco Use Types Packs/Day [...] encounter Miscellaneous Notes * Telephone Encounter - Tana Avendaño APRN-CNP - 06/23/2014 12:30 PM CDT Left message for mother regarding sleep study results RDI 24.3 Min O2 93% CPAP orders faxed to [facility]. documented in this encounter Plan of Treatment Not on file documented as of this encounter Visit Diagnoses Not on filedocumented in this encounter Care Teams Lead Designer Relationship Specialty Start Date End Date Esperanza Santillan MD [address] [place] [phone] PCP - General Family Medicine 09/03/12 documented as of this encounter
--- OUTSIDE RECORDS SUMMARY | 2024-10-14 01:34 | XMS_ITS | Encounter Summary ---
Author Organization [facility] Address [address] [place] [address] Care Team Providers Care Referral Manager Name Role Phone Esperanza Santillan MD Primary Care Provider [phone] Encounter Details Date Type Department Care Team (Late st Contact Info) Description 12/04/2015 12:22 PM PARKING ENFORCEMENT OFFICER - 12/04/2015 11:59 PM [facility] Hospital Encounter [facility] - Laboratory [address] [place] [address] Parminder Orta APRN-STAVE AND BOLT EQUALIZER [address] [place] [address] Discharge Disposition: Home or Self Care Social [...] with HbA1C goal below 7.5 ([facility]) 2 tabs with breakfast and dinner or [...] Procedure Name Priority Date/Time Associated Diagnosis Comments URINALYSIS REFLEX TO MICROSCOPIC NO CULTURE Routine 12/04/2015 12:22 PM PARKING ENFORCEMENT OFFICER Type 2 diabetes mellitus in patient age 13-19 years with HbA1C goal below 7.5 URINE MICROSCOPIC ONLY Routine 12/04/2015 12:22 PM PARKING ENFORCEMENT OFFICER Type 2 diabetes mellitus in patient age 13-19 years with HbA1C goal below 7.5 documented in this encounter Results * (ABNORMAL) URINALYSIS MICROSCOPIC ONLY (12/04/2015 12:22 PM PARKING ENFORCEMENT OFFICER) RBC UA 2-5 0-2, 2-5 # /hpf 12/04/2015 2:01 PM [facility] WBC UA 5-10(A) 0-2, 2-5 # /hpf 12/04/2015 2:01 PM [facility] Bacteria UA 3+(A) None Seen, Trace 12/04/2015 2:01 PM [facility] Epithelial Cell UA 10-20(A) 0-2, 2-5 # /hpf 12/04/2015 2:01 PM [facility] Mucus UA 2+ 12/04/2015 2:01 PM [facility] Urine URINE SPECIMEN OBTAINED BY CLEAN CATCH PROCEDURE / Unknown Collection / Unknown 12/04/2015 12:22 PM PARKING ENFORCEMENT OFFICER 12/04/2015 1:15 PM PARKING ENFORCEMENT OFFICER Parminder Marivel [facility] - URINALYSI S ORDERABLES Performing Organization Address City/[facility]/ZIP Co de Phone Number [facility] [address] [place] [address] * (ABNORMAL) URINALYSIS ROUTINE AUTO (12/04/2015 12:22 PM PARKING ENFORCEMENT OFFICER) Color UA Yellow Straw, Yellow, Dark Yellow 12/04/2015 1:40 PM [facility] Clarity UA Clear 12/04/2015 1:40 PM [facility] Specific [place] UA 1.025 1.005 - 1.030 12/04/2015 1:40 PM [facility] pH UA 5.5 5.0 - 8.0 pH 12/04/2015 1:40 PM [facility] Protein UA 1+(A) Negative 12/04/2015 1:40 PM [facility] Blood UA Negative Negative 12/04/2015 1:40 PM [facility] Leukocyte UA Trace(A) Negative 12/04/2015 1:40 PM [facility] Nitrite UA Positive(A) Negative 12/04/2015 1:40 PM [facility] Glucose UA Trace(A) Negative 12/04/2015 1:40 PM [facility] Ketone UA Negative Negative 12/04/2015 1:40 PM [facility] Bilirubin UA Negative Negative 12/04/2015 1:40 PM [facility] Urobilinogen UA 1.0 0.1 - 1.0 EU/dL 12/04/2015 1:40 PM [facility] Urine URINE SPECIMEN OBTAINED BY CLEAN CATCH PROCEDURE / Unknown Collection / Unknown 12/04/2015 12:22 PM PARKING ENFORCEMENT OFFICER 12/04/2015 1:15 PM PARKING ENFORCEMENT OFFICER Parminder Marivel [facility] - URINALYSI S ORDERABLES Performing Organization Address [facility] Co de Phone Number [facility] [address] [place] [address] documented in this encounter Visit Diagnoses Diagnosis Type 2 diabetes mellitus in patient age 13-19 years with HbA1C goal below 7.5 ([facility]) Type II or unspecified type diabetes mellitus without mention of complication, not stated as uncontrolled documented in this encounter Care Teams Referral Manager Relationship Specialty Start Date End Date Esperanza Santillan MD [address] [place] [address] [place] [phone] PCP - General Family Medicine 09/03/12 documented as of this encounter
--- OUTSIDE RECORDS SUMMARY | 2024-10-14 01:34 | XMS_ITS | Encounter Summary ---
Author Organization [facility] Address [address] [facility] [place] [address] Care Team Providers Care Belt Conveyor Drier Name Role Phone Esperanza Santillan MD Primary Care Provider [phone] Encounter Details Date Type Department Care Team (Latest Contact Info) Description 08/02/2019 8:02 AM CDT - 08/02/2019 11:59 PM CDT Hospital Encounter [facility] MATERNAL/ EVALUATION UNIT [address] [facility] [place] [address] Terri Rojas MD [address] [facility] [address] [place] [address] Discharge Disposition: Home or Self Care Social [...] on filedocumented in this encounter Care Teams Belt Conveyor Drier Relationship Specialty Start Date End Date Esperanza Santillan MD [address] [place] [address] [place] [phone] PCP - General Family Medicine 09/03/12 documented as of this encounter
--- OUTSIDE RECORDS SUMMARY | 2024-10-14 01:34 | XMS_ITS | Encounter Summary ---
Author Organization [facility] Address [address] [place] [address] Care Team Providers Care Business Banking Relationship Manager Name Role Phone Esperanza Santillan MD Primary Care Provider [phone] Reason for Visit * Reason Onset Date Comments Question 10/04/2019 Encounter Details Date Type Department Care Team (Late st Contact Info) Description 10/04/2019 Telephone [facility] MATERNAL/ EVALUATION UNIT [address] [place] [address]. [address] [place] [address] Rose Dewitt RN Question Social History Tobacco Use Types Packs/Day Years [...] Telephone Encounter - Rose Dewitt RN - 10/04/2019 11:26 AM CST Pt called asking about her appt today, specifically about the low lying placenta as she failed to remember what it was called. Informed pt and then reminded her about the pelvic rest, and re-evaluating in 4 weeks. Pt stated understanding. NALYST documented in this encounter Plan of Treatment Not on file documented as of this encounter Visit Diagnoses Not on filedocumented in this encounter Care Teams Business Banking Relationship Manager Relationship Specialty Start Date End Date Esperanza Santillan MD [address] [place] [address] [place] [phone] PCP - General Family Medicine 09/03/12 documented as of this encounter
--- OUTSIDE RECORDS SUMMARY | 2024-10-14 01:34 | XMS_ITS | Encounter Summary ---
Author Organization [facility] Health Address [address] [place] [address] Care Team Providers Care Sonar Subsystem Equipment Operator Name Role Phone Esperanza Santillan MD Primary Care Provider [phone] Encounter Details Date Type Department Care Team (Latest Contact Info) Description 08/02/2019 8:01 AM CDT Hospital Encounter [facility] MATERNAL/ EVALUATION UNIT [address] [facility] [place] [address] Terri Rojas MD [address] [facility] [address] [place] [address] Discharge Disposition: Home or Self Care Social [...] on filedocumented in this encounter Care Teams Sonar Subsystem Equipment Operator Relationship Specialty Start Date End Date Esperanza Santillan MD [address] [place] [address] [place] [phone] PCP - General Family Medicine 09/03/12 documented as of this encounter
--- OUTSIDE RECORDS SUMMARY | 2024-10-14 01:34 | XMS_ITS | Encounter Summary ---
Author Organization [facility] Address [address] [facility] [place] [address] Care Team Providers Care Engraver Name Role Phone Esperanza Santillan MD Primary Care Provider [phone] Reason for Visit * Reason Onset Date Comments MEDICATION REFILL 12/02/2013 Encounter Details Date Type Department Care Team (Late st Contact Info) Description 12/02/2013 Refill [facility] Pediatrics - GI [address] [place] [id number] Parviz Nolan MD [address] [place] [id number] MEDICATION REFILL Social History Tobacco Use Types [...] Telephone Encounter - Lesly Braun RN - 12/02/2013 3:56 PM PHYSICIST ACOUSTICS Escribed omeprazole per Dr. Nolan's note. ICIST ACOUSTICS * Telephone Encounter - Bree Bonilla - 12/02/2013 3:50 PM CST Requesting 90-day supply. ICIST ACOUSTICS documented in this encounter Plan of Treatment Not on file documented as of this encounter Visit Diagnoses Not on filedocumented in this encounter Care Teams Engraver Relationship Specialty Start Date End Date Esperanza Santillan MD [address] [place] [address] [place] [phone] PCP - General Family Medicine 09/03/12 documented as of this encounter
--- OUTSIDE RECORDS SUMMARY | 2024-10-14 01:34 | XMS_ITS | Encounter Summary ---
Author Organization [facility] Address [address] [facility] [place] [address] Care Team Providers Care Renewable Energy Engineer Name Role Phone Esperanza Santillan MD Primary Care Provider [phone] Reason for Referral * Sleep - Closed Specialty Diagnoses / Procedures Referred By Carson mclaughlin Referred To Contact Diagnoses Snoring Procedures SPLIT NIGHT PROTOCOL Tana Avendaño APRN-CNP [address] [place] [address] [phone] Referral ID Status Reason Start Date Expiration Date Visits Re quested Visits Authorized [id number] Closed 05/19/2014 09/19/2014 1 1 Reason for Visit * Sleep - Closed Specialty Diagnoses / Procedures Referred By Carson mclaughlin Referred To Contact Diagnoses Snoring Procedures SPLIT NIGHT PROTOCOL Tana Avendaño APRN-CNP [address] [place] [address] [address] Referral ID Status Reason Start Date Expiration Date Visits Re quested Visits Authorized [id number] Closed 05/19/2014 09/19/2014 1 1 Encounter Details Date Type Department Care Team (Latest Contact Info) Description 05/19/2014 8:00 PM CDT - 05/19/2014 11:59 PM CDT Hospital Encounter [facility] - Sleep Services [address] [place] [address] Tana Avendaño, REGULATORY LEAD-SYSTEM TECHNOLOGIST [address] [place] [address] Discharge Disposition: Home or Self Care Social [...] with HbA1C goal below 7.5 ([facility]) 2 tabs with breakfast and [...] Procedure Name Priority Date/Time Associated Diagnosis Comments SPLIT NIGHT STUDY Routine 05/19/2014 Snoring documented in this encounter Results * SPLIT NIGHT PROTOCOL (05/19/2014) Tana Avendaño APRN-[facility] O RDER[facility]LES documented in this encounter Visit Diagnoses Diagnosis Snoring Other dyspnea and respiratory abnormality documented in this encounter Care Teams Renewable Energy Engineer Relationship Specialty Start Date End Date Esperanza Santillan MD [address] [place] [address] [place] [phone] PCP - General Family Medicine 09/03/12 documented as of this encounter
--- OUTSIDE RECORDS SUMMARY | 2024-10-14 01:34 | XMS_ITS | Encounter Summary ---
Author Organization [facility] Address [address] [facility] [place] [address] Care Team Providers Care Professor Of English Name Role Phone Esperanza Santillan MD Primary Care Provider [phone] Reason for Visit * Reason Comments Sore Throat since yesterday. no pain, but itchy. no vomitting. brother is sick. Fever tmax 101. good UOP. pt has medications at home, but is not taking them. current home med list is accurate, but pt is not taking. pt is a type2 DM- last sugar was 126 @2200. Encounter Details Date Type Department Care Team (Late st Contact Info) Description 08/08/2015 10:24 PM MASH FILTER OPERATOR - 08/08/2015 11:37 PM MASH FILTER OPERATOR Emergency ER at [address] [address] Viral syndrome Discharge Disposition: Home or Self Care Social [...] Sign Reading Time Taken Comments Blood Pressure 123/76 08/08/2015 10:17 PM MASH FILTER OPERATOR Pulse 118 08/08/2015 10:17 PM MASH FILTER OPERATOR Temperature 37.2 ??C (99 ??F) 08/08/2015 10:17 PM MASH FILTER OPERATOR Respiratory Rate 18 08/08/2015 10:17 PM MASH FILTER OPERATOR Oxygen Saturation - - Inhaled Oxygen Concentration - - Weight 97 kg (213 lb 13.5 oz) 08/08/2015 10:17 P M MASH FILTER OPERATOR Height - - Body Mass Index - - documented in this encounter Discharge Instructions * Discharge Instructions* Rhonda Youngblood, ELIU-BRICK TESTER - 08/08/2015 11:24 PM MASH FILTER OPERATOR Images from the original note were not included. Viral Infections A virus is a type of germ. Viruses can cause: ?? Minor sore throats. ?? Aches and pains. ?? Headaches. ?? Runny nose. ?? Rashes. ?? Watery eyes. ?? Tiredness. ?? Coughs. ?? Loss of appetite. ?? Feeling sick to your stomach (nausea). ?? Throwing up (vomiting). ?? Watery poop (diarrhea). HOME CARE ?? Only take medicines as told by your doctor. ?? Drink enough water and fluids to keep your pee (urine) clear or pale yellow. Sports drinks are agood choice. ?? Get plenty of rest and eat healthy. Soups and broths with crackers or rice are fine. GET HELP RIGHT AWAY IF: ?? You have a very bad headache. ?? You have shortness of breath. ?? You have chest pain or neck pain. ?? You have an unusual rash. ?? You cannot stop throwing up. ?? You have watery poop that does not stop. ?? You cannot keep fluids down. ?? You or your child has a temperature by mouth above 102?? F (38.9?? C), not controlled by medicine. ?? Your baby is older than 3 months with a rectal temperature of 102?? F (38.9?? C) or higher. ?? Your baby is 3 months old or younger with a rectal temperature of 100.4?? F (38?? C) or higher. MAKE SURE YOU: ?? Understand these instructions. ?? Will watch this condition. ?? Will get help right away if you are not doing well or get worse. Document Released: 09/04/2009 Document Revised: 12/14/2012 Document Reviewed: 01/28/2012 ExitCare?? Patient Information ??2013 [employer]. FILTER OPERATOR documented in this encounter Medications at Time [...] 13-19 years with HbA1C goal below 7.5 ([facility]) 2 tabs with breakfast and [...] times daily. 60 Tab 4 03/23/2014 12/04/2015 promethazine (PHENERGAN) 25 MG tablet Take 25 mg by mouth every 6 hours as needed. 12/04/2015 documented as of this encounter ED Notes * Eliz Lu, RN - 08/08/2015 11:37 PM CST Pt alert and awake at this time. Pt in no apparent distress. Mom given instructions per PNP. Mom and pt verbalized understanding. Comfort measures for sore throat addressed. Pt and family member verbalized understanding. Opportunity for questions, family member verbalized understanding of discharge plan for home. FILTER OPERATOR * Rhonda Youngblood APRN-CNP - 08/08/2015 10:36 PM CST EMERGENCY DEPARTMENT 08/08/2015 Dear Doctor, We had the pleasure of caring for your patient, Melissa Jackson in our emergency department on 08/08/2015. A note from the provider(s) who cared for your patient is attached. Should you wish to access any laboratory results, please call . Should you wish to access any radiology results, please call , option 3. In addition, you can access patient information 24 hours a day, from any computer, through [employer], the online version of our electronic medical record. If you would like to use this service, please call Ida Cutler, Connectivity Coordinator, at . We appreciate the opportunity to care for your patients. If you would like additional information, please call the emergency department directly at . Sincerely, NIECY Linares Division of Emergency Medicine [facility], [place] [facility] [place] TRAUMA I DESIGNATED EMERGENCY DEPARTMENT Provider contact with the patient: 08/08/2015 22:36 Melissa Jones Manuel [id number] [facility] EMERGENCY DEPARTMENT History Chief Complaint Patient presents with ??? Sore Throat since yesterday. no pain, but itchy. no vomitting. brother is sick. ??? Fever tmax 101. good UOP. pt has medications at home, but is not taking them. current home med list is accurate, but pt is not taking. pt is a type2 DM- last sugar was 126 @2200. HPI Comments: 15 yo female with history of Type II DM and IBS presents to the ED with her mother for c/o fever, sore throat, body aches, cough, headache and decreased appetite. Symptoms began yesterday and have gotten worse. Decreased appetite but drinking fluids well. Urinating normally, at least every 8 hours, last urinated 30 minutes ago. Decreased activity level. Immunizations UTD Sibling with fever, runny nose, vomiting Denies smoke exposure Past Medical History Diagnosis Date ??? 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 Drinks water S: 4 total partners, no hx STD, same partner since last year, condoms everytime, stopped control Medications Current Outpatient Prescriptions Medication Sig Dispense Refill ??? Blood Glucose Monitoring Suppl (FREESTYLE LITE) TITO Use to check blood sugar twice a day as directed. 1 Device 1 ??? FREESTYLE LITE STRIPS test strip Use to check blood sugar twice a day or as directed. 100 Strip11 ??? FREESTYLE LANCETS MISC Use to check blood sugar twice a day or as directed. 100 Each 11 ??? norethindrone-ethinyl estradiol (MICROGESTIN) 1.5-30 MG-MCG tablet Take 1 Tab by mouth once daily. ??? ferrous sulfate 325 (65 FE) MG tablet Take 1 Tab by mouth 2 times daily. 60 Tab 4 ??? metFORMIN (GLUCOPHAGE) 500 MG tablet 2 tabs with breakfast and dinner or as directed. 90 day supply 360 Tab 3 ??? Blood Glucose Monitoring Suppl (ONE TOUCH [...] by mouth every 6 hours as needed. Review of Systems Review of Systems Constitutional: Positive for fever, activity change and appetite change. HENT: Positive for sore throat. Negative for congestion and rhinorrhea. Respiratory: Positive for cough. Gastrointestinal: Negative for vomiting and diarrhea. Genitourinary: Negative for decreased urine volume and difficulty urinating. Musculoskeletal: Positive for myalgias. Skin: Negative for rash. Neurological: Positive for headaches. All relevant systems reviewed. BP 123/76 mmHg Pulse 118 Temp(Src) 99 ??F Resp 18 Wt 97 kg (213 lb 13.5 oz) Physical Exam Physical Exam Constitutional: She is oriented to person, place, and time. She appears well- developed and well-nourished. No distress. Sitting on stretcher Cooperative with exam HENT: Head: Normocephalic and atraumatic. Right Ear: External ear normal. Left Ear: External ear normal. Nose: Nose normal. Mouth/Throat: No oropharyngeal exudate. Bilateral tonsils 2+ with erythema, no exudate Child able to open mouth completely, uvula midline Eyes: Conjunctivae and EOM are normal. Pupils are equal, round, and reactive to light. Right eye exhibits no discharge. Left eye exhibits no discharge. Neck: Normal range of motion. Neck supple. Cardiovascular: Normal rate, regular rhythm, normal heart sounds and intact distal pulses. No murmur heard. Pulmonary/Chest: Effort normal and breath sounds normal. No respiratory distress. She has no wheezes. She has no rales. She exhibits no tenderness. Dry cough heard several times during exam Easy respirations, in no apparent distress Abdominal: Soft. Bowel sounds are normal. Musculoskeletal: Normal range of motion. Lymphadenopathy: She has no cervical adenopathy. Neurological: She is alert and oriented to person, place, and time. Child complaining of frontal headache Skin: Skin is warm. No rash noted. She is not diaphoretic. Nursing note and vitals reviewed. Procedures Procedures ECG Interpretation ECG Interpretation Lab/SPO2 Interpretation Progress Notes No evidence of bacterial infection, distress or dehydration. Mom verbalized understanding of discharge plan. Mom advised to return to ED for worsening symptoms, problems, or concerns. Child discharged alert, active and well-appearing. ED Course Orders Placed This Encounter ??? STREP A SCREEN DIRECT W RFLX STREP A CULTURE Standing Status: Standing Number of Occurrences: 1 Standing Expiration Date: ??? CULTURE STREP GROUP A Standing Status: Standing Number of Occurrences: 1 Standing Expiration Date: ??? ibuprofen (MOTRIN) tablet 800 mg Sig: Hospital Encounter on 08/08/15 STREP A SCREEN DIRECT W RFLX STREP A CULTURE Result Value Ref Range Strep A Rapid Negative Negative Throat culture pending. Plan May take Ibuprofen every 6-8 hours as needed for fever or discomfort. Drink lots of fluids. Monitor urine output to ensure hydration. Use a cool mist vaporizer at the bedside when sleeping. Be sure to change the water daily and cleanwith soap and water weekly. May take Delsym twice daily for cough. Elevate head while sleeping and give spoonful of honey at bedtime to ease cough. Throat lozenges may also ease sore throat. Follow-up with Primary Care Physician as needed. Medical Decision Making I have reviewed the: Nursing Notes and Vitals. I have discussed the case with Family/Caregiver. Clinical Impression Final diagnoses: Viral syndrome FILTER OPERATOR documented in this encounter Plan of Treatment Not on file documented as of this encounter Procedures Procedure Name Priority Date/Time Associated Diagnosis Comments STREP A SCREEN DIRECT W RFLX STREP A CULTURE Routine 08/08/2015 11:00 PM MASH FILTER OPERATOR CULTURE STREP GROUP A STAT 08/08/2015 11:00 PM MASH FILTER OPERATOR documented in this encounter Results * CULTURE STREP GROUP A (08/08/2015 11:00 PM MASH FILTER OPERATOR) Culture Negative for Beta Hemolytic Streptococcus Group A DAVID 08/11/2015 6:25 AM MASH FILTER OPERATOR [facility] Microbiology ENTIRE THROAT (SURFACE REGION OF NECK) / Unknown 08/08/2015 11:00 PM MASH FILTER OPERATOR 08/08/2015 11:07 PM MASH FILTER OPERATOR [facility] - MICROBIO LOGY ORDERABLES [facility] [address] [place] [address], [facility] [phone] * STREP A SCREEN DIRECT W RFLX STREP A CULTURE (08/08/2015 11:00 PM MASH FILTER OPERATOR) Strep A Rapid Negative Negative 08/08/2015 11:16 PM MASH FILTER OPERATOR [facility] Microbiology ENTIRE THROAT (SURFACE REGION OF NECK) / Unknown 08/08/2015 11:00 PM MASH FILTER OPERATOR 08/08/2015 11:07 PM MASH FILTER OPERATOR Narrative [facility] - 08/08/2015 11:16 PM MASH FILTER OPERATOR Test has reflexed to a Strep A culture. Rhonda Youngblood APRN-BRICK TESTER [facility] - MICROBIO LOGY ORDERABLES [facility] [address] [facility] [place] [address] documented in this encounter Visit Diagnoses Diagnosis Viral syndrome Unspecified viral infection, in conditions classified elsewhere and of unspecified site documented in this encounter Administered Medications Inactive Administered Medications - up to 3 most recent administrations Medication Order MAR Action Action Date Dose Rate Site ibuprofen (MOTRIN) tablet 800 mg 800 mg, Oral, NOW, 1 dose, On Fri08/08/15 at 2300, Maximum allowable amount = 3200 mg / 24 hours. $ Given 08/08/2015 10:58 PM MASH FILTER OPERATOR 800 mg documented in this encounter Active and Recently Administered Medications Due to Daylight Saving Time, this section may contain times in both CDT and MASH FILTER OPERATOR. Scheduled Medication Order 08/06/2015 08/07/2015 08/08/2015 ibuprofen (MOTRIN) tablet 800 mg (COMPLETED) 800 mg, Oral, NOW, 1 dose, On Fri08/08/15 at 2300, Maximum allowable amount = 3200 mg / 24 hours. 2258 ($ Given - Prov ider: Eliz Lu RN) documented in this encounter Care Teams Professor Of English Relationship Specialty Start Date End Date Esperanza Santillan MD [address] [place] [phone] PCP - General Family Medicine 09/03/12 documented as of this encounter
--- OUTSIDE RECORDS SUMMARY | 2024-10-14 01:34 | XMS_ITS | Encounter Summary ---
Author Organization [facility] Address [address] [place] [address] Care Team Providers Care Cycle Specialist Name Role Phone Esperanza Santillan MD Primary Care Provider [phone] Encounter Details Date Type Department Care Team (Latest Contact Info) Description 12/17/2019 11:30 AM CDT - 12/17/2019 2:19 PM CDT Hospital Encounter [facility] [address] [place] [address] Tierra Aleman MD [address] [place] [address] Discharge Disposition: Home or Self Care Social [...] Sign Reading Time Taken Comments Blood Pressure 106/59 12/17/2019 2:16 PM CDT Pulse - - Temperature 36.5 ??C (97.7 ??F) 12/17/2019 11:34 AM C DT Respiratory Rate 18 12/17/2019 1:35 PM CDT Oxygen Saturation - - Inhaled Oxygen Concentration - - Weight 85.8 kg (189 lb 3.2 oz) 12/17/2019 11:33 AM CDT Height 152.4 cm (5') 12/17/2019 11:33 AM CDT Body Mass Index 36.95 12/17/2019 11:33 AM CDT documented in this encounter Functional Status Functional [...] No 12/17/2019 documented as of this encounter Discharge Instructions * Discharge Instructions* Jess Bansal RN - 12/17/2019 2:17 PM CDT UNDELIVERED PATIENT DISCHARGE INSTRUCTIONS CALL [...] pains, cramps, nausea,or diarrhea. Important Telephone Number: [facility]: [phone] documented in this encounter Medications at Time [...] as of this encounter H&P Notes * Dior Moore MD - 12/17/2019 11:38 AM CDT PGY1 Obstetric H&P Note 12/17/2019, 11:39 AM CC: I was told to come in HPI: 19 year old at 32w4d gestation Dating: LMP c/w 7 week ultrasound Estimated Date of Delivery: 02/07/20 care: is with Dr. Lira Patient's is complicated by: Patient Active Problem List Diagnosis Date Noted ??? Maternal morbid obesity in second trimester, antepartum Priority: Not Prioritized ??? Supervision of high-risk of young primigravida 08/02/2019 Priority: Not Prioritized ??? with type 2 diabetes mellitus in second trimester 10/01/2012 Diagnosed 08/20/2012 with a hemoglobin A1c of 7.0% 2015 [facility] Patient was told to come in after she had an 6/8 BPP (-2 for breathing) and non- reactive NST. She notes that she has felt reassuring and normal movements all day. She does not have any other concerns or complaints. negative Ctx. negative LOF. negative VB. positive FM. Review of Symptoms: A comprehensive review of systems was negative except as stated above Obstetrical History: OB History Para Term AB Living 1 SAB TAB Ectopic Multiple Live Births # Outcome Date GA Lbr Mono/2nd Weight Sex Delivery Anes PTL Lv 1 Current Gynecologic History: History of abnormal pap smear: denies History of procedure on cervix: denies STI History: remote history of chlamydia. Denies gonorrhea, trichomonas, herpes, HIV, syphilis Medical History: Past Medical History: Diagnosis Date ??? Anemia ??? Bronchitis acutely ??? Diabetes mellitus ??? Irritable bowel disease ??? PCOS (polycystic ovarian syndrome) She denies history of hypertension, asthma or bleeding disorders. Psych History: Depression: No Anxiety: No Bipolar disorder: No Schizophrenia: No Surgeries: Past Surgical History: Procedure Laterality Date ??? [place] DENTAL SURGERY PROCEDURE Current Medications: Prior to Admission medications Medication Sig Start Date End Date Taking? Authorizing Provider aspirin (ASPIRIN) 81 MG tablet Take 2 tablets by mouth once daily 08/02/19 Nidhi Araujo MD blood glucose (FREESTYLE LITE STRIPS) test strip Use 1 strip 5 times daily 08/02/19 Yes Kimberly Marquez MD blood glucose (ONETOUCH ULTRA TEST STRIPS) test strip Use 2 strips daily. 05/20/13 Yes Selvin Rivera APRN-CNP Blood Glucose Monitoring Suppl (FREESTYLE LITE) TITO Use to check blood sugar twice a day as directed. 03/23/15 Yes Iveth Mueller MD Blood Glucose Monitoring Suppl (ONE TOUCH ULTRA MINI) W/DEVICE KIT Use to test blood sugar 2 times daily 05/20/13 Yes Serena Rivera APRN-CNP doxylamine (UNISOM) 25 MG tablet Take 1 tablet by mouth nightly as needed for Insomnia Patient not taking: Reported on 10/04/2019 08/02/19 Nidhi Araujo MD FREESTYLE LANCETS MISC Use to check blood sugar twice a day or as directed. 03/23/15 Yes Iveth Mueller MD FREESTYLE LITE STRIPS test strip Use to check blood sugar twice a day or as directed. 03/23/15 Yes Iveth Mueller MD metFORMIN (GLUCOPHAGE) 500 MG tablet 2 tabs with breakfast and dinner or as directed. day supply01/10/14 Yes Iveth Mueller MD naproxen (NAPROSYN) 500 MG tablet Take 1 Tab by mouth 2 times daily Patient not taking: Reported on 08/02/2019 08/13/16 Lakshmi Hunt MD norethindrone-ethinyl estradiol (MICROGESTIN) 1.5-30 MG-MCG tablet Take 1 Tab by mouth once daily. Provider, MD Erma One Touch Delica Lancets Use 2 LANCETS DAILY 05/20/13 Yes Serena Rivera, GARMENT LINER-TMD TEACHER pyridoxine (VITAMIN B-6) 25 MG tablet Take [...] Patient Vitals for the past 24 hrs: Temp 12/17/19 1134 97.7 ??F (36.5 ??C) Assessment/ Non-Stress Test Baseline: 145 beats/minute moderate variability Reactive Contractions: none Decelerations: Rare variables Physical Exam General: no acute distress, alert [...] Presentation: vertex Placenta: posterior Amniotic fluid index: 15 cm Current Lab Review: No results found for this visit on 12/17/19. labs will request if admit Assessment/Plan: 19 year old at 32w4d gestation Non-reactive NST with BPP 6/8 - 1 hour NST reactive and reassuring, BPP now 8/10 - RICARDO re-checked and found to be 15cm - patient with normal movements T2DM - BS in triage: 100 - metformin 1000mg BID Dispo home with kick counts Follow up with Dr. Lira as scheduled Discussed with Dr. Villar and Dr. Diana Moore MD 12/17/2019 11:39 AM Associated attestation - Nayeli Godinez MD - 12/18/2019 7:46 AM CDT [facility] RISK CONTROL MANAGER ATTENDING I have discussed the patient's history and physical as well as the assessment and plan with Dr Moore and I agree with the above documentation. Nayeli Godinez MD documented in this encounter Procedure Notes * Dior Moore MD - 12/17/2019 1:39 PM CDT Name: Melissa Jackson Date of : 2000 Today's Date: 12/17/2019 32w4d NST RESULTS (CARTAGENA) OBJECTIVE FINDINGS Temp: 97.7 ??F (36.5 ??C), , Resp: 16, BP: 118/70 NST Indication(s): Other (Comment)(weu, nst) Uterine Irritability: No Contractions: Not present OBJECTIVE FINDINGS Movement: Present Monitoring Mode: External Baseline: 135 BPM Variability: Moderate Decelerations: None Accelerations: Yes OTHER INFORMATION Robina Lizette, RN R1 Addendum Non-Stress Test Indications: Patient Active Problem List: with type 2 diabetes mellitus in second trimester Supervision of high-risk of young primigravida Maternal morbid obesity in second trimester, antepartum Assessment/ Non-Stress Test Baseline: 145 beats/minute moderate variability Reactive Contractions: none Decelerations: Rare variables Dior Moore MD 12/17/2019 3:07 PM documented in this encounter Plan of Treatment Scheduled Orders Name Type Priority Associated Diagnoses Orde r Schedule NONSTRESS TEST OB Routine Non-reactive NST (non-stress test) ONCE for 1 Occurrences starting 12/17/2019 until 12/17/2019 documented as of this encounter Procedures Procedure Name Priority Date/Time Associated Diagnosis Comments GLUCOSE - POINT OF CARE Routine 12/17/2019 1:33 PM CDT documented in this encounter Results * GLUCOSE - POINT OF CARE (12/17/2019 1:33 PM CDT) [facility] Glucose WB/POC 100 70 - 106 mg/dL 12/17/2019 3:05 PM CDT [facility] Specimen Type Arterial/C apillary 12/17/2019 3:05 PM CDT [facility] Blood BLOOD SPECIMEN / Unknown 12/17/2019 1:33 PM CDT 12/17/2019 3:05 PM CDT Tierra Aleman MD LAB - POINT OF CARE ORDERABLES Performing Organization Address City/State/[facility] Co de Phone Number [facility] [address] [place], [place] [phone] documented in this encounter Visit Diagnoses Diagnosis Non-reactive NST (non-stress test)- Primary Abnormal findings on screening Non-reactive NST (non-stress test) Abnormal findings on screening documented in this encounter Care Teams Cycle Specialist Relationship Specialty Start Date End Date Esperanza Santillan MD [address] [place] [id number] PCP - General Family Medicine 09/03/12 documented as of this encounter
--- OUTSIDE RECORDS SUMMARY | 2024-10-14 01:34 | XMS_ITS | Encounter Summary ---
Author Organization [facility] Address [address] [place] [address] Care Team Providers Care Guest Advisor Name Role Phone Esperanza Santillan MD Primary Care Provider [phone] Encounter Details Date Type Department Care Team (Latest Contact Info) Description 12/02/2013 3:37 PM [employer]TER - 12/02/2013 11:59 PM [facility] Hospital Encounter [facility] - [address] [id number] Parviz Nolan MD [address] [place] [id number] Discharge Disposition: Home or Self Care Social [...] Use 2 LANCETS DAILY 100 Each 05/20/2013 dicyclomine (BENTYL) 20 MG tablet Take [...] on filedocumented in this encounter Care Teams Guest Advisor Relationship Specialty Start Date End Date Esperanza Santillan MD [address] [place] [address] [place] [address] PCP - General Family Medicine 09/03/12 documented as of this encounter
--- OUTSIDE RECORDS SUMMARY | 2024-10-14 01:34 | XMS_ITS | Encounter Summary ---
Author Organization [facility] Address [address] [address] Care Team Providers Care Bark Grinder Name Role Phone Esperanza Santillan MD Primary Care Provider [phone] Reason for Visit * Reason Comments Pain Abdominal Check up Encounter Details Date Type Department Care Team (Latest Contact Info) Description 12/02/2013 3:00 PM THREAD WEAVER - 12/02/2013 3:36 PM THREAD WEAVER Hospital Encounter [facility] - [address] [address] Parviz Nolan MD [address] [place] [id number] Discharge Disposition: Home or Self Care Social [...] Reading Time Taken Comments Blood Pressure 120/80 12/02/2013 3:02 PM THREAD WEAVER Pulse - - Temperature - - Respiratory Rate - - Oxygen Saturation - - Inhaled Oxygen Concentration - - Weight 96.8 kg (213 lb 4.8 oz) 12/02/2013 3:02 P M THREAD WEAVER Height 158 cm (5' 2.21 ) 12/02/2013 3:02 PM THREAD WEAVER Body Mass Index 38.76 12/02/2013 3:02 PM THREAD WEAVER Body Mass Index Percentile 99.42% 12/02/2013 3:0 2 PM THREAD WEAVER Growth Chart: [facility] (Girls, 2- 20 Years) documented in this encounter Medications at Time [...] the Uterus 2 Packet 0 06/09/2013 07/01/2014 promethazine (PHENERGAN) 25 MG tablet Take 25 mg by mouth every 6 hours as needed. 12/04/2015 documented as of this encounter Progress Notes * Parviz Nolan MD - 12/02/2013 3:23 PM CST HISTORY OF PRESENT ILLNESS : Thank you for your consult on Melissa Jackson. I had the pleasure of seeing Melissa in the Gastroenterology Clinic at [facility] on 12/02/2013. Melissa is a 13 y.o. 8 m.o. female who is here for followup evaluation of abdominal pain. She complains of non specific, non radiating, abdominal pain for the past few months. No apparent aggravatingor relieveing factors. She is diabetic. Does not eat very healthy. She has occasional non-bilious, non projectile vomiting. She has normal soft non bloody, non mucoidstools almost daily. She otherwise seems to be growing and developing well. She denies any apparent stressors, recent travel or trauma. PAST MEDICAL HISTORY: Past Medical History Diagnosis Date ??? Diabetes mellitus ??? Anemia ??? Irritable bowel disease ??? Asthma DIET: Regular MEDICATIONS: Current Outpatient Prescriptions Medication Status Sig Dispense Refill ??? omeprazole EC (PRILOSEC OTC) 20 MG tablet Active Take 1 Tab by mouth daily before breakfast. 30Tab 1 ??? Blood Glucose Monitoring Suppl (ONE TOUCH ULTRA MINI) W/DEVICE KIT Active Use to test blood sugar 2 times daily 1 Kit 1 ??? One Touch Delica Lancets Active Use 2 LANCETS DAILY 100 Each 11 ??? norethindone-ethinyl estradiol-FE (LOESTRIN 24 FE) 1-20 MG-MCG(24) tablet Active Take 1 Tab by mouth once daily. Indications: Dysfunctional Bleeding From the Uterus 1 Packet 1 ??? norethindone-ethinyl estradiol-FE (LOESTRIN 24 FE) 1-20 MG-MCG(24) tablet Active Take 1 Tab by mouth once daily. Indications: Dysfunctional Bleeding From the Uterus 2 Packet 0 ??? blood glucose (ONETOUCH ULTRA TEST STRIPS) test strip Active Use 2 strips daily. 100 Strip 11 ??? metFORMIN (GLUCOPHAGE) 500 MG tablet Active 2 tabs with breakfast and dinner or as directed. supply 360 Tab 0 ??? dicyclomine (BENTYL) 20 MG tablet Active Take 20 mg by mouth 4 times daily. ??? promethazine (PHENERGAN) 25 MG tablet Active Take 25 mg by mouth every 6 hours as needed. ??? ferrous sulfate 325 (65 FE) MG tablet Active Take 1 Tab by mouth once daily. 30 Tab 4 ALLERGIES: No Known Allergies FAMILY/SOCIAL HISTORY Family History Problem Relation Age of Onset ??? Obesity Mother ??? Obesity Father ??? Diabetes Maternal Grandfather ??? Diabetes Maternal Uncle ??? Hypertension Maternal Grandfather ??? Hypercholesterolemia Maternal Grandfather History Social History ??? Marital Status: Single Spouse Name: N/A Number of Children: N/A ??? Years of Education: N/A Occupational History ??? Not on file. Social History Main Topics ??? Smoking status: Never Smoker ??? Smokeless tobacco: Not on file ??? Alcohol Use: Not on file ??? Drug Use: No ??? Sexually Active: No Other Topics Concern ??? Not on file Social History Narrative HEADS:06-09-13H: Mom, stepdanavin, yger sister and brother. Another bro lives w/ his father All 4 children have different fathers Mom employed as a waitressE: Entering A: No physical activityD: DeniesEtOH, drugs. Enjoys caffeineS: 4 total partners, no hx STD PHYSICAL EXAMINATION: 98.8%ile based on CDC 2-20 Years roaxar-uxa-lfl data. BP 120/80 Wt 96.752 kg (213 lb 4.8 oz) BMI 38.76 kg/m2 HEENT: Atraumatic. Obese. Chest: Equal air entry bilaterally. Abdomen: Soft, nontender, nondistended. Striae+. No organomegaly noted. THREAD SPOOLER: No apparent focal deficits. Extremities: Warm, well perfused. Cap refill less than 2 seconds. IMPRESSION: Melissa is a 13 y.o. 8 m.o. female who comes in for evaluation of abdominal pain. - Functional causes would be high on the differential. ?? - I discussed extensively with caregivers the probable etiology for Melissa's symptoms as well as treatment options. ?? - Avoidance of spicy and greasy foods. Plenty of fruits and vegetables and increased fluid intake. Eat healthy. Avoidance of tea or sodas, stressors. The need for proper sleep pattern was emphasized.Avoid excessive candy. - Planned labs to include CBC, CMP, amylase, lipase, CRP. TTG IgA, Total IgA. Imaging studies wouldbe based on patient progress. I would like to see Melissa back in clinic in 3 - 6 months, or earlier if any concerns. Plan of care, including education on the safe and effective use of medication(s) and/or medical equipment if prescribed, was discussed with the patient/family. Patient/family verbalized understandingand agreed with the treatment options discussed. Thank you for letting me participate in the care of your patient. Please do not hesitate to call back for any questions or concerns. AD WEAVER documented in this encounter Miscellaneous Notes * Miscellaneous Scans - Document, Scanned - 12/04/2013 4:51 AM CST AD WEAVER documented in this encounter Plan of Treatment Not on file documented as of this encounter Procedures Procedure Name Priority Date/Time Associated Diagnosis Comments TISSUE TRANSGLUTAMINASE AB IGA Routine 12/02/2013 3:50 PM THREAD WEAVER Abdominal pain, unspecified site C-REACTIVE PROTEIN Routine 12/02/2013 3: 50 PM THREAD WEAVER Abdominal pain, unspecified site CBC W AUTO DIFFERENTIAL Routine 12/02/19 14 3:50 PM THREAD WEAVER Abdominal pain, unspecified site COMPREHENSIVE METABOLIC PANEL Routine 12/02/2013 3:50 PM THREAD WEAVER Abdominal pain, unspecified site LIPASE BLOOD Routine 12/02/2013 3:50 PM THREAD WEAVER Abdominal pain, unspecified site AMYLASE BLOOD Routine 12/02/2013 3:50 PM THREAD WEAVER Abdominal pain, unspecified site TSH Routine 12/02/2013 3:50 PM THREAD WEAVER Abdominal pain, unspecified site IGA BLOOD Routine 12/02/2013 3:50 PM THREAD WEAVER Abdominal pain, unspecified site documented in this encounter Results * TSH (12/02/2013 3:50 PM THREAD WEAVER) TSH 1.89 0.35 - 4.95 uIU/mL 12/02/2013 4:47 PM THREAD WEAVER [facility] Blood BLOOD SPECIMEN / Unknown Lab Venipuncture / Unknown 12/02/2013 3:50 PM THREAD WEAVER 12/02/2013 3:53 PM THREAD WEAVER Parviz Nolan MD LAB - CHEMISTRY KASEY [place]WE[place]Y Performing Organization Address City/[facility]/ZIP Co de Phone Number [facility] [address] [place] [address] * TISSUE TRANSGLUTAMINASE AB IGA (12/02/2013 3:50 PM THREAD WEAVER) Tissue Transglutaminase (tTG) Ab, IgA 3 0 - 19 Units 12/04/2013 12:23 AM THREAD WEAVER [employer] [facility] Comment: INTERPRETIVE INFORMATION: Tissue Transglutaminase (tTG) Antibody, [...] Lab Venipuncture / Unknown 12/02/2013 3:50 PM THREAD WEAVER 12/02/2013 3:53 PM THREAD WEAVER Parviz Nolan MD LAB - SEROLOGY ORDER MEAGAN Performing Organization Address City/[facility]/ZIP Co de Phone Number [employer] [address] [place] [address] * LIPASE BLOOD (12/02/2013 3:50 PM THREAD WEAVER) Lipase 28 10 - 220 U/L 12/02/2013 4:39 PM THREAD WEAVER [facility] Blood BLOOD SPECIMEN / Unknown Lab Venipuncture / Unknown 12/02/2013 3:50 PM THREAD WEAVER 12/02/2013 3:53 PM THREAD WEAVER Parviz Nolan MD LAB - CHEMISTRY KASEY [place] Performing Organization Address City/[facility]/ZIP Co de Phone Number [facility] [address] [place] [address] * IGA BLOOD (12/02/2013 3:50 PM THREAD WEAVER) Pathologist [facility] IgA 131 65 - 421 mg/dL 12/02/2013 4:39 PM [facility] Blood BLOOD SPECIMEN / Unknown Lab Venipuncture / Unknown 12/02/2013 3:50 PM THREAD WEAVER 12/02/2013 3:53 PM THREAD WEAVER Parviz Nolan MD LAB - CHEMISTRY ORDYris [place] Performing Organization Address [facility] Co de Phone Number [facility] [address] [place] [id number] * C-REACTIVE PROTEIN (12/02/2013 3:50 PM THREAD WEAVER) [facility] C-Reactive Protein 0.50 <=0.50 mg/dL 12/02/2013 4:39 PM [facility] Blood BLOOD SPECIMEN / Unknown Lab Venipuncture / Unknown 12/02/2013 3:50 PM THREAD WEAVER 12/02/2013 3:53 PM THREAD WEAVER Parviz Nolan MD LAB - CHEMISTRY KASEY [place] Performing Organization Address [facility] de Phone Number [facility] [address] [place] [phone] * (ABNORMAL) CBC W AUTO DIFFERENTIAL (12/02/2013 3:50 PM THREAD WEAVER) [facility] WBC 8.2 4.5 - 14.5 x10^9/L 12/02/2013 4:19 PM [facility] RBC 4.95 4.10 - 5.10 x10^12/L 12/02/2013 4:19 PM [facility] Hemoglobin 12.8 12.0 - 16.0 gm/dL 12/02/2013 4:19 PM [facility] Hematocrit 40.0 36.0 - 47.0 % 12/02/2013 4:19 PM [facility] MCV 80.8 78.0 - 98.0 fl 12/02/2013 4:19 PM [facility] MCH 25.9 25.0 - 35.0 pg 12/02/2013 4:19 PM [facility] MCHC 32.0 31.0 - 37.0 gm/dL 12/02/2013 4:19 PM [facility] Platelet Count 390 100 - 400 x10^9/L 12/02/2013 4:19 PM [facility] RDW-CV 14.4(H) 11.5 - 14.0 % 12/02/2013 4:19 PM [facility] MPV 10.3(H) 6.0 - 9.5 fl 12/02/2013 4:19 PM [facility] Neutrophils % 56.2 24.0 - 66.0 % 12/02/2013 4:19 PM [facility] Lymphocytes % 34.3 22.0 - 61.0 % 12/02/2013 4:19 PM [facility] Monocytes % 7.9 3.0 - 15.0 % 12/02/2013 4:19 PM [facility] Eosinophils % 1.3 0.0 - 10.0 % 12/02/2013 4:19 PM [facility] Basophils % 0.2 % 12/02/2013 4:19 PM [facility] Immature Granulocytes 0.1 % 12/02/2013 4:19 PM [facility] Neutrophil Absolute 4.60 x10^9/L 12/02/2013 4:19 PM [facility] Lymphocytes Absolute 2.81 x10^9/L 12/02/2013 4:19 PM [facility] Monocytes Absolute 0.65 x10^9/L 12/02/2013 4:19 PM [facility] Eosinophils Absolute 0.11 x10^9/L 12/02/2013 4:19 PM [facility] Basophils Absolute 0.02 x10^9/L 12/02/2013 4:19 PM [facility] Immature Granulocytes Absolute 0.01 x10^9/L 12/02/2013 4:19 PM [facility] Blood BLOOD SPECIMEN / Unknown Lab Venipuncture / Unknown 12/02/2013 3:50 PM [facility] 12/02/2013 3:53 PM [facility] Parviz Nolan MD LAB - HEMATOLOGY ORD ERABLES [facility] [address] [place] [address] * (ABNORMAL) COMPREHENSIVE METABOLIC PANEL (12/02/2013 3:50 PM [facility]) [facility] Glucose 98 70 - 105 mg/dL 12/02/2013 4:39 PM [facility] Sodium 143 136 - 145 mmol/L 12/02/2013 4:39 PM [facility] Potassium 3.4(L) 3.5 - 5.1 mmol/L 12/02/2013 4:39 PM [facility] Chloride 104 98 - 107 mmol/L 12/02/2013 4:39 PM [facility] CO2 27 20 - 28 mmol/L 12/02/2013 4:39 PM [facility] Calcium 9.76 9.08 - 10.48 mg/dL 12/02/2013 4:39 PM [facility] Anion Gap 12 5 - 20 mmol/L 12/02/2013 4:39 PM [facility] BUN 11.0 5.3 - 18.7 mg/dL 12/02/2013 4:39 PM [facility] Creatinine 0.67 0.61 - 1.07 mg/dL 12/02/2013 4:39 PM [facility] eGFR by MDRD mL/min/1.7 3m2 12/02/2013 4:39 PM [facility] Comment:eGFR calculations ar e not performed for children under 18 years old. eGFR by MDRD mL/min/1.7 3m2 12/02/2013 4:39 PM [facility] Comment:eGFR calculations ar e not performed for children under 18 years old. Alkaline Phosphatase 52(L) 100 - 390 U/L 12/02/2013 4:39 PM [facility] ALT 23 8 - 65 U/L 12/02/2013 4:39 PM [facility] AST 19 3 - 35 U/L 12/02/2013 4:39 PM [facility] Protein Total 7.7 6.3 - 8.2 gm/dL 12/02/2013 4:39 PM [facility] Albumin 4.4 3.3 - 4.9 gm/dL 12/02/2013 4:39 PM [facility] Bilirubin Total 0.3 0.3 - 1.2 mg/dL 12/02/2013 4:39 PM [facility] Blood BLOOD SPECIMEN / Unknown Lab Venipuncture / Unknown 12/02/2013 3:50 PM THREAD WEAVER 12/02/2013 3:53 PM THREAD WEAVER Parviz Nolan MD LAB - CHEMISTRY KASEY [place] Performing Organization Address City/[facility]/ZIP Co de Phone Number [facility] [address] [place] [address] * AMYLASE BLOOD (12/02/2013 3:50 PM THREAD WEAVER) Amylase 52 5 - 65 U/L 12/02/2013 4:39 PM THREAD WEAVER [facility] Blood BLOOD SPECIMEN / Unknown Lab Venipuncture / Unknown 12/02/2013 3:50 PM THREAD WEAVER 12/02/2013 3:53 PM THREAD WEAVER Parviz Nolan MD LAB - CHEMISTRY KASEY [place] Performing Organization Address [facility] Co de Phone Number [facility] [address] [place] [address] documented in this encounter Visit Diagnoses Diagnosis Abdominal pain, unspecified site- Primary documented in this encounter Care Teams Bark Grinder Relationship Specialty Start Date End Date Esperanza Santillan MD [address] [place] [address] [place] [id number] PCP - General Family Medicine 09/03/12 documented as of this encounter
--- OUTSIDE RECORDS SUMMARY | 2024-10-14 01:34 | XMS_ITS | Encounter Summary ---
Author Organization [facility] Address [address] [place] [address] Care Team Providers Care Senior Database Administrator Name Role Phone Esperanza Santillan MD Primary Care Provider [phone] Reason for Visit * Reason Comments Diabetes Encounter Details Date Type Department Care Team (Late st Contact Info) Description 12/04/2015 11:30 AM LICENSED MARRIAGE AND FAMILY THERAPIST - 12/04/2015 12:21 PM [facility] Hospital Encounter [facility] - Endocrinology [address] [place] [address] Parminder Orta, ELIU-BRAIDER OPERATOR [address] [place] [address] Discharge Disposition: Home or Self Care Social [...] Sign Reading Time Taken Comments Blood Pressure 130/86 12/04/2015 11:55 AM LICENSED MARRIAGE AND FAMILY THERAPIST Pulse - - Temperature - - Respiratory Rate - - Oxygen Saturation - - Inhaled Oxygen Concentration - - Weight 93.2 kg (205 lb 7.5 oz) 12/04/19 16 11:55 AM LICENSED MARRIAGE AND FAMILY THERAPIST Height 158.1 cm (5' 2.24 ) 12/04/2015 1 1:55 AM LICENSED MARRIAGE AND FAMILY THERAPIST Body Mass Index 37.29 12/04/2015 11:55 AM LICENSED MARRIAGE AND FAMILY THERAPIST Body Mass Index Percentile 98.44% 11:55 AM LICENSED MARRIAGE AND FAMILY THERAPIST Growth Chart: [facility] (Girls, 2- 20 Years) documented in this encounter Discharge Instructions * Patient Instructions* Parminder Orta APRN-CNP - 12/04/2015 12:16 PM LICENSED MARRIAGE AND FAMILY THERAPIST 1) continue current metformin dose 2) try to test BG at least once daily 3) call if over 150 x3 in a week 4) follow up with adult doc in 6 months NSED MARRIAGE AND FAMILY THERAPIST documented in this encounter Medications at Time [...] with HbA1C goal below 7.5 ([facility]) 2 tabs with breakfast and dinner or as directed. 90 day supply 360 Tab 3 01/10/2014 norethindrone-ethinyl estradiol (MICROGESTIN) 1.5-30 MG-MCG tablet Take 1 Tab by mouth once daily. One Touch Delica Lancets Use 2 LANCETS DAILY 100 Each 11 05/20/2013 documented as of this encounter Progress Notes * Parminder Orta APRN-CNP - 12/04/2015 12:02 PM CST Images from the original note were not included. Pediatric Diabetes Clinic Follow-Up Note [facility] Melissa Jackson and her mother were in our Pediatric Endocrinology clinic at [facility] on 12/04/2015. She is a 15 y.o. 9 m.o. who has: Problem Type 2 Diabetes Mellitus in Patient Age 13-19 Years With Hba1c Goal Below 7.5 Diagnosed 08/20/2012 with a hemoglobin A1c of 7.0% Last clinic visit 02/14/14 Melissa???s current treatment regimen is as follows: Metformin in the morning 1000 mg XR apparently prescribed by her PCP Other Medications: OCP- LoOgestrol TID for now, then back to once daily as directed by her DRILLING RIG OPERATOR Interval History: Significant for no major issues. She has experienced no major issues related to diabetes management since our past visit. Diabetes Self-Management: Melissa checks her blood glucose 2 times per day using a FreeStyle Lite meter.Per ADA guidelines, people with type 1 diabetes on multiple-dose insulin or insulin pump therapy should perform SMBG prior to meals and snacks, occasionally post-prandial, at bedtime, prior to exercise, when they suspect low blood glucose, after treating low blood glucose until they are normoglycemic, and prior to critical tasks such as driving. Melissa???s target blood glucose range is 80-150. She does not wear her Medic-Alert tag. Melissa checks urine for ketones when glucose >250 andill. Past Medical History: Social History: History Social History Narrative HEADS: 12/27/2013 H: Mom, shanelle, younger sister and brother. 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 Drinks water S: 4 total partners, no hx STD, same partner since last year, condoms everytime, on OCP, regular follow up with oil laboratory analyst Review of Systems: General: not sleeping well, up to void at night, normal energy ENT: normal vision, brushes teeth BID Skin: normal Cardiorespiratory: normal Gastrointestinal: normal Genitourinary: nocturia once nightly, LMP beginning of Oct, lasted 3-4 weeks, history of PCOS, flank pain for last few days with dysuria, denies yeast infection Endocrine: no fatigue or temperature intolerance Psychiatric: normal Neurologic: headaches once monthly treated with tylenol Musculoskeletal: No muscle weakness, No joint pain and normal range of motion Physical Examination: BP 130/86 mmHg Ht 1.581 m (5' 2.24 ) Wt 93.2 kg (205 lb 7.5 oz) BMI 37.29 kg/m2 LMP 10/16/2015 Height: 158.1 cm (5' 2.24 ) General: alert and oriented; well-appearing Eyes: Normal- EOM intact, normal fundi HEENT: Normal Neck: Normal- thyroid not enlarged Chest/Breast: Normal Lungs: Clear to auscultation, unlabored breathing Heart: Normal PMI, regular rate & rhythm, normal S1,S2, no murmurs, rubs, or gallops Abdomen: Normal scaphoid appearance, soft, non-tender, without organ enlargement or masses. Genitourinary: not examined Musculoskeletal: Normal symmetric bulk and strength Lymphatic: No abnormally enlarged lymph nodes. Skin/Hair/Nails: No rashes or abnormal dyspigmentation Neurologic: Mental status normal, DTR 3+, normal strength and tone, normal gait Laboratory Data: Hospital Encounter on 12/04/15 CULTURE URINE Result Value Ref Range Culture <10,000 CFU/mL urogenital lisa HEMOGLOBIN A1C - POCT (IP) BEAKER Result Value Ref Range Hgb A1C POCT 6.8 (Abnormal) 3.4 - 6.1 % QC Verified Yes Yes Recent Labs Component Name 12/04/15 1222 COLORUA Yellow CLARITYUA Clear SPECGRAVUA 1.025 PHUA 5.5 PROTEINUA 1+* BLOODUA Negative LEUKOCYTEUA Trace* NITRITEUA Positive* GLUCOSEUA Trace* KETONEUA Negative BILIRUBINUA Negative UROBILINUA 1.0 WBCUA 5-10* RBCUA 2-5 EPITHUA 10-20* MUCUSUA 2+ BACTUA 3+* 14-Day Blood Glucose Statistics: Fewer than one BG check per day, roughly 30 checks in past 3 months ranging from 71 to 174 with an average of about 115 Assessment and Management Plan: Excellent diabetes control at this time. Given poor follow up and age advised transfer to adult endocrine as she will be 16 before her next visit and has her GED at this time. Type 2 diabetes mellitus in patient age 13-19 years with HbA1C goal below 7.5 1) continue current metformin dose 2) try to test BG at least once daily 3) call if over 150 x3 in a week 4) follow up with adult doc in 6 months Of the 45 minutes spent with Melissa, 35 minutes were spent discussing HgbA1c, ketosis, exercise, control, sick days, driving, control and complications, blood glucose monitoring and transitionprogram NIECY Hernadez CC: Esperanza Santillan MD [address] [place], [place] [address]Macho / [place] [id number] Date: 12/04/2015 12:02 PM NSED MARRIAGE AND FAMILY THERAPIST documented in this encounter Plan of Treatment Not on file documented as of this encounter Procedures Procedure Name Priority Date/Time Associated Diagnosis Comments CULTURE URINE Routine 12/04/2015 12:22 PM LICENSED MARRIAGE AND FAMILY THERAPIST Type 2 diabetes mellitus in patient age 13-19 years with HbA1C goal below 7.5 HEMOGLOBIN A1C - POCT (IP) BEAKER Routine 12/04/2015 12:08 PM LICENSED MARRIAGE AND FAMILY THERAPIST documented in this encounter Results * (ABNORMAL) URINALYSIS ROUTINE AUTO (12/04/2015 12:22 PM LICENSED MARRIAGE AND FAMILY THERAPIST) Color UA Yellow Straw, Yellow, Dark Yellow 12/04/2015 1:40 PM [facility] Clarity UA Clear 12/04/2015 1:40 PM [facility] Specific [place] UA 1.025 1.005 - 1.030 12/04/2015 1:40 PM [facility] pH UA 5.5 5.0 - 8.0 pH 12/04/2015 1:40 PM [facility] Protein UA 1+(A) Negative 12/04/2015 1:40 PM [facility] Blood UA Negative Negative 12/04/2015 1:40 PM [facility] Leukocyte UA Trace(A) Negative 12/04/2015 1:40 PM [facility] Nitrite UA Positive(A) Negative 12/04/2015 1:40 PM [facility] Glucose UA Trace(A) Negative 12/04/2015 1:40 PM [facility] Ketone UA Negative Negative 12/04/2015 1:40 PM LICENSED MARRIAGE AND FAMILY THERAPIST [facility] Bilirubin UA Negative Negative 12/04/2015 1:40 PM LICENSED MARRIAGE AND FAMILY THERAPIST [facility] Urobilinogen UA 1.0 0.1 - 1.0 EU/dL 12/04/2015 1:40 PM LICENSED MARRIAGE AND FAMILY THERAPIST [facility] Urine URINE SPECIMEN OBTAINED BY CLEAN CATCH PROCEDURE / Unknown Collection / Unknown 12/04/2015 12:22 PM LICENSED MARRIAGE AND FAMILY THERAPIST 12/04/2015 1:15 PM LICENSED MARRIAGE AND FAMILY THERAPIST [facility] - URINALYSI S ORDERABLES Performing Organization Address City/[facility]/ZIP Co de Phone Number [facility] [address] [place] [address] * CULTURE URINE (12/04/2015 12:22 PM LICENSED MARRIAGE AND FAMILY THERAPIST) Pathologist [facility] Culture <10,000 CFU/mL urogenital lisa [place] 12/05/2015 4:08 PM LICENSED MARRIAGE AND FAMILY THERAPIST [facility] Urine URINE SPECIMEN OBTAINED BY CLEAN CATCH PROCEDURE / Unknown Collection / Unknown 12/04/2015 12:22 PM LICENSED MARRIAGE AND FAMILY THERAPIST 12/04/2015 1:15 PM LICENSED MARRIAGE AND FAMILY THERAPIST [facility] MICROBIOL OGY ORDERABLES Performing Organization Address [facility] Co de Phone Number [facility] [address] [place] [address], [facility] [phone] * (ABNORMAL) HEMOGLOBIN A1C - POCT (IP) BEERMELINDA (12/04/2015 12:08 PM LICENSED MARRIAGE AND FAMILY THERAPIST) Pathologist [facility] Hemoglobin A1c POCT 6.8(A) 3.4 - 6.1 % [facility] QC Verified Yes Yes [facility] TEST[facility] Blood specimen (specimen) BLOOD SPECIMEN / Unknown 12/04/2015 12:08 PM LICENSED MARRIAGE AND FAMILY THERAPIST [facility] - POINT OF CARE ORDERABLES Performing Organization Address [facility] Co de Phone Number [facility] [address] [place] [address], [facility] [phone] documented in this encounter Visit Diagnoses Diagnosis Type 2 diabetes mellitus in patient age 13-19 years with HbA1C goal below 7.5 (HCC)- Primary Type II or unspecified type diabetes mellitus without mention of complication, not stated as uncontrolled * Assessment & Plan Note - Parminder Orta APRN-CNP - 12/06/2015 9:30 AM LICENSED MARRIAGE AND FAMILY THERAPIST Associated Problem(s): with type 2 diabetes mellitus in second trimester (HCC) 1) continue current metformin dose 2) try to test BG at least once daily 3) call if over 150 x3 in a week 4) follow up with adult doc in 6 months NSED MARRIAGE AND FAMILY THERAPIST documented in this encounter Care Teams Senior Database Administrator Relationship Specialty Start Date End Date Esperanza Santillan MD [address] [place] [address] [place] [id number] PCP - General Family Medicine 09/03/12 documented as of this encounter
--- OUTSIDE RECORDS SUMMARY | 2024-10-14 01:34 | XMS_ITS | Encounter Summary ---
Author Organization [facility] Address [address] [facility] [place] [address] Care Team Providers Care Furnace Helper Name Role Phone Esperanza Santillan MD Primary Care Provider [phone] Reason for Visit * Reason Onset Date Comments Results 06/23/2014 Encounter Details Date Type Department Care Team (Late st Contact Info) Description 06/23/2014 Telephone [facility] Pediatrics - Sleep [facility] [place] [address] Tana Avendaño, INSOLE AND OUTSOLE PREPARER-INSTRUMENTATION CHEMIST [address] [place] [address] Results Social History Tobacco Use Types Packs/Day [...] encounter Miscellaneous Notes * Telephone Encounter - Kay Vivar RN - 06/23/2014 1:39 PM CDT Sleep study results given to mom. Mom aware of CPAP ordered. She verbalized understanding. documented in this encounter Plan of Treatment Not on file documented as of this encounter Visit Diagnoses Not on filedocumented in this encounter Care Teams Furnace Helper Relationship Specialty Start Date End Date Esperanza Santillan MD [address] [place] [address] [place] [phone] PCP - General Family Medicine 09/03/12 documented as of this encounter
--- OUTSIDE RECORDS SUMMARY | 2024-10-14 01:34 | XMS_ITS | Encounter Summary ---
Author Organization [facility] Address [address] [facility] [place] [address] Care Team Providers Care Lead Javascript Developer Name Role Phone Esperanza Santillan MD Primary Care Provider [phone] Reason for Visit * Evaluate & Treat (Routine) - Closed Specialty Diagnoses / Procedures Referred By Carson t Referred To Contact Cardiology Diagnoses Supervision of other high risk pregnancies, unspecified trimester (HCC) Pre-existing type 2 diabetes mellitus, in , unspecified trimester (HCC) Procedures RI DOPPLER VELOCIMETRY ; UMBILICAL ARTERY RI SONO HEART RI DOPPLER ECHO PULSED WAVE &/CONT WAVE; CMPL Tony Lira MD [address] [place] [phone] [address] Referral ID Status Reason Start Date Expiration Date Visits Re quested Visits Authorized [id number] Closed 12/06/2019 03/01/2020 1 1 Encounter Details Date Type Department Care Team (Latest Contact Info) Description 12/06/2019 8:55 AM YARN SORTER - 12/06/2019 11:59 PM [facility] Hospital Encounter [facility] at [address] [address] Nata Pinedo MD [address] [place] [address] Discharge Disposition: Home or Self Care Social [...] 13-19 years with HbA1C goal below 7.5 ([facility]) 2 tabs with breakfast and [...] 3 08/02/2019 documented as of this encounter Consult Notes * Nata Pinedo MD - 12/06/2019 9:00 AM CST Images from the original note were not included. Attending Physician: Nata Pinedo MD Office Echocardiogram and Consultation Date: 12/06/2019 Institution:[facility] Referring Physician: Tony Lira MD [address] [place] [address] Dear Tony Lira MD , I had the pleasure of seeing your patient, Veena Mcrae, for echocardiographic evaluation and consultation on 12/06/2019. Indications for echocardiogram include a history of maternal diabetes mellitus type-2. The following clinical information was available at the time of the evaluation: Maternal Age: 19 years old. Gestational Age: 31 2/7 weeks. Estimated Date of Delivery: 02/05/2020 History : G1,P0. Complications of the : Sugar control Maternal Medical History: Type 2 Diabetes Mellitus History of antepartum diabetes: Yes Medications: vitamins, Metformin, Aspirin, Folic acid Family History of Congenital Heart Disease: Yes, FOB with another son with hole in heart Social History: Non-smoker. Non-drinker. A complete 2-D, pulse wave and color Doppler echocardiogram was performed. The quality of thestudy was technically adequate. 2-D Findings: Visceroatrial situs solitus with levocardia. The systemic venous return was normal. There was atrioventricular and ventriculoarterial concordance. The right atrium and left atrium appeared normal size. There was a patent foramen ovale which bowed from right to left. The mitral valve and tricuspid valves were morphologically normal. The right and left ventricles were normal size for gestational age with upper limits of normal wall thickness and normal systolic function. The ventricular septum appeared intact. The great vessels were normally related. The aortic and pulmonary valves were thin and mobile. The branch pulmonary arteries were confluent. A ductal arch was identified. The aortic arch appeared normal. No pericardial or pleural effusion. Doppler Examination: There were normal mitral and tricuspid inflow patterns with a dominant A wave and smaller E wave. No mitral or tricuspid insufficiency. There was normal laminar flow across the aortic and pulmonary valves. There was normal grfri-pq-sadb shunting across the ductus arteriosus in systole with a small amount in diastole. There was normal flow pattern in the transverse aortic arch. No arrhythmia was detected. heart rate was 146 beats per minute. Normal umbilical artery andumbilical vein flow profiles. Normal ductus venosus flow profile. Abnormal HeartTones: none detected IMPRESSION: Structurally normal heart Biventricular thickness at upper limits of normal RECOMMENDATIONS: I reviewed the findings of today's echocardiogram with Ms. Veena Mcrae and her partner. The echocardiogram showed a structurally normal heart without evidence of large septal defects or septal hypertrophy. The thickness of both ventricles was upper limits of normal. I discussed with . Veena Mcrae that careful control of her blood sugars is important to prevent development of cardiac hypertrophy as the progresses. No further follow-up is required unless anynew cardiac concerns are noted. Thank you again for allowing us to participate in the care of this patient. If you have any furtherquestions, please do not hesitate to contact me at . Sincerely, Nata Pinedo MD In general, echocardiography has an excellent sensitivity and specificity. However, certain heart lesions cannot be diagnosed in the fetus as they are a normal part of the circulation, e.g. secundum atrial septal defects and patent ductus arteriosus. Other congenital heart lesions that have proven difficult to diagnose in a fetus include coarctation of the aorta, total or partial anomalous pulmonary venous return, small ventricular septal defects, and coronary anomalies. Nor can we predict late gestation myocarditis or arrhythmias later in life such as Qeauc-Hrkcjeqwp-Xehdw syndrome. Total time spent with the patient was 45 minutes with >50% time spent counseling regarding findings and limitations. SORTER documented in this encounter Plan of Treatment Not on file documented as of this encounter Procedures Procedure Name Priority Date/Time Associated Diagnosis Comments ECHO CONSULT - Routine 12/06/2019 8:[address] with type 2 diabetes mellitus in second trimester (HCC) documented in this encounter Results * ECHO CONSULT - (12/06/2019 8:58 AM YARN SORTER) 12/06/2019 8:58 AM YARN SORTER Narrative Procedure Note Nata Pinedo MD - 12/07/2019 [place] [address] Fax Echocardiogram Report Pat.Name: VEENA MCRAE Pat.ID: [id number] .Date: 12/06/2019 Refer.MD: Nata Pinedo Exam Time: 8:58:00 AM Study Type: Echo Age: 5 2000,19Y Sex: FEMALE Sonogrphr: Josie Reyes RDCS Pat. Stat.:Outpatient CPT - 4: [id number], [id number], [id number], [id number] Reason for Study: Maternal History of Diabetes History / Clinical: Procedures: 2D Complete, Doppler Complete, Color Flow Visit ID: [id number] SUMMARY: Study Data: GA: 31/2 weeks. PAVEL: 02-05-20 . : 1. Para: 0. Type: Chapman. Lie: Vertex. Impression: Structurally normal heart Biventricular [...] Pinedo MD Nata Pinedo MD ECHO ORDERABLES [facility] [address] [place] [address] documented in this encounter Visit Diagnoses Diagnosis with type 2 diabetes mellitus in second trimester (HCC)- Primary documented in this encounter Care Teams Lead Javascript Developer Relationship Specialty Start Date End Date Esperanza Santillan MD [address] [place] [phone] PCP - General Family Medicine 09/03/12 documented as of this encounter
--- OUTSIDE RECORDS SUMMARY | 2024-10-14 01:34 | XMS_ITS | Encounter Summary ---
Author Organization [facility] Address [address] [facility] [place] [address] Care Team Providers Care Gi Physician Name Role Phone Esperanza Santillan MD Primary Care Provider [phone] Reason for Referral * Procedure (Routine) - Closed Specialty Diagnoses / Procedures Referred By Contac t Referred To Contact Cardiology Diagnoses , unspecified gestational age (HCC) Type 2 diabetes mellitus affecting in second trimester, antepartum (HCC) Procedures EKG 12-LEAD Nidhi Araujo MD [address] [place] [address] Referral ID Status Reason Start Date Expiration Date Visits Re quested Visits Authorized [id number] Closed 08/02/2019 01/29/2020 1 1 CTOR CASE Reason for Visit * Procedure (Routine) - Closed Specialty Diagnoses / Procedures Referred By Contac t Referred To Contact Cardiology Diagnoses , unspecified gestational age (HCC) Type 2 diabetes mellitus affecting in second trimester, antepartum (HCC) Procedures EKG 12-LEAD Nidhi Araujo MD [address] [place] [address] Referral ID Status Reason Start Date Expiration Date Visits Re quested Visits Authorized [id number] Closed 08/02/2019 01/29/2020 1 1 Encounter Details Date Type Department Care Team (Late st Contact Info) Description 10/04/2019 12:09 PM DIRECTOR CASE - 10/04/2019 11:59 PM DIRECTOR CASE Hospital Encounter [facility] [address] [place] [address] Nidhi Araujo MD [address] [place] [address] Discharge Disposition: Home or Self [...] 13-19 years with HbA1C goal below 7.5 ([facility]) 2 tabs with breakfast and dinner or [...] as of this encounter Plan of Treatment Scheduled Orders Name Type Priority Associated Diagnoses Orde r Schedule EKG 12-LEAD ECG Routine , unspecified gestational age (HCC) Type 2 diabetes mellitus affecting in second trimester, antepartum (HCC) 1 Occurrences starting 10/04/2019 until 10/04/2019 documented as of this encounter Visit Diagnoses Diagnosis , unspecified gestational age (HCC) Type 2 diabetes mellitus affecting in second trimester, antepartum (HCC) documented in this encounter Care Teams Gi Physician Relationship Specialty Start Date End Date Esperanza Santillan MD [address] [place] [address] PCP - General Family Medicine 09/03/12 documented as of this encounter
--- OUTSIDE RECORDS SUMMARY | 2024-10-14 01:34 | XMS_ITS | Encounter Summary ---
Author Organization [facility] Address [address] [place] [address] Care Team Providers Care Groover Operator Name Role Phone Esperanza Santillan MD Primary Care Provider [phone] Encounter Details Date Type Department Care Team (Latest Contact Info) Description 01/12/2014 12:41 PM CDT - 01/12/2014 11:59 PM T Hospital Encounter [address] [id number] Iveth Mueller MD [address] [place] [id number] Discharge Disposition: Home or Self Care Social [...] needed. 12/04/2015 documented as of this encounter Miscellaneous Notes * Miscellaneous Scans - Document, Scanned - 01/18/2014 6:04 AM CDT documented in this encounter Plan of Treatment Not on file documented as of this encounter Visit Diagnoses Diagnosis Irregular menses- Primary Irregular menstrual cycle Type 2 diabetes mellitus in patient age 13-19 years with HbA1C goal below 7.5 (HCC) Type II or unspecified type diabetes mellitus without mention of complication, not stated as uncontrolled Anemia Anemia, unspecified Obese Obesity, unspecified Menorrhagia Excessive or frequent menstruation Family planning Other general counseling and advice for contraceptive management documented in this encounter Care Teams Groover Operator Relationship Specialty Start Date End Date Esperanza Santillan MD [address] [place] [address] [place] [phone] PCP - General Family Medicine 09/03/12 documented as of this encounter
--- OUTSIDE RECORDS SUMMARY | 2024-10-14 01:34 | XMS_ITS | Encounter Summary ---
Author Organization [facility] Address [address] [place] [address] Care Team Providers Care Natural Science Manager Name Role Phone Esperanza Santillan MD Primary Care Provider [phone] Reason for Visit * Reason Onset Date Comments MEDICATION REFILL 03/23/2015 Encounter Details Date Type Department Care Team (Late st Contact Info) Description 03/23/2015 Refill [facility] Pediatrics - Diabetes Mgmt [address] [place] [address] [phone] Iveth Mueller MD [address] [place] [id number] MEDICATION REFILL Social History Tobacco Use Types [...] encounter Miscellaneous Notes * Telephone Encounter - Brook Ontiveros RN - 03/23/2015 3:52 PM CDT Melsisa calling herself wanting refill on Metformin. But has not been to clinic since 01/10/14. Dr. Mueller approved refilling for 1 month with understanding need to have made an appointment. Offered an appointment for next week 11/28/14 but can not make. Made an appointment for 04/24/[address] Mueller at 1130. She states she lost her meter and needs a new meter. Will order new Freestyle Lite meter to [facility] [address] in [place]. Told her to call back with issues filling meter. She agreed. documented in this encounter Plan of Treatment Not on file documented as of this encounter Visit Diagnoses Not on filedocumented in this encounter Care Teams Natural Science Manager Relationship Specialty Start Date End Date Esperanza Santillan MD [address] [place] [address] [place] [address] PCP - General Family Medicine 09/03/12 documented as of this encounter
--- OUTSIDE RECORDS SUMMARY | 2024-10-14 01:34 | XMS_ITS | Encounter Summary ---
Author Organization [facility] Address [address] [place] [address] Care Team Providers Care Precision Aircraft Structure Assembler Name Role Phone Esperanza Santillan MD Primary Care Provider [phone] Reason for Visit * Reason Comments Ultrasound * Evaluate & Treat (Routine) - Closed Specialty Diagnoses / Procedures Referred By Contac t Referred To Contact Maternal Medicine Procedures MA SONO FU OR REPEAT Jewell Acosta MD [address] [address] [facility] [address] [place] [address] Referral ID Status Reason Start Date Expiration Date Visits Re quested Visits Authorized [id number] Closed 10/29/2019 04/26/2020 8 8 Encounter Details Date Type Department Care Team (Latest Contact Info) Description 10/29/2019 9:00 AM DIRECTOR OF SALES - 10/29/2019 11:59 PM DIRECTOR OF SALES Hospital Encounter [facility] Health Maternal & Care [address] [place] [address] Paco Gunn MD [address] [facility] [address] [place] [address] Discharge Disposition: Home or Self [...] years with HbA1C goal below 7.5 ([facility]) 2 tabs with breakfast and dinner or [...] Associated Diagnosis Comments SONOGRAM - COMPLETE Routine 10/29/2019 9:08 AM DIRECTOR OF SALES with type 2 diabetes mellitus in second trimester (HCC) Supervision of high-risk of young primigravida (HCC) Maternal morbid obesity in second trimester, antepartum (HCC) documented in this encounter Results * SONOGRAM - COMPLETE (10/29/2019 9:08 AM DIRECTOR OF SALES) Anatomical Region Laterality Modality Other 10/29/2019 9:08 AM DIRECTOR OF SALES Narrative 10/29/2019 11:29 AM DIRECTOR OF SALES ? [facility] Maternal Medicine ? Maternal & Care Center ?PHONE: ??FAX: Pat. Name: ?VEENA MCRAE. No: ?[id number] Study Date: ?? 10/29/2019 ??9:08am , Age: ? 2000, 19 Pregnancies: ?? 1 Height: ? 60 in Weight: ? 198 lb LMP: ?05/03/2019 GA by LMP: ?25w4d GA by Base: ?? 25w4d ?? PAVEL: 02/07/2020 GA by US: ? 25w3d ?? PAVEL: 02/08/2020 GA Selected: ??25w4d (From [facility]) PAVEL: ?02/07/2020 Referring MD: Tony Lira MD Pamphlet Distributor: ??Karina Kirby RDMS CPT4: ? 08663,09381 BMI: ?38.67 Hist/Ind: ? Type II DM- Metformin ?Class II Obesity ? echo scheduled ?Complete Anatomy MEASUREMENTS & AGE ? GROWTH EVALUATION Measurement ??GA ? Range ? Srce %for GA Ratios ----- ---- ------- BPD ??6.3 cm 25w3d (44d6f-15v5e) Hadl BPD 37% FL/BPD 0.76 (0.71 - 0.87) HC ??23.4 cm 25w3d (26p3k-02e7t) Hadl HC ??20% FL/AC ??0.22 (0.20 - 0.24) AC ??21.8 cm 26w2d (31j9t-23k4i) Hadl AC ??63% HC/AC ??1.07 (1.01 - 1.20) FL ?? 4.8 cm 26w1d (52y3a-23y1m) Hadl FL ??51% CI ? 0.76 (0.70 - 0.86) HL ?? 4.7 cm 27w5d (18q3u-85r8n) Cresencio HL ??85% GA for sonogram 25w3d (97a1r-80c7o) ?? Weight Estimate: based on (BPD,HC,AC,FL) Hadlock ?Weight: 886 gm (756-1015gm) Hadlo ? : 1lbs, 15oz ? Normal: 858 gm (644- 1072gm) Hadlo ? Wt% ? 60% for 25w4d Cervix: ??Length: 4.4 cm ??Approach: transvaginal Heart Rate: 144 bpm Amniotic Fluid Index: 04.7cm (Deepest Pocket) EVAL, PLACENTA Presentation: cephalic Umbilical Cord: 3 Vessels Placenta: posterior Heart Rate: 144 bpm Amniotic Fluid Volume: normal Anatomy!Normal!Abnormal!Suboptimal!Prev. Seen!Comments Cranium ?! ?? x ??! ?! ?! ? x ?! Mdl (CSP/Thal! ?! ?! ?! ? x ?! Ventricles ?? ! ?! ?! ?! ? x ?! Choroid Plexu! ?! ?! ?! ? x ?! Cerebellum ?? ! ?! ?! ?! ? x ?! Cisterna M. ??! ?! ?! ?! ? x ?! Nuchal Fold ??! ?! ?! ?! ? x ?! Profile ?! ?? x ??! ?! ?! ?! Nasal Bone ?? ! ?? x ??! ?! ?! ?! Lip ?! ?! ?! ?! ? x ?! Spine ?! ?! ?! ?! ? x ?! Lungs ?! ?! ?! ?! ? x ?! 4 Chamber Hea! ?? x ??! ?! ?! ?! LVOT ? ! ?? x ??! ?! ?! ?! RVOT ? ! ?? x ??! ?! ?! ?! 3 Vessel View! ?? x ??! ?! ?! ?! Cross-over ?? ! ?? x ??! ?! ?! ?! Ductal Arch ??! ?? x ??! ?! ?! ?! Aortic Arch ??! ?? x ??! ?! ?! ?! Caval View ?? ! ?? x ??! ?! ?! ?! Situs ?! ?! ?! ?! ? x ?! Diaphragm ?! ?! ?! ?! ? x ?! Stomach ?! ?? x ??! ?! ?! ? x ?! Bowel ?! ?? x ??! ?! ?! ? x ?! Kidneys ?! ?? x ??! ?! ?! ? x ?! Bladder ?! ?? x ??! ?! ?! ? x ?! 3 Vessel Cord! ?? x ??! ?! ?! ? x ?! Cord In! ?! ?! ?! ? x ?! Upper Extremi! ?! ?! ?! ? x ?! Hands ?! ?! ?! ?! ? x ?! Lower Extreme! ?! ?! ?! ? x ?! Feet ? ! ?! ?! ?! ? x ?! External Kelsie! ?! ?! ?! ? x ?! Placental Cor! ?! ?! ?! ? x ?! CLINICAL SUMMARY Study Number: 3 ?? A single fetus is seen in cephalic presentation. ??The measurements today are consistent with appropriate size for the PAVEL provided. ??The PAVEL is based on LMP and a prior ultrasound. ??The amniotic fluid volume is within normal limits. ?? The anatomy was . ?? No major malformations were seen within the limitations of ultrasound. ?? IMPRESSION: Single. live intrauterine at 25w4d ?? size is within normal limits ?? Amniotic fluid volume: within normal limits ?? Reassuring transvaginal cervical length ?? RECOMMEND: Ultrasound in 4 weeks for growth due to her medical problem ?? No follow ups were scheduled. Will need order for further follow-ups. Thank you for allowing us they opportunity to care for your patient. ?? Paco Gunn MD <Electronic Signature> ??10/29/2019 11:29am Parminder Lema MD [facility] ORDERABLES documented in this encounter Visit Diagnoses Diagnosis with type 2 diabetes mellitus in second trimester (HCC)- Primary Supervision of high-risk of young primigravida (HCC) Supervision of high-risk of young primigravida Maternal morbid obesity in second trimester, antepartum (HCC) Obesity complicating , second trimester (HCC) Obesity, unspecified classification, unspecified obesity type, unspecified whether serious comorbidity present 25 weeks gestation of (HCC) state, incidental documented in this encounter Care Teams Precision Aircraft Structure Assembler Relationship Specialty Start Date End Date Esperanza Santillan MD [address] [place] [address] [place] [phone] PCP - General Family Medicine 09/03/12 documented as of this encounter
--- OUTSIDE RECORDS SUMMARY | 2024-10-14 01:35 | XMS_ITS | Encounter Summary ---
Author Organization [facility] Address [address] [facility] [place] [address] Care Team Providers Care Top Precipitator Operator Name Role Phone Eliane Cotton MD Primary Care Provider Unavaila ble Reason for Visit * Reason Comments Lower Extremity Problem webbed feet Encounter Details Date Type Department Care Team (Latest Contact Info) Description 06/04/2011 9:15 AM CDT - 06/04/2011 11:59 PM CDT Hospital Encounter [facility] Pediatrics - Orthopedics [address] [place] [id number] Shelby Grove MD Discharge Disposition: Home or Self Care Social History Tobacco Use Types Packs/Day Years Used Date Smoking Tobacco: Never Assessed Sex and Gender Information Value Date Recorded Sex Assigned at Not on file Gender Identity Not on file Sexual Orientation Not on file documented as of this encounter Discharge Instructions * Patient Instructions* Nicole Abdullahi MD - 06/04/2011 9:43 AM CDT No diagnosis found. Return appointment: As needed Call [phone], option 1, for return if your child has new symptoms or problems, or if you have concerns. Call [phone] for questions. Physicians orders: none Medications prescribed: none Activity Restrictions: none School Excuse: Patient had an appointment 06/04/2011 documented in this encounter Progress Notes * Shelby Grove MD - 06/04/2011 9:29 AM CDT NAME: Melissa Jackson DATE: 06/04/2011 : 2000 HISTORY: Melissa Jackson is a 11 y.o. 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 Patient had been doing well until the past 1-2 weeks when she started experiencing occasional shooting pain on bilateral 2nd and 3rd toes. She has not required to take pain medicines and the pain has not been limiting her activities except sometimes the toe pain is worsened when she tries to wear her tennis shoes. Patient denies any trauma or fall injury to toes. She is accompanied today by her mother who report no fevers, no recent illness. No history of congenital defects per mother No family history of gentic disorders of familial syndactyly MEDS: No current outpatient prescriptions on file. PAST MEDICAL HISTORY: none PAST SURGICAL HISTORY: none ALLERGIES: Not on File IMMUNIZATIONS: Up to date REVIEW OF SYSTEMS: negative as per HPI DEVELOPMENTAL HISTORY: appropriate for age SOCIAL HISTORY: She does attend school. She is the first child. PHYSICAL EXAM: Patient is well-developed, well-nourished and in no acute distress. Breathing is non-labored and there are no audible wheezes. Head and trunk control are appropriate. The patient ambulates throughout the office with a symmetric heel-to-toe gait without a limp. Examination of the lower extremeties reveals no obvious deformity or malalignment. The patient has symmetric and full range of motion of both hips and knees. Bilateral foot and ankle is without active skin lesions. Both feet with partial syndactyly of the 2nd and 3rd toes bilateral. There is no tenderness to palpation throughout. There is unrestricted range of motion. Normal dorsiflexion and plantar flexion bilateral. Anterior drawer is negative. There is no swelling. When weightbearing, the ankles are in a positionof pes planovalgus. The medial longitudinal arches return when nonweight bearing. The distal neurovascular examination is intact in the lower extremities. 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 Family verbalized understanding, agree with plan of care -may return to orthopedics clinic as needed if new questions or concerns arise I have personally seen and evaluated the above patient with the resident. I have discussed the results of the physical exam and all studies with the patient and family. I developed the above plan of care and discussed it with the patient. I have revised the above note and agree with the resident's assessment and plan of care. * Mindy Martinez LPN - 06/04/2011 9:19 AM CDT Patient is here to be evaluated for her webbed toes documented in this encounter Miscellaneous Notes * Miscellaneous Scans - Document, Scanned - 07/29/2011 8:13 AM CDT * Miscellaneous Scans - Document, Scanned - 07/26/2011 9:00 PM CDT documented in this encounter Plan of Treatment Not on file documented as of this encounter Visit Diagnoses Not on filedocumented in this encounter Care Teams Top Precipitator Operator Relationship Specialty Start Date End Date Eliane Cotton MD OIG SANCTIONED!! DO NOT USE!! PCP - General 06/03/11 09/02/12 documented as of this encounter
--- OUTSIDE RECORDS SUMMARY | 2024-10-14 01:35 | XMS_ITS | Encounter Summary ---
Author Organization [facility] Address [address] [facility] [place] [address] Care Team Providers Care Director Supply Chain Name Role Phone Esperanza Santillan MD Primary Care Provider [phone] Reason for Visit * Reason Onset Date Comments Question 04/29/2013 Encounter Details Date Type Department Care Team (Late st Contact Info) Description 04/29/2013 [facility]phone [facility] Immun[facility] [address] [place] [address] Felecia Vigil MD [address] [place] [address] [phone] Question Social History Tobacco Use Types Packs/Day [...] encounter Miscellaneous Notes * Telephone Encounter - Felecia Vigil MD - 04/29/2013 4:07 PM CDT ASked to begin ocps on February 28, but did not and went out of town, leaving ocps at home. Is still outof town and began bleeding about a month ago, has bled every day, heavily she says. Rx filled at [facility]; asked her to contact [facility] in [place] to see if Rx can be transferred there. Patient isto begin pills today if possible and to take one a day. Bleeding should stop in 3-4 days. If it does not, patient should call back. * Telephone Encounter - Bree Agarwal - 04/29/2013 3:46 PM CDT Melissa called with a question concerning starting her control. She was supposed to start them in February but was still bleeding and never did. Please call. documented in this encounter Plan of Treatment Not on file documented as of this encounter Visit Diagnoses Not on filedocumented in this encounter Care Teams Director Supply Chain Relationship Specialty Start Date End Date Esperanza Santillan MD [address] [place] [address] [place] [address] PCP - General Family Medicine 09/03/12 documented as of this encounter
--- OUTSIDE RECORDS SUMMARY | 2024-10-14 01:35 | XMS_ITS | Encounter Summary ---
Author Organization [facility] Address [address] [facility] [place] [address] Care Team Providers Care Telecommunications Line Installer Name Role Phone Esperanza Santillan MD Primary Care Provider [phone] Reason for Visit * Auth/Cert - Closed Specialty Diagnoses / Procedures Referred By Carson mclaughlin Referred To Contact Diagnoses Vomiting Procedures ENDOSCOPY GI UPPER WITH BIOPSY Referral ID Status Reason Start Date Expiration Date Visits Re quested Visits Authorized [id number] Closed 1 1 Encounter Details Date Type Department Care Team (Late st Contact Info) Description 11/19/2012 6:19 PM ENVIRONMENTAL SYSTEMS COORDINATOR Anesthesia Event [facility] - Endoscopy [address] [place] [address] Cynthia Cobb MD [address] [place] [address] Miryam Montez APRN-DIANE [address] [place] [address] [place] [address] Anesthesia Record Procedure Summary Procedure Name Responsible Anesthesiologist Anesthesia Start Time Anesthesia Stop Time ESOPHAGOGASTRODUODENOSCOPY ( EGD) BIOPSY Cynthia Cobb MD 11/19/12 1125 Events Date Time Event Comment 11/19/2012 1047 An Start To OR monitors applied, Time Out performed. Pt crying, mother here 1049 An Start Data 1049 An Induction Nitrous oxide a nd O2 CFM on for IV start then switch to TIVA with propofol gtt. 1110 An Emergence 1115 an stop data Patient Transpo rted to PACU on O2. SpO2 monitoring. Report Given to PACU Nurse. 1125 An Stop Meds Name Total midazolam (VERSED) 1 mg/mL injection 2 m g propofol (DIPRIVAN) 10mg/ml 348.4 mg propofol (DIPRIVAN) 10 mg/mL 30 mg lidocaine (MPF) 2% injection 50 mg isolyte-S pH 7.4 infusion 500 mL * Agents Name Insp. N2O O2 * Blood No blood administrations on file. Lines, Drains, and Airways Type Details Placement Removal Peripheral IV Date: 11/19/12; Time : 1053; Orientation: Right; Placed By: Thad RODRIGUEZ; Tolerance: General Anesthesia 11/19/12 1053 by Miryam Montez APRN-GENERAL MAINTENANCE TECHNICIAN 11/19/12 1155 by Rose Irizarry RN documented in this encounter Social History Tobacco Use Types Packs/Day Years Used Date Smoking Tobacco: Never Alcohol Use Standard Drinks/Week Comments Not Asked 0 (1 standard drink = 0.6 oz pur e alcohol) Sex and Gender Information Value Date Recorded Sex Assigned at Not on file Gender Identity Not on file Sexual Orientation Not on file documented as of this encounter Progress Notes * Cynthia Cobb MD - 11/19/2012 12:25 PM CST ANESTHESIA POSTPROCEDURE EVALUATION Melissa Jackson is a 12 y.o. female Temp: 36.7 ??C Pulse: 80 Resp: 18 BP: 118/52 mmHg Pain Rating Score #: 0 A postop evaluation was performed on this patient with the following assessment: no apparent anesthesia complications Mental status: sufficiently recovered from acute administration of anesthesia to participate in theevaluation. Level of consciousness: awake No numbness, tingling or visual disturbances present. General appearance: well-appearing Respiratory function: natural airway. Cardiac: stable Pain: comfortable/acceptable PONV: None Postop hydration: adequate. Patient may be released from anesthesia care. Post-Op Diagnosis Codes: * Vomiting [787.03] RONMENTAL SYSTEMS COORDINATOR * Cynthia Cobb MD - 11/19/2012 10:22 AM CST PRE-ANESTHESIA EVALUATION Procedure(s) (LRB): ENDOSCOPY GI UPPER WITH BIOPSY () Vital Signs: Temp: [37 ??C] Pulse: [90] Resp: [16] BP: (136)/(82) BMI: Estimated Body mass index is 35.65 kg/(m^2) as calculated from the following: Height as of 11/09/12: 5' 2.126 (1.578 m). Weight as of 11/09/12: 195 lb 11.2 oz(88.769 kg). History: No past medical history on file. Past Surgical History Procedure Date ??? Pr dental surgery procedure Allergies: has no known allergies. Medications: No current facility-administered medications for this visit. No current outpatient prescriptions on file. Facility-Administered Medications Ordered in Other Visits: lidocaine (LMX 4) 4% cream ADS Med, , , , , 1 Tube at 11/19/12 1000 Prescriptions prior to admission Medication Sig Dispense Refill ??? metFORMIN (GLUCOPHAGE) 500 MG tablet 2 tabs with breakfast and dinner 120 Tab 6 ??? Norethin-Eth Estrad-Fe Biphas (LO LOESTRIN FE PO) Take by mouth once daily. ??? omeprazole (PRILOSEC) 20 MG capsule Take 1 Cap by mouth daily before breakfast. 30 Cap 2 ??? blood glucose (FREESTYLE LITE STRIPS) test strip Use 1 Strip 2 times daily. 100 Strip 11 ??? lancets (FREESTYLE LANCETS) MISC Use 1 Each 2 times daily. 100 Each 11 Physical Exam: NPO status: Other (NPO since GA) Oriented x 3 (cooperative, joking teen) Dental exam findings: OK. Airway class: II. Pulmonary exam: clear to auscultation. Cardiovascular exam positive for: S1 S2. Alignment: symmetrical. Obesity: mildly obese. Other comments: Accucheck @1020 was 103 Plan for Anesthesia: ASA 2 Planned intraoperative anesthesia: general Planned postop anesthesia per surgeon request: opioids. Planned postop destination: PACU Planned induction: Intravenous Anesthetic plan, risks and benefits discussed with mother and father (Randee Bagley and Abimael Jackson). Anesthesia consent: questions answered / anesthesia plan accepted Discussed anesthesia plan with: Attending (Reza RODRIGUEZ). Patient Active Problem List Diagnosis ??? Irregular menses ??? Obesity (BMI 35.0-39.9 without comorbidity) ??? Type 2 diabetes mellitus in patient age 13-19 years with HbA1C goal below 7.5 Allergies Review of patient's allergies indicates no known allergies. Meds Prescriptions prior to admission Medication Sig Dispense Refill ??? metFORMIN (GLUCOPHAGE) 500 MG tablet 2 tabs with breakfast and dinner 120 Tab 6 ??? Norethin-Eth Estrad-Fe Biphas (LO LOESTRIN FE PO) Take by mouth once daily. ??? omeprazole (PRILOSEC) 20 MG capsule Take 1 Cap by mouth daily before breakfast. 30 Cap 2 ??? blood glucose (FREESTYLE LITE STRIPS) test strip Use 1 Strip 2 times daily. 100 Strip 11 ??? lancets (FREESTYLE LANCETS) MISC Use 1 Each 2 times daily. 100 Each 11 No current facility-administered medications for this visit. No current outpatient prescriptions on file. Facility-Administered Medications Ordered in Other Visits Medication Dose Route Frequency Provider Last Rate Last Dose ??? lidocaine (LMX 4) 4% cream ADS Med 1 Tube at 11/19/12 1000 No past medical history on file. Past Surgical History Procedure Date ??? Pr dental surgery procedure No family history on file. Labs: Component Name 10/23/12 1143 WBC 7.0 HGB 11.6* HCT 36.7 PLTCOUNT 428* Component Name 10/23/12 1143 SODIUM 143 POTASSIUM 3.8 CO2 24 BUN 7.8 CREATININE 0.75 GLUCOSE 93 No results found for this basename: PT,INR,PTT in the last 56833 hours Test: Component Name 11/19/12 0930 HCGURINE Negative HCGQUAL -- RONMENTAL SYSTEMS COORDINATOR documented in this encounter Plan of Treatment Not on file documented as of this encounter Visit Diagnoses Not on filedocumented in this encounter Administered Medications Inactive Administered Medications - up to 3 most recent administrations Medication Order MAR Action Action Date Dose Rate Site isolyte-S pH 7.4 infusion CONTINUOUS PRN, Starting on Maren 11/19/12 at 1053, Until Maren 11/19/12 at 1225, Anesthesia Intra-op $ New Bag/Syringe 11/19/2012 10:53 AM ENVIRONMENTAL SYSTEMS COORDINATOR mL lidocaine (XYLOCAINE MPF) 2 % injection PRN, Starting on Maren 11/19/12 at 1106, Until Maren 11/19/12 at 1225, Anesthesia Intra-op $ Given 11/19/2012 11:06 AM ENVIRONMENTAL SYSTEMS COORDINATOR 50 mg midazolam (VERSED) injection PRN, Starting on Maren 11/19/12 at 1055, Until Maren 11/19/12 at 1225, Intra-op $ Given 11/19/2012 10:55 AM ENVIRONMENTAL SYSTEMS COORDINATOR 2 mg propofol (DIPRIVAN) 10 mg/ml injection PRN, Sedation, Starting on Maren 11/19/12 at 1106, Until Maren 11/19/12 at 1225, Anesthesia Intra-op $ Given 11/19/2012 11:06 AM ENVIRONMENTAL SYSTEMS COORDINATOR 30 mg propofol (DIPRIVAN) injection CONTINUOUS PRN, Starting on Maren 11/19/12 at 1054, Until Maren 11/19/12 at 1225, Anesthesia Intra-op $ New Bag/Syringe 11/19/2012 10:54 AM ENVIRONMENTAL SYSTEMS COORDINATOR 250 mcg/kg/min 130.65 mL/hr documented in this encounter Care Teams Telecommunications Line Installer Relationship Specialty Start Date End Date Esperanza Santillan MD [address] [place] [address] [place] [phone] PCP - General Family Medicine 09/03/12 documented as of this encounter
--- OUTSIDE RECORDS SUMMARY | 2024-10-14 01:35 | XMS_ITS | Encounter Summary ---
Author Organization [facility] Address [address] [facility] [place] [address] Care Team Providers Care Punchboard Stuffer Name Role Phone Esperanza Santillan MD Primary Care Provider [phone] Reason for Visit * Reason Onset Date Comments Results 10/26/2012 Patient called t o get lab results. Please call to discuss. Encounter Details Date Type Department Care Team (Late st Contact Info) Description 10/26/2012 Telephone [facility] Pediatrics - Endocrinology [facility] [facility] [place] [address] Serena Rivera, UNDERCOLLAR BASTER-BUILDING SERVICES SUPERVISOR Retired Results (Patient called to get lab results. Please call to discuss. ) Social History Tobacco Use Types Packs/Day [...] encounter Miscellaneous Notes * Telephone Encounter - Serena Rivera, RN,CPNP - 10/26/2012 12:44 PM SALES OFFICE MANAGER Spoke with mother, as she was calling about the lab results done 10/09/12 (cortrosyn stim test); briefly discssed. Dr. Moore has reviewed the results and was planning to contact mother. S OFFICE MANAGER documented in this encounter Plan of Treatment Not on file documented as of this encounter Visit Diagnoses Not on filedocumented in this encounter Care Teams Punchboard Stuffer Relationship Specialty Start Date End Date Esperanza Santillan MD [address] [place] [address] PCP - General Family Medicine 09/03/12 documented as of this encounter
--- OUTSIDE RECORDS SUMMARY | 2024-10-14 01:35 | XMS_ITS | Encounter Summary ---
Author Organization [facility] Address [address] [facility] [place] [address] Care Team Providers Care Cork Insulation Setter Name Role Phone Esperanza Santillan MD Primary Care Provider [phone] Encounter Details Date Type Department Care Team (Late st Contact Info) Description 10/01/2012 Orders Only [facility] Pediatrics - Endocrinology [facility] [place] [address] Serena Rivera, BILLING REP-OUTREACH PROFESSIONAL Retired Type II or unspecified type diabetes mellitus without mention of complication, not stated as uncontrolled (HCC); Irregular menses; Obesity (BMI 35.0-39.9 without comorbidity) Social History Tobacco Use Types Packs/Day Years Used Date Smoking Tobacco: Never Assessed Sex and Gender Information Value Date Recorded Sex Assigned at Not on file Gender Identity Not on file Sexual Orientation Not on file documented as of this encounter Plan of Treatment Not on file documented as of this encounter Results * (ABNORMAL) HEMOGLOBIN A1C - POCT (IP) CARMEN (10/09/2012 9:12 AM DAM WORKER) Hemoglobin A1c POCT 6.3(A) 3.4 - 6.1 % [facility] POCT TESTING QC Verified yes Yes [facility] PO CT TESTING Blood specimen (specimen) BLOOD SPECIMEN / Unknown 10/09/2012 9:12 AM DAM WORKER Serena [facility] - POINT OF C ARE ORDERABLES Performing Organization Address City/[facility] Co de Phone Number [facility] POCT TESTING [address] [place] [address] * (ABNORMAL) GLUCOSE (10/02/2012 11:15 AM DAM WORKER) Glucose 115(H) 70 - 105 mg/dL 10/02/2012 12:06 PM DAM WORKER [facility] Blood specimen (specimen) BLOOD SPECIMEN / Unknown 10/02/2012 11:15 AM DAM WORKER 10/02/2012 11:27 AM DAM WORKER Serena Rivera APRN-[facility] - CHEMISTRY ORDERABLES Performing Organization Address [facility] de Phone Number [facility] [address] [place] [id number] * HYDROXYPROGESTERONE 17- (10/02/2012 11:15 AM DAM WORKER) 17 Hydroxyprogesterone 239 ng/dL 3:28 PM [facility] [employer] Comment: 17-HYDROXYPROGESTERONE: Jose G Stages, Females Age 7-17 [...] BLOOD SPECIMEN / Unknown 10/02/2012 11:15 AM DAM WORKER 10/02/2012 11:27 AM DAM WORKER Serenarogelio Herronf BILLING REP-OUTREACH PROFESSIONAL LAB - CHEMISTRY ORDERABLES [facility] [address] [place] [address] * TESTOSTERONE FREE FEM/CHLD HYPOGNDL MALE (10/02/2012 11:15 AM DAM WORKER) Pathologist [facility] Testosterone Free LC-MS 5.5 1.2 - 7.5 pg/mL 10/05/2012 8:03 AM [facility] Comment: Testosterone, Free LC-MS/MS: Jose G Stage [...] reference intervals for this test in the [facility] Laboratory Test Directory ([place]u). Blood specimen (specimen) BLOOD SPECIMEN / Unknown 10/02/2012 11:15 AM DAM WORKER 10/02/2012 11:27 AM DAM WORKER Serena M Miguel [facility] - CHEMISTRY ORDERABLES Performing Organization Address [facility] Co de Phone Number [facility] [employer] [address] [place] [address] * TESTOSTERONE TOTAL FEM/CHLD HYPOGNDL MALE (10/02/2012 11:15 AM DAM WORKER) Testosterone by Airport Engineer 22 6 - 52 ng/dL 10/05/2012 7:41 AM [facility] Comment: INTERPRETIVE INFORMATION: Total Testosterone, Jose G [...] reference intervals for this test in the [facility] Laboratory Test Directory ([place]u). Blood specimen (specimen) BLOOD SPECIMEN / Unknown 10/02/2012 11:15 AM DAM WORKER 10/02/2012 11:27 AM DAM WORKER Serena Monica Miguel [facility] - CHEMISTRY ORDERABLES Performing Organization Address [facility] Co de Phone Number [facility] [address] [place] [address] * DHEA SULFATE (10/02/2012 11:15 AM DAM WORKER) Dehydroepiandrosterone Sulfate (DHEAS) 90.4 8.6 - 169.8 ug/dL 10/02/2012 12:21 PM DAM WORKER [facility] Blood specimen (specimen) BLOOD SPECIMEN / Unknown 10/02/2012 11:15 AM DAM WORKER 10/02/2012 11:27 AM [facility] Narrative [facility] - 10/02/2012 12:21 PM DAM WORKER JOSE G RANGES: Male: ?? Stage 1 ?7-209 mcg/dL ? Stage 2 ?? 28-260 mcg/dL ? Stage 3 ?? 39-390 mcg/dL ? Stage 4 ?? 81-488 mcg/dL Female: Stage 1 ?7-126 mcg/dL ? Stage 2 ?? 13-241 mcg/dL ? Stage 3 ?? 32-446 mcg/dL ? Stage 4 ?? 65-371 mcg/dL Serena Rivera BILLING REP-OUTREACH PROFESSIONAL LAB - CHEMISTRY ORDERABLES Performing Organization Address City/State/[facility] Co de Phone Number [facility] [address] [facility] [place] [address] * FSH (10/02/2012 11:15 AM [facility]) FSH 6.72 0.2 - 8.0 mIU/mL 10/02/2012 1:11 PM [facility] Blood specimen (specimen) BLOOD SPECIMEN / Unknown 10/02/2012 11:15 AM DAM WORKER 10/02/2012 12:01 PM [facility] Narrative [facility] - 10/02/2012 1:11 PM DAM WORKER ?FSH Reference Range Normal Female Menses: ? Normally menstruating: ? Follicular ?3.0 - ?? 8.1 ??mIU/mL ? Midcycle Peak ? 2.6 - ??16.7 ??mIU/mL ? Luteal ?1.4 - ?? 5.5 ??mIU/mL ? Postmenopausal ?? 26.7 - 133.4 ??mIU/mL ? Serena Rivera APRNOUTREACH PROFESSIONAL LAB - CHEMISTRY ORDERABLES Performing Organization Address [facility] Co de Phone Number [facility] [address] [place] [address] * DIABETES - ISLET CELL (10/02/2012 11:15 AM DAM WORKER) Islet Cell Antibody IgG <1:4 <1:4 10/04/2012 3:03 PM DAM WORKER [employer] Comment: INTERPRETIVE INFORMATION: Islet Cell Ab, IgG [...] BLOOD SPECIMEN / Unknown 10/02/2012 11:15 AM DAM WORKER 10/02/2012 11:27 AM DAM WORKER Serena Rivera [facility] - SEROLOGY O RDERABLES Performing Organization Address [facility] de Phone Number [facility] [address] [place] [address] * DIABETES - IA 2 AB (10/02/2012 11:15 AM DAM WORKER) Insulinoma Associated 2 Antibody <0.8 0.0 - 0.8 U/mL 10/06/2012 1:00 PM DAM WORKER [employer] Comment: INTERPRETIVE INFORMATION: IA-2 Antibody A value greater than 0.8 Kronus Units/mL is considered positive for IA-2 Antibodies. Blood specimen (specimen) BLOOD SPECIMEN / Unknown 10/02/2012 11:15 AM DAM WORKER 10/02/2012 11:27 AM DAM WORKER Serena Rivera [facility] - SEROLOGY O RDERABLES Performing Organization Address [facility] de Phone Number [facility] [address] [place] [address] * DIABETES - YUNG AB (10/02/2012 11:15 AM DAM WORKER) Glutamic Acid Decarboxylase Antibody <5.0 0.0 - 5.0 IU/mL 10/04/2012 4:33 PM [facility] [employer] Comment: INTERPRETIVE INFORMATION: ??Glutamic Acid Decarboxylase Antibody A value greater than 5.0 IU/mL is considered positive for Glutamic Acid Decarboxylase Antibody. Blood specimen (specimen) BLOOD SPECIMEN / Unknown 10/02/2012 11:15 AM DAM WORKER 10/02/2012 11:27 AM DAM WORKER Serena Rivera [facility] - SEROLOGY O RDERABLES [facility] [address] [place] [address] * (ABNORMAL) C-PEPTIDE (10/02/2012 11:15 AM DAM WORKER) C-Peptide 2.70(H) 0.78 - 1.89 10/02/2012 5:[address] [facility] Blood specimen (specimen) BLOOD SPECIMEN / Unknown 10/02/2012 11:15 AM DAM WORKER 10/02/2012 11:27 AM DAM WORKER Serena Rivera [facility] - CHEMISTRY ORDERABLES [facility] [address] [place] [address] * LIPID PROFILE (10/02/2012 11:15 AM DAM WORKER) Cholesterol 142 <170 mg/dL 10/02/2012 12:20 PM [facility] Triglycerides 78 42 - 330 mg/dL 10/02/2012 12:20 PM [facility] HDL Cholesterol 47 >40 mg/dL 2 12:20 PM [facility] VLDL Calculated 16 12 - 38 mg/dL 10/02/2012 12:20 PM [facility] Chol HDL Ratio 3.0 <=5.0 10/02/2012 12:20 PM [facility] LDL Direct 83 <100 mg/dL 10/02/2012 12:20 PM [facility] Blood specimen (specimen) BLOOD SPECIMEN / Unknown 10/02/2012 11:15 AM DAM WORKER 10/02/2012 11:27 AM [facility] Narrative [facility] - 10/02/2012 12:20 PM [facility] Lipid Profile Comment: Adult references ranges are the recommendation of the [place] [employer] , for those patients >18 [...] state may alter some of these results. Serena Rivera BILLING [facility] - CHEMISTRY ORDERABLES Performing Organization Address [facility] Co de Phone Number [facility] [address] [place] [address] * MICROALB/CREAT RATIO URINE RANDOM PANEL (10/02/2012 9:32 AM [facility]) Creatinine Urine 192.23 mg/dL 10/02/20 12 10:22 AM [facility] Microalbumin Urine 0.9 <1.7 mg/dL 10/02/2012 10:22 AM [facility] Microalbumin/Crea tinine Ratio 5 <30 mg/g 10/02/2012 10:22 AM [facility] Urine specimen (specimen) URINE / Unknown 10/02/2012 9:32 AM DAM WORKER 10/02/2012 9:42 AM DAM WORKER Serena Rivera B[facility]ING [facility] - URINE CHEM ISTRY ORDERABLES Performing Organization Address City/[facility]/ZIP Co de Phone Number [facility] [address] [facility] [place] [address] documented in this encounter Visit Diagnoses Diagnosis Type II or unspecified type diabetes mellitus without mention of complication, not stated as uncontrolled (HCC) Type II or unspecified type diabetes mellitus without mention of complication, not stated as uncontrolled Irregular menses Irregular menstrual cycle Obesity (BMI 35.0-39.9 without comorbidity) Obesity, unspecified Type II or unspecified type diabetes mellitus without mention of complication, not stated as uncontrolled (HCC) Type II or unspecified type diabetes mellitus without mention of complication, not stated as uncontrolled Irregular menses Irregular menstrual cycle Obesity (BMI 35.0-39.9 without comorbidity) Obesity, unspecified Type 2 diabetes mellitus in patient age 13-19 years with HbA1C goal below 7.5 (HCC) Type II or unspecified type diabetes mellitus without mention of complication, not stated as uncontrolled documented in this encounter Care Teams Cork Insulation Setter Relationship Specialty Start Date End Date Esperanza Santillan MD [address] [place] [address] PCP - General Family Medicine 09/03/12 documented as of this encounter
--- OUTSIDE RECORDS SUMMARY | 2024-10-14 01:35 | XMS_ITS | Encounter Summary ---
Author Organization [facility] Address [address] [place] [address] Care Team Providers Care Drywall Sprayer Name Role Phone Esperanza Santillan MD Primary Care Provider [phone] Encounter Details Date Type Department Care Team (Late st Contact Info) Description 04/29/2013 Orders Only [facility] Pediatrics - Endocrinology [facility] [place] [address] Serena Rivera, LICENSED EMBALMER SUPERVISOR-SAFETY INVESTIGATOR/CAUSE ANALYST Retired Obesity (BMI 35.0-39.9 without comorbidity); Type 2 diabetes mellitus in patient age [...] documented as of this encounter Results * HEMOGLOBIN A1C - POCT (IP) CARMEN (01/10/2014 11:35 AM CDT) Hemoglobin A1c POCT 6.1 3.4 - 6.1 % [facility] POCT TESTING QC Verified Yes Yes [facility] PO CT TESTING Blood specimen (specimen) BLOOD SPECIMEN / Unknown 01/10/2014 11:35 AM CDT Serena Rivera LICENSED EMBALMER SUPERVISOR-SAFETY INVESTIGATOR/CAUSE ANALYST LAB - POINT OF C ARE ORDERABLES [facility] POCT TESTING [address] [facility] [place] [address] documented in this encounter Visit Diagnoses Diagnosis Obesity (BMI 35.0-39.9 without comorbidity) Obesity, unspecified Type 2 diabetes mellitus in patient age 13-19 years with HbA1C goal below 7.5 ([facility]) Type II or unspecified type diabetes mellitus without mention of complication, not stated as uncontrolled documented in this encounter Care Teams Drywall Sprayer Relationship Specialty Start Date End Date Esperanza Santillan MD [address] [place] [address] [place] [address] PCP - General Family Medicine 09/03/12 documented as of this encounter
--- OUTSIDE RECORDS SUMMARY | 2024-10-14 01:35 | XMS_ITS | Encounter Summary ---
Author Organization [facility] Address [address] [facility] [place] [address] Care Team Providers Care Tire Bagger Name Role Phone Esperanza Santillan MD Primary Care Provider [phone] Encounter Details Date Type Department Care Team (Late st Contact Info) Description 10/09/2012 8:30 AM COTTON INSPECTOR - 10/09/2012 11:59 PM [facility] Hospital Encounter [facility] Pediatrics - Endocrinology [facility] [place] [address] [place] [address] [facility] [address] [place] [address] Discharge Disposition: Home or Self Care Social [...] Refills Start Date End Date blood glucose (FREESTYLE LITE STRIPS) test stripIndications:Type I (juvenile type) diabetes mellitus without mention of complication, not stated as uncontrolled (HCC) Use 1 Strip 2 times daily. 100 Strip 11 10/02/2012 05/20/2013 lancets (FREESTYLE LANCETS) MISCIndications:Type I (juvenile type) diabetes mellitus without mention of complication, not stated as uncontrolled (HCC) Use 1 Each 2 times daily. 100 Each 11 10/02/2012 03/16/2013 metFORMIN (GLUCOPHAGE) 500 MG tabletIndications:Type I (juvenile type) diabetes mellitus without mention of complication, not stated as uncontrolled (HCC) 2 tabs with breakfast and dinner 120 Tab 6 10/02/2012 2013 documented as of this encounter Progress Notes * Martha Moore MD - 11/05/2012 4:54 PM CSTQuick Note: I reviewed Melissa's Cortrosyn stimulation test results. Although her 17- hydroxypregnenolone levelsat baseline and 60 minutes after Cortrosyn are elevated for a late pubertal girl, her 17-hydroxypregnenolone:17- hydroxyprogesterone ratios are normal, i.e., 4.7 at baseline (reference range 0.8-10) and 4.9 at 60 minutes (reference range 3-17). She does not have a defect in adrenal steroidogenesis. I would ask her to keep a calendar of her menses on metformin. She probably has PCOS, even though her testosterone levels were not elevated, and might benefit from treatment with an OCP in the future. ON INSPECTOR * Brianna Valencia RN - 10/09/2012 9:30 AM CST ACTH Stimulation Test Checklist Nurse only visit Diagnosis: 794.6 CALLIE Yu Ht Readings from Last 1 Encounters: 10/02/12 1.564 m (5' 1.58 ) (22.19%*) * Growth percentiles are based on CDC 2-20 Years data. Wt Readings from Last 1 Encounters: 10/02/12 90.2 kg (198 lb 13.7 oz) (98.71%*) * Growth percentiles are based on CDC 2-20 Years data. There were no vitals filed for this visit. IV or heparin lock inserted: #24 gauge IV catheter placed in right AC Medications Given: Cortrosyn 0.25mg LAB BASELINE +60 MINUTES 17 Hydroxypregnenelone 653 1980 17 Hydroxyprogesterone 140 403 11 Deoxycortisol 151 249 Progesterone 0.37 1.45 11 Deoxycorticosterone 20 50 DHEA 3.6 5.97 Androstendione 1.97 2.31 Testosterone 26 27 DHEA Sulfate 89.5 Patient discharged: 1030 with mother RN: Brianna Valencia RN ON INSPECTOR documented in this encounter Miscellaneous Notes * Miscellaneous Scans - Document, Scanned - 11/16/2012 11:42 AM CST ON INSPECTOR documented in this encounter Plan of Treatment Not on file documented as of this encounter Procedures Procedure Name Priority Date/Time Associated Diagnosis Comments DEOXYCORTICOSTERONE (DOC) Routine 2012 10:20 AM COTTON INSPECTOR Irregular menses Type II or unspecified type diabetes mellitus without mention of complication, not stated as uncontrolled (HCC) HYDROXYPREGNENOLONE 17- Routine 10/09/19 13 10:20 AM COTTON INSPECTOR Irregular menses Type II or unspecified type diabetes mellitus without mention of complication, not stated as uncontrolled (HCC) PROGESTERONE Routine 10/09/2012 10:20 AM COTTON INSPECTOR Irregular menses Type II or unspecified type diabetes mellitus without mention of complication, not stated as uncontrolled (HCC) HYDROXYPROGESTERONE 17- Routine 10/09/19 13 10:20 AM COTTON INSPECTOR Irregular menses Type II or unspecified type diabetes mellitus without mention of complication, not stated as uncontrolled (HCC) DEOXYCORTISOL-11 Routine 10/09/2012 10:2 0 AM COTTON INSPECTOR Irregular menses Type II or unspecified type diabetes mellitus without mention of complication, not stated as uncontrolled (HCC) DHEA Routine 10/09/2012 10:20 AM COTTON INSPECTOR Irregular menses Type II or unspecified type diabetes mellitus without mention of complication, not stated as uncontrolled (HCC) ANDROSTENEDIONE Routine 10/09/2012 10:20 AM COTTON INSPECTOR Irregular menses Type II or unspecified type diabetes mellitus without mention of complication, not stated as uncontrolled (HCC) TESTOSTERONE TOTAL FEM/CHLD HYPOGNDL MALE Routine 10/09/2012 10:20 AM COTTON INSPECTOR Irregular menses Type II or unspecified type diabetes mellitus without mention of complication, not stated as uncontrolled (HCC) CORTISOL BLOOD Routine 10/09/2012 10:20 AM COTTON INSPECTOR Irregular menses Type II or unspecified type diabetes mellitus without mention of complication, not stated as uncontrolled (HCC) DEOXYCORTICOSTERONE (DOC) Routine 2012 9:24 AM COTTON INSPECTOR Irregular menses HYDROXYPREGNENOLONE 17- Routine 10/09/19 13 9:24 AM COTTON INSPECTOR Irregular menses DHEA SULFATE Routine 10/09/2012 9:24 AM COTTON INSPECTOR Irregular menses PROGESTERONE Routine 10/09/2012 9:24 AM COTTON INSPECTOR Irregular menses HYDROXYPROGESTERONE 17- Routine 10/09/19 13 9:24 AM COTTON INSPECTOR Irregular menses DEOXYCORTISOL-11 Routine 10/09/2012 9:24 AM COTTON INSPECTOR Irregular menses DHEA Routine 10/09/2012 9:24 AM COTTON INSPECTOR Irregular menses ANDROSTENEDIONE Routine 10/09/2012 9:24 AM COTTON INSPECTOR Irregular menses TESTOSTERONE TOTAL FEM/CHLD HYPOGNDL MALE Routine 10/09/2012 9:24 AM COTTON INSPECTOR Irregular menses CORTISOL BLOOD Routine 10/09/2012 9:24 AM COTTON INSPECTOR Irregular menses HEMOGLOBIN A1C - POCT (IP) BEAKER Routine 10/09/2012 9:12 AM COTTON INSPECTOR Type II or unspecified type diabetes mellitus without mention of complication, not stated as uncontrolled (HCC) documented in this encounter Results * TESTOSTERONE TOTAL FEM/CHLD HYPOGNDL MALE (10/09/2012 10:20 AM [facility]) Testosterone by Marketing Underwriter 27 6 - 52 ng/dL 10/11/2012 6:12 PM [facility] Comment: INTERPRETIVE INFORMATION: Total Testosterone, Jose G [...] reference intervals for this test in the [facility] Laboratory Test Directory ([facility]). Blood specimen (specimen) BLOOD SPECIMEN / Unknown 10/09/2012 10:20 AM COTTON INSPECTOR 10/09/2012 10:32 AM [facility] Serena Rivera [employer]K SPOTTER[employer] TABLE ASSEMBLER LAB - CHEMISTRY ORDERABLES Performing Organization Address City/State/[facility] Co de Phone Number [facility] [address] [place] [address] * (ABNORMAL) ANDROSTENEDIONE (10/09/2012 10:20 AM [facility]) Androstenedione 2.310(H) 0.390 - 2.000 ng/mL 10/11/2012 6:12 PM [facility] Comment: INTERPRETIVE INFORMATION: Androstenedione, Female Jose G Stage Jose G Stage I ? 0.05-0.51 ng/mL Jose G Stage II ?0.15-1.37 ng/mL Jose G Stage III ?? 0.37-2.24 ng/mL Jose G Stage IV-V ??0.35-2.05 ng/mL REFERENCE INTERVAL: Androstenedione by TMS Access complete set of age- and/or gender-specific reference intervals for this test in the [facility] Test Directory (Polantis). Blood specimen (specimen) BLOOD SPECIMEN / Unknown 10/09/2012 10:20 AM COTTON INSPECTOR 10/09/2012 10:32 AM COTTON INSPECTOR Serena Rivera [facility] LAB - CHEMISTRY ORDERABLES Performing Organization Address [facility] de Phone Number [facility] [address] [place] [address] * DHEA (10/09/2012 10:20 AM COTTON INSPECTOR) Dehydroepiandrosterone (DHEA) 5.970 1.220 - 7.010 ng/mL 10/11/2012 6:12 PM COTTON INSPECTOR [facility] Comment: INTERPRETIVE INFORMATION: Dehydroepiandrosterone, Female Jose G Stage ??Jose G Stage I ? 0.14-2.76 ng/mL ??Jose G Stage II ?0.83-4.87 ng/mL ??Jose G Stage III ?? 1.08-7.56 ng/mL ??Jose G Stage IV-V ??1.24-7.88 ng/mL REFERENCE INTERVAL: Dehydroepiandrosterone by TMS Access complete set of age- and/or gender-specific reference intervals for this test in the [facility] Test Directory ([facility]). Blood specimen (specimen) BLOOD SPECIMEN / Unknown 10/09/2012 10:20 AM COTTON INSPECTOR 10/09/2012 10:32 AM COTTON INSPECTOR Serena Rivera [facility] LAB - CHEMISTRY ORDERABLES Performing Organization Address [facility] de Phone Number [facility] [address] [place] [address] * (ABNORMAL) DEOXYCORTICOSTERONE (DOC) (10/09/2012 10:20 AM COTTON INSPECTOR) Deoxycorticosterone 50(H) ng/dL 10/15 12:30 PM COTTON INSPECTOR [facility] Comment: ?Reference Range: ?< OR = 35 Pediatric Reference Ranges for Deoxycorticosterone, LC/MS/MS: ??6-17 years: < or = 35 ng/dL Performed at: [employer] [address] [place] [address] Blood specimen (specimen) BLOOD SPECIMEN / Unknown 10/09/2012 10:20 AM COTTON INSPECTOR 10/09/2012 10:32 AM COTTON INSPECTOR Serena Rivera SIL[employer] SPOTTER[employer] TABLE ASSEMBLER LAB - CHEMISTRY ORDERABLES Performing Organization Address City/State/[facility] Co de Phone Number [facility] [address] [place] [address] * PROGESTERONE (10/09/2012 10:20 AM COTTON INSPECTOR) Progesterone 1.45 10/09/2012 5:40 PM [facility] Blood specimen (specimen) BLOOD SPECIMEN / Unknown 10/09/2012 10:20 AM COTTON INSPECTOR 10/09/2012 10:32 AM COTTON INSPECTOR Narrative [facility] - 10/09/2012 5:40 PM COTTON INSPECTOR ?PROGESTERONE NORMALS Males ? 0.28 - 1.22 ng/ml Normal Menstruating Females Follicular Phase ?0.15 - 1.40 ng/ml Luteal Phase ? 3.34 - 25.56 ng/ml Mid-luteal Phase ?4.44 - 28.03 ng/ml ? Postmenopausal Females ?ND* - 0.73 ng/ml *ND = Not Detectable [place] M Miguel [facility] - CHEMISTRY ORDERABLES Performing Organization Address [facility] de Phone Number [facility] [address] [place] [address] * CORTISOL BLOOD (10/09/2012 10:20 AM [facility]) Cortisol 30.50 ug/dL 10/09/2012 11:37 AM [facility] Blood specimen (specimen) BLOOD SPECIMEN / Unknown 10/09/2012 10:20 AM COTTON INSPECTOR 10/09/2012 10:32 AM [facility] Narrative [facility] - 10/09/2012 11:37 AM [facility] CORTISOL REFERENCE RANGE COMMENT Cortisol AM (7-10 a.m.) ??3.70 - 19.40 ??ug/dl Cortisol PM (3-5 p.m.) ?? 2.90 - 17.30 ??ug/dl Note: No reference range available for random cortisol levels. All results interpreted by ordering physician. Normal cortisol levels are generally highest in the morning hours and lowest from late evening through the lead athlete hours (8 PM to 4 AM). ??The PM measurements of cortisol run approximately one-half to one-third of the AM values. Serena Rivera [facility] LAB - CHEMISTRY ORDERABLES Performing Organization Address [facility] de Phone Number [facility] [address] [place] [address] * (ABNORMAL) DEOXYCORTISOL-11 (10/09/2012 10:20 AM [facility]) 11-Deoxycortiso l 249(H) <=107 ng/dL 10/12/2012 6:22 AM [facility] Comment: Reference interval for 11-Deoxycortisol in girls: [...] reference intervals for this test in the [facility] Laboratory Test Directory ([facility]). Blood specimen (specimen) BLOOD SPECIMEN / Unknown 10/09/2012 10:20 AM COTTON INSPECTOR 10/09/2012 10:32 AM COTTON INSPECTOR Serena Rivera SILK SPOT[employer]PING P[employer] TABLE ASSEMBLER LAB - CHEMISTRY ORDERABLES [facility] [address] [place] [address] * HYDROXYPROGESTERONE 17- (10/09/2012 10:20 AM COTTON INSPECTOR) 17 Hydroxyprogesterone 403 ng/dL 6:43 PM COTTON INSPECTOR [facility] Comment: +60 17-HYDROXYPROGESTERONE: Jose G Stages, Females [...] BLOOD SPECIMEN / Unknown 10/09/2012 10:20 AM COTTON INSPECTOR 10/09/2012 10:32 AM COTTON INSPECTOR Serenarogelio Rivera [facility] - CHEMISTRY ORDERABLES Performing Organization Address [facility] de Phone Number [facility] [address] [place] [address] * (ABNORMAL) HYDROXYPREGNENOLONE 17- (10/09/2012 10:20 AM COTTON INSPECTOR) 17 Hydroxypregnenolone 1980(H) <=407 ng/dL 10/12/2012 6:22 AM [facility] Comment: REFERENCE INTERVAL for 17-Hydroxypregnenolone in girls: [...] reference intervals for this test in the [facility] Laboratory Test Directory ([facility]). BLOOD SPECIMEN / Unknown 10/09/2012 10:20 AM COTTON INSPECTOR 10/09/2012 10:32 AM COTTON INSPECTOR Serena Monica Miguel [facility] LAB - CHEMISTRY ORDERABLES Performing Organization Address [facility] de Phone Number [facility] [address] [place] [address] * DHEA SULFATE (10/09/2012 9:24 AM COTTON INSPECTOR) Dehydroepiandrosterone Sulfate (DHEAS) 89.5 8.6 - 169.8 ug/dL 10/09/2012 10:55 AM [facility] Blood specimen (specimen) BLOOD SPECIMEN / Unknown 10/09/2012 9:24 AM COTTON INSPECTOR 10/09/2012 9:34 AM COTTON INSPECTOR Narrative [facility] - 10/09/2012 10:55 AM [facility] JOSE G RANGES: Male: ?? Stage 1 ?7-209 mcg/dL ? Stage 2 ?? 28-260 mcg/dL ? Stage 3 ?? 39-390 mcg/dL ? Stage 4 ?? 81-488 mcg/dL Female: Stage 1 ?7-126 mcg/dL ? Stage 2 ?? 13-241 mcg/dL ? Stage 3 ?? 32-446 mcg/dL ? Stage 4 ?? 65-371 mcg/dL Serena Rivera SILK SPOTTER-PING PONG TABLE ASSEMBLER LAB - CHEMISTRY ORDERABLES [facility] [address] [place] [address] * TESTOSTERONE TOTAL FEM/CHLD HYPOGNDL MALE (10/09/2012 9:24 AM COTTON INSPECTOR) [facility] Testosterone by Marketing Underwriter 26 6 - 52 ng/dL 10/11/2012 6:12 PM [facility] Comment: INTERPRETIVE INFORMATION: Total Testosterone, Jose G [...] reference intervals for this test in the [facility] Test Directory ([facility]). Blood specimen (specimen) BLOOD SPECIMEN / Unknown 10/09/2012 9:24 AM COTTON INSPECTOR 10/09/2012 9:34 AM COTTON INSPECTOR Serena Rivera [facility] LAB - CHEMISTRY ORDERABLES Performing Organization Address [facility] [address]/[facility] Co de Phone Number [facility] [address] [place] [address] * ANDROSTENEDIONE (10/09/2012 9:24 AM COTTON INSPECTOR) Androstenedione 1.970 0.390 - 2.000 ng/mL 10/11/2012 6:12 PM [facility] Comment: INTERPRETIVE INFORMATION: Androstenedione, Female Jose G Stage Jose G Stage I ? 0.05-0.51 ng/mL Jose G Stage II ?0.15-1.37 ng/mL Jose G Stage III ?? 0.37-2.24 ng/mL Jose G Stage IV-V ??0.35-2.05 ng/mL REFERENCE INTERVAL: Androstenedione by [employer] complete set of age- and/or gender-specific reference intervals for this test in the [facility] Laboratory Test Directory ([facility]). Blood specimen (specimen) BLOOD SPECIMEN / Unknown 10/09/2012 9:24 AM COTTON INSPECTOR 10/09/2012 9:34 AM COTTON INSPECTOR Serena Rivera [facility] LAB - CHEMISTRY ORDERABLES Performing Organization Address [facility] de Phone Number [facility] [address] [place] [address] * DHEA (10/09/2012 9:24 AM COTTON INSPECTOR) Dehydroepiandrosterone (DHEA) 3.600 1.220 - 7.010 ng/mL 10/11/2012 6:12 PM [facility] Comment: INTERPRETIVE INFORMATION: Dehydroepiandrosterone, Female Jose G Stage ??Jose G Stage I ? 0.14-2.76 ng/mL ??Jose G Stage II ?0.83-4.87 ng/mL ??Jose G Stage III ?? 1.08-7.56 ng/mL ??Jose G Stage IV-V ??1.24-7.88 ng/mL REFERENCE INTERVAL: Dehydroepiandrosterone by TMS Access complete set of age- and/or gender-specific reference intervals for this test in the [facility] Test Directory ([facility]). Blood specimen (specimen) BLOOD SPECIMEN / Unknown 10/09/2012 9:24 AM COTTON INSPECTOR 10/09/2012 9:34 AM COTTON INSPECTOR Serena Rivera [facility] LAB - CHEMISTRY ORDERABLES Performing Organization Address [facility] de Phone Number [facility] [address] [place] [address] * DEOXYCORTICOSTERONE (DOC) (10/09/2012 9:24 AM COTTON INSPECTOR) [facility] Deoxycorticosterone 20 ng/dL 10/15 12:30 PM COTTON INSPECTOR [facility] Comment: ?Reference Range: ?< OR = 35 Pediatric Reference Ranges for Deoxycorticosterone, LC/MS/MS: ??6-17 years: < or = 35 ng/dL Performed at: [employer] [address] [place] [address] Blood specimen (specimen) BLOOD SPECIMEN / Unknown 10/09/2012 9:24 AM COTTON INSPECTOR 10/09/2012 9:34 AM COTTON INSPECTOR Serena Rivera SILK SPOTTER-PING PONG TABLE ASSEMBLER LAB - CHEMISTRY ORDERABLES Performing Organization Address [facility] [address] [facility] de Phone Number [facility] [address] [place] [address] * PROGESTERONE (10/09/2012 9:24 AM COTTON INSPECTOR) Pathologist [facility] Progesterone 0.37 10/09/2012 5:41 PM [facility] Blood specimen (specimen) BLOOD SPECIMEN / Unknown 10/09/2012 9:24 AM COTTON INSPECTOR 10/09/2012 9:33 AM COTTON INSPECTOR Narrative [facility] - 10/09/2012 5:41 PM COTTON INSPECTOR ?PROGESTERONE NORMALS Males ? 0.28 - 1.22 ng/ml Normal Menstruating Females Follicular Phase ?0.15 - 1.40 ng/ml Luteal Phase ? 3.34 - 25.56 ng/ml Mid-luteal Phase ?4.44 - 28.03 ng/ml ? Postmenopausal Females ?ND* - 0.73 ng/ml *ND = Not Detectable Serena Rivera SILK SPOTTER-PING PONG TABLE ASSEMBLER LAB - CHEMISTRY ORDERABLES Performing Organization Address City/State/[facility] Co de Phone Number [facility] [address] [place] [address] * CORTISOL BLOOD (10/09/2012 9:24 AM [facility]) [facility] Signature Cortisol 19.00 ug/dL 10/09/2012 10:55 AM [facility] Blood specimen (specimen) BLOOD SPECIMEN / Unknown 10/09/2012 9:24 AM COTTON INSPECTOR 10/09/2012 9:34 AM COTTON INSPECTOR Narrative [facility] - 10/09/2012 10:55 AM [facility] CORTISOL REFERENCE RANGE COMMENT Cortisol AM (7-10 a.m.) ??3.70 - 19.40 ??ug/dl Cortisol PM (3-5 p.m.) ?? 2.90 - 17.30 ??ug/dl Note: No reference range available for random cortisol levels. All results interpreted by ordering physician. Normal cortisol levels are generally highest in the morning hours and lowest from late evening through the lead athlete hours (8 PM to 4 AM). ??The PM measurements of cortisol run approximately one-half to one-third of the AM values. Serena Rivera [facility] - CHEMISTRY ORDERABLES [facility] [place] [address] * (ABNORMAL) DEOXYCORTISOL-11 (10/09/2012 9:24 AM COTTON INSPECTOR) 11-Deoxycortiso l 151(H) <=107 ng/dL 10/12/2012 6:22 AM COTTON INSPECTOR Categorical Comment: Reference interval for 11-Deoxycortisol in girls: [...] reference intervals for this test in the [facility] Test Directory ([facility]). Blood specimen (specimen) BLOOD SPECIMEN / Unknown 10/09/2012 9:24 AM COTTON INSPECTOR 10/09/2012 9:34 AM COTTON INSPECTOR Serena Rivera [facility] - CHEMISTRY ORDERABLES Performing Organization Address City/[facility] [address]/ZIP Co de Phone Number [facility] [address] [place] [address] * HYDROXYPROGESTERONE 17- (10/09/2012 9:24 AM COTTON INSPECTOR) 17 Hydroxyprogesterone 140 ng/dL 6:43 PM COTTON INSPECTOR Categorical Comment: baseline 17-HYDROXYPROGESTERONE: Jose G Stages, Females Age 7-17 [...] BLOOD SPECIMEN / Unknown 10/09/2012 9:24 AM COTTON INSPECTOR 10/09/2012 9:34 AM COTTON INSPECTOR Serena Rivera [facility] - CHEMISTRY ORDERABLES Performing Organization Address City/State/[facility] Co de Phone Number [facility] [address] [place] [address] * (ABNORMAL) HYDROXYPREGNENOLONE 17- (10/09/2012 9:24 AM COTTON INSPECTOR) 17 Hydroxypregnenolone 653(H) <=407 ng/dL 10/12/2012 6:22 AM [facility] Comment: REFERENCE INTERVAL for 17-Hydroxypregnenolone in girls: [...] reference intervals for this test in the [facility] Test Directory ([facility]). BLOOD SPECIMEN / Unknown 10/09/2012 9:24 AM COTTON INSPECTOR 10/09/2012 9:34 AM COTTON INSPECTOR Serena Rivera SILK SPOTTER-PING PONG TABLE ASSEMBLER LAB - CHEMISTRY ORDERABLES [facility] [address] [place] [address] * (ABNORMAL) HEMOGLOBIN A1C - POCT (IP) CARMEN (10/09/2012 9:12 AM COTTON INSPECTOR) Hemoglobin A1c POCT 6.3(A) 3.4 - 6.1 % [facility] POCT TESTING QC Verified yes Yes [facility] PO CT TESTING Blood specimen (specimen) BLOOD SPECIMEN / Unknown 10/09/2012 9:12 AM COTTON INSPECTOR [place] Monica Rivera SILK SPOTTER-PING PONG TABLE ASSEMBLER LAB - POINT OF C ARE ORDERABLES [facility] POCT TESTING [address] [place] [address] documented in this encounter Visit Diagnoses Diagnosis Irregular menses Irregular menstrual cycle Type II or unspecified type diabetes mellitus without mention of complication, not stated as uncontrolled (HCC) Type II or unspecified type diabetes mellitus without mention of complication, not stated as uncontrolled documented in this encounter Administered Medications Inactive Administered Medications - up to 3 most recent administrations Medication Order MAR Action Action Date Dose Rate Site cosyntropin (CORTROSYN) injection 0.25 mg 0.25 mg, Intravenous, ONCE, 1 dose, On Fri10/09/12 at 0945 $ Given 10/09/2012 9:05 AM COTTON INSPECTOR 0.25 mg documented in this encounter Care Teams Tire Bagger Relationship Specialty Start Date End Date Esperanza Santillan MD [address] [place] [address] TRINIDAD Molina [phone] PCP - General Family Medicine 09/03/12 documented as of this encounter
--- OUTSIDE RECORDS SUMMARY | 2024-10-14 01:35 | XMS_ITS | Encounter Summary ---
Author Organization [facility] Address [address] [place] [address] Care Team Providers Care Mattress Weaver Name Role Phone Esperanza Santillan MD Primary Care Provider [phone] Reason for Visit * Reason Onset Date Comments MEDICATION REFILL 05/20/2013 Encounter Details Date Type Department Care Team (Late st Contact Info) Description 05/20/2013 Refill [facility] Pediatrics - Diabetes [id number] [place] [address] Serena Rivera, ELECTRIC TRAIN DRIVER-CASINO DUTY MANAGER Retired MEDICATION REFILL Social History Tobacco Use Types [...] on filedocumented in this encounter Care Teams Mattress Weaver Relationship Specialty Start Date End Date Esperanza Santillan MD [address] [place] [address] [place] [phone] PCP - General Family Medicine 09/03/12 documented as of this encounter
--- OUTSIDE RECORDS SUMMARY | 2024-10-14 01:35 | XMS_ITS | Encounter Summary ---
Author Organization [facility] Address [address] [facility] [place] [address] Care Team Providers Care Approver Name Role Phone Esperanza Santillan MD Primary Care Provider Reason for Referral * - Closed Specialty Diagnoses / Procedures Referred By Carson mclaughlin Referred To Contact Gastroenterology Diagnoses Vomiting Procedures EGD Parviz Nolan MD [address] [place] [id number] Referral ID Status Reason Start Date Expiration Date Visits Re quested Visits Authorized [id number] Closed 11/03/2012 05/02/2013 1 1 ECT MANAGEMENT ANALYST Reason for Visit * Reason Onset Date Comments Update 11/02/2012 Encounter Details Date Type Department Care Team (Late st Contact Info) Description 11/02/2012 Telephone [facility] Pediatrics - GI [address] [place] [id number] Parviz Nolan MD [address] [place] [id number] Update Social History Tobacco Use Types Packs/Day [...] encounter Miscellaneous Notes * Telephone Encounter - Bree Bonilla - 11/03/2012 2:54 PM CST Scheduled for EGD on 11/19/12 at 11:[address] Nolan ECT MANAGEMENT ANALYST * Telephone Encounter - Meaghan Cuadra RN - 11/03/2012 8:06 AM PROJECT MANAGEMENT ANALYST Discussed Dr. Nolan's messge with mother, she reports that pt has not had EGD. Orders entered & told mom that membership secretary will be calling to schedule EGD & mom is OK with this plan. Discussed with mom that pt needs to sip clear liquids frequently if she is not able to keep solids down, discussed when to bring to ED if needed. Suggested plasma processing centrifuge operator diet, toast, crackers, etc. ECT MANAGEMENT ANALYST * Telephone Encounter - Parviz Nolan MD - 11/02/2012 5:40 PM CST As discussed in the clinic visit. An endoscopic evaluation would be a consideration if symptoms persist. She has had past workup. If she has not had a EGD at outside facility then we should plan one,otherwise need to review prior scopes. Okay to hold off omeprazole till the day of the scope. Keep us informed of patient progress. ECT MANAGEMENT ANALYST * Telephone Encounter - Meaghan Cuadra RN - 11/02/2012 3:38 PM PROJECT MANAGEMENT ANALYST Pt reports that she feels nauseated when she takes the omeprazole, has actually vomited several times after taking it & has had diarrhea also after taking it. Today did not take it & does notfeel great but has not vomited or had the nausea/diarrhea. Will discuss with Dr. Nolan. ECT MANAGEMENT ANALYST * Telephone Encounter - Maite Jackson - 11/02/2012 3:36 PM CST Told to call back if omeprazole did not help. Patient feels it's actually making things worse. Please advise. ECT MANAGEMENT ANALYST documented in this encounter Plan of Treatment Not on file documented as of this encounter Results * EGD (11/19/2012 11:21 AM PROJECT MANAGEMENT ANALYST) Narrative [facility] - 11/19/2012 11:21 AM PROJECT MANAGEMENT ANALYST Procedure Note Parviz Nolan MD - 11/19/2012 11:21 AM CST Parviz Nolan MD GI PROCEDURE ORDERAB LES Performing Organization Address [facility] Co de Phone Number [facility] [address] [place] [address] * HELICOBACTER PYLORI UREASE (11/19/2012 11:08 AM PROJECT MANAGEMENT ANALYST) Helicobacter pylori Urease Initial Negative Negative 11/20/2012 12:09 PM PROJECT MANAGEMENT ANALYST [facility] Helicobacter pylori Urease Final Negative Negative 11/20/2012 12:09 PM PROJECT MANAGEMENT ANALYST [facility] Comment:This is an appended report. These results have been appended to a previously preliminary verified report. Miscellaneous samples (specimen) GASTRIC ANTRAL BIOPSY SPECIMEN / Unknown 11/19/2012 11:08 AM PROJECT MANAGEMENT ANALYST 11/19/2012 11:27 AM PROJECT MANAGEMENT ANALYST Parviz Nolan MD LAB - MICROBIOLOGY O RDERABLES Performing Organization Address [facility] Co de Phone Number [facility] [address] [place] [address] documented in this encounter Visit Diagnoses Diagnosis Vomiting Vomiting alone Vomiting Vomiting alone documented in this encounter Care Teams Approver Relationship Specialty Start Date End Date Esperanza Santillan MD [address] [place] [address] [place] [phone] PCP - General Family Medicine 09/03/12 documented as of this encounter
--- OUTSIDE RECORDS SUMMARY | 2024-10-14 01:35 | XMS_ITS | Encounter Summary ---
Author Organization [facility] Address [address] [place] [address] Care Team Providers Care Director Of Web Marketing Name Role Phone Esperanza Santillan MD Primary Care Provider [phone] Reason for Referral * - Closed Specialty Diagnoses / Procedures Referred By Carson mclaughlin Referred To Contact Gastroenterology Diagnoses Vomiting Procedures EGD Parviz Nolan MD [address] [place] [address] Referral ID Status Reason Start Date Expiration Date Visits Re quested Visits Authorized [id number] Closed 11/03/2012 05/02/2013 1 1 DRY HAND Reason for Visit * Auth/Cert - Closed Specialty Diagnoses / Procedures Referred By Carson mclaughlin Referred To Contact Diagnoses Vomiting Procedures ENDOSCOPY GI UPPER WITH BIOPSY Referral ID Status Reason Start Date Expiration Date Visits Re quested Visits Authorized [id number] Closed 1 1 Encounter Details Date Type Department Care Team (Latest Contact Info) Description 11/19/2012 9:31 AM FOUNDRY HAND - 11/19/2012 12:05 PM FOUNDRY HAND Hospital Encounter [facility] - Endoscopy [address] [place] [address] Parviz Nolan MD [address] [place] [address] Surgery General Discharge Disposition: Home or Self Care Social [...] Sign Reading Time Taken Comments Blood Pressure 118/52 11/19/2012 11:45 AM FOUNDRY HAND Pulse 80 11/19/2012 11:45 AM FOUNDRY HAND Temperature 36.7 ??C (98 ??F) 11/19/2012 11:18 AM FOUNDRY HAND Respiratory Rate 18 11/19/2012 11:45 AM FOUNDRY HAND Oxygen Saturation 100% 11/19/2012 11:45 AM FOUNDRY HAND Inhaled Oxygen Concentration - - Weight 87.1 kg (192 lb) 11/19/2012 9:35 AM FOUNDRY HAND Height 156.6 cm (5' 1.65 ) 11/19/2012 9:35 AM CS T Body Mass Index 35.51 11/19/2012 9:35 AM FOUNDRY HAND Body Mass Index Percentile 98.97% 11/19/2012 9:3 5 AM FOUNDRY HAND Growth Chart: [facility] (Girls, 2- 20 Years) documented in this encounter Discharge Summaries * Parviz Nolan MD - 11/19/2012 11:16 AM CST PEDIATRIC GI ATTENDING NOTE Procedure Discharge Melissa Jackson (Please see instructions from order set too) Diet : Regular Activity : Ad-tennille Vitals : Per protocol Discharge : Okay to discharge/transfer once cleared by anesthesia. Followup : Await pathology. Please call GI office within 2 weeks to make appointment. DRY HAND documented in this encounter Discharge Instructions * Discharge Instructions* Rose Irizarry RN - 11/19/2012 11:27 AM FOUNDRY HAND Discharge Instructions for: Melissa Jackson Discharge Procedure Orders DISCHARGE ACTIVITY RESTRICTIONS Your child has just completed a procedure requiring sedation. Do not leave your child unattended today. Although your child may be awake and alert at the time of discharge, the effects of the medication may be present for up to 4 - 6 hours, unless otherwise noted. Protect your child from falls. A quiet day is recommended. Patient should not drive a car or operate heavy machinery, use power tools or the stove to cook, or make legal decisions for 24 hours. GENERAL ANESTHESIA /IV SEDATION INSTRUCTIONS For the remainder of the day, plan to relax. A feeling of dizziness, light- headedness or drowsinessis not unusual. Move cautiously, fast movements can make this feeling worse. If you have been lyingdown, sit up slowly and pause briefly before standing. We strongly suggest that a responsible adultbe with you until tomorrow AM for your comfort and safety. DISCHARGE GENERAL INSTRUCTIONS Your throat may be slightly sore. This should disappear within 24 hours. Use of throat lozenges mayhelp. DISCHARGE GENERAL INSTRUCTIONS You may have cramping in the abdomen or feel slightly bloated because of air insterted during the procedure. This should pass shortly and should not cause any problems. DISCHARGE GENERAL INSTRUCTIONS You may have slight tenderness and/or redness at the intravenous medication site for 24 to 48 hours. You may apply a warm washcloth. DISCHARGE GENERAL INSTRUCTIONS Small traces of blood my be noted if biopsies are taken or polyps removed. DISCHARGE GENERAL INSTRUCTIONS If your child has any worsening of his/her condition, please call the GI office [phone]. Afterhours, call the exchange at [phone]. The following belonging have been returned to you Clothing Clothing: Yes (under stretcher) With Patient: Shirt;Pants;Footwear;Jacket/Coat Jewelry Jewelry: None Electronics Electronic Items: None Dentures Dentures/Retainers: None Vision Visual Aids: Yes Glasses: With Patient Hearing Aids Hearing Aids: None Equipment/Assistive Devices Equipment with Patient: None Home Medications Home Medications: None Miscellaneous Belongings Miscellaneous Items: None Monetary Monetary Items: None If your child has any worsening of their condition, please phone [phone] and ask for the doctor service station console operator for GI or return to the Emergency Department. 11/19/2012 DRY HAND * Discharge Instructions* Document, Scanned - 11/20/2012 7:06 AM FOUNDRY HAND DRY HAND documented in this encounter Medications at Time [...] and dinner 120 Tab 6 10/02/2012 2013 Norethin-Eth Estrad-Fe Biphas (LO LOESTRIN FE PO) Take by mouth once daily. 03/16/2013 omeprazole (PRILOSEC) 20 MG capsule Take 1 Cap by mouth daily before breakfast. 30 Cap 2 10/23/2012 03/16/2013 documented as of this encounter H&P Notes * Parviz Nolan MD - 11/19/2012 10:23 AM CST PEDIATRIC GI ATTENDING NOTE 11/19/2012 Melissa is a 12 y.o. female who comes in for evaluation of abdominal pain. PAST MEDICAL HISTORY: No past medical history on file. Abdominal Pain MEDICATIONS: Current Facility-Administered Medications Medication Dose Route Frequency Provider Last Rate Last Dose ??? lidocaine (LMX 4) 4% cream ADS Med 1 Tube at 11/19/12 1000 ALLERGIES: No Known Allergies FAMILY/SOCIAL HISTORY No family history on file. History Social History ??? Marital Status: Single Spouse Name: N/A Number of Children: N/A ??? Years of Education: N/A Occupational History ??? Not on file. Social History Main Topics ??? Smoking status: Never Smoker ??? Smokeless tobacco: Not on file ??? Alcohol Use: Not on file ??? Drug Use: Not on file ??? Sexually Active: Not on file Other Topics Concern ??? Not on file Social History Narrative ??? No narrative on file PHYSICAL EXAMINATION: 98.27%ile based on CDC 2-20 Years [id number] data. BP 136/82 Pulse 90 Temp 98.6 ??F Resp 16 Wt 87.091 kg (192 lb) BMI 35.51 kg/m2 HEENT: Atraumatic. Obese, Acanthosis Chest: Equal air entry bilaterally. Abdomen: Soft, nontender, nondistended. Striae +. Bowel sounds present. PRINTING SPECIALIST: No apparent focal deficits. Extremities: Warm, well perfused. Cap refill less than 2 seconds. IMPRESSION: Melissa is a 12 y.o. female who comes in for evaluation of abdominal pain. Here for EGD. Physician Declaration: I have explained the nature, purpose, and necessity of the operational/procedure, possible alternative methods of treatment and anesthetic plan, the risks involved and the possibility of complications. (Please see summary from last visit below) HISTORY OF PRESENT ILLNESS : Thank you for your consult on Melissa Jackson. I had the pleasure of seeing Melissa in the Gastroenterology Clinic at [facility] on 10/23/2012. She comes in for evaluation of abdominal pain. She complains of non specific, non radiating, abdominal pain for the past few months, without any apparent aggravating or relieveing factors. She also has occasional non-bilious, non projectile vomiting. She is obese and is being seen in theendocrine clinic. She has normal soft non bloody, non mucoid stools almost daily. She has been on several over the counter and prescription medications but remains symptomatic. She denies any apparent stressors, recent travel or trauma. Denies any fever, rashes, joint pain, mouth sores, altered sensorium, lack or paucity of any limb movements, jaundice, hematemesis, hematochesia, or bleeding fromany other site. PAST MEDICAL HISTORY: No past medical history on file. Diabetes DIET: Regular MEDICATIONS: Current Outpatient Prescriptions Medication Sig Dispense Refill ??? Norethin-Eth Estrad-Fe Biphas (LO LOESTRIN FE PO) Take by mouth once daily. ??? metFORMIN (GLUCOPHAGE) 500 MG tablet 2 tabs with breakfast and dinner 120 Tab 6 ??? blood glucose (FREESTYLE LITE STRIPS) test strip Use 1 Strip 2 times daily. 100 Strip 11 ??? lancets (FREESTYLE LANCETS) MISC Use 1 Each 2 times daily. 100 Each 11 ALLERGIES: No Known Allergies FAMILY/SOCIAL HISTORY No family history on file. History Social History ??? Marital Status: Single Spouse Name: N/A Number of Children: N/A ??? Years of Education: N/A Occupational History ??? Not on file. Social History Main Topics ??? Smoking status: Never Smoker ??? Smokeless tobacco: Not on file ??? Alcohol Use: Not on file ??? Drug Use: Not on file ??? Sexually Active: Not on file Other Topics Concern ??? Not on file Social History Narrative ??? No narrative on file PHYSICAL EXAMINATION: 98.44%ile based on CDC 2-20 Years [id number] data. BP 110/72 Wt 88.089 kg (194 lb 3.2 oz) BMI 35.78 kg/m2 HEENT: Atraumatic. Obese, Acanthosis Chest: Equal air entry bilaterally. Abdomen: Soft, nontender, nondistended. Striae +. Bowel sounds present. PRINTING SPECIALIST: No apparent focal deficits. Extremities: Warm, well perfused. Cap refill less than 2 seconds. IMPRESSION: Melissa is a 12 y.o. 7 m.o. female who comes in for evaluation of abdominal pain. Esophagitis, gastritis could be contributing to symptoms. Functional causes would be high on the differential. She isobese and I am additionally concerned about the possibility of SANCHEZ. RECOMMENDATIONS: 1. I discussed extensively with caregivers the probable etiology for Melissa's symptoms as well as treatment options. Please fax us prior workup. 2. Avoidance of spicy and greasy foods. Plenty of fruits and vegetables and increased fluid intake.Eat healthy. Avoidance of tea or sodas, stressors. The need for proper sleep pattern was emphasized. Avoid excessive chocolates and caffeine. 3. Planned labs to include CBC, CMP, amylase, lipase, CRP. Imaging studies would be based on patient progress. 4. An endoscopic evaluation would be a consideration if symptoms persist. 5. Discussed portion size control, lifestyle changes. 6. I would like to see Melissa back [...] call back for any questions or concerns. DRY HAND documented in this encounter Procedure Notes * Document, Scanned - 11/20/2012 7:06 AM CSTAssociated Order(s): PATHOLOGY/CYTOLOGY REPORT ORDER DRY HAND * Parviz Nolan MD - 11/19/2012 11:21 AM CSTAssociated Order(s): EGD DRY HAND documented in this encounter Miscellaneous Notes * Miscellaneous Scans - Document, Scanned - 12/21/2012 11:36 PM CDT * Miscellaneous Scans - Document, Scanned - 11/20/2012 7:06 AM CST DRY HAND documented in this encounter Plan of Treatment Scheduled Orders Name Type Priority Associated Diagnoses Order Schedule GLUCOSE - POINT OF CARE POCT No Acknowledgement Routine ONCE for 1 Occurrences starting 11/19/2012 until 11/19/2012 documented as of this encounter Procedures Procedure Name Priority Date/Time Associated Diagnosis Comments PATHOLOGY/CYTOLOGY REPORT ORDER 11/20/2012 7:07 AM FOUNDRY HAND ESOPHAGOGASTRODUODENOSCOPY ( EGD) BIOPSY 11/19/2012 6:19 PM FOUNDRY HAND Vomiting EGD Routine 11/19/2012 11:21 AM FOUNDRY HAND Vomiting PATHOLOGY TISSUE EXAM (STL) Routine 11/06 11:08 AM FOUNDRY HAND Vomiting HELICOBACTER PYLORI UREASE STAT 11/19 11:08 AM FOUNDRY HAND Vomiting HCG URINE QUALITATIVE - POCT (IP) BEAKER Routine 11/19/2012 9:30 AM FOUNDRY HAND documented in this encounter Results * PATHOLOGY/CYTOLOGY REPORT ORDER (11/20/2012 7:07 AM FOUNDRY HAND) Narrative 11/20/2012 7:07 AM FOUNDRY HAND Procedure Note Document, Scanned - 11/20/2012 7:06 AM CST Scanned Document LAB - PATHOLOGY/CYTO LOGY ORDERABLES * EGD (11/19/2012 11:21 AM FOUNDRY HAND) Narrative [facility] END[facility] - 11/19/2012 11:21 AM FOUNDRY HAND Procedure Note Parviz Nolan MD - 11/19/2012 11:21 AM CST Parviz Nolan MD GI PROCEDURE ORDERAB LES [facility] ENDOSCOPY [address] [place] [place] [address] * GROSS + MICRO EXAM (STL) (11/19/2012 11:08 AM FOUNDRY HAND) Case Report Surgical Pathology Report ? Case: [id number] ? Authorizing Provider: ??Parviz Nolan MD ?Ordering Provider: ?? Parviz Nolan MD ? Ordering Location: ? [facility] ?Collected: ? 11/19/2012 11:08 AM ? Pathologist: ? Sabino Collins MD ? Received: ?11/19/2012 ??2:03 PM ?Signed Out: ?11/23/2012 ??3:05 PM (Final) ? Specimens: ?? A) - Esophagus ? B) - Duodenum ? C) - Stomach ? 11/23/2012 3:06 PM [facility] Final Diagnosis A) ESOPHAGUS, BIOPSY: - NO PATHOLOGIC DIAGNOSIS. B) DUODENUM, BIOPSY: - NO PATHOLOGIC DIAGNOSIS. C) STOMACH, BIOPSY: - NO PATHOLOGIC DIAGNOSIS. 11/23/2012 3:06 PM [facility] Clinical History The patient is a 12-year-old girl with abdominal pain who underwent upper endoscopy with biopsy. 11/23/2012 3:06 PM [facility] Gross Description The specimens are received fixed in formalin in three containers for gross and microscopic examination. ??All containers are labeled with the patient's name, Melissa Jackson. Specimen A, esophagus, consists of two 0.3 and 0.5 cm soft, yellow-agosto tissue fragments submitted in toto as A. Specimen B, duodenum, consists of five 0.1 to 0.5 cm soft, yellow-agosto tissue fragments submitted in toto as B. Specimen C, stomach, consists of two 0.4 and 0.6 cm soft, yellow-agosto tissue fragments submitted in toto as C. ??(SKS/mal) 11/23/2012 3:06 PM [facility] Microscopic Description A) 3 H&E; B) 3 H&E; C) 3 H&E. A. Sections of esophagus show two fragments of unremarkable stratified squamous epithelium. ?? B. Sections of duodenum show multiple fragments of unremarkable small intestinal mucosa. C. Sections of stomach show two fragments of unremarkable body-type gastric mucosa except for a lymphoid aggregate. () 11/23/2012 3:06 PM [facility] Disclaimer The performance characteristics of all immunohistochemical and indirect ??immunofluorescence stains (if any) cited in this report were determined by the Histopathology Laboratory of [facility] (immunohistochemistry ) or the Histology Laboratory of [facility] (indirect immunofluorescence) in compliance with CLIA `88 regulations. ??Some of these tests rely on the use of analyte-specific reagents and are subject to specific labeling requirements by the FDA. ??Such tests were developed by the ??[facility] of [facility] or the Histology Laboratory of [facility] and have not been cleared or approved by the FDA. ??The FDA has determined that such clearance or approval is not necessary. ??These tests are used for clinical purposes and should not be regarded as investigational or for research. ? This case has been personally reviewed and interpreted by the attending (teaching) pathologist. 11/23/2012 3:06 PM [facility] Synoptic Report 11/23/2012 3:06 PM [facility] Miscellaneous samples (specimen) REGION OF ESOPHAGUS / Unknown 11/19/2012 11:08 AM FOUNDRY HAND 11/19/2012 2:03 PM FOUNDRY HAND Miscellaneous samples (specimen) PART OF DUODENUM / Unknown 11/19/2012 11:08 AM FOUNDRY HAND 11/19/2012 2:03 PM FOUNDRY HAND Miscellaneous samples (specimen) ENTIRE STOMACH / Unknown 11/19/2012 11:08 AM FOUNDRY HAND 11/19/2012 2:03 PM [facility] Parviz Nolan MD LAB - PATHOLOGY/CYTO LOGY ORDERABLES Performing Organization Address City/State/[facility] Co de Phone Number [facility] [address] [place] [address] * HELICOBACTER PYLORI UREASE (11/19/2012 11:08 AM FOUNDRY HAND) Helicobacter pylori Urease Initial Negative Negative 11/20/2012 12:09 PM [facility] Helicobacter pylori Urease Final Negative Negative 11/20/2012 12:09 PM [facility] Comment:This is an appended report. These results have been appended to a previously preliminary verified report. Miscellaneous samples (specimen) GASTRIC ANTRAL BIOPSY SPECIMEN / Unknown 11/19/2012 11:08 AM FOUNDRY HAND 11/19/2012 11:27 AM FOUNDRY HAND Parviz Nolan MD LAB - MICROBIOLOGY O RDERABLES Performing Organization Address [facility] Co de Phone Number [facility] [address] [place] [address] * GLUCOSE - POINT OF CARE (11/19/2012 10:19 AM FOUNDRY HAND) Blood specimen (specimen) BLOOD SPECIMEN / Unknown 11/19/2012 10:19 AM FOUNDRY HAND 11/19/2012 12:32 PM FOUNDRY HAND Parviz Nolan MD LAB - POINT OF CARE ORDERABLES Performing Organization Address [facility] Co de Phone Number [facility] [address] [place] [address] * HCG URINE QUALITATIVE - POCT (IP) CARMEN (11/19/2012 9:30 AM FOUNDRY HAND) HCG Qual Urine Negative Negative [facility] POCT TESTING QC Verified Yes Yes [facility] PO CT TESTING Urine specimen (specimen) URINE / Unknown 11/19/2012 9:30 AM FOUNDRY HAND Cynthia Cobb MD LAB - POINT OF CARE ORDERABLES Performing Organization Address [facility] Co de Phone Number [facility] POCT TESTING [address] [place] [address] documented in this encounter Visit Diagnoses Diagnosis Vomiting Vomiting alone documented in this encounter Administered Medications Inactive Administered Medications - up to 3 most recent administrations Medication Order MAR Action Action Date Dose Rate Site isolyte-S pH 7.4 infusion 100 mL/hr, Intravenous, POST-OP CONTINUOUS, Starting on Maren 11/19/12 at 1130, Until Maren 11/19/12 at 1313, PACU Current Rate 11/19/2012 11:18 AM FOUNDRY HAND 100 mL/hr 100 mL/hr lidocaine (LMX 4) 4% cream ADS Med 1 dose, Starting on Maren 11/19/12 at 0937, Until Maren 11/19/12 at 1000, LASHONDA MAHONEY: cabinet override . WASTE DISPOSAL INSTRUCTIONS: Black Bin Disposal required. $ Given 11/19/2012 10:00 AM FOUNDRY HAND 1 tube documented in this encounter Active and Recently Administered Medications Times are shown in FOUNDRY HAND. Continuous Medication Order 11/17/2012 11/18/201211/19/2012 isolyte-S pH 7.4 infusion (CANCELED) 100 mL/hr, Intravenous, POST-OP CONTINUOUS, Starting on Maren 11/19/12 at 1130, Until Maren 11/19/12 at 1313, PACU 1118 (Current Rate - Provider: Rose Irizarry, RN)1155 (Stopped - Provider: Rose Irizarry, RN) No Frequency Medication Order 11/17/2012 11/18/2012 11/19/2012 lidocaine (LMX 4) 4% cream ADS Med (COMPLETED) 1 dose, Starting on Maren 11/19/12 at 0937, Until Maren 11/19/12 at 1000, LASHONDA MAHONEY: cabinet override . WASTE DISPOSAL INSTRUCTIONS: Black Bin Disposal required. 1000 ($ Given - Prov ider: Lashonda Mahoney RN) documented in this encounter Care Teams Director Of Web Marketing Relationship Specialty Start Date End Date Esperanza Santillan MD [address] [place] [address] [place] [address] PCP - General Family Medicine 09/03/12 documented as of this encounter
--- OUTSIDE RECORDS SUMMARY | 2024-10-14 01:35 | XMS_ITS | Encounter Summary ---
Author Organization [facility] Address [address] [place] [address] Care Team Providers Care Nursing Unit Coordinator Name Role Phone Esperanza Santillan MD Primary Care Provider [phone] Reason for Visit * Reason Onset Date Comments Diabetes 10/03/2012 Encounter Details Date Type Department Care Team (Late st Contact Info) Description 10/03/2012 Telephone [facility] Pediatrics - Endocrinology [address] [place] [id number] Tony Vasquez MD [address] [place] [address] [id number] Diabetes Social History Tobacco Use Types Packs/Day Years Used Date Smoking Tobacco: Never Alcohol Use Standard Drinks/Week Comments Not Asked 0 (1 standard drink = 0.6 oz pur e alcohol) Sex and Gender Information Value Date Recorded Sex Assigned at Not on file Gender Identity Not on file Sexual Orientation Not on file documented as of this encounter Miscellaneous Notes * Telephone Encounter - Tony Vasquez MD - 10/03/2012 1:31 PM CST 12:30 pm Left taped message at [phone] 13:15 pm - [phone] d/w bud Torres yesterday with DM; started on metformin; unable to use lancet device on arm to measure bg. Taught in office yesterday to use lancet device. Will have on-call nurse f/u by telephone with Melissa and family to use lancet device. Tony Vasquez MD KER OFF documented in this encounter Plan of Treatment Not on file documented as of this encounter Visit Diagnoses Not on filedocumented in this encounter Care Teams Nursing Unit Coordinator Relationship Specialty Start Date End Date Esperanza Santillan MD [address] [place] [address] [place] [address] PCP - General Family Medicine 09/03/12 documented as of this encounter
--- OUTSIDE RECORDS SUMMARY | 2024-10-14 01:35 | XMS_ITS | Encounter Summary ---
Author Organization [facility] Address [address] [place] [address] Care Team Providers Care Bobcat Operator Name Role Phone Esperanza Santillan MD Primary Care Provider [phone] Encounter Details Date Type Department Care Team (Late st Contact Info) Description 10/02/2012 Orders Only [facility] Pediatrics - Diabetes [address] [address] Serena Rivera, MARITIME OFFICER-HEALTH SCIENCE SPECIALIST Retired Type 2 diabetes mellitus in patient age [...] with HbA1C goal below 7.5 ([facility])- Primary Type II or unspecified type diabetes mellitus without mention of complication, not stated as uncontrolled documented in this encounter Care Teams Bobcat Operator Relationship Specialty Start Date End Date Esperanza Santillan MD [address] [place] [address] [place] [phone] PCP - General Family Medicine 09/03/12 documented as of this encounter
--- OUTSIDE RECORDS SUMMARY | 2024-10-14 01:35 | XMS_ITS | Encounter Summary ---
Author Organization [facility] Address [address] [place] [address] Care Team Providers Care Experimental Rocket Sled Mechanic Name Role Phone Esperanza Santillan MD Primary Care Provider [phone] Reason for Visit * Reason Comments Diabetes Type 2 Follow-up Encounter Details Date Type Department Care Team (Late st Contact Info) Description 01/14/2013 3:30 PM CDT - 01/14/2013 11:59 PM CDT Hospital Encounter [facility] Pediatrics - Diabetes [facility] [address] [place] [address] [place] [address] [facility] [address] [place] [address] Discharge Disposition: Home or Self Care Social [...] Sign Reading Time Taken Comments Blood Pressure 102/70 01/14/2013 3:31 PM CDT Pulse - - Temperature - - Respiratory Rate - - Oxygen Saturation - - Inhaled Oxygen Concentration - - Weight 89 kg (196 lb 1.6 oz) 01/14/2013 3:31 PM CDT Height 157.5 cm (5' 2.01 ) 01/14/2013 3:31 PM CD T Body Mass Index 35.86 01/14/2013 3:31 PM CDT Body Mass Index Percentile 99.01% 01/14/2013 3:3 1 PM CDT Growth Chart: [facility] (Girls, 2- 20 Years) documented in this encounter Discharge Instructions * Patient Instructions* Martha Moore MD - 01/14/2013 4:29 PM CDT 1. Resume metformin 1000 mg at breakfast and 1000 mg at supper. 2. Continue to check BG twice every day. 3. Reduce weight by decreasing caloric intake and exercising daily. 4. Schedule appointment with Dr. Felecia Vigil in Adolescent Medicine for treatment of PCOS. documented in this encounter Medications at Time [...] 10/23/2012 03/16/2013 documented as of this encounter Progress Notes * Martha Moore MD - 01/14/2013 4:17 PM CDT Melissa Jcakson and her mother were seen in our Pediatric Endocrinology offices on 01/14/13. She is a14-10/12-year-old girl who is followed for type 2 diabetes, diagnosed in September 2012, and PCOS. Interval History: Melissa underwent a Cortrosyn stimulation test on 10/09/12. Although her 17- hydroxypregnenolone levels at baseline and 60 minutes after Cortrosyn were elevated for a late pubertal girl, her 17-hydroxypregnenolone:17- hydroxyprogesterone ratios were normal, i.e., 4.7 at baseline (reference range 0.8-10) and 4.9 at 60 minutes (reference range 3-17). Taken together, these results suggested that she does not have a defect in adrenal steroidogenesis. She was restarted on an OCP by her PCP but stopped it because her menses were very heavy on it. Melissa was seen by Dr. Parviz Nolan in GI clinic on 10/23/12 for evaluation of abdominal pain and underwent a EGD on 11/19/12. She is being treated for irritable bowel disease with omeprazole, which she takes sporadically. Diabetes Therapies: Metformin 1000 mg BID - compliance poor recently SBGM: Melissa uses a Freestyle glucometer and checks her BG ~2 times/day - testing done by self. BG target range is 80-150. Her logbook was not available, but she recalled that her BG is usually <130 after breakfast and ~140 after supper. Meal Plan: Melissa/her mother report that she does not follow any particular meal plan. Sports/Physical Exercise: none Hypoglycemia: Frequency/Treatment: none Urine Ketone Monitoring: none Review of Systems: Constitutional: negative, good energy level, ~8 hours of sleep/night Endocrine: no cold intolerance Skin: mild acne, hirsutism Eyes: glasses worn ENT/Mouth: negative Cardiovascular: negative Respiratory: negative GI: negative : no polyuria/nocturia; menses very irregular Musculoskeletal: negative Neurologic: headaches every 3-4 days, relieved with Aleve Psychiatric: montaño Past Medical History: unchanged since last visit Other diagnoses: irritable bowel syndrome Other medications: Current Outpatient Prescriptions Medication Sig Dispense Refill ??? omeprazole (PRILOSEC) 20 mg capsule Take 1 capsule daily before breakfast. 30 Cap 2 ??? Norethin-Eth Estrad-Fe Biphas (LO LOESTRIN FE PO) Take once daily. Medication compliance is fair-poor. Allergies: Review of patient's allergies indicates no known allergies. Family History: unchanged since last visit Social History: Melissa is passing her courses in 9th grade. Stresses: none reported Physical Examination: BP 102/70 Weight: 88.95 kg (196 lb 1.6 oz) - 98.42%ile based on CDC 2-20 Years [id number] data. Height: 157.5 cm (5' 2.01 ) - 25.74%ile based on CDC 2-20 Years [id number] data. BMI: 35.86 kg/m2 - 98.9%ile based on CDC 2-20 Years BMI-for-age data. General: Obese, pleasant and talkative girl. Skin/Hair/Nails: Warm and dry. Moderate acanthosis nigricans about her neck and severe acanthosis nigricans in her axillary and groin skin folds. Thin abdominal striae. Mild acne and shaved abdominalhair. Head: Normocephalic, atraumatic. Eyes: EOMs intact; optic discs sharp bilaterally. ENT/Mouth: Normal. Dentition: 28 secondary teeth. Neck: Supple. Thyroid not enlarged. Chest: Symmetric. Lungs clear to auscultation, unlabored breathing. CV system unremarkable with regular heart rate and rhythm, normal S1/S2, no murmurs, and 2+ femoral pulses. Abdomen: Normal appearance, soft, non-tender, without organ enlargement or masses. Sexual maturation: Jose G 5 breasts; Jose G 5 shaved pubic hair. Extremities: No cyanosis or edema. Lymphatic: No abnormally enlarged lymph nodes. Back: No scoliosis. Neurologic system: Non-focal. Ankle DTRs 2+ and equal. Medic-Alert tag Status: She does not wear her Medic-Alert tag. Laboratory Data: Component Name 01/14/13 1605 10/09/12 0912 HGBA1C 5.8 6.3* Assessment: 1. Type 2 diabetes Control: excellent with interval weight maintenance Complications: none 2. PCOS Management Plan: 1. Resume metformin 1000 mg at breakfast and 1000 mg at supper. 2. Continue to check BG twice every day. 3. Reduce weight by decreasing caloric intake and exercising daily. 4. Schedule appointment with Dr. Felecia Vigil in Adolescent Medicine for treatment of PCOS. 5. Return appointment in 3 months. documented in this encounter Plan of Treatment Not on file documented as of this encounter Procedures Procedure Name Priority Date/Time Associated Diagnosis Comments HEMOGLOBIN A1C - POCT (IP) BEAKER Routine 01/14/2013 4:05 PM CDT documented in this encounter Results * HEMOGLOBIN A1C - POCT (IP) BEAKER (01/14/2013 4:05 PM CDT) Hemoglobin A1c POCT 5.8 3.4 - 6.1 % [facility] POCT TESTING QC Verified yes Yes [facility] PO CT TESTING Blood specimen (specimen) BLOOD SPECIMEN / Unknown 01/14/2013 4:05 PM CDT Martha Moore MD LAB - POINT OF CA RE ORDERABLES Performing Organization Address City/State/[facility] Co de Phone Number [facility] POCT TESTING [address] [place] [address] documented in this encounter Visit Diagnoses Not on filedocumented in this encounter Care Teams Experimental Rocket Sled Mechanic Relationship Specialty Start Date End Date Esperanza Santillan MD [address] [place] [address] [place] [phone] PCP - General Family Medicine 09/03/12 documented as of this encounter
--- OUTSIDE RECORDS SUMMARY | 2024-10-14 01:35 | XMS_ITS | Encounter Summary ---
Author Organization [facility] Address [address] [place] [address] Care Team Providers Care Flooring Sales Manager Name Role Phone Esperanza Santillan MD Primary Care Provider [phone] Reason for Visit * Reason Onset Date Comments Medication Prior Auth Request 10/23/2012 Encounter Details Date Type Department Care Team (Late st Contact Info) Description 10/23/2012 Telephone [facility] Pediatrics - [address] [address] Parviz Nolan MD [address] [place] [id number] Medication Prior Auth Request Social History Tobacco Use Types Packs/Day Years [...] Telephone Encounter - Lesly Braun RN - 10/23/2012 3:33 PM CARD PLAYER Escribed omepazole instead of prevacid per Protocol. PLAYER * Telephone Encounter - Bree Bonilla - 10/23/2012 3:11 PM CST Received prior auth request for Prevacid solutabs, insurance prefers Omeprazole or Pantoprazole PLAYER documented in this encounter Plan of Treatment Not on file documented as of this encounter Visit Diagnoses Not on filedocumented in this encounter Care Teams Flooring Sales Manager Relationship Specialty Start Date End Date Esperanza Santillan MD [address] [place] [address] [place] [phone] PCP - General Family Medicine 09/03/12 documented as of this encounter
--- OUTSIDE RECORDS SUMMARY | 2024-10-14 01:35 | XMS_ITS | Encounter Summary ---
Author Organization [facility] Address [address] [facility] [address] Care Team Providers Care Director Cardiology Name Role Phone Esperanza Santillan MD Primary Care Provider [phone] Reason for Visit * Reason Onset Date Comments MEDICATION REFILL 10/02/2012 Encounter Details Date Type Department Care Team (Late st Contact Info) Description 10/02/2012 Refill [facility] - Diabetes [address] [address] Serena Rivera, CALL CENTER SUPPORT REPRESENTATIVE-CHISELER HEAD Retired MEDICATION REFILL Social History Tobacco Use [...] of this encounter Visit Diagnoses Diagnosis Type I (juvenile type) diabetes mellitus without mention of complication, not stated as uncontrolled (HCC)- Primary Type I (juvenile type) diabetes mellitus without mention of complication, not stated as uncontrolled documented in this encounter Care Teams Director Cardiology Relationship Specialty Start Date End Date Esperanza Santillan MD [address] [place] [address] [place] [phone] PCP - General Family Medicine 09/03/12 documented as of this encounter
--- OUTSIDE RECORDS SUMMARY | 2024-10-14 01:35 | XMS_ITS | Encounter Summary ---
Author Organization [facility] Address [address] [facility] [place] [address] Care Team Providers Care Investments Manager Name Role Phone Esperanza Santillan MD Primary Care Provider [phone] Reason for Visit * Reason Onset Date Comments Missed Appointment 05/04/2013 Encounter Details Date Type Department Care Team (Late st Contact Info) Description 05/04/2013 Telephone [facility] Pediatrics - Endocrinology [facility] [place] [address] Serena Rivera, ORACLE BUSINESS ANALYST-NEWSPAPER PUBLISHER Retired Missed Appointment Social History Tobacco Use Types [...] Miscellaneous Notes * Telephone Encounter - Serena Rivera RN,CPNP - 05/04/2013 3:35 PM CDT Melissa returned our call; we had called her because she missed her diabetes appointment on 04/29/2013. She tells me she was out of town and did not know she had an appointment. RE-scheduled for 07/12/13 at 10 AM. documented in this encounter Plan of Treatment Not on file documented as of this encounter Visit Diagnoses Not on filedocumented in this encounter Care Teams Investments Manager Relationship Specialty Start Date End Date Esperanza Santillan MD [address] [place] [phone] PCP - General Family Medicine 09/03/12 documented as of this encounter
--- OUTSIDE RECORDS SUMMARY | 2024-10-14 01:35 | XMS_ITS | Encounter Summary ---
Author Organization [facility] Address [address] [facility] [place] [address] Care Team Providers Care Department Secretary Name Role Phone Esperanza Santillan MD Primary Care Provider [phone] Reason for Visit * Reason Onset Date Comments Appointment 10/01/2012 Encounter Details Date Type Department Care Team (Late st Contact Info) Description 10/01/2012 Telephone [facility] Pediatrics - Endocrinology [facility] [place] [address] Serena Rivera, FIXTURE DESIGNER-EARLY HEAD START DIRECTOR Retired Appointment Social History Tobacco Use Types Packs/Day Years Used Date Smoking Tobacco: Never Assessed Sex and Gender Information Value Date Recorded Sex Assigned at Not on file Gender Identity Not on file Sexual Orientation Not on file documented as of this encounter Plan of Treatment Not on file documented as of this encounter Visit Diagnoses Not on filedocumented in this encounter Care Teams Department Secretary Relationship Specialty Start Date End Date Esperanza Santillan MD [address] [place] [address] [place] [phone] PCP - General Family Medicine 09/03/12 documented as of this encounter
--- OUTSIDE RECORDS SUMMARY | 2024-10-14 01:35 | XMS_ITS | Encounter Summary ---
Author Organization [facility] Address [address] [facility] [place] [address] Care Team Providers Care Medical Engineer Name Role Phone Esperanza Santillan MD Primary Care Provider [phone] Reason for Visit * Reason Onset Date Comments Results 11/25/2012 Encounter Details Date Type Department Care Team (Late st Contact Info) Description 11/25/2012 Telephone [facility] Pediatrics - [address] [address] Parviz Nolan MD [address] [place] [id number] Results Social History Tobacco Use Types Packs/Day [...] encounter Miscellaneous Notes * Telephone Encounter - Keri Kenyon RN - 11/25/2012 4:03 PM CST Talked to mom and gave her results. Letter written and faxed to school. FITS CONSULTING ANALYST * Telephone Encounter - Maite Jackson - 11/25/2012 3:43 PM CST Calling for biospy results, looks like they are back in Epic. Patient also requesting a letter for school as she missed today due to stomach issues. School fax # is [phone] FITS CONSULTING ANALYST documented in this encounter Plan of Treatment Not on file documented as of this encounter Visit Diagnoses Not on filedocumented in this encounter Care Teams Medical Engineer Relationship Specialty Start Date End Date Esperanza Santillan MD [address] [place] [address] [place] [phone] PCP - General Family Medicine 09/03/12 documented as of this encounter
--- OUTSIDE RECORDS SUMMARY | 2024-10-14 01:35 | XMS_ITS | Encounter Summary ---
Author Organization [facility] Address [address] [facility] [place] [address] Care Team Providers Care Tailer In Name Role Phone Esperanza Santillan MD Primary Care Provider Reason for Visit * Reason Onset Date Comments MEDICATION REFILL 10/07/2012 Encounter Details Date Type Department Care Team (Late st Contact Info) Description 10/07/[address] [facility] Pediatrics - Endocrinology [facility] [place] [address] Serena Rivera, ELECTROCHEMIST-CUSTOMER SUPPORT MANAGER Retired MEDICATION REFILL Social History Tobacco [...] as of this encounter Visit Diagnoses Diagnosis Nonspecific abnormal results of other endocrine function study- Primary documented in this encounter Care Teams Tailer In Relationship Specialty Start Date End Date Esperanza Santillan MD [address] [place] [address] [place] [phone] PCP - General Family Medicine 09/03/12 documented as of this encounter
--- OUTSIDE RECORDS SUMMARY | 2024-10-14 01:35 | XMS_ITS | Encounter Summary ---
Author Organization [facility] Address [address] [facility] [place] [address] Care Team Providers Care Cosmetic Sales Name Role Phone Esperanza Santillan MD Primary Care Provider Reason for Visit * Reason Onset Date Comments Results 10/06/2012 Encounter Details Date Type Department Care Team (Late st Contact Info) Description 10/06/2012 Telephone [facility] Pediatrics - Diabetes [address] [address] Serena Rivera, GEOPHYSICAL PROSPECTING SURVEYOR-MID WIFE Retired Results Social History Tobacco Use Types Packs/Day [...] Telephone Encounter - Serena Rivera, RN,CPNP - 10/06/2012 2:09 PM MATERIAL CUTTER Hospital Outpatient Visit on 10/02/2012 Component Date Value Range Status ??? Creat Urine mg/dL 10/02/2012 192.23 Final ? ? Microalbumin Ur mg/dL 10/02/2012 0.9 <1.7 mg/dL Final ? ? Microalb/Creat Ratio 10/02/2012 5 <30 mg/g Final ? ? Cholesterol 10/02/2012 142 <170 mg/dL Final ??? Triglycerides 10/02/2012 78 42-330 mg/dL Final ? ? HDL Chol 10/02/2012 47 >40 mg/dL Final ??? VLDL Calc 10/02/2012 16 12-38 mg/dL Final ? ? Chol HDL Ratio 10/02/2012 3.0 <=5.0 Final ? ? LDL Direct 10/02/2012 83 <100 mg/dL Final ??? C-Peptide 10/02/2012 2.70* 0.78-1.89 Final ? ? YUNG Ab 10/02/2012 <5.0 0.0 - 5.0 IU/mL Final INTERPRETIVE INFORMATION: Glutamic Acid Decarboxylase Antibody A value greater than 5.0 IU/mL is considered positive for Glutamic Acid Decarboxylase Antibody. ? ? IA-2 Ab 10/02/2012 <0.8 0.0 - 0.8 U/mL Final INTERPRETIVE INFORMATION: IA-2 Antibody A value greater than 0.8 Kronus Units/mL is considered positive for IA-2 Antibodies. ? ? Islet Cell IgG Ab 10/02/2012 <1:4 <1:4 Final INTERPRETIVE INFORMATION: Islet Cell Ab, IgG Islet cell antibodies (ICAs) are associated with type 1 diabetes (TID), an autoimmune endocrine disorder. These antibodies may be present in individuals years before the onset of clinical symptoms. To calculate Juvenile Diabetes Foundation (JDF) units: multiply the titer x 5 (1:8 8 x 5 = 40 JDF Units). ??? FSH 10/02/2012 6.72 0.2-8.0 mIU/mL Final ??? DHEA Sulfate 10/02/2012 90.4 8.6-169.8 ug/dL Final ??? Testosterone Female/Child 10/02/2012 22 6 - 52 ng/dL Final INTERPRETIVE INFORMATION: Total Testosterone, Jose G Stage Male Female Jose G Stage I 2-15 ng/dL 2-17 ng/dL Jose G Stage II 3-303 ng/dL 5-40 ng/dL Jose G Stage III 10-851 ng/dL 10-63 ng/dL Jose G Stage IV-V 162-847 ng/dL 11-62 ng/dL Total testosterone values may not reflect optimal concentrations in all individuals. Free or bioavailable testosterone measurements may provide supportive information. REFERENCE INTERVAL: Testosterone, LC-MS/MS Access complete set of age- and/or gender-specific reference intervals for this test in the [employer] [facility] Laboratory Test Directory ([employer]). ??? Testosterone Free LC-MS 10/02/2012 5.5 1.2 - 7.5 pg/mL Final Testosterone, Free LC-MS/MS: Jose G Stage Reference Intervals Male Female Jose G Stage I Less than 3.8 pg/mL Less than 2.2 pg/mL Jose G Stage II 0.3-21 pg/mL 0.4-4.5 pg/mL Jose G Stage III 1-98 pg/mL 1.3-7.5 pg/mL Jose G Stage IV 35-169 pg/mL 1.1-15.5 pg/mL Jose G Stage V 41-239 pg/mL 0.8-9.2 pg/mL To convert to pmol/L, multiply pg/mL by 3.47 The concentration of Free Testosterone is derived from a mathematical expression based on the constant for the binding of testosterone to sex hormone binding globulin. REFERENCE INTERVAL: Testosterone, Free LC-MS/MS Access complete set of age- and/or gender-specific reference intervals for this test in the [employer] [facility] Laboratory Test Directory ([employer]). ??? [id number] 10/02/2012 239 Final Comment: 17-HYDROXYPROGESTERONE: Jose G Stages, Females Age 7-17 Jose G Stage I Less than or equal to 74 ng/dL Jose G Stage II Less than or equal to 164 ng/dL Jose G Stage III 13-209 ng/dL Jose G Stage IV-V 7-170 ng/dL INTERPRETIVE INFORMATION: 17-Hydroxyprogesterone FEMALE: Premature (26-28 weeks) ......... 124-841 ng/dL Premature (29-35 weeks) .......... 26-568 ng/dL Full term, Day 3 .................. 7-77 ng/dL 4 days-30 days..................... 7-106 ng/dL 1-5 months [...] Less than 207 ng/dL Follicular ....................... 15-70 ng/dL Luteal ........................... 35-290 ng/dL MALE: Premature (26-28 weeks) ......... 124-841 ng/dL Premature (29-35 weeks) .......... 26-568 ng/dL Full term, Day 3 .................. 7-77 ng/dL 4 days-2 months ........... Less than 200 [...] and older ........ Less than 139 ng/dL ??? Glucose 10/02/2012 115* 70-105 mg/dL Final ??? LH 10/02/2012 25.7 Final RIAL CUTTER documented in this encounter Plan of Treatment Not on file documented as of this encounter Visit Diagnoses Not on filedocumented in this encounter Care Teams Cosmetic Sales Relationship Specialty Start Date End Date Esperanza Santillan MD [address] [place] [address] [place] [phone] PCP - General Family Medicine 09/03/12 documented as of this encounter
--- OUTSIDE RECORDS SUMMARY | 2024-10-14 01:35 | XMS_ITS | Encounter Summary ---
Author Organization [facility] Health Address [address] [place] [address] Care Team Providers Care Yarn Wrapper Name Role Phone Esperanza Santillan MD Primary Care Provider [phone] Reason for Visit * Reason Comments Pain Abdominal pt woke up today wit h pain around umbilicus and states she feels her stomach is swollen. GI MD sent her in for eval. Denies n/v/d/fevers. Last BM this morning. Encounter Details Date Type Department Care Team (Late st Contact Info) Description 03/16/2013 8:59 PM CDT - 03/16/2013 10:40 PM CDT Emergency ER at [address] [address] Dior Hall MD [address] [place] [id number] Abdominal Pain; Urinary tract infection Discharge Disposition: Home or Self Care Social [...] Sign Reading Time Taken Comments Blood Pressure 132/75 03/16/2013 9:06 PM CDT Pulse 104 03/16/2013 9:06 PM CDT Temperature 37.1 ??C (98.8 ??F) 03/16/2013 9:06 PM CD T Respiratory Rate 22 03/16/2013 9:06 PM CDT Oxygen Saturation - - Inhaled Oxygen Concentration - - Weight 91.7 kg (202 lb 2.6 oz) 03/16/2013 9:06 P M CDT Height - - Body Mass Index - - documented in this encounter Discharge Instructions * Discharge Instructions* Nicole Abdullahi MD - 03/16/2013 10:30 PM CDT Urinary Tract Infection A urinary tract infection (UTI) is often caused by a germ (bacteria). A UTI is usually helped with medicine (antibiotics) that kills germs. Take all the medicine until it is gone. Do this even if youare feeling better. You are usually better in 7 to 10 days. HOME CARE ?? Drink enough water and fluids to keep your pee (urine) clear or pale yellow. Drink: ?? Cranberry juice. ?? Water. ?? Avoid: ?? Caffeine. ?? Tea. ?? Bubbly (carbonated) drinks. ?? Alcohol. ?? Only take medicine as told by your doctor. ?? To prevent further infections: ?? Pee often. ?? After pooping (bowel movement), women should wipe from front to back. Use each tissue only once. ?? Pee before and after having sex (intercourse). Ask your doctor when your test results will be ready. Make sure you follow up and get your test results. GET HELP RIGHT AWAY IF: ?? There is very bad back pain or lower belly (abdominal) pain. ?? You get the chills. ?? You have a fever. ?? Your baby is older than 3 months with a rectal temperature of 102?? F (38.9?? C) or higher. ?? Your baby is 3 months old or younger with a rectal temperature of 100.4?? F (38?? C) or higher. ?? You feel sick to your stomach (nauseous) or throw up (vomit). ?? There is continued burning with peeing. ?? Your problems are not better in 3 days. Return sooner if you are getting worse. MAKE SURE YOU: ?? Understand these instructions. ?? Will watch your condition. ?? Will get help right away if you are not doing well or get worse. Document Released: 03/10/2009 Document Revised: 06/03/2012 Document Reviewed: 03/10/2009 ExitCare?? Patient Information ??2012 [employer]. Abdominal Pain Many things can cause belly (abdominal) pain. Most times, the belly pain is not dangerous. The amount of belly pain does not tell how serious the problem may be. Many cases of belly pain can be watched and treated at home. HOME CARE ?? Do not take medicines that help you go poop (laxatives) unless told to by your doctor. ?? Only take medicine as told by your doctor. ?? Eat or drink as told by your doctor. Your doctor will tell you if you should be on a special diet. GET HELP RIGHT AWAY IF: ?? The pain does not go away. ?? You have a fever. ?? You keep throwing up (vomiting). ?? The pain changes and is only in the right or left part of the belly. ?? You have bloody or tarry looking poop. MAKE SURE YOU: ?? Understand these instructions. ?? Will watch your condition. ?? Will get help right away if you are not doing well or get worse. Document Released: 03/10/2009 Document Revised: 06/03/2012 Document Reviewed: 10/08/2010 ExitCare?? Patient Information ??2012 [employer]. * Discharge Instructions* Document, Scanned - 03/18/2013 7:31 PM CDT documented in this encounter Medications at Time of Discharge Medication Sig Dispensed Refills Start Date End Date blood glucose (FREESTYLE LITE STRIPS) test stripIndications:Type I (juvenile type) diabetes mellitus without mention of complication, not stated as uncontrolled (HCC) Use 1 Strip 2 times daily. 100 Strip 11 10/02/2012 05/20/2013 cefDINIR (OMNICEF) 300 MG capsule Take 1 Cap by mouth 2 times daily for 10 days. 20 Cap 0 03/16/2013 03/26/2013 dicyclomine (BENTYL) 20 MG tablet Take 20 mg by mouth 4 times daily. 12/04/2015 ferrous sulfate 325 (65 FE) MG tablet Take 1 Tab by mouth once daily. 30 Tab 4 02/22/2013 03/23/2014 metFORMIN (GLUCOPHAGE) 500 MG tabletIndications:Type I (juvenile type) diabetes mellitus without mention of complication, not stated as uncontrolled (HCC) 2 tabs with breakfast and dinner or as directed. 90 day supply 360 Tab 0 2013 01/10/2014 norgestimate-ethinyl estradiol (ORTHO-CYCLEN, 28,) 0.25-35 MG-MCG tablet Take 1 Tab by mouth once daily. 1 Packet 3 02/22/2013 06/09/2013 omeprazole EC (PRILOSEC OTC) 20 MG tablet Take 1 Tab by mouth daily before breakfast. 30 Tab 0 03/16/2013 12/02/2013 promethazine (PHENERGAN) 25 MG tablet Take 25 mg by mouth every 6 hours as needed. 12/04/2015 trimethoprim-sulfametho xazole (BACTRIM DS) 800-160 MG tablet Take 1 Tab by mouth 2 times daily. 06/09/2013 documented as of this encounter ED Notes * Gloria Shaw RN - 03/16/2013 10:39 PM CDT Discharged instructions reviewed with mom and patient. Rx given with dosing schedule suggested. Instructed pt to follow up with PCP in 2 weeks for a recheck. Opportunity for questions given. Mom and patient verbalized understanding of discharge plan. Patient was alert and cooperative at time of discharge. * Dior Hall MD - 03/16/2013 10:06 PM CDT Provider contact with the patient: 03/16/2013 22:06 Melissa Jackson [phone] [facility] EMERGENCY DEPARTMENT History Chief Complaint Patient presents with ??? Pain Abdominal pt woke up today with pain around umbilicus and states she feels her stomach is swollen. GI senther in for eval. Denies n/v/d/fevers. Last BM this morning. 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 Unless appended by me below, I agree with findings as documented. HPI Comments: Melissa Jackson is a 13 y.o. Female h/o UTI last month, missed one day of abx, woke this am with left upper abdomen swelling and mid abdominal pain, worse with sneeze, stretch or movement. No fever, chest pain, dysuria, headache, vomiting. Has h/o chronic abdominal pain, has had an endoscopy, doesn't take nexium daily. TYpe 2 diabetic. Review of Systems Review of Systems All other systems reviewed and are negative. BP 132/75 Pulse 104 Temp 98.8 ??F Resp 22 Wt 91.7 kg (202 lb 2.6 oz) Physical Exam I have reviewed the resident/NAPHTHA WASHING SYSTEM OPERATOR physical exam. Unless appended by me below, I agree with the PE as documented. Physical Exam Constitutional: She is oriented to person, place, and time. She appears well- developed and well-nourished. No distress. Neck: Normal range of motion. Neck supple. Cardiovascular: Normal rate, regular rhythm and normal heart sounds. Pulmonary/Chest: Effort normal and breath sounds normal. Abdominal: Soft. Bowel sounds are normal. Neurological: She is alert and oriented to person, place, and time. Skin: Skin is warm and dry. Procedures Procedures Progress Notes ED Course Medical Decision Making I have reviewed the: [...] nursing notes, available labs and radiographic studies. 13yo with epigastric and suprapubic pain. +WBC and LE on U/A, d/w mom monitoring culture vs treat, family prefers to treat, will place on omnicef. Epigastric pain likely c/w gastritis pt has had previously, will restart PPI. Pt with some signs of musculoskeletal pain as well, told to rest, return with any worsening of pain or new symptoms. Clinical Impression Final diagnoses: None * Bradly, Nicole Barry MD - 03/16/2013 9:39 PM CDT Images from the original note were not included. EMERGENCY DEPARTMENT 03/16/2013 Dear Doctor, We had the pleasure of caring for your patient, Melissa Jackson in our emergency department on 03/16/2013. A note from the provider(s) who cared for your patient is attached. Should you wish to access any laboratory results, please call . Should you wish to access any radiology results, please call , option 3. In addition, you can access patient information 24 hours a day, from any computer, through [place], the online version of our electronic medical record. If you would like to use this service, please call Ida Cutler, Connectivity Coordinator, at . We appreciate the opportunity to care for your patients. If you would like additional information, please call the emergency department directly at . Sincerely, Nicole Abdullahi MD Division of Emergency Medicine [facility], [place] [facility] [place] EMERGENCY DEPARTMENT Provider contact with the patient: 03/16/2013 21:39 Melissa Jones Manuel [id number] [facility] EM[facility]GENCY [facility]PARTMENT History Chief Complaint Patient presents with ??? Pain Abdominal pt woke up today with pain around umbilicus and states she feels her stomach is swollen. GI senther in for eval. Denies n/v/d/fevers. Last BM this morning. HPI 13 y.o girl with hx of type II DM, IBS, here with abdominal pain. Pt states she woke up this morning and noted swelling on left abdomen, assoc with mid abdominal and LUQ pain. Abd pain is worse with bending over, sneezing, stretching. No chest pain, no nausea/vomiting/diarrhea. Soft BMs today. Pt is taking good PO, good appetite today. No dysuria. No fevers. Had mild PETERS yesterday but since resolved. Pt states this abdominal pain is somewhat similar to abd pain she has had in the past. Pt with prior hx of chronic abd pain, evaluated by GI and had endoscopy done, unremarkable, and is supposed to be on prilosec. She is not taking her prilosec daily, stating she was supposed to take as needed and does not have any currently. Pt was dx with UTI by her PCP about 3 wks ago when she had dysuria/burning urination. Pt states shewas on abx and was compliant except she missed the last 1-2 days because she was out of town. Past Medical History Diagnosis Date ??? Diabetes mellitus ??? Anemia ??? Irritable bowel disease Past Surgical History Procedure Date ??? Pr [...] History Narrative ??? No narrative on file Medications Current Outpatient Prescriptions Medication Sig Dispense Refill ??? metFORMIN (GLUCOPHAGE) 500 MG tablet 2 tabs with breakfast and dinner or as directed. 90 day supply 360 Tab 0 ??? dicyclomine (BENTYL) 20 MG tablet Take 20 mg by mouth 4 times daily. ??? promethazine (PHENERGAN) 25 MG tablet Take 25 mg by mouth every 6 hours as needed. ??? trimethoprim-sulfamethoxazole (BACTRIM DS) 800-160 MG tablet Take 1 Tab by mouth 2 times daily. ??? norgestimate-ethinyl estradiol (ORTHO-CYCLEN, 28,) 0.25-35 MG-MCG tablet Take 1 Tab by mouth once daily. 1 Packet 3 ??? ferrous sulfate 325 (65 FE) MG tablet Take 1 Tab by mouth once daily. 30 Tab 4 ??? blood glucose (FREESTYLE LITE STRIPS) test strip Use 1 Strip 2 times daily. 100 Strip 11 Review of Systems Review of Systems Constitutional: Negative for fever, chills, activity change and appetite change. HENT: Negative for congestion, facial swelling and rhinorrhea. Eyes: Negative for visual disturbance. Respiratory: Negative for cough and shortness of breath. Cardiovascular: Negative for chest pain. Gastrointestinal: Positive for abdominal pain. Negative for nausea, vomiting, diarrhea and constipation. Genitourinary: Negative for dysuria, hematuria, decreased urine volume and difficulty urinating. Musculoskeletal: Negative for back pain and joint swelling. Skin: Negative for rash. Neurological: Negative for dizziness, weakness and light-headedness. BP 132/75 Pulse 104 Temp 98.8 ??F Resp 22 Wt 91.7 kg (202 lb 2.6 oz) Physical Exam Physical Exam Constitutional: She appears well-developed and well-nourished. HENT: Head: Normocephalic and atraumatic. Mouth/Throat: Oropharynx is clear and moist. Eyes: Conjunctivae are normal. Neck: Neck supple. Cardiovascular: Normal rate and regular rhythm. Pulmonary/Chest: Effort normal and breath sounds normal. Abdominal: Soft. There is tenderness. There is no rebound and no guarding. Mild TTP epigastric, LUQ and suprapubic areas Neurological: She is alert. Procedures Procedures Lab/SPO2 Interpretation Labs Reviewed URINALYSIS ROUTINE AUTO - Abnormal; Notable for the following: Leukocyte UA 2+ (*) WBC UA Auto 20-50 (*) EPI CELLS UA Auto 10-20 (*) BACTERIA UA Auto 1+ (*) All other components within normal limits HCG URINE QUALITATIVE - POCT (IP) BEAKER URINALYSIS MICROSCOPIC ONLY CULTURE URINE Progress Notes ED Course Medications omeprazole EC (PRILOSEC OTC) 20 MG tablet (not administered) cefDINIR (OMNICEF) 300 MG capsule (not administered) Medical Decision Making I have reviewed the: Previous Chart. I have interpreted the following results: Labs. Pt well appearing, active and interactive. Recurrent UTI vs gastritis. Will treat empirically, cultures pending. PCP f/u. Return to ED if worsening abd pain, high fevers, persistent vomiting Clinical Impression Final diagnoses: Abdominal pain Urinary tract infection documented in this encounter Plan of Treatment Not on file documented as of this encounter Procedures Procedure Name Priority Date/Time Associated Diagnosis Comments CULTURE URINE STAT 03/16/2013 10:36 PM CDT HCG URINE QUALITATIVE - POCT (IP) BEAKER STAT 03/16/2013 9:17 PM CDT URINALYSIS REFLEX TO MICROSCOPIC NO CULTURE STAT 03/16/2013 9:16 PM CDT URINE MICROSCOPIC ONLY STAT 03/16/2013 9:16 PM CDT documented in this encounter Results * (ABNORMAL) CULTURE URINE (03/16/2013 10:36 PM CDT) Pathologist [facility] Culture 10,000-50,000 CFU/mL Streptococcus agalactiae (Group B)(A) 03/19/2013 8:20 AM CDT [facility]CRO[facility] Culture 10,000-50,000 CFU/mL normal urogenital lisa 03/19/2013 8:20 AM CDT [facility]CRO[facility] Urine specimen (specimen) URINE SPECIMEN OBTAINED BY CLEAN CATCH PROCEDURE / Unknown Collection / Unknown 03/16/2013 10:36 PM CDT 03/16/2013 10:42 PM CDT Narrative [facility]CRO[facility] - 03/19/2013 8:20 AM CDT Susceptibility testing of penicillin, other beta-lactam antibiotics, and vancomycin is not necessary for beta-hemolytic streptococci groups A,B,C and G because resistant strains have not been recognized. Nicole Abdullahi MD LAB - MICROBIOLOGY O RDERABLES [facility] MICROBIOLOGY [address] [place] [address], [facility] * HCG URINE QUALITATIVE - POCT (IP) BEAKER (03/16/2013 9:17 PM CDT) [facility] HCG Qual Urine Negative Negative [facility] POCT TESTING QC Verified yes Yes [facility] PO CT TESTING Urine specimen (specimen) URINE / Unknown 03/16/2013 9:17 PM CDT Dior Hall MD LAB - POINT OF CARE ORDERABLES [facility] POCT TESTING [address] [facility] [facility] [place] [address] * (ABNORMAL) URINALYSIS ROUTINE AUTO (03/16/2013 9:16 PM CDT) Color UA Yellow Straw, Yellow, Dark Yellow 03/16/2013 9:41 PM [facility] Clarity UA Cloudy 03/16/2013 9:41 PM [facility] Specific [place] UA 1.029 1.005 - 1.030 03/16/2013 9:41 PM [facility] pH UA 6.5 5.0 - 8.0 03/16/2013 9:41 PM [facility] Protein UA Negative Negative 03/16/2013 9:41 PM [facility] Blood UA Negative Negative 03/16/2013 9:41 PM [facility] Leukocyte UA 2+(A) Negative 03/16/2013 9:41 PM [facility] Nitrite UA Negative Negative 03/16/2013 9:41 PM [facility] Glucose UA Negative Negative 03/16/2013 9:41 PM [facility] Ketone UA Negative Negative 03/16/2013 9:41 PM [facility] Bilirubin UA Negative Negative 03/16/2013 9:41 PM [facility] Urobilinogen UA 1.0 0.1 - 1.0 EU/dL 03/16/2013 9:41 PM [facility] WBC UA Auto 20-50(A) 0-2, 2-5 #/hpf 03/16/2013 9:41 PM [facility] RBC UA Auto 2-5 0-2, 2-5 #/hpf 03/16/2013 9:41 PM [facility] Epithelial Cell UA Auto 10-20(A) 0-2, 2-5 #/hpf 03/16/2013 9:41 PM [facility] Bacteria UA Auto 1+(A) None seen 03/16/20 13 9:41 PM [facility] Yeast UA Auto None seen None seen 03/16/2013 9:41 PM [facility] Sperm UA Auto Absent 03/16/2013 9:41 PM [facility] Urine specimen (specimen) URINE SPECIMEN OBTAINED BY CLEAN CATCH PROCEDURE / Unknown 03/16/2013 9:16 PM CDT 03/16/2013 9:26 PM T Dior Hall MD LAB - URINALYSIS ORD ERABLES [facility] [address] [place] [address] * URINALYSIS MICROSCOPIC ONLY (03/16/2013 9:16 PM CDT) RBC UA 0-2, 2-5 # /hpf 03/16/2013 10:02 PM CDT [facility] WBC UA 0-2, 2-5 # /hpf 03/16/2013 10:02 PM CDT [facility] Bacteria UA None Seen, Trace 03/16/2013 10:02 PM CDT [facility] Epithelial Cell UA 0-2, 2-5 03/16/2013 10:02 PM CDT [facility] Mucus UA 1+ 03/16/2013 10:02 PM CDT [facility] Urine specimen (specimen) URINE SPECIMEN OBTAINED BY CLEAN CATCH PROCEDURE / Unknown 03/16/2013 9:16 PM CDT 03/16/2013 9:26 PM CDT Crow Vogt MD LAB - URINALYSIS O RDERABLES Performing Organization Address [facility] Co de Phone Number [facility] [address] [place] [address] documented in this encounter Visit Diagnoses Diagnosis Abdominal pain Abdominal pain, unspecified site Urinary tract infection Urinary tract infection, site not specified documented in this encounter Care Teams Yarn Wrapper Relationship Specialty Start Date End Date Esperanza Santillan MD [address] [place] [phone] PCP - General Family Medicine 09/03/12 documented as of this encounter
--- OUTSIDE RECORDS SUMMARY | 2024-10-14 01:35 | XMS_ITS | Encounter Summary ---
Author Organization [facility] Address [address] [place] [address] Care Team Providers Care Bull Wheel Worker Name Role Phone Esperanza Santillan MD Primary Care Provider [phone] Reason for Visit * Reason Comments Diabetes Type 2 Follow-up Encounter Details Date Type Department Care Team (Latest Contact Info) Description 10/02/2012 9:02 AM REGIONAL DIRECTOR OF ADMISSIONS - 10/02/2012 11:59 PM [facility] Hospital Encounter [facility] - Diabetes [address] [address] Serena Rivera, GLOBAL COMMODITY MANAGER-CHEMICAL PROCESSING EQUIPMENT REPAIRER Retired Discharge Disposition: Home or Self Care Social [...] Sign Reading Time Taken Comments Blood Pressure 120/78 10/02/2012 9:04 AM REGIONAL DIRECTOR OF ADMISSIONS Pulse - - Temperature - - Respiratory Rate - - Oxygen Saturation - - Inhaled Oxygen Concentration - - Weight 90.2 kg (198 lb 13.7 oz) 10/02/2012 9:04 AM REGIONAL DIRECTOR OF ADMISSIONS Height 156.4 cm (5' 1.58 ) 10/02/2012 9:04 AM CS T Body Mass Index 36.87 10/02/2012 9:04 AM REGIONAL DIRECTOR OF ADMISSIONS Body Mass Index Percentile 99.35% 10/02/2012 9:0 4 AM REGIONAL DIRECTOR OF ADMISSIONS Growth Chart: [facility] (Girls, 2- 20 Years) documented in this encounter Discharge Instructions * Patient Instructions* Serena Rivera RN,NANDONP - 10/02/2012 10:35 AM REGIONAL DIRECTOR OF ADMISSIONS Check blood sugars 2 x day: Before breakfast and after school or the evening Target is 70-150 Keep a log Metformin: 1 tablet with breakfast and one with dinner, may start with just the dinner dose for oneweek, then increase to 2 x day After the second week, increase dinner dose to 2 tablets If tolerating well, increase both breakfast and dinner to 2 tablets Meal Plan: Fresh fruits and vegetables and whole grains Low animal fat and higher fiber and lower salt Read labels No liquid sugars (regular soda, juice, syrups) Portion control, single servings and no second helpings Physical exercise: Goal is one hour per day, walking is good, try power walking Call our office next week to review your progress and blood sugars Return to see Dr. Moore in 3 months ONAL DIRECTOR OF ADMISSIONS documented in this encounter Medications at Time [...] as of this encounter Progress Notes * Serena Rivera RN,STARR - 10/02/2012 11:07 AM CST Melissa Jackson and her mother and Melissa's boyfriend were seen in our Pediatric Endocrinology offices on October 02, 2012. She is a 12 y.o. 7 m.o. girl who is referred for new onset diabetes and possible PCOS. Present Illness: Dark rash around neck, axilla, elbows and waist and abdominal pain. Seen by PCP recently, labs doneincluded an elevated hemoglobin A1c of 7.0%. TSH, T4 and liver enzymes were normal Webbed toes PMH she was 7 lb at following a 41-week complicated by early labor at 32 weeks; 2 injections were given, labor stopped. Delivery was normal spontaneous vaginal delivery. She required routine care only, however, had formula problems , thus was changed to soy milk at 4 weeks of age. This was mother's first Hospitalizations: None Surgery: None, except for dental extractions at age 1 years due decay of her two upper front teeth (from baby bottle with formula) Significant injuries:None Chronic illnesses:None Infectious diseases:None Immunizations:UTD Allergies:Review of patient's allergies indicates no known allergies. Regular Medications: Takes a medicine for her stomach problems (she did not know the name) REVIEW OF SYSTEMS General: normal ENT: normal, however, has had some nose bleeds, cause unknown Eyes: Wears eyeglasses, most recent exam was May 2012 Skin: rash. Shaves facial hair and abdominal hair Cardiovascular: normal Gastrointestinal: frequent abdominal pain, no diarrhea or constipation Genitourinary: Up 2-3 x a night to urinate. LMP March 2012, same time she stopped her control,because she ran out and did not get the Rx refilled. She began birthcontrol (type unknown) in December 2011 for irregular menses; it did make her periods more regular. She denies being sexually active. Endocrine: no fatigue or temperature intolerance Psychiatric: normal Neurologic: occasional headaches, treats with ibuprofen Allergy: No history of other allergic problems Development: Normal or early milestones Currently has an IEP for school as she has had difficulty with reading and panamanian FAMILY HISTORY Mother is 31 years old, 62 inches tall, weighs 175 lb and recalls menarche at age 13. She has no medical problems. Father is 30 years old, 73 inches tall, weighs 220 lb. He has no known medical problems. Two brothers ages 12, healthy and age 6 years, has asthma One sister, age 9 years, healthy Maternal grandmother is 58 years old, has a lung problem , however, mother did not know what it was Maternal grandfather is 54 years old, has Type 2 diabetes, hypertension and elevated cholesterol Paternal grandmother is in her 50's, health unknown Paternal grandfather is , in his 20's, secondary to a gun shot injury A maternal uncle has type 2 diabetes. A great maternal aunt has a thyroid problem (unknown type) There is no family history or significant disorders, that mother recalled, of stature or of puberty, adrenal disease, pituitary disease, or childhood , seizures, mental retardation, congenital disorders of vision or hearing. Social History: Lives with: Mother, mother's boyfriend/fiance, and 9 year old sister and 6 year oldbrother (12 year old brother lives with his father) Each of mother's 4 children have a different father. Melissa visits her biological father infrequently (he pays no child support) School: She is in grade 9 at [employer], has an IEP for reading and panamanian difficulties. She Has no PE at school and she is not very physically active Stresses: Family recently moved. Mother works has a history instructor, varied hours, not multimedia editor She has aGED. Melissa is not exposed to cigarette smoke Physical Examination: BP 120/78 Ht 1.564 m (5' 1.58 ) Wt 90.2 kg (198 lb 13.7 oz) BMI 36.87 kg/m2 98.71%ile based on CDC 2-20 Years [id number] data. 22.19%ile based on CDC 2- 20 Years [id number] data. Body mass index is 36.87 kg/(m^2). 99.1%ile based on CDC 2-20 Years BMI-for-age data. General: alert and oriented; well-appearing Eyes: Normal HEENT: Normal Neck: Normal, thyroid is not enlarged Chest/Breast: Normal, Jose G stage 5 breasts Lungs: Clear to auscultation, unlabored breathing Heart: Normal PMI, regular rate & rhythm, normal S1,S2, no murmurs Abdomen: Normal obese, soft, tender on palpation (generalized), without organ enlargement or masses. Genitourinary: Normal female; Jose G stage 5 partially shaved pubic hair Musculoskeletal: Webbed 2nd and 3rd toes on both feet Lymphatic: No abnormally enlarged lymph nodes. Skin/Hair/Nails: Moderate acanthosis nigricans around neck, axilla, elbow, breasts, waist. Evidenceof shaved low abdominal hair and facial hair (just above and below lips) Neurologic: Mental status normal, no cranial nerve deficits, normal strength and tone, normal gait Laboratory Data: Component Value Range ??? Lipids: ? ? Cholesterol 142 <170 mg/dL ??? Triglycerides 78 42-330 mg/dL ? ? HDL Chol 47 >40 mg/dL ??? VLDL Calc 16 12-38 mg/dL ? ? Chol HDL Ratio 3.0 <=5.0 LDL Direct 83 <100 mg/dL ??? Glucose, fasting 115* 70-105 mg/dL ??? C-Peptide 2.70* 0.78-1.89 ? ? YUNG Ab <5.0 0.0 - 5.0 IU/mL IA-2Ab <0.8 0.0 - 0.8 U/mL ? ? Islet Cell IgG Ab <1:4 <1:4 LH 25.7 ??? FSH 6.72 0.2-8.0 mIU/mL ??? DHEA Sulfate 90.4 8.6-169.8 ug/dL ??? Testosterone Female/Child 22 6 - 52 ng/dL ??? Testosterone Free LC-MS 5.5 1.2 - 7.5 pg/mL ??? [id number] 239 ??? Urine: Creat Urine mg/dL 192.23 Microalbumin Ur mg/dL 0.9 <1.7 mg/dL Microalb/Creat Ratio 5 <30 mg/g Impression: 1 Type 2 Diabetes; hemoglobin A1c of 7 %, negative diabetes antibodies and elevated C-Peptide 2. Secondary amenorrhea 3. PCOS (LH:FSH ratio is greater than 1:1 , closer to 1:3, hirsutism, menstrual irregularities 4. Obesity (BMI 36.88) 5. Elevated 17-OH Progesterone, will need to rule out CAH Management Plan: Check blood sugars 2 x day: Before breakfast and after school or the evening Target is 70-150 Keep a log Metformin: 1 tablet with breakfast and one with dinner, may start with just the dinner dose for oneweek, then increase to 2 x day After the second week, increase dinner dose to 2 tablets If tolerating well, increase both breakfast and dinner to 2 tablets Meal Plan: Fresh fruits and vegetables and whole grains Low animal fat and higher fiber and lower salt Read labels No liquid sugars (regular soda, juice, syrups) Portion control, single servings and no second helpings Physical exercise: Goal is one hour per day, walking is good, try power walking Call our office next week to review your progress and blood sugars Will arrange to have Cortrosyn Stim test soon (CAH profile at 0 and 60 minutes); Sofía Valencia RN will do Consider re-starting control (for secondary amenorrhea and PCOS) Return to see Dr. Moore in 3 months I spent 2 hours with the family, providing instructions on diabetes and management and PCOS. I alsogave Melissa a FreeStyle Lite glucose meter and instructed her on use of it. Information sheets were given to support the topics discussed. Discussed lab results with Dr. Moore. 10/07/11: I called and spoke with both Melissa and her mother, discussed all lab results and discussed the Cortrosyn Stim test ONAL DIRECTOR OF ADMISSIONS documented in this encounter Miscellaneous Notes * Miscellaneous Scans - Document, Scanned - 11/13/2012 9:09 AM CST ONAL DIRECTOR OF ADMISSIONS documented in this encounter Plan of Treatment Not on file documented as of this encounter Procedures Procedure Name Priority Date/Time Associated Diagnosis Comments IA-2 ANTIBODY Routine 10/02/2012 11:15 AM REGIONAL DIRECTOR OF ADMISSIONS Type II or unspecified type diabetes mellitus without mention of complication, not stated as uncontrolled (HCC) ISLET CELL ANTIBODY Routine 10/02/2012 1 1:15 AM REGIONAL DIRECTOR OF ADMISSIONS Type II or unspecified type diabetes mellitus without mention of complication, not stated as uncontrolled (HCC) DHEA SULFATE Routine 10/02/2012 11:15 AM REGIONAL DIRECTOR OF ADMISSIONS Irregular menses Obesity (BMI 35.0-39.9 without comorbidity) C-PEPTIDE Routine 10/02/2012 11:15 AM REGIONAL DIRECTOR OF ADMISSIONS Type II or unspecified type diabetes mellitus without mention of complication, not stated as uncontrolled (HCC) LH Routine 10/02/2012 11:15 AM REGIONAL DIRECTOR OF ADMISSIONS Type II or unspecified type diabetes mellitus without mention of complication, not stated as uncontrolled (HCC) Irregular menses Obesity (BMI 35.0-39.9 without comorbidity) Type 2 diabetes mellitus in patient age 13-19 years with HbA1C goal below 7.5 HYDROXYPROGESTERONE 17- Routine 10/02/20 12 11:15 AM REGIONAL DIRECTOR OF ADMISSIONS Irregular menses Obesity (BMI 35.0-39.9 without comorbidity) FSH Routine 10/02/2012 11:15 AM REGIONAL DIRECTOR OF ADMISSIONS Irregular menses Obesity (BMI 35.0-39.9 without comorbidity) GLUTAMIC ACID DECARBOXYLASE (YUNG) ANTIBODY Routine 10/02/2012 11:15 AM REGIONAL DIRECTOR OF ADMISSIONS Type II or unspecified type diabetes mellitus without mention of complication, not stated as uncontrolled (HCC) TESTOSTERONE FREE FEM/CHLD HYPOGNDL MALE Routine 10/02/2012 11:15 AM REGIONAL DIRECTOR OF ADMISSIONS Irregular menses Obesity (BMI 35.0-39.9 without comorbidity) TESTOSTERONE TOTAL FEM/CHLD HYPOGNDL MALE Routine 10/02/2012 11:15 AM REGIONAL DIRECTOR OF ADMISSIONS Irregular menses Obesity (BMI 35.0-39.9 without comorbidity) GLUCOSE Routine 10/02/2012 11:15 AM REGIONAL DIRECTOR OF ADMISSIONS Type II or unspecified type diabetes mellitus without mention of complication, not stated as uncontrolled (HCC) LIPID PROFILE Routine 10/02/2012 11:15 AM REGIONAL DIRECTOR OF ADMISSIONS Type II or unspecified type diabetes mellitus without mention of complication, not stated as uncontrolled (HCC) MICROALB/CREAT RATIO URINE RANDOM PANEL Routine 10/02/2012 9:32 AM REGIONAL DIRECTOR OF ADMISSIONS Type II or unspecified type diabetes mellitus without mention of complication, not stated as uncontrolled (HCC) documented in this encounter Results * LH (10/02/2012 11:15 AM REGIONAL DIRECTOR OF ADMISSIONS) LH 25.7 mIU/mL 10/02/2012 5:26 PM REGIONAL DIRECTOR OF ADMISSIONS [facility] Blood specimen (specimen) BLOOD SPECIMEN / Unknown 10/02/2012 11:15 AM REGIONAL DIRECTOR OF ADMISSIONS 10/02/2012 11:27 AM REGIONAL DIRECTOR OF ADMISSIONS Narrative [facility] - 10/02/2012 5:26 PM REGIONAL DIRECTOR OF ADMISSIONS ? LH Reference Range Adult Female: ?Normally [...] - 6.0 ?? mIU/mL ? Serena Rivera GLOBAL COMMODITY MANAGER-CHEMICAL PROCESSING EQUIPMENT REPAIRER LAB - CHEMISTRY ORDERABLES [facility] [address] [place] [address] * (ABNORMAL) GLUCOSE (10/02/2012 11:15 AM REGIONAL DIRECTOR OF ADMISSIONS) Glucose 115(H) 70 - 105 mg/dL 10/02/2012 12:06 PM REGIONAL DIRECTOR OF ADMISSIONS [facility] Blood specimen (specimen) BLOOD SPECIMEN / Unknown 10/02/2012 11:15 AM REGIONAL DIRECTOR OF ADMISSIONS 10/02/2012 11:27 AM REGIONAL DIRECTOR OF ADMISSIONS [place] M Miguel GLOBAL COMMODITY MANAGER-CHEMICAL PROCESSING EQUIPMENT REPAIRER LAB - CHEMISTRY ORDERABLES Performing Organization Address City/State/[facility] Co de Phone Number [facility] [address] [place] [address] * HYDROXYPROGESTERONE 17- (10/02/2012 11:15 AM REGIONAL DIRECTOR OF ADMISSIONS) 17 Hydroxyprogesterone 239 ng/dL 3:28 PM REGIONAL DIRECTOR OF ADMISSIONS [employer] Comment: 17-HYDROXYPROGESTERONE: Jose G Stages, Females Age [...] BLOOD SPECIMEN / Unknown 10/02/2012 11:15 AM REGIONAL DIRECTOR OF ADMISSIONS 10/02/2012 11:27 AM REGIONAL DIRECTOR OF ADMISSIONS Serena Rivera GLOBAL COMMODITY MANAGER-CHEMICAL PROCESSING EQUIPMENT REPAIRER LAB - CHEMISTRY ORDERABLES [facility] [address] [place] [address] * TESTOSTERONE FREE FEM/CHLD HYPOGNDL MALE (10/02/2012 11:15 AM REGIONAL DIRECTOR OF ADMISSIONS) Testosterone Free LC-MS 5.5 1.2 - 7.5 pg/mL 10/05/2012 8:03 AM [facility] Comment: Testosterone, Free LC-MS/MS: Jose G Stage [...] reference intervals for this test in the [facility] Laboratory Test Directory ([employer]). Blood specimen (specimen) BLOOD SPECIMEN / Unknown 10/02/2012 11:15 AM REGIONAL DIRECTOR OF ADMISSIONS 10/02/2012 11:27 AM REGIONAL DIRECTOR OF ADMISSIONS Serena Rivera GLOBAL COMMODITY [facility] - CHEMISTRY ORDERABLES [facility] [address] [place] [address] * TESTOSTERONE TOTAL FEM/CHLD HYPOGNDL MALE (10/02/2012 11:15 AM REGIONAL DIRECTOR OF ADMISSIONS) Pathologist [facility] Testosterone by Technical Writer 22 6 - 52 ng/dL 10/05/2012 7:41 AM [facility] Comment: INTERPRETIVE INFORMATION: Total Testosterone, Jose G [...] reference intervals for this test in the [facility] Test Directory ([employer]). Blood specimen (specimen) BLOOD SPECIMEN / Unknown 10/02/2012 11:15 AM REGIONAL DIRECTOR OF ADMISSIONS 10/02/2012 11:27 AM [facility] Serena Rivera GLOBAL COMMODITY MANAGER-CHEMICAL PROCESSING EQUIPMENT REPAIRER LAB - CHEMISTRY ORDERABLES Performing Organization Address City/State/[facility] Co de Phone Number [facility] [address] [place] [address] * DHEA SULFATE (10/02/2012 11:15 AM [facility]) Pathologist [facility] Dehydroepiandrosterone Sulfate (DHEAS) 90.4 8.6 - 169.8 ug/dL 10/02/2012 12:21 PM [facility] Blood specimen (specimen) BLOOD SPECIMEN / Unknown 10/02/2012 11:15 AM REGIONAL DIRECTOR OF ADMISSIONS 10/02/2012 11:27 AM [facility] Narrative [facility] - 10/02/2012 12:21 PM [facility] JOSE G RANGES: Male: ?? Stage 1 ?7-209 mcg/dL ? Stage 2 ?? 28-260 mcg/dL ? Stage 3 ?? 39-390 mcg/dL ? Stage 4 ?? 81-488 mcg/dL Female: Stage 1 ?7-126 mcg/dL ? Stage 2 ?? 13-241 mcg/dL ? Stage 3 ?? 32-446 mcg/dL ? Stage 4 ?? 65-371 mcg/dL Serena Rivera GLOBAL COMMODITY MANAGER-CHEMICAL PROCESSING EQUIPMENT REPAIRER LAB - CHEMISTRY ORDERABLES Performing Organization Address [facility] de Phone Number [facility] [address] [place] [address] * FSH (10/02/2012 11:15 AM REGIONAL DIRECTOR OF ADMISSIONS) FSH 6.72 0.2 - 8.0 mIU/mL 10/02/2012 1:11 PM REGIONAL DIRECTOR OF ADMISSIONS [facility] Blood specimen (specimen) BLOOD SPECIMEN / Unknown 10/02/2012 11:15 AM REGIONAL DIRECTOR OF ADMISSIONS 10/02/2012 12:01 PM REGIONAL DIRECTOR OF ADMISSIONS Narrative [facility] - 10/02/2012 1:11 PM REGIONAL DIRECTOR OF ADMISSIONS ?FSH Reference Range Normal Female Menses: ? Normally menstruating: ? Follicular ?3.0 - ?? 8.1 ??mIU/mL ? Midcycle Peak ? 2.6 - ??16.7 ??mIU/mL ? Luteal ?1.4 - ?? 5.5 ??mIU/mL ? Postmenopausal ?? 26.7 - 133.4 ??mIU/mL ? Serena Rivera GLOBAL COMMODITY MANAGER-CHEMICAL PROCESSING EQUIPMENT REPAIRER LAB - CHEMISTRY ORDERABLES Performing Organization Address [facility] de Phone Number [facility] [address] [place] [address] * DIABETES - ISLET CELL (10/02/2012 11:15 AM REGIONAL DIRECTOR OF ADMISSIONS) Islet Cell Antibody IgG <1:4 <1:4 10/04/2012 3:03 PM REGIONAL DIRECTOR OF ADMISSIONS [employer] Comment: INTERPRETIVE INFORMATION: Islet Cell Ab, IgG [...] BLOOD SPECIMEN / Unknown 10/02/2012 11:15 AM REGIONAL DIRECTOR OF ADMISSIONS 10/02/2012 11:27 AM REGIONAL DIRECTOR OF ADMISSIONS Serena Rivera GLOBAL COMMODITY MANAGER-CHEMICAL PROCESSING EQUIPMENT REPAIRER LAB - SEROLOGY [employer] Performing Organization Address [facility] de Phone Number [employer] [address] [place] [address] * DIABETES - IA 2 AB (10/02/2012 11:15 AM REGIONAL DIRECTOR OF ADMISSIONS) Insulinoma Associated 2 Antibody <0.8 0.0 - 0.8 U/mL 10/06/2012 1:00 PM REGIONAL DIRECTOR OF ADMISSIONS [employer] Comment: INTERPRETIVE INFORMATION: IA-2 Antibody A value greater than 0.8 Kronus Units/mL is considered positive for IA-2 Antibodies. Blood specimen (specimen) BLOOD SPECIMEN / Unknown 10/02/2012 11:15 AM REGIONAL DIRECTOR OF ADMISSIONS 10/02/2012 11:27 AM REGIONAL DIRECTOR OF ADMISSIONS Serena Rivera GLOBAL COMMODITY MANAGER-CHEMICAL PROCESSING EQUIPMENT REPAIRER LAB - SEROLOGY O RDERABLES Performing Organization Address [facility] Co de Phone Number [employer] [address] [place] [address] * DIABETES - YUNG AB (10/02/2012 11:15 AM REGIONAL DIRECTOR OF ADMISSIONS) Glutamic Acid Decarboxylase Antibody <5.0 0.0 - 5.0 IU/mL 10/04/2012 4:33 PM REGIONAL DIRECTOR OF ADMISSIONS [employer] Comment: INTERPRETIVE INFORMATION: ??Glutamic Acid Decarboxylase Antibody A value greater than 5.0 IU/mL is considered positive for Glutamic Acid Decarboxylase Antibody. Blood specimen (specimen) BLOOD SPECIMEN / Unknown 10/02/2012 11:15 AM REGIONAL DIRECTOR OF ADMISSIONS 10/02/2012 11:27 AM REGIONAL DIRECTOR OF ADMISSIONS Serena Rivera [facility] LAB - SEROLOGY O RDERABLES [facility] [address] [place] [address] * (ABNORMAL) C-PEPTIDE (10/02/2012 11:15 AM REGIONAL DIRECTOR OF ADMISSIONS) C-Peptide 2.70(H) 0.78 - 1.89 10/02/2012 5:25 PM [facility] Blood specimen (specimen) BLOOD SPECIMEN / Unknown 10/02/2012 11:15 AM REGIONAL DIRECTOR OF ADMISSIONS 10/02/2012 11:27 AM REGIONAL DIRECTOR OF ADMISSIONS Serena Rivera [facility] LAB - CHEMISTRY ORDERABLES Performing Organization Address City/[facility]/ZIP Co de Phone Number [facility] [address] [place] [address] * LIPID PROFILE (10/02/2012 11:15 AM REGIONAL DIRECTOR OF ADMISSIONS) Cholesterol 142 <170 mg/dL 10/02/2012 12:20 PM [facility] Triglycerides 78 42 - 330 mg/dL 10/02/2012 12:20 PM [facility] HDL Cholesterol 47 >40 mg/dL 2 12:20 PM [facility] VLDL Calculated 16 12 - 38 mg/dL 10/02/2012 12:20 PM [facility] Chol HDL Ratio 3.0 <=5.0 10/02/2012 12:20 PM [facility] LDL Direct 83 <100 mg/dL 10/02/2012 12:20 PM [facility] Blood specimen (specimen) BLOOD SPECIMEN / Unknown 10/02/2012 11:15 AM REGIONAL DIRECTOR OF ADMISSIONS 10/02/2012 11:27 AM REGIONAL DIRECTOR OF ADMISSIONS Narrative [facility] - 10/02/2012 12:20 PM REGIONAL DIRECTOR OF ADMISSIONS Lipid Profile Comment: Adult references ranges are the recommendation of the [employer] , for those patients >18 [...] alter some of these results. Serena Rivera [facility] LAB - CHEMISTRY ORDERABLES Performing Organization Address [facility] de Phone Number [facility] [address] [place] [address] * MICROALB/CREAT RATIO URINE RANDOM PANEL (10/02/2012 9:32 AM [facility]) Creatinine Urine 192.23 mg/dL 10/02/20 12 10:22 AM [facility] Microalbumin Urine 0.9 <1.7 mg/dL 10/02/2012 10:22 AM [facility] Microalbumin/Crea tinine Ratio 5 <30 mg/g 10/02/2012 10:22 AM [facility] Urine specimen (specimen) URINE / Unknown 10/02/2012 9:32 AM REGIONAL DIRECTOR OF ADMISSIONS 10/02/2012 9:42 AM [facility] Serena Rivera [facility] LAB - URINE CHEM ISTRY ORDERABLES Performing Organization Address [facility] de Phone Number [facility] [address] [place] [address] documented in this encounter Visit Diagnoses Diagnosis [...] uncontrolled documented in this encounter Care Teams Bull Wheel Worker Relationship Specialty Start Date End Date Esperanza Santillan MD [address] [place] [address] [place] [id number] PCP - General Family Medicine 09/03/12 documented as of this encounter
--- OUTSIDE RECORDS SUMMARY | 2024-10-14 01:35 | XMS_ITS | Encounter Summary ---
Author Organization [facility] Address [address] [address] Care Team Providers Care Material Flow Engineer Name Role Phone Esperanza Santillan MD Primary Care Provider [phone] Encounter Details Date Type Department Care Team (Latest Contact Info) Description 11/09/2012 9:00 AM PROJECT RESERVOIR ENGINEER - 11/09/2012 11:59 PM [facility] Hospital Encounter [facility] - Nutrition Services [address] [place] [address] Alex Vargas, RD/LD Discharge Disposition: Home or Self Care Social [...] - Inhaled Oxygen Concentration - - Weight 88.8 kg (195 lb 11.2 oz) 11/09/2012 9:00 AM PROJECT RESERVOIR ENGINEER Height 157.8 cm (5' 2.13 ) 11/09/2012 9:00 AM CS T Body Mass Index 35.65 11/09/2012 9:00 AM PROJECT RESERVOIR ENGINEER Body Mass Index Percentile 99.02% 11/09/2012 9:0 0 AM PROJECT RESERVOIR ENGINEER Growth Chart: [facility] (Girls, 2- 20 Years) documented in this encounter Discharge Instructions * Discharge Instructions* Alex Vargas RD/LD - 11/09/2012 10:04 AM PROJECT RESERVOIR ENGINEER Dietary Instructions: 1. Cut out all sugar sweetened beverages 2. Switch to whole wheat bread 3. Have 3 low fat servings of dairy per day 4. Have no more than 3 servings of carbohydrates with meals and 1 with snack Fill out a 3 day food record (2 weekdays and 1 weekend day) or track food intake with Online Milestone Platform cordell Follow-up with dietitian, Alex Spear RD, LD in 1 month. ECT RESERVOIR ENGINEER documented in this encounter Medications at Time [...] as of this encounter Progress Notes * Alex Vargas RD/LD - 11/09/2012 9:21 AM CST Initial Nutrition Assessment Melissa Jackson is a 12 y.o. 8 m.o. female seen regarding weight management and Type II DM. There were no encounter diagnoses. Patient Active Problem List Diagnoses ??? Irregular menses ??? Obesity (BMI 35.0-39.9 without comorbidity) ??? Type 2 diabetes mellitus in patient age 13-19 years with HbA1C goal below 7.5 Assessment: Food/nutrition related history: Pt recently diagnosed with type 2 DM in October 2012. Family Hx: uncle and maternal grandfather have DM 2, maternal grandfather had stroke in 60's, paternal grandfather has high cholesterol, No IBD Social Hx: 2 (12, 6) brothers 1 (9) sister and step dad mom does grocery shopping and meal preparing. Current Meal Pattern: Breakfast: honey nut (1 cup) cheerios with 2% milk with water Lunch: chicken matilde with no bun, with a constitution party, salad (ranch) with apple and grapes and water Snack: chips, fruits, yogurts. Dinner: Fried chicken or baked, vegetable, potato, charo aid or soda Snack: Clinton (white bread, cheese, banerjee and lunch meat) On the weekends: Breakfast: Ethiopian toast sticks with sausage and turkey nunez with orange juice Snack: Chips or left overs Drinks: 3-4 cups of charo aid per day (~160g of sugar = 640 kcal) Eating out 2 times per week ([employer]) cheeseburger, small frie, and water Physical Activity: Just Dance 4 30-60 minutes More than 2 hours of screen time TV in room Sleepin-6am and waking every 2 hours due to feeling the need to pee Anthropometrics: Weight: 88.769 kg (195 lb 11.2 oz) 98.5%ile based on CDC 2-20 Years [id number] data. Height: 157.8 cm (5' 2.13 ) 28.4%ile based on CDC 2-20 Years [id number] data. Body mass index is 35.65 kg/(m^2). 98.91%ile based on CDC 2-20 Years BMI-for-age data. *significant acanthosis nigricans around back and front of neck. Labs/Tests/Procedures Blood Sugar: 125--149 per report of at home glucose checks Component Name 10/09/12 0912 HGBA1C 6.3* Medications: Current Outpatient Prescriptions Medication ??? Norethin-Eth Estrad-Fe Biphas (LO LOESTRIN FE PO) ??? omeprazole (PRILOSEC) 20 MG capsule ??? blood glucose (FREESTYLE LITE STRIPS) test strip ??? lancets (FREESTYLE LANCETS) MISC ??? metFORMIN (GLUCOPHAGE) 500 MG tablet Estimated Needs: KCAL: 45 kcal/kg Protein (g): 1.0g pro/kg Nutrition Care Process (1) Nutrition Diagnostic Statement: Food and nutrition related knowledge deficit related to lack of prior nutrition education as evidenced by new diagnosis of DM 2. Nutrition Intervention: (ND-1) Meals and snacks: 1. Cut out all sugar sweetened beverages 2. Switch to whole wheat bread 3. Have 3 low fat servings of dairy per day 4. Have no more than 3 servings of carbohydrates with meals and 1 with snack Nutrition Goal: Total intake will meet estimated nutrient needs Nutrition Intervention: (E-2) Comprehensive Nutrition Education: Discussed and provided MNT for type 2 DM with emphasis on switching to whole grains, limiting grain servings to 7 per day, adding morefruits and vegetables to overall intake. Nutrition Goal : Food/Nutrition information can be demonstrated Fill out a 3 day food record (2 weekdays and 1 weekend day) or track food intake with Online Milestone Platform cordell on smart phone. Follow-up with dietitian, Alex Spear RD, JAM in [address]/JAM [phone] ECT RESERVOIR ENGINEER documented in this encounter Miscellaneous Notes * Miscellaneous Scans - Document, Scanned - 11/17/2012 10:21 AM CST ECT RESERVOIR ENGINEER documented in this encounter Plan of Treatment Not on file documented as of this encounter Visit Diagnoses Diagnosis Type 2 diabetes mellitus in patient age 13-19 years with HbA1C goal below 7.5 ([facility]) Type II or unspecified type diabetes mellitus without mention of complication, not stated as uncontrolled documented in this encounter Care Teams Material Flow Engineer Relationship Specialty Start Date End Date Esperanza Santillan MD [address] [place] [address] [place] [address] PCP - General Family Medicine 09/03/12 documented as of this encounter
--- OUTSIDE RECORDS SUMMARY | 2024-10-14 01:35 | XMS_ITS | Encounter Summary ---
Author Organization [facility] Address [address] [facility] [place] [address] Care Team Providers Care Nutritional Services Cook Name Role Phone Esperanza Santillan MD Primary Care Provider [phone] Reason for Referral * - Closed Specialty Diagnoses / Procedures Referred By Contac t Referred To Contact Diagnoses Abdominal pain, unspecified site Procedures US ABDOMEN LIMITED Parviz Nolan MD [address] [place] [id number] MAIN Referral ID Status Reason Start Date Expiration Date Visits Re quested Visits Authorized [id number] Closed 10/23/2012 04/21/2013 1 1 O VISUAL ARTS DIRECTOR Reason for Visit * Reason Comments Pain Abdominal per mom and patient she has had this issue since . Encounter Details Date Type Department Care Team (Latest Contact Info) Description 10/23/2012 10:00 AM AUDIO VISUAL ARTS DIRECTOR - 10/23/2012 11:59 PM AUDIO VISUAL ARTS DIRECTOR Hospital Encounter [facility] Pediatrics - GI [address] [place] [id number] Parviz Nolan MD [address] [place] [phone] Discharge Disposition: Home or Self Care Social [...] Reading Time Taken Comments Blood Pressure 110/72 10/23/2012 10:20 AM AUDIO VISUAL ARTS DIRECTOR Pulse - - Temperature - - Respiratory Rate - - Oxygen Saturation - - Inhaled Oxygen Concentration - - Weight 88.1 kg (194 lb 3.2 oz) 10/23/19 13 10:20 AM AUDIO VISUAL ARTS DIRECTOR Height 156.9 cm (5' 1.77 ) 10/23/2012 1 0:20 AM AUDIO VISUAL ARTS DIRECTOR Body Mass Index 35.78 10/23/2012 10:20 AM AUDIO VISUAL ARTS DIRECTOR Body Mass Index Percentile 99.07% 10/23 10:20 AM AUDIO VISUAL ARTS DIRECTOR Growth Chart: [facility] [...] Progress Notes * Parviz Nolan MD - 10/23/2012 10:52 AM CST HISTORY OF PRESENT ILLNESS : Thank you for your consult on Melissa Jackson. I had the pleasure of seeing Melissa in the Gastroenterology [facility] at [facility] on 10/23/2012. She comes in for [...] EXAMINATION: 98.44%ile based on CDC 2-20 Years [id number]-[id number] data. BP 110/72 Wt 88.089 kg (194 lb 3.2 oz) BMI 35.78 kg/m2 HEENT: Atraumatic. Obese, Acanthosis Chest: Equal air entry bilaterally. Abdomen: Soft, nontender, nondistended. Striae +. Bowel sounds present. TUBE TEST TECHNICIAN: No apparent focal deficits. Extremities: Warm, well [...] Melissa's symptoms as well as treatment options. ??Please fax us prior workup. 2. Avoidance of [...] call back for any questions or concerns. O VISUAL ARTS DIRECTOR documented in this encounter Procedure Notes * Document, Scanned - 11/20/2012 10:58 AM CSTAssociated Order(s): LAB RESULTS ORDER O VISUAL ARTS DIRECTOR documented in this encounter Miscellaneous Notes * Miscellaneous Scans - Document, Scanned - 11/26/2012 10:15 AM CST O VISUAL ARTS DIRECTOR documented in this encounter Plan of Treatment Not on file documented as of this encounter Procedures Procedure Name Priority Date/Time Associated Diagnosis Comments LAB RESULTS ORDER 11/20/2012 10: 58 AM AUDIO VISUAL ARTS DIRECTOR C-REACTIVE PROTEIN Routine 10/23/2012 11 :43 AM AUDIO VISUAL ARTS DIRECTOR Abdominal pain, unspecified site CBC W AUTO DIFFERENTIAL Routine 10/23/2012 11:43 AM AUDIO VISUAL ARTS DIRECTOR Abdominal pain, unspecified site COMPREHENSIVE METABOLIC PANEL Routine 10/23/2012 11:43 AM AUDIO VISUAL ARTS DIRECTOR Abdominal pain, unspecified site LIPASE BLOOD Routine 10/23/2012 11:43 AM AUDIO VISUAL ARTS DIRECTOR Abdominal pain, unspecified site AMYLASE BLOOD Routine 10/23/2012 11:43 AM AUDIO VISUAL ARTS DIRECTOR Abdominal pain, unspecified site documented in this encounter Results * LAB RESULTS ORDER (11/20/2012 10:58 AM AUDIO VISUAL ARTS DIRECTOR) Narrative 11/20/2012 10:58 AM AUDIO VISUAL ARTS DIRECTOR Procedure Note Document, Scanned - 11/20/2012 10:58 AM CST Scanned Document LAB - THERAPEUTIC DR MONAE MONITORING ORDERABLES * US ABDOMEN LIMITED (10/26/2012 9:00 AM AUDIO VISUAL ARTS DIRECTOR) Anatomical Region Laterality Modality Abdomen Ultrasound 10/26/2012 9:51 AM AUDIO VISUAL ARTS DIRECTOR Impressions 10/26/2012 9:51 AM AUDIO VISUAL ARTS DIRECTOR Normal right upper quadrant sonogram. Narrative 10/26/2012 9:51 AM AUDIO VISUAL ARTS DIRECTOR Limited abdominal sonogram The study is comprised [...] sonogram. Parviz Nolan MD US ORDERABLES * LIPASE BLOOD (10/23/2012 11:43 AM AUDIO VISUAL ARTS DIRECTOR) Lipase 23 10 - 220 U/L 10/23/2012 2:14 PM [facility] Blood specimen (specimen) BLOOD SPECIMEN / Unknown 10/23/2012 11:43 AM AUDIO VISUAL ARTS DIRECTOR 10/23/2012 11:52 AM AUDIO VISUAL ARTS DIRECTOR Parviz Nolan MD LAB - CHEMISTRY KASEY SWEENEY Performing Organization Address [facility] Co de Phone Number [facility] [address] [place] [phone] * C-REACTIVE PROTEIN (10/23/2012 11:43 AM AUDIO VISUAL ARTS DIRECTOR) C-Reactive Protein 0.50 <=0.50 mg/dL 10/23/2012 12:44 PM [facility] Blood specimen (specimen) BLOOD SPECIMEN / Unknown 10/23/2012 11:43 AM AUDIO VISUAL ARTS DIRECTOR 10/23/2012 11:52 AM AUDIO VISUAL ARTS DIRECTOR Parviz Nolan MD LAB - CHEMISTRY KASEY SWEENEY Performing Organization Address [facility] de Phone Number [facility] [address] [place] [phone] * (ABNORMAL) COMPREHENSIVE METABOLIC PANEL (10/23/2012 11:43 AM AUDIO VISUAL ARTS DIRECTOR) Glucose 93 70 - 105 mg/dL 10/23/2012 12:47 PM [facility] Sodium 143 136 - 145 mmol/L 10/23/2012 12:47 PM [facility] Potassium 3.8 3.5 - 5.1 mmol/L 10/23/2012 12:47 PM [facility] Chloride 106 98 - 107 mmol/L 10/23/2012 12:47 PM [facility] CO2 24 20 - 28 mmol/L 10/23/2012 12:47 PM [facility] Calcium 9.99 8.92 - 10.32 mg/dL 10/23/2012 12:47 PM [facility] Anion Gap 13 5 - 20 mmol/L 10/23/2012 12:47 PM [facility] BUN 7.8 6.1 - 21.0 mg/dL 10/23/2012 12:47 PM [facility] Creatinine 0.75 0.62 - 1.00 mg/dL 10/23/2012 12:47 PM [facility] eGFR by MDRD ml/min/1.7 3m2 10/23/2012 12:47 PM [facility] Comment:eGFR calculations ar e not performed for children under 18 years old. eGFR by MDRD ml/min/1.7 3m2 10/23/2012 12:47 PM [facility] Comment:eGFR calculations ar e not performed for children under 18 years old. Alkaline Phosphatase 51(L) 100 - 390 U/L 10/23/2012 12:47 PM [facility] ALT 12 8 - 65 U/L 10/23/2012 12:47 PM [facility] AST 14 3 - 35 U/L 10/23/2012 12:47 PM [facility] Protein Total 7.9 6.4 - 8.5 gm/dL 10/23/2012 12:47 PM [facility] Albumin 4.4 3.3 - 5.0 gm/dL 10/23/2012 12:47 PM [facility] Bilirubin Total 0.4 0.3 - 1.2 mg/dL 10/23/2012 12:47 PM [facility] Blood specimen (specimen) BLOOD SPECIMEN / Unknown 10/23/2012 11:43 AM AUDIO VISUAL ARTS DIRECTOR 10/23/2012 11:[address] [facility] Parviz Nolan MD LAB - CHEMISTRY KASEY SWEENEY [facility] Organization Address City/State/[facility] Co de Phone Number [facility] [address] [place] [address] * (ABNORMAL) CBC W AUTO DIFFERENTIAL (10/23/2012 11:[address] [facility]) WBC 7.0 4.5 - 14.5 x10^9/L 10/23/2012 12:31 PM [facility] RBC 4.75 4.10 - 5.10 x10^12/L 10/23/2012 12:31 PM [facility] Hemoglobin 11.6(L) 12.0 - 16.0 g/dL 10/23/2012 12:31 PM [facility] Hematocrit 36.7 36.0 - 47.0 % 10/23/2012 12:31 PM [facility] MCV 77.3(L) 78.0 - 98.0 fl 10/23/2012 12:31 PM [facility] MCH 24.4(L) 25.0 - 35.0 pg 10/23/2012 12:31 PM [facility] MCHC 31.6 31.0 - 37.0 gm/dL 10/23/2012 12:31 PM [facility] RDW-CV 15.7(H) 11.5 - 14.0 % 10/23/2012 12:31 PM [facility] MPV 10.7(H) 6.0 - 9.5 fl 10/23/2012 12:31 PM [facility] Neutrophils % 68(H) 24 - 66 % 10/23/2012 12:31 PM [facility] Lymphocytes % 22 22 - 61 % 10/23/2012 12:31 PM [facility] Monocytes % 8 3 - 15 % 10/23/2012 12:31 PM [facility] Eosinophils % 2 0 - 10 % 10/23/2012 12:31 PM [facility] Basophils % 0 0 - 2 % 10/23/2012 12:31 PM [facility] Immature Granulocytes 0.1 0 - 1 % 10/23/2012 12:31 PM [facility] Neutrophil Absolute 4.77 x10^9/L 10/23/2012 12:31 PM [facility] Lymphocytes Absolute 1.51 x10^9/L 10/23/2012 12:31 PM [facility] Monocytes Absolute 0.58 x10^9/L 10/23/2012 12:31 PM [facility] Eosinophils Absolute 0.11 x10^9/L 10/23/2012 12:31 PM [facility] Basophils Absolute 0.02 x10^9/L 10/23/2012 12:31 PM [facility] Immature Granulocytes Absolute 0.01 0.00 - 0.06 x10^9/L 10/23/2012 12:31 PM [facility] Platelet Count 428(H) 100 - 400 x10^9/L 10/23/2012 12:31 PM [facility] Blood specimen (specimen) BLOOD SPECIMEN / Unknown 10/23/2012 11:43 AM AUDIO VISUAL ARTS DIRECTOR 10/23/2012 11:[address] [facility] Parviz Nolan MD LAB - HEMATOLOGY ORD ERABLES [facility] [address] [place] [address] * AMYLASE BLOOD (10/23/2012 11:43 AM AUDIO VISUAL ARTS DIRECTOR) Amylase 54 5 - 65 U/L 10/23/2012 12:44 PM AUDIO VISUAL ARTS DIRECTOR [facility] Blood specimen (specimen) BLOOD SPECIMEN / Unknown 10/23/2012 11:43 AM AUDIO VISUAL ARTS DIRECTOR 10/23/2012 11:52 AM AUDIO VISUAL ARTS DIRECTOR Parviz Nolan MD LAB - CHEMISTRY KASEY SWEENEY [facility] [address] [place] [address] documented in this encounter Visit Diagnoses Diagnosis Abdominal pain, unspecified site Abdominal pain, unspecified site documented in this encounter Care Teams Nutritional Services Cook Relationship Specialty Start Date End Date Esperanza Santillan MD [address] [place] [id number] PCP - General Family Medicine 09/03/12 documented as of this encounter
--- OUTSIDE RECORDS SUMMARY | 2024-10-14 01:35 | XMS_ITS | Encounter Summary ---
Author Organization [facility] Address [address] [place] [address] Care Team Providers Care Instrument Mechanic Weapons System Name Role Phone Esperanza Santillan MD Primary Care Provider [phone] Reason for Visit * Auth/Cert - Closed Specialty Diagnoses / Procedures Referred By Carson mclaughlin Referred To Contact Diagnoses Vomiting Procedures ENDOSCOPY GI UPPER WITH BIOPSY Referral ID Status Reason Start Date Expiration Date Visits Re quested Visits Authorized [id number] Closed 1 1 Encounter Details Date Type Department Care Team (Latest Contact Info) Description 11/19/2012 11:00 AM HEADING PINNER - 11/19/2012 12:00 PM HEADING PINNER Surgery [facility] - Endoscopy [address] [place] [id number] Parviz Nolan MD [address] [place] [id number] ESOPHAGOGASTRODUODENOSCOPY (EGD) BIOPSY Surgery Details Date/Time Status Location OR Service Patient Class Case Class Case Type Trauma Case? 11/19/2012 11:00 AM Posted [facility] Endo 03 Gastroenterology Surgery Day Care Elective > 5 days Panel 1 Procedure LRB Anes Op Region Wound Class Comments ESOPHAGOGASTRODUODENOSCOPY ( EGD) BIOPSY General Clean Contaminated Surgeon Surgeon Role Service Panel Parviz Nolan MD Primary Gastroenterology 1 documented in this encounter Social History Tobacco [...] Comments Blood Pressure 118/52 11/19/2012 11:45 AM HEADING PINNER Pulse 80 11/19/2012 11:45 AM HEADING PINNER Temperature 36.7 ??C (98 ??F) 11/19/2012 11:18 AM HEADING PINNER Respiratory Rate 18 11/19/2012 11:45 AM HEADING PINNER Oxygen Saturation 100% 11/19/2012 11:45 AM HEADING PINNER Inhaled Oxygen Concentration - - Weight 87.1 kg (192 lb) 11/19/2012 9:35 AM HEADING PINNER Height 156.6 cm (5' 1.65 ) 11/19/2012 9:35 AM CS T Body Mass Index 35.51 11/19/2012 9:35 AM HEADING PINNER Body Mass Index Percentile 98.97% 11/19/2012 9:3 5 AM HEADING PINNER Growth Chart: CDC (Girls, 2- 20 Years) documented in this [...] office within 2 weeks to make appointment. ING PINNER documented in this encounter Discharge Instructions * Discharge Instructions* Rose Irizarry RN - 11/19/2012 11:27 AM HEADING PINNER Discharge Instructions for: Melissa Jackson Discharge Procedure [...] his/her condition, please call the GI office [phone]. Afterhours, call the exchange at [phone]. The following belonging have been returned to [...] any worsening of their condition, please phone [phone] and ask for the doctor java solutions architect for GI or return to the Emergency Department. 11/19/2012 ING PINNER * Discharge Instructions* Document, Scanned - 11/20/2012 7:06 AM HEADING PINNER ING PINNER documented in this encounter Medications at Time [...] EXAMINATION: 98.27%ile based on CDC 2-20 Years [id number] data. BP 136/82 Pulse 90 Temp 98.6 ??F Resp 16 Wt 87.091 kg (192 lb) BMI 35.51 kg/m2 HEENT: Atraumatic. Obese, Acanthosis Chest: Equal air entry bilaterally. Abdomen: Soft, nontender, nondistended. Striae +. Bowel sounds present. PRECONSTRUCTION MANAGER: No apparent focal deficits. Extremities: Warm, well [...] seeing Melissa in the Gastroenterology Clinic at [facility] on 10/23/2012. She comes in for evaluation [...] EXAMINATION: 98.44%ile based on CDC 2-20 Years [id number] data. BP 110/72 Wt 88.089 kg (194 lb 3.2 oz) BMI 35.78 kg/m2 HEENT: Atraumatic. Obese, Acanthosis Chest: Equal air entry bilaterally. Abdomen: Soft, nontender, nondistended. Striae +. Bowel sounds present. PRECONSTRUCTION MANAGER: No apparent focal deficits. Extremities: Warm, well [...] call back for any questions or concerns. ING PINNER documented in this encounter Procedure Notes * Document, Scanned - 11/20/2012 7:06 AM CSTAssociated Order(s): PATHOLOGY/CYTOLOGY REPORT ORDER ING PINNER * Parviz Nolan MD - 11/19/2012 11:21 AM CSTAssociated Order(s): EGD ING PINNER documented in this encounter Miscellaneous Notes * Miscellaneous Scans - Document, Scanned - 12/21/2012 11:36 PM CDT * Miscellaneous Scans - Document, Scanned - 11/20/2012 7:06 AM CST ING PINNER documented in this encounter Plan of Treatment Scheduled Orders Name Type Priority Associated Diagnoses Order Schedule GLUCOSE - POINT OF CARE POCT No Acknowledgement Routine ONCE for 1 Occurrences starting 11/19/2012 until 11/19/2012 documented as of this encounter Procedures Procedure Name Priority Date/Time Associated Diagnosis Comments PATHOLOGY/CYTOLOGY REPORT ORDER 11/20/2012 7:07 AM HEADING PINNER ESOPHAGOGASTRODUODENOSCOPY ( EGD) BIOPSY 11/19/2012 6:19 PM HEADING PINNER Vomiting EGD Routine 11/19/2012 11:21 AM HEADING PINNER Vomiting PATHOLOGY TISSUE EXAM (STL) Routine 11/06 11:08 AM HEADING PINNER Vomiting HELICOBACTER PYLORI UREASE STAT 11/19 11:08 AM HEADING PINNER Vomiting HCG URINE QUALITATIVE - POCT (IP) BEAKER Routine 11/19/2012 9:30 AM HEADING PINNER documented in this encounter Results * PATHOLOGY/CYTOLOGY REPORT ORDER (11/20/2012 7:07 AM HEADING PINNER) Narrative 11/20/2012 7:07 AM HEADING PINNER Procedure Note Document, Scanned - 11/20/2012 7:06 AM CST Scanned Document LAB - PATHOLOGY/CYTO LOGY ORDERABLES * EGD (11/19/2012 11:21 AM HEADING PINNER) Narrative [facility] - 11/19/2012 11:21 AM HEADING PINNER Procedure Note Parviz Nolan MD - 11/19/2012 11:21 AM CST Parviz Nolan MD GI PROCEDURE ORDERAB LES [facility] [address] [place] [place] [address] * GROSS + MICRO EXAM (STL) (11/19/2012 11:08 AM HEADING PINNER) Case Report Surgical Pathology Report ? Case: [id number] ? Authorizing Provider: ??Parviz Nolan MD ?Ordering Provider: ?? Parviz Nolan MD ? Ordering Location: ? [facility] ?Collected: ? 11/19/2012 11:08 AM ? Pathologist: ? Sabino Collins MD ? Received: ?11/19/2012 ??2:03 PM ?Signed Out: ?11/23/2012 ??3:05 PM (Final) ? Specimens: ?? A) - Esophagus ? B) - Duodenum ? C) - Stomach ? 11/23/2012 3:[address] [facility] Final Diagnosis A) ESOPHAGUS, BIOPSY: - NO PATHOLOGIC DIAGNOSIS. B) DUODENUM, BIOPSY: - NO PATHOLOGIC DIAGNOSIS. C) STOMACH, BIOPSY: - NO PATHOLOGIC DIAGNOSIS. 11/23/2012 3:[address] [facility] Clinical History The patient is a 12-year-old girl with abdominal pain who underwent upper endoscopy with biopsy. 11/23/2012 3:[address] [facility] Gross Description The specimens are received [...] toto as C. ??(SKS/mal) 11/23/2012 3:[address] [facility] Microscopic Description A) 3 H&E; B) 3 H&E; C) 3 H&E. A. Sections of esophagus show two fragments of unremarkable stratified squamous epithelium. ?? B. Sections of duodenum show multiple fragments of unremarkable small intestinal mucosa. C. Sections of stomach show two fragments of unremarkable body-type gastric mucosa except for a lymphoid aggregate. () 11/23/2012 3:[address] [facility] Disclaimer The performance characteristics of all immunohistochemical and indirect ??immunofluorescence stains (if any) cited in this report were determined by the Histopathology Laboratory of [facility] (immunohistochemistry ) or the Histology Laboratory of [facility] (indirect immunofluorescence) in compliance with CLIA `88 regulations. ??Some of these tests rely on the use of analyte-specific reagents and are subject to specific labeling requirements by the FDA. ??Such tests were developed by the ??[facility] Laboratory of [facility] or the Histology Laboratory of [facility] and have not been cleared or approved by the FDA. ??The FDA has determined that such clearance or approval is not necessary. ??These tests are used for clinical purposes and should not be regarded as investigational or for research. ? This case has been personally reviewed and interpreted by the attending (teaching) pathologist. 11/23/2012 3:[address] [facility] Synoptic Report 11/23/2012 3:[address] [facility] Miscellaneous samples (specimen) REGION OF ESOPHAGUS / Unknown 11/19/2012 11:08 AM HEADING PINNER 11/19/2012 2:03 PM HEADING PINNER Miscellaneous samples (specimen) PART OF DUODENUM / Unknown 11/19/2012 11:08 AM HEADING PINNER 11/19/2012 2:03 PM HEADING PINNER Miscellaneous samples (specimen) ENTIRE STOMACH / Unknown 11/19/2012 11:08 AM HEADING PINNER 11/19/2012 2:03 PM HEADING PINNER Parviz Nolan MD LAB - PATHOLOGY/CYTO LOGY ORDERABLES Performing Organization Address [facility] de Phone Number [facility] [address] [place] [address] * HELICOBACTER PYLORI UREASE (11/19/2012 11:08 AM HEADING PINNER) Helicobacter pylori Urease Initial Negative Negative 11/20/2012 12:[address] [facility] Helicobacter pylori Urease Final Negative Negative 11/20/2012 12:[address] [facility] Comment:This is an appended report. These results have been appended to a previously preliminary verified report. Miscellaneous samples (specimen) GASTRIC ANTRAL BIOPSY SPECIMEN / Unknown 11/19/2012 11:08 AM HEADING PINNER 11/19/2012 11:27 AM HEADING PINNER Parviz Nolan MD LAB - MICROBIOLOGY O RDERABLES Performing Organization Address [facility]/ZIP Co de Phone Number [facility] [address] [place] [address] * GLUCOSE - POINT OF CARE (11/19/2012 10:19 AM HEADING PINNER) Blood specimen (specimen) BLOOD SPECIMEN / Unknown 11/19/2012 10:19 AM HEADING PINNER 11/19/2012 12:32 PM HEADING PINNER Parviz Nolan MD LAB - POINT OF CARE ORDERABLES Performing Organization Address [facility] Co de Phone Number [facility] [address] [place] [address] * HCG URINE QUALITATIVE - POCT (IP) BEERMELINDA (11/19/2012 9:30 AM HEADING PINNER) HCG Qual Urine Negative Negative [facility] POCT TESTING QC Verified Yes Yes [facility] PO CT TESTING Urine specimen (specimen) URINE / Unknown 11/19/2012 9:30 AM HEADING PINNER Cynthia Cobb MD LAB - POINT OF CARE ORDERABLES Performing Organization Address [facility] de Phone Number [facility] POCT TEST[facility] [address] [place] [address] documented in this encounter Visit Diagnoses Diagnosis [...] 1313, PACU Current Rate 11/19/2012 11:18 AM HEADING PINNER 100 mL/hr 100 mL/hr lidocaine (LMX 4) 4% cream ADS Med 1 dose, Starting on Maren 11/19/12 at 0937, Until Maren 11/19/12 at 1000, LASHONDA MAHONEY: cabinet override . WASTE DISPOSAL INSTRUCTIONS: Black Bin Disposal required. $ Given 11/19/2012 10:00 AM HEADING PINNER 1 tube documented in this encounter Active and Recently Administered Medications Times are shown in HEADING PINNER. Continuous Medication Order 11/17/2012 11/18/2012 11/19/2012 isolyte-S pH 7.4 infusion (CANCELED) 100 mL/hr, Intravenous, POST-OP CONTINUOUS, Starting on Maren 11/19/12 at 1130, Until Maren 11/19/12 at 1313, PACU 1118 (Current Rate - Provider: Rose Irizarry RN)1155 (Stopped - Provider: Rose Irizarry RN) No Frequency Medication Order 11/17/2012 11/18/2012 11/19/2012 lidocaine (LMX 4) 4% cream ADS Med (COMPLETED) 1 dose, Starting on Maren 11/19/12 at 0937, Until Maren 11/19/12 at 1000, LASHONDA MAHONEY: cabinet override . WASTE DISPOSAL INSTRUCTIONS: Black Bin Disposal required. 1000 ($ Given - Prov ider: Lashonda Mahoney RN) documented in this encounter Care Teams Instrument Mechanic Weapons System Relationship Specialty Start Date End Date Esperanza Santillan MD [address] [place] [address] PCP - General Family Medicine 09/03/12 documented as of this encounter
--- OUTSIDE RECORDS SUMMARY | 2024-10-14 01:35 | XMS_ITS | Encounter Summary ---
Author Organization [facility] Address [address] [place] [address] Care Team Providers Care Data Integration Architect Name Role Phone Esperanza Santillan MD Primary Care Provider [phone] Reason for Referral * - Closed Specialty Diagnoses / Procedures Referred By Contac t Referred To Contact Diagnoses Abdominal pain, unspecified site Procedures US ABDOMEN LIMITED Parviz Nolan MD [address] [place] [address] [facility] Referral ID Status Reason Start Date Expiration Date Visits Re quested Visits Authorized [id number] Closed 10/23/2012 04/21/2013 1 1 ARATION CENTER COORDINATOR Reason for Visit * - Closed Specialty Diagnoses / Procedures Referred By Contac t Referred To Contact Diagnoses Abdominal pain, unspecified site Procedures US ABDOMEN LIMITED Parviz Nolan MD [address] [place] [address] [facility] MA[facility] Referral ID Status Reason Start Date Expiration Date Visits Re quested Visits Authorized [id number] Closed 10/23/2012 04/21/2013 1 1 Encounter Details Date Type Department Care Team (Latest Contact Info) Description 10/26/2012 8:30 AM PREPARATION CENTER COORDINATOR - 10/26/2012 11:59 PM PREPARATION CENTER COORDINATOR Hospital Encounter [facility] - Ultrasound [address] [place] [address] Discharge Disposition: Home or Self Care Social [...] 10/23/2012 03/16/2013 documented as of this encounter Miscellaneous Notes * Miscellaneous Scans - Document, Scanned - 11/20/2012 6:36 AM CST ARATION CENTER COORDINATOR documented in this encounter Plan of Treatment Not on file documented as of this encounter Procedures Procedure Name Priority Date/Time Associated Diagnosis Comments US ABDOMEN LIMITED Routine 10/26/2012 9: 00 AM PREPARATION CENTER COORDINATOR Abdominal pain, unspecified site documented in this encounter Results * US ABDOMEN LIMITED (10/26/2012 9:00 AM PREPARATION CENTER COORDINATOR) Anatomical Region Laterality Modality Abdomen Ultrasound 10/26/2012 9:51 AM PREPARATION CENTER COORDINATOR Impressions 10/26/2012 9:51 AM PREPARATION CENTER COORDINATOR Normal right upper quadrant sonogram. Narrative 10/26/2012 9:51 AM PREPARATION CENTER COORDINATOR Limited abdominal sonogram The study is comprised [...] right upper quadrant sonogram. Parviz Nolan MD ORDERABLES documented in this encounter Visit Diagnoses Diagnosis Abdominal pain, unspecified site documented in this encounter Care Teams Data Integration Architect Relationship Specialty Start Date End Date Esperanza Santillan MD [address] [place] [address] PCP - General Family Medicine 09/03/12 documented as of this encounter
--- OUTSIDE RECORDS SUMMARY | 2024-10-14 01:35 | XMS_ITS | Encounter Summary ---
Author Organization [facility] Address [address] [place] [address] Care Team Providers Care Rough And Truing Machine Operator Name Role Phone Esperanza Santillan MD Primary Care Provider [phone] Reason for Visit * Reason Onset Date Comments Letter for School or Work 12/15/2012 Encounter Details Date Type Department Care Team (Late st Contact Info) Description 12/15/[address] [facility] Pediatrics - [address] [address] Parviz Nolan MD [address] [place] [phone] Letter for School or Work Social History Tobacco Use Types Packs/Day Years [...] Telephone Encounter - Keri Kenyon RN - 12/16/2012 8:20 AM CDT Talked to mom ... Melissa is having problems with abd pain yesterday and today. Letter written and faxed to school. * Telephone Encounter - Lesly Braun RN - 12/15/2012 1:09 PM CDT Left message for parents to call the office. Need to discuss absences. * Telephone Encounter - Maite Jackson - 12/15/2012 12:14 PM CDT Patient called requesting letter for school as she stayed home due to IBS. Fax # is [phone] documented in this encounter Plan of Treatment Not on file documented as of this encounter Visit Diagnoses Not on filedocumented in this encounter Care Teams Rough And Truing Machine Operator Relationship Specialty Start Date End Date Esperanza Santillan MD [address] [place] [address] [place] [phone] PCP - General Family Medicine 09/03/12 documented as of this encounter
--- OUTSIDE RECORDS SUMMARY | 2024-10-14 01:35 | XMS_ITS | Encounter Summary ---
Author Organization [facility] Address [address] [facility] [address] [place] [address] Care Team Providers Care Application Support Lead Name Role Phone Esperazna Santillan MD Primary Care Provider [phone] Reason for Visit * Reason Onset Date Comments MEDICATION REFILL 2013 Encounter Details Date Type Department Care Team (Late st Contact Info) Description [address] [facility] - Diabetes Education [address] [place] [address] [place] [address] [facility] [address] [place] [address] MEDICATION REFILL Social History Tobacco Use Types [...] uncontrolled documented in this encounter Care Teams Application Support Lead Relationship Specialty Start Date End Date Esperanza Santillan MD [address] [place] [address] [place] [phone] PCP - General Family Medicine 09/03/12 documented as of this encounter
--- OUTSIDE RECORDS SUMMARY | 2024-10-14 01:36 | XMS_ITS | Encounter Summary ---
Author Organization [facility] Address [address] [place] [address] Phone Care Team Providers Care Manager Fixed Income Name Role Phone Esperanza Santillan MD Primary Care Provider + Supriya Levine MD Unavailable Reason for Visit * Reason Comments Diabetes Mellitus * Consult, Test & Initiate Treatment (Routine) - Closed Specialty Diagnoses / Procedures Referred By Contac t Referred To Contact Endocrinology Diagnoses Type 2 diabetes mellitus without complications Procedures OFFICE/OP EST LVL 3 LOW MDM/20-29 MIN Esperanza Santillan MD [address] [place] [phone] Phone: tel: fax: Supriya Levine MD [address] [phone] Phone: tel: fax: Referral ID Status Reason Start Date Expiration Date Visits Re quested Visits Authorized [id number] Closed 1 1 Encounter Details Date Type Department Care Team (Late st Contact Info) Description 02/26/2024 11:00 AM CDT Office Visit [facility] - Endocrinology - [place] [address] [place] [address] Supriya Levine MD [address] [phone] Type 2 diabetes mellitus without complication, without long-term current use of insulin (HCC) (Primary Dx); Class 1 obesity due to excess calories with serious comorbidity and body mass index (BMI) of 33.0 to 33.9 in adult; Hypoglycemia Discharge Disposition: Discharged to home or Selfcare Social History Tobacco Use Types Packs/Day Years Used Date Smoking Tobacco: Never Passive Smoke Exposure: Never Smokeless Tobacco: Never Tobacco Cessation:Counseling Given: No Alcohol Use Standard Drinks/Week Comments Never 0 (1 standard drink = 0.6 oz pur e alcohol) Sexually Active Control Partners Comments Yes Male Condom Male Comments Unknown Sex and Gender Information Value Date Recorded Sex Assigned at Not on file Legal Sex Female 2:54 PM CDT Gender Identity Not on file Sexual Orientation Not on file documented as of this encounter Last Filed Vital Signs Vital Sign Reading Time Taken Comments Blood Pressure 117/63 02/26/2024 11:09 AM CDT Pulse 103 02/26/2024 11:09 AM CDT Temperature 36.4 ??C (97.5 ??F) 02/26/2024 11:09 AM C DT Respiratory Rate 22 02/26/2024 11:09 AM CDT Oxygen Saturation 98% 02/26/2024 11:09 AM CDT Inhaled Oxygen Concentration - - Weight 78.5 kg (173 lb) 02/26/2024 11:09 AM CDT Height 152.4 cm (5') 02/26/2024 11:09 AM CDT Body Mass Index 33.79 02/26/2024 11:09 AM CDT documented in this encounter Patient Instructions * Patient Instructions* Supriya Levine MD - 02/26/2024 11:00 AM CDT Please take Rybelsus 14 mg daily Please take metformin 1000 mg twice a day Please take glipizide ER 2.5 mg daily Please monitor blood sugar before breakfast or dinner Please bring blood sugar log for review at the next visit Contact Endocrinology Clinic for low blood sugar events Follow up visit in 3 months RULE OF 15: If you have signs/symptoms of low blood sugar (hypoglycemia),and/or your blood sugar isless than 70 mg/dl, you may choose one of the below treatments (~15 gm of carbohydrate):glucose tablets or 1?2 glass (4 oz.) of apple juice or 1/2 glass (4 oz.) of clear regular soda and recheck blood sugar in 15 minutes, If not above 80 mg/dl, retreat treatment until blood sugar is above 80 mg/dl. Look at your feet, top and bottom every morning. If you have any signs of infection, such as:areas,change in feeling or temperature, swelling, blisters, or cracks in the skin, call your doctor rightaway. Apply lotion to dry skin areas to prevent cracks. Keep the skin between your toes clean and dry. documented in this encounter Progress Notes * Supriya Levine MD - 02/26/2024 11:00 AM CDT CC: Hyperglycemia and Type 2 DM HISTORY OF PRESENT ILLNESS: Melissa Jackson is a 23-year-old woman who comes to the Endocrinology office to discuss management of type 2 diabetes mellitus. The patient has no known microvascular or macrovascular complication of diabetes. Other pertinent health history includes obesity. The patient was initially diagnosed with diabetes approximately 11 years ago. The patient prefers taking oral GLP-1 agonist. Currently, Ms. Jackson takes Rybelsus 14 mg daily, glipizide ER 2.5 mg daily, and metformin 1000 mg twice daily for management of hyperglycemia. The patient reports infrequent, mild hypoglycemic events with intact symptoms of hypoglycemia awareness. The patient denied severe low blood sugar events requ iring third democrat intervention. Unfortunately, the patient did not bring her glucose meter for download or a logbook for review at today's office appointment. Ms. Jackson reported that morning blood sugars have been running between 90 and 110 mg/dL with blood sugars checked at other times of the day in the range of 110 to 130 mg/ dL. Hemoglobin A1c obtained in December 2023 was 9%. The patient lost 10 lbs for the past 3 months. Diabetes related complication surveillance 1. No history of diabetic retinopathy - the last dilated eye exam was 1 year ago 2. No symptoms of peripheral sensory neuropathy 3. Urine microalbumin/creatinine ratio - not available 4. No history of macrovascular disease Review of Systems Constitutional: Negative for activity change, appetite change, and unexpected weight change Respiratory: Negative for cough and shortness of breath Cardiovascular: Negative for chest pain and palpitations Gastrointestinal: Negative for diarrhea, constipation and abdominal distention Endocrine: Negative for polydipsia, polyphagia and polyuria Neurological: Negative for tingling/numbness Past Medical History Positives Diagnosis Date Anemia Diabetic acetonemia (HCC) Polycystic disease, ovaries Social History Socioeconomic History Marital status: Single Spouse name: Not on file Number of children: Not on file Years of education: Not on file Highest education level: Not on file Occupational History Not on file Tobacco Use Smoking status: Never Passive exposure: Never Smokeless tobacco: Never Vaping Use Vaping Use: Never used Substance and Sexual Activity Alcohol use: Never Drug use: Never Sexual activity: Yes Partners: Male control/protection: Male Condom Other Topics Concern Not on file Social History Narrative Not on file Social Determinants of Health Financial Resource Needs: Not on file Food Insecurity Needs: Not on file Transportation Needs: Not on file Physical Activity: Not on file Stress: Not on file Social Integration: Not on file Intimate Partner Violence: Not on file Housing Stability: Not on file Vitals: 02/26/24 1109 BP: 117/63 BP Location: Left Arm BP Position: Sitting BP Cuff Size: Regular Pulse: 103 Resp: 22 Temp: 97.5 ??F (36.4 ??C) TempSrc: Temporal SpO2: 98% Weight: 173 lb (78.5 kg) Height: 5' (1.524 m) Objective: Physical Exam Constitutional: appears well-developed and well-nourished. No acute distress. Head: Normocephalic and atraumatic. Cardiovascular: Normal rate and regular rhythm Pulmonary/Chest: Effort normal Diabetic foot exam: Skin on the patient???s feet was clean, dry, and intact. Dorsalis pedis pulses were 2+ bilaterally, and monofilament perception was intact in both feet DIAGNOSTIC DATA: Medical record including test result from PCP's office reviewed. Assessment and Plan Assessment Melissa Jackson is a young woman with type 2 diabetes mellitus whose glycemic control was reasonable based on review of her capillary blood glucose report. Hemoglobin A1c checked in December 2023 was well above the patient's [place] [employer] treatment target of less than 7%. Treatment consideration and lifestyle modification were discussed with her at some length. Sh will continue current medication and intensify lifestyle modification for management of hyperglycemia. The patient will return for office reevaluation in 3 months. PLAN: 1. Take metformin 1000 mg twice a day 2. Take Rybelsus 14 mg daily 3. Take glipizide ER 2.5 mg daily 4. Bring CBG log for review 5. Contact Endocrinology Clinic for low blood sugar events 6. RTC in 3 months Obesity PLAN: 1. Low carb and calorie diet 2. Avoid snack and beverage between meal and at bedtime Hypoglycemia PLAN: Consistent CHO diet Rule of 15 Total time spent on this encounter on this date of service, including pre-visit review of separately obtained history, [id number] interaction performing medically appropriate physical exam, patientcounseling/education, interpretation of diagnostic results, care coordination and documentation was46 minute Supriya Levine MD 02/26/2024 documented in this encounter Plan of Treatment Not on file documented as of this encounter Visit Diagnoses Diagnosis Type 2 diabetes mellitus without complication, without long-term current use of insulin (HCC)- Primary Class 1 obesity due to excess calories with serious comorbidity and body mass index (BMI) of 33.0 to 33.9 in adult Hypoglycemia Hypoglycemia, unspecified documented in this encounter Care Teams Manager Fixed Income Relationship Specialty Start Date End Date Esperanza Santillan MD [address] [place] [phone] PCP - General Family Medicine 01/01/24 Supriya Levine MD [address] [phone] Consulting Physician Endocrinology 02/18/24 documented as of this encounter
--- OUTSIDE RECORDS SUMMARY | 2024-10-14 01:36 | XMS_ITS | Encounter Summary ---
Author Organization [facility] Address [facility]. [place], [place] [id number] [place] [phone] Care Team Providers Care Form Stripper Name Role Phone None, Provider Primary Care Provider Unavaila ble Encounter Details Date Type Department Care Team (Latest Contact Info) Description 09/06/2021 Travel Social History Tobacco Use Types Packs/Day Years Used Date Smoking Tobacco: Never Smokeless Tobacco: Never Alcohol Use Standard Drinks/Week Comments Not Currently 0 (1 standard drink = 0.6 oz pur e alcohol) Comments No Sex and Gender Information Value Date Recorded Sex Assigned at Not on file Legal Sex Female 10:44 AM ELIGIBILITY CONSULTANT Gender Identity Not on file Sexual Orientation Not on file COVID-19 Exposure Response Date Recorded In the last month, have you been in contact with someone who was confirmed or suspected to have Coronavirus / COVID-19? No / Unsure 09/06/2021 10:44 AM ELIGIBILITY CONSULTANT documented as of this encounter Plan of Treatment Not on file documented as of this encounter Visit Diagnoses Not on filedocumented in this encounter Care Teams Form Stripper Relationship Specialty Start Date End Date None, Provider, PCP - General 09/06/21 documented as of this encounter
--- OUTSIDE RECORDS SUMMARY | 2024-10-14 01:36 | XMS_ITS | Data Portability ---
Author Organization ID - [facility] [address]ly Stuff, Main Office Address [address] [place] [address] Care Team Providers Care Derrick Man Name Role Phone DYLAN SANTILLAN Primary Care Provider DYLAN SANTILLAN Referring Provider [phone] Assessment No assessment recorded. Plan of Treatment Reminders Order Date Submit Date Provider Last Modified By Organization Details Last Modified Time Details Appointments None recorded. Lab HbA1c (hemoglobi n A1c), blood 2023 024 GLEN Not available 4 01:36:00 BMP, serum or plasma 2023 024 GLEN Not available 4 22:04:13 ferritin, serum or plasma 2023 024 GLEN Not available 4 22:38:52 iron + total iron-janny ng capacity (TIBC), serum 2023 024 GLEN Not available 4 22:04:03 CBC w/ auto diff 2023 024 GLEN Not available 4 22:16:31 vitamin B12, serum 2023 024 GLEN Not available 4 23:07:47 folate, serum 2023 024 GLEN Not available 4 23:07:52 HbA1c (hemoglobi n A1c), blood 2023 [email or web address] [place] [address] ([facility]), [address] [place] [address] [address], [place], [address], 08:09:05 Referral None recorded. Procedures None recorded. Surgeries None recorded. Imaging None recorded. Medication Orders Rybelsus 14 mg tablet 2023 024 [email or web address] [facility] #[id number], [address], [place], [place], [id number], 14:48:29 metformin 500 mg tablet 2023 024 [facility] #[id number], [address], [place], [place], [id number], 4 11:58:29 Rybelsus 14 mg tablet 2023 024 [facility] #[id number], [address], [place], [place], [id number], 11:58:25 Patient TargetsNo targets recorded. Patient InstructionsNo instructions recorded. Reason for Referral None Reported. Results Created Date Observation Date Name Description Value Unit Range Abnormal Flag Note LastModifiedBy Organization Detail LastModifiedTime 10/01/2010/01/2023 CBC/C OMPLE TE BLD COUNT W/DIF F white blood cells 6.7 x10'3 /uL 4.2-10 .8 Not Available [facility] (Lab) [address] [place], [address], 10/01/2023 19:36:20 10/01/20 23 10/01/2023 CBC/C OMPLE TE BLD COUNT W/DIF F red blood cells 5.03 x10'6 /uL 3.80-5 .20 Not Available [facility] (Lab) [address] [place], [address], 10/01/2023 19:36:20 10/01/20 23 10/01/2023 CBC/C OMPLE TE BLD COUNT W/DIF F hemoglobin 13.6 g/dL 12.0-1 5.6 Not Available [facility] (Lab) [address] [place], [address], 10/01/2023 19:36:20 10/01/20 23 10/01/2023 CBC/C OMPLE TE BLD COUNT W/DIF F hematocrit 43.2 % 35.7-4 5.7 Not Available [facility] (Lab) [address] [place], [address], 10/01/2023 19:36:20 10/01/20 23 10/01/2023 CBC/C OMPLE TE BLD COUNT W/DIF F mean red cell volume 85.9 fL 82.0-9 9.0 Not Available [facility] (Lab) [address] [place], [address], 10/01/2023 19:36:20 10/01/20 23 10/01/2023 CBC/C OMPLE TE BLD COUNT W/DIF F mean red cell hemoglobin 27.0 pg 27.0-3 3.0 Not Available [facility] (Lab) [address] [place], [address], 10/01/2023 19:36:20 10/01/20 23 10/01/2023 CBC/C OMPLE TE BLD COUNT W/DIF F mean RBC HGB concentratio n 31.5 g/dL 31.0-3 6.0 Not Available [facility] (Lab) [address] [place], [address], 10/01/2023 19:36:20 10/01/20 23 10/01/2023 CBC/C OMPLE TE BLD COUNT W/DIF F red cell distribution width 12.6 % 11.8-1 5.5 Not Available [facility] (Lab) [address] [place], [address], 10/01/2023 19:36:20 10/01/20 23 10/01/2023 CBC/C OMPLE TE BLD COUNT W/DIF F platelets 418 x10'3 /uL 150-40 0 high Not Available [facility] (Lab) [address] [place], [address], 10/01/2023 19:36:20 10/01/20 23 10/01/2023 CBC/C OMPLE TE BLD COUNT W/DIF F mean platelet volume 11.2 fL 9.0-12 .4 Not Available [facility] (Lab) [address] [place], [address], 10/01/2023 19:36:20 10/01/20 23 10/01/2023 CBC/C OMPLE TE BLD COUNT W/DIF F neutrophils 63.8 % 39.0-7 2.0 Not Available [facility] (Lab) [address] [place], [address], 10/01/2023 19:36:20 10/01/20 23 10/01/2023 CBC/C OMPLE TE BLD COUNT W/DIF F lymphocytes 27.8 % 16.0-4 7.0 Not Available [facility] (Lab) [address] [place], [address], 10/01/2023 19:36:20 10/01/20 23 10/01/2023 CBC/C OMPLE TE BLD COUNT W/DIF F monocytes 6.2 % 5.0-12 .0 Not Available [facility] (Lab) [address] [place], [address], 10/01/2023 19:36:20 10/01/20 23 10/01/2023 CBC/C OMPLE TE BLD COUNT W/DIF F eosinophils 1.5 % 1.0-7. 0 Not Available [facility] (Lab) [address] [place], [address], 10/01/2023 19:36:20 10/01/20 23 10/01/2023 CBC/C OMPLE TE BLD COUNT W/DIF F basophils 0.5 % 0.0-2. 0 Not Available [facility] (Lab) [address] [place], [address], 10/01/2023 19:36:20 10/01/20 23 10/01/2023 CBC/C OMPLE TE BLD COUNT W/DIF F immature granulocytes 0.2 % 0.00-0 .50 Not Available [facility] (Lab) [address] [place], [address], 10/01/2023 19:36:20 10/01/20 23 10/01/2023 CBC/C OMPLE TE BLD COUNT W/DIF F neutrophils, absolute count 4.25 x10'3 /uL 1.5-8. 0 Not Available [facility] (Lab) [address] [place], [address], 10/01/2023 19:36:20 10/01/20 23 10/01/2023 CBC/C OMPLE TE BLD COUNT W/DIF F lymphocytes, absolute count 1.85 x10'3 /uL 1.07-3 .43 Not Available [facility] (Lab) [address] [place], [address], 10/01/2023 19:36:20 10/01/20 23 10/01/2023 CBC/C OMPLE TE BLD COUNT W/DIF F monocytes, absolute count 0.41 x10'3 /uL 0.29-0 .99 Not Available [facility] (Lab) [address] [place], [address], 10/01/2023 19:36:20 10/01/20 23 10/01/2023 CBC/C OMPLE TE BLD COUNT W/DIF F eosinophils, absolute count 0.10 x10'3 /uL 0.02-0 .53 Not Available [facility] (Lab) [address] [place], [address], 10/01/2023 19:36:20 10/01/20 23 10/01/2023 CBC/C OMPLE TE BLD COUNT W/DIF F basophils, absolute count 0.03 x10'3 /uL 0.01-0 .08 Not Available [facility] (Lab) [address] [place], [address], 10/01/2023 19:36:20 10/01/20 23 10/01/2023 CBC/C OMPLE TE BLD COUNT W/DIF F immature granulocytes ,absolute 0.01 x10'3 /uL 0.00-0 .05 Not Available [facility] (Lab) [address] [place], [address], 10/01/2023 19:36:20 10/01/20 23 10/01/2023 CBC/C OMPLE TE BLD COUNT W/DIF F nucleated red blood cells 0.0 % -[address] [facility] (Lab) [address] [place], [address], 10/01/2023 19:36:20 10/01/20 23 10/01/2023 CBC/C OMPLE TE BLD COUNT W/DIF F NRBC# 0.00 x10'3 /uL Not Available [facility] (Lab) [address] [place], [address], 10/01/2023 19:36:20 10/01/20 23 10/01/2023 HEMOG LOBIN A1C HA1C 7.4 % 4.0-6. 0 high Diabe jet Scree kaylene Crite mikey: <5.7% Consi stent with absen ce of diabe jet 5.7-6 .4% Consi stent with incre ased risk for diabe jet (pred iabet es) >OR=6 .5% Consi stent with diabe jet REFER ENCE: Diabe jet Care 2015, 39(Cano ppl.1 ):s13 -s22 Not Available Not Available 10/01/2023 20:28:53 10/01/20 23 10/01/2023 COMPR EHENS EVERETTE METAB OLIC PANEL sodium 139 mmol/ L 137-14 5 Not Available [facility] (Lab) [address] [place], [address], 10/01/2023 22:09:47 10/01/20 23 10/01/2023 COMPR EHENS EVERETTE METAB OLIC PANEL potassium 4.3 mmol/ L 3.5-5. 1 Not Available [facility] (Lab) [address] [place], [address], 10/01/2023 22:09:47 10/01/20 23 10/01/2023 COMPR EHENS EVERETTE METAB OLIC PANEL chloride 101 mmol/ L 98-107 Not Available [facility] (Lab) [address] [place], [address], 10/01/2023 22:09:47 10/01/20 23 10/01/2023 COMPR EHENS EVERETTE METAB OLIC PANEL carbon dioxide 26 mmol/ L 22-30 Not Available [facility] (Lab) [address] [place], [address], 10/01/2023 22:09:47 10/01/20 23 10/01/2023 COMPR EHENS EVERETTE METAB OLIC PANEL anion gap 16.3 mmol/ L 14-22 Not Available [facility] (Lab) [address] [place], [address], 10/01/2023 22:09:47 10/01/20 23 10/01/2023 COMPR EHENS EVERETTE METAB OLIC PANEL glucose 267 mg/dL 70-99 high Not Available [facility] (Lab) [address] [place], [address], 10/01/2023 22:09:47 10/01/20 23 10/01/2023 COMPR EHENS EVERETTE METAB OLIC PANEL BUN 12 mg/dL 8-19 Not Available [facility] (Lab) [address] [place], [address], 10/01/2023 22:09:47 10/01/20 23 10/01/2023 COMPR EHENS EVERETTE METAB OLIC PANEL creatinine 0.64 mg/dL 0.66-1 .25 low Not Available [facility] (Lab) [address] [place], [address], 10/01/2023 22:09:47 10/01/20 23 10/01/2023 COMPR EHENS EVERETTE METAB OLIC PANEL GFR >60 Refer ence Range : [place] ge GFR Healt hy Adult : >60 mL/mi n/1.7 3 m2 Chron ic Kidne y Disea se: 15-60 mL/mi n/1.7 3 m2 Kidne y Failu re: <15/m L/min /1.73 m2 www.n iddk. nih.g ov The MDRD study equat ion has not been valid ated in child andrews <18 years of age; pregn ant women ; the elder ly >85 years of age; or in some racia l or ethni c subgr oups, such as Hisky nics. Outsi de the valid ated gary eters , estim ated GFR is less accur ate, requi ring clini annalisa judgm ent on a case- by-ca se basis . Clini annalisa inter preta tion for other races and ages must be made by the clini aguila. The MDRD study equat ion has not been valid ated for the evalu ation of serum creat inine relat ed to nutri roselia l statu s or medic ation usage . For perso ns <18 years of age, a pedia tric GFR calcu lator is avail able on the F websi te: https ://silvia w.kid leesa.o rg/pr ofess ional s/kdo qi/gf r_cal culat or Not Available [facility] (Lab) [address] [place], [address], 10/01/2023 22:09:47 10/01/20 23 10/01/2023 COMPR EHENS EVERETTE METAB OLIC PANEL alkaline phosphatase 52 U/L 38-126 Not Available [facility] (Lab) [address] [place], [address], 10/01/2023 22:09:47 10/01/20 23 10/01/2023 COMPR EHENS EVERETTE METAB OLIC PANEL alanine aminotransfe rase 16 U/L 0-[address] [facility] (Lab) [address] [place], [address], 10/01/2023 22:09:47 10/01/20 23 10/01/2023 COMPR EHENS EVERETTE METAB OLIC PANEL aspartate aminotransfe rase 18 U/L 15-[address] [facility] (Lab) [address] [place], [address], 10/01/2023 22:09:47 10/01/20 23 10/01/2023 COMPR EHENS EVERETTE METAB OLIC PANEL bilirubin, total 0.20 mg/dL 0.20-1 .30 Not Available [facility] (Lab) [address] [place], [address], 10/01/2023 22:09:47 10/01/20 23 10/01/2023 COMPR EHENS EVERETTE METAB OLIC PANEL calcium 10.1 mg/dL 8.4-10 .2 Not Available [facility] (Lab) [address] [place], [address], 10/01/2023 22:09:47 10/01/20 23 10/01/2023 COMPR EHENS EVERETTE METAB OLIC PANEL total protein 7.7 g/dL 6.3-8. 2 Not Available [facility] (Lab) [address] [place], [address], 10/01/2023 22:09:47 10/01/20 23 10/01/2023 COMPR EHENS EVERETTE METAB OLIC PANEL albumin 4.5 g/dL 3.4-5. 0 Not Available [facility] (Lab) [address] [place], [address], 10/01/2023 22:09:47 10/01/20 23 10/01/2023 COMPR EHENS EVERETTE METAB OLIC PANEL globulin 3.2 g/dL 2.6-4. 2 Not Available [facility] (Lab) [address] [place], [address], 10/01/2023 22:09:47 10/01/20 23 10/01/2023 COMPR EHENS EVERETTE METAB OLIC PANEL A/G ratio 1.4 ratio 1.0-2. 0 Not Available [facility] (Lab) [address] [place], [address], 10/01/2023 22:09:47 10/01/20 23 10/01/2023 TSH thyroid-stim ulating hormone 0.985 uIU/m L 0.465- 4.680 Not Available [facility] (Lab) [address] [place], [address], 10/01/2023 22:39:18 10/01/20 23 10/01/2023 VITAM IN B12 (NIKIA KAUSHAL ) vb12 354 pg/mL 239-93 1 Not Available [facility] (Lab) [address] [place], [address], 10/02/2023 00:59:01 10/01/20 23 10/01/2023 FOLAT E, SERUM /PLAS MA folate 11.3 NG/mL 2.76-2 0.0 Not Available [facility] (Lab) [address] [place], [address], 10/02/2023 00:59:06 12/25/19 24 12/25/2023 IRON/ TIBC PANEL total iron binding capacity 400 mcg/d L 265-47 5 Not Available [facility] (Lab) [address] [place], [address], 12/25/2023 22:11:52 12/25/19 24 12/25/2023 IRON/ TIBC PANEL % transferrin saturation 24 % 20-55 Not Available [facility] (Lab) [address] [place], [address], 12/25/2023 22:11:52 12/25/19 24 12/25/2023 IRON/ TIBC PANEL unsaturated iron bind capacity 303 mcg/d L 126-38 2 Not Available [facility] (Lab) [address] [place], [address], 12/25/2023 22:11:52 12/25/19 24 12/25/2023 IRON/ TIBC PANEL iron 97 mcg/d L 42-175 Not Available [facility] (Lab) [address] [place], [address], 12/25/2023 22:11:52 12/25/19 24 12/25/2023 BASIC METAB OLIC PANEL sodium 139 mmol/ L 137-14 5 Not Available [facility] (Lab) [address] [place], [address], 12/25/2023 22:04:13 12/25/19 24 12/25/2023 BASIC METAB OLIC PANEL potassium 3.9 mmol/ L 3.5-5. 1 Not Available [facility] (Lab) [address] [place], [address], 12/25/2023 22:04:13 12/25/19 24 12/25/2023 BASIC METAB OLIC PANEL chloride 103 mmol/ L 98-107 Not Available [facility] (Lab) [address] [place], [address], 12/25/2023 22:04:13 12/25/19 24 12/25/2023 BASIC METAB OLIC PANEL carbon dioxide 25 mmol/ L 22-30 Not Available [facility] (Lab) [address] [place], [address], 12/25/2023 22:04:13 12/25/19 24 12/25/2023 BASIC METAB OLIC PANEL anion gap 14.9 mmol/ L 14-22 Not Available [facility] (Lab) [address] [place], [address], 12/25/2023 22:04:13 12/25/19 24 12/25/2023 BASIC METAB OLIC PANEL glucose 172 mg/dL 70-99 high Not Available [facility] (Lab) [address] [place], [address], 12/25/2023 22:04:13 12/25/19 24 12/25/2023 BASIC METAB OLIC PANEL BUN 10 mg/dL 8-19 Not Available [facility] (Lab) [address] [place], [address], 12/25/2023 22:04:13 12/25/19 24 12/25/2023 BASIC METAB OLIC PANEL creatinine 0.54 mg/dL 0.66-1 .25 low Not Available [facility] (Lab) [address] [place], [address], 12/25/2023 22:04:13 12/25/19 24 12/25/2023 BASIC METAB OLIC PANEL GFR >60 Refer ence Range : [place] ge GFR Healt hy Adult : >60 mL/mi n/1.7 3 m2 Chron ic Kidne y Disea se: 15-60 mL/mi n/1.7 3 m2 Kidne y Failu re: <15/m L/min /1.73 m2 www.n iddk. nih.g ov The MDRD study equat ion has not been valid ated in child andrews <18 years of age; pregn ant women ; the elder ly >85 years of age; or in some racia l or ethni c subgr oups, such as Hispa nics. Outsi de the valid ated gary eters , estim ated GFR is less accur ate, requi ring clini annalisa judgm ent on a case- by-ca se basis . Clini annalisa inter preta tion for other races and ages must be made by the clini aguila. The MDRD study equat ion has not been valid ated for the evalu ation of serum creat inine relat ed to nutri roselia l statu s or medic ation usage . For perso ns <18 years of age, a pedia tric GFR calcu lator is avail able on the NKF websi te: https ://silvia w.lex landers.o rg/pr ofess ional s/kdo qi/gf r_cal culat or Not Available [facility] (Lab) [address] [place], [address], 12/25/2023 22:04:13 12/25/19 24 12/25/2023 BASIC METAB OLIC PANEL calcium 9.6 mg/dL 8.4-10 .2 Not Available [facility] (Lab) [address] [place], [address], 12/25/2023 22:04:13 12/25/19 24 12/25/2023 CBC/C OMPLE TE BLD COUNT W/DIF F white blood cells 7.4 x10'3 /uL 4.2-10 .8 Not Available [facility] (Lab) [address] [place], [address], 12/25/2023 22:16:30 12/25/19 24 12/25/2023 CBC/C OMPLE TE BLD COUNT W/DIF F red blood cells 4.86 x10'6 /uL 3.80-5 .20 Not Available [facility] (Lab) [address] [place], [address], 12/25/2023 22:16:30 12/25/19 24 12/25/2023 CBC/C OMPLE TE BLD COUNT W/DIF F hemoglobin 13.2 g/dL 12.0-1 5.6 Not Available [facility] (Lab) [address] [place], [address], 12/25/2023 22:16:30 12/25/19 24 12/25/2023 CBC/C OMPLE TE BLD COUNT W/DIF F hematocrit 40.9 % 35.7-4 5.7 Not Available [facility] (Lab) [address] [place], [address], 12/25/2023 22:16:30 12/25/19 24 12/25/2023 CBC/C OMPLE TE BLD COUNT W/DIF F mean red cell volume 84.2 fL 82.0-9 9.0 Not Available [facility] (Lab) [address] [place], [address], 12/25/2023 22:16:30 12/25/19 24 12/25/2023 CBC/C OMPLE TE BLD COUNT W/DIF F mean red cell hemoglobin 27.2 pg 27.0-3 3.0 Not Available [facility] (Lab) [address] [place], [address], 12/25/2023 22:16:30 12/25/19 24 12/25/2023 CBC/C OMPLE TE BLD COUNT W/DIF F mean RBC HGB concentratio n 32.3 g/dL 31.0-3 6.0 Not Available [facility] (Lab) [address] [place], [address], 12/25/2023 22:16:30 12/25/19 24 12/25/2023 CBC/C OMPLE TE BLD COUNT W/DIF F red cell distribution width 13.3 % 11.8-1 5.5 Not Available [facility] (Lab) [address] [place], [address], 12/25/2023 22:16:30 12/25/19 24 12/25/2023 CBC/C OMPLE TE BLD COUNT W/DIF F platelets 384 x10'3 /uL 150-40 0 Not Available [facility] (Lab) [address] [place], [address], 12/25/2023 22:16:30 03/21/20 24 12/25/2023 CBC/C OMPLE TE BLD COUNT W/DIF F mean platelet volume 10.8 fL 9.0-12 .4 Not Available [facility] (Lab) [address] [place], [address], 12/25/2023 22:16:30 12/25/19 24 12/25/2023 CBC/C OMPLE TE BLD COUNT W/DIF F neutrophils 57.6 % 39.0-7 2.0 Not Available [facility] (Lab) [address] [place], [address], 12/25/2023 22:16:30 12/25/19 24 12/25/2023 CBC/C OMPLE TE BLD COUNT W/DIF F lymphocytes 33.6 % 16.0-4 7.0 Not Available [facility] (Lab) [address] [place], [address], 12/25/2023 22:16:30 12/25/19 24 12/25/2023 CBC/C OMPLE TE BLD COUNT W/DIF F monocytes 6.6 % 5.0-12 .0 Not Available [facility] (Lab) [address] [place], [address], 12/25/2023 22:16:30 12/25/19 24 12/25/2023 CBC/C OMPLE TE BLD COUNT W/DIF F eosinophils 1.6 % 1.0-7. 0 Not Available [facility] (Lab) [address] [place], [address], 12/25/2023 22:16:30 12/25/19 24 12/25/2023 CBC/C OMPLE TE BLD COUNT W/DIF F basophils 0.3 % 0.0-2. 0 Not Available [facility] (Lab) [address] [place], [address], 12/25/2023 22:16:30 12/25/19 24 12/25/2023 CBC/C OMPLE TE BLD COUNT W/DIF F immature granulocytes 0.3 % 0.00-0 .50 Not Available [facility] (Lab) [address] [place], [address], 12/25/2023 22:16:30 12/25/19 24 12/25/2023 CBC/C OMPLE TE BLD COUNT W/DIF F neutrophils, absolute count 4.26 x10'3 /uL 1.5-8. 0 Not Available [facility] (Lab) [address] [place], [address], 12/25/2023 22:16:30 12/25/19 24 12/25/2023 CBC/C OMPLE TE BLD COUNT W/DIF F lymphocytes, absolute count 2.49 x10'3 /uL 1.07-3 .43 Not Available [facility] (Lab) [address] [place], [address], 12/25/2023 22:16:30 12/25/19 24 12/25/2023 CBC/C OMPLE TE BLD COUNT W/DIF F monocytes, absolute count 0.49 x10'3 /uL 0.29-0 .99 Not Available [facility] (Lab) [address] [place], [address], 12/25/2023 22:16:30 12/25/19 24 12/25/2023 CBC/C OMPLE TE BLD COUNT W/DIF F eosinophils, absolute count 0.12 x10'3 /uL 0.02-0 .53 Not Available [facility] (Lab) [address] [place], [address], 12/25/2023 22:16:30 12/25/19 24 12/25/2023 CBC/C OMPLE TE BLD COUNT W/DIF F basophils, absolute count 0.02 x10'3 /uL 0.01-0 .08 Not Available [facility] (Lab) [address] [place], [address], 12/25/2023 22:16:30 12/25/19 24 12/25/2023 CBC/C OMPLE TE BLD COUNT W/DIF F immature granulocytes ,absolute 0.02 x10'3 /uL 0.00-0 .05 Not Available [facility] (Lab) [address] [place], [address], 12/25/2023 22:16:30 12/25/19 24 12/25/2023 CBC/C OMPLE TE BLD COUNT W/DIF F nucleated red blood cells 0.0 % -[address] [facility] (Lab) [address] [place], [address], 12/25/2023 22:16:30 12/25/19 24 12/25/2023 CBC/C OMPLE TE BLD COUNT W/DIF F NRBC# 0.00 x10'3 /uL Not Available [facility] (Lab) [address] [place], [address], 12/25/2023 22:16:30 12/25/19 24 12/25/2023 DONAVON TIN ferritin 13 NG/mL 6.24-1 37 Not Available [facility] (Lab) [address] [place], [address], 12/25/2023 22:38:52 12/25/19 24 12/25/2023 VITAM IN B12 (NIKIA KAUSHAL ) vb12 334 pg/mL 239-93 1 Not Available [facility] (Lab) [address] [place], [address], 12/25/2023 23:07:47 12/25/19 24 12/25/2023 FOLAT E, SERUM /PLAS MA folate 15.4 NG/mL 2.76-2 0.0 Not Available [facility] (Lab) [address] [place], [address], 12/25/2023 23:07:52 12/25/19 24 12/25/2023 HEMOG LOBIN A1C HA1C 9.0 % 4.0-6. 0 high Diabe jet Chinae kaylene Moore mikey: <5.7% Consi stent with absen ce of diabe jet 5.7-6 .4% Consi stent with incre ased risk for diabe jet (pred iabet es) >OR=6 .5% Consi stent with diabe jet REFER ENCE: Diabe jet Care 2016, 39( ppl.1 ):s13 -s22 Not Available [facility] (Lab) [address] [place], [address], 12/25/2023 23:20:09 05/28/20 23 05/27/2023 XR, ankle No observ ation record ed. [email or web address] [facility] [address] [place], [address], 05/28/2023 07:48:13 Result Notes None recorded. Problems Name Problem SNOMED Code Status Onset Date Resolution Date Notes Provider Name and Address Organization Details Recorded Time Chlamydia l infection 941575373 Active Not Available [facility] 3 19:32:47 Sprain of left foot 15909048669 608197 Active 2020 Not Available [facility] 3 19:32:47 Sprain of left ankle 17379675838 579243 Active 2020 Not Available [facility] 3 19:32:47 Menorrhag ia 280217143 Active Not Available [facility] 3 19:32:47 Dysuria 13668671 Active Not Available [facility] 3 19:32:47 Urinary tract infectiou s disease 11861724 Active Not Available [facility] 3 19:32:47 Diabetes mellitus 02503000 Active Not Available [facility] 3 19:32:47 Sleep apnea 44256357 Active Not Available [facility] 3 19:32:47 72626008 Completed 201902/01/2020 Not Available [facility] 3 06:43:53 External hordeolum 1090236 Active 2022 Not Available [facility] 3 19:32:47 Acute pharyngit is 697188359 Active 2022 Not Available [facility] 3 19:32:47 Neck pain 61072524 Active 2022 Not Available [facility] 3 19:32:47 Cough 95062531 Active 2022 Not Available [facility] 3 19:32:47 Dizziness 765647702 Active 2022 Dylan Santillan MD [address], [place], [address] , [facility] 3 10:22:32 Amenorrhe a 31684950 Active 2023 Dylan Santillan MD [address], [place], [address] , 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 4 15:08:35 Iron deficienc y anemia 19333484 Active 2023 Dylan Santillan MD [address], [place], [address] , [facility] 4 15:10:44 Type 2 diabetes mellitus 92309519 Active 2023 Dylan Santillan MD [address], [place], [address] , [facility] 4 17:29:44 Gestation al hypertens ion Active 2023 Dylan Santillan MD [address], [place], [address] , [employer] 4 17:29:44 Deliverie s by 546541083 Active 2023 Dylan Santillan MD [address] [facility], [facility] [address], [place], [address] , [facility] [employer] [facility] 4 17:29:44 Type 2 diabetes mellitus without complicat ion [id number] Active 2023 Dylan Santillan MD [address] [facility], [facility] [address], [place], [address] , [facility] [employer] [facility] 4 17:30:44 Problem Notes None recorded. Procedures Surgical History None recorded. Imaging Results Imaging Date Name Status LastModified by Organiz ation Details LastModified Time 05/27/2023 XR, ankle completed [email or web address] [facility] [address] [place], [address], 05/28/2023 07:48:13 Procedure Notes None recorded. Medical Equipment None Reported. Allergies No known drug allergies Medications Name Sig Start Date Stop Date Status Note LastModified by Organization Details LastModified Time multivitami n tablet TK 1 T PO QD active Not Available Not Available No t Available amoxicillin 500 mg capsule TAKE 1 CAPSULE BY MOUTH EVERY 12 HOURS FOR 10 DAYS 12/24 completed Not Available Not Available Not Available dicloxacill in 500 mg capsule Take 1 capsule every 6 hours by oral route for 7 days. active Not Available Not Available No t Available metformin 500 mg tablet Take 2 tablets twice a day by oral route for 90 days. active Not Available Not Available No t Available terconazole 0.4 % vaginal cream INSERT ONE APPLICATO RFUL VAGINALLY AT BEDTIME FOR 7 NIGHTS DIRECTED active Not Available Not Available No t Available doxycycline hyclate 100 mg capsule TATTK 1 CAPSULE BY MOUTH TWICE DAILY UNTIL ALL TAKEN 03/14 completed Not Available Not Available Not Available Vitamin B-6 25 mg tablet 01/10 completed Not Available Not Available Not Available clindamycin HCl 300 mg capsule Take 1 capsule 3 times a day by oral route for 7 days. active Not Available Not Available No t Available triamcinolo ne acetonide 0.5 % topical cream 05/03 completed Not Available Not Available Not Available ibuprofen 800 mg tablet 03/14 completed Not Available Not Available Not Available ofloxacin 0.3 % eye drops 03/14 completed Not Available Not Available Not Available fluconazole 150 mg tablet TAKE 1 TABLET BY MOUTH TODAY AND REPEAT IN 3 DAYS active Not Available Not Available No t Available amoxicillin 600 mg-catherineu m clavulanate 42.9 mg/5 mL oral suspension G 10ML PO Q 12 H FOR [address] 08/25 completed Not Available Not Available Not Available FreeStyle Lancets 28 gauge USE TO TEST EVERY DAY active Not Available Not Available No t Available phenazopyri dine 200 mg tablet TK 1 T PO TID FOR 3 DAYS PRN 01/10 completed Not Available Not Available Not Available metronidazo le 0.75 % (37.5 mg/5 gram) vaginal gel INSERT ONE APPLICATO RFUL VAGINALLY AT BEDTIME FOR 5 DAYS 03/14 completed Not Available Not Available Not Available prednisone 20 mg tablet TAKE 2 TABLETS BY MOUTH EVERY DAY FOR 5 DAYS 12/24 completed Not Available Not Available Not Available terconazole 0.8 % vaginal cream I 1 APL VAGINALLY QD HS 05/03 completed Not Available Not Available Not Available glipizide ER 5 mg tablet, extended release 24 hr TAKE 1 TABLET BY MOUTH EVERY DAY 07/30 completed Not Available Not Available Not Available Debrox 6.5 % ear drops 01/10 completed Not Available Not Available Not Available Zithromax Z-Rodrgio 250 mg tablet TAKE 2 TABLETS (500 MG) BY ORAL ROUTE ONCE DAILY FOR 1 DAY THEN 1 TABLET (250 MG) BY ORAL ROUTE ONCE DAILY FOR 4 DAYS 03/14 completed Not Available Not Available Not Available sumatriptan 50 mg tablet TK 1 T PO BID PRN. DO NOT EXCEED 200 MG IN 24 H. active Not Available Not Available No t Available penicillin V potassium 500 mg tablet 01/10 completed Not Available Not Available Not Available metronidazo le 500 mg tablet TAKE 1 TABLET BY MOUTH TWICE DAILY 12/24 completed Not Available Not Available Not Available ciprofloxac in 250 mg tablet 09/03 completed Not Available Not Available Not Available sulfamethox azole 800 mg-trimetho prim 160 mg tablet TAKE 1 TABLET BY MOUTH EVERY 12 HOURS FOR 3 DAYS 06/23 completed Not Available Not Available Not Available aspirin 81 mg tablet,sharron yed release 05/03 completed Not Available Not Available Not Available tramadol 50 mg tablet TAKE 1 TABLET BY MOUTH EVERY 6 HOURS NEEDED 03/14 completed Not Available Not Available Not Available acetaminoph en 500 mg tablet 01/10 completed Not Available Not Available Not Available triamcinolo ne acetonide 0.1 % topical cream APPLY A THIN LAYER TO THE AFFECTED AREA(S) BY TOPICAL ROUTE 2 TIMES PER DAY prn rash 05/03 completed Not Available Not Available Not Available ondansetron 8 mg disintegrat ing tablet Place 1 tablet twice a day by transling ual route. 03/14 completed Not Available Not Available Not Available terconazole 80 mg vaginal suppository Insert 1 supposito ry every day by vaginal route for 3 days. 01/10 completed Not Available Not Available Not Available Microgestin FE 10/25 (28) 1 mg-20 mcg (21)/75 mg (7) tablet Take 1 tablet every day by oral route. 07/25 completed Not Available Not Available Not Available amoxicillin 875 mg tablet Take 1 tablet every 12 hours by oral route for 10 days. 03/14 completed Not Available Not Available Not Available dicyclomine 20 mg tablet TK 1 T PO Q 6 HOURS PRF PAIN 08/25 completed Not Available Not Available Not Available amoxicillin 250 mg/5 mL oral suspension TK 10ML PO Q 8 H FOR 10 DAYS 01/20 completed Not Available Not Available Not Available glipizide ER 2.5 mg tablet, extended release 24 hr TAKE 1 TABLET BY MOUTH EVERY DAY active Not Available Not Available No t Available erythromyci n 5 mg/gram (0.5 %) eye ointment APPLY 1 CM RIBBON INTO THE CONJUNCTI OCHOA SAC(S) IN THE AFFECTED EYE(S) BY OPHTHALMI C ROUTE 3 TIMES PER DAY x 7 days 03/14 completed Not Available Not Available Not Available oseltamivir 75 mg capsule Take 1 capsule twice a day by oral route for 5 days. 09/03 completed Not Available Not Available Not Available ferrous sulfate 325 mg (65 mg iron) tablet TK 1 T PO BID WITH ORANGE JUICE 08/25 completed Not Available Not Available Not Available neomycin-po lymyxin-dex ameth 3.5 mg/mL-10,00 0 unit/mL-0.1 % eye drops 03/14 completed Not Available Not Available Not Available triamcinolo ne acetonide 0.1 % topical ointment APPLY TO AFFECTED AREA TWICE DAILY NEEDED 05/03 completed Not Available Not Available Not Available nystatin 100,000 unit/gram topical cream APPLY TO THE AFFECTED AREA(S) BY TOPICAL ROUTE 2 TIMES PER DAY x 7-10 days prn active Not Available Not Available No t Available promethazin e 25 mg tablet Take 1 tablet every 4 hours by oral route as needed. 01/10 completed Not Available Not Available Not Available ibuprofen 400 mg tablet take 1 tablet by mouth every 6 hours if needed 08/25 completed Not Available Not Available Not Available progesteron e micronized 200 mg capsule 01/10 completed Not Available Not Available Not Available Polytrim 10,000 unit-1 mg/mL eye drops INSTILL 1 DROP INTO AFFECTED EYE(S) BY OPHTHALMI C ROUTE EVERY 6 HOURS x 7 days 01/10 completed Not Available Not Available Not Available omeprazole 20 mg capsule,del ayed release TK ONE C PO D BEFORE BREAKFAST 08/25 completed Not Available Not Available Not Available diclofenac sodium 75 mg tablet,sharron yed release TAKE 1 TABLET BY MOUTH TWICE DAILY NEEDED active Not Available Not Available No t Available folic acid 1 mg tablet active Not Available Not Available Not Available ibuprofen 600 mg tablet Take 1 tablet 4 times a day by oral route. 03/14 completed Not Available Not Available Not Available azithromyci n 200 mg/5 mL oral suspension TAKE 12.5 MILLILITE RS (500 MG) BY ORAL ROUTE ONCE DAILY FOR 1 DAY THEN 6.25 MILLILITE RS (250 MG) BY ORAL ROUTE ONCE DAILY FOR 4 DAYS 03/14 completed Not Available Not Available Not Available letrozole 2.5 mg tablet TAKE 1 TABLET BY MOUTH EVERY DAY FOR 5 DAYS. START 06/12/2024. active Not Available Not Available No t Available methylpredn isolone 4 mg tablets in a dose pack 01/10 completed Not Available Not Available Not Available albuterol sulfate HFA 90 mcg/actuati on aerosol inhaler Inhale 2 puffs every 4 hours by inhalatio n route as needed. active Not Available Not Available No t Available hydroxyzine HCl 10 mg tablet Take 1 tablet 3 times a day by oral route as needed for 30 days. 03/14 completed Not Available Not Available Not Available ondansetron 4 mg disintegrat ing tablet active Not Available Not Available N ot Available metformin ER 500 mg tablet,exte nded release 24 hr TAKE 1 TABLET BY MOUTH EVERY DAY 12/25 completed 2 po qday MK Not Available Not Available Not Available dicyclomine 10 mg capsule 01/10 completed Not Available Not Available Not Available naproxen 500 mg tablet Take 1 tablet twice a day by oral route for 14 days. 03/14 completed Not Available Not Available Not Available metoclopram maikel 10 mg tablet 01/10 completed Not Available Not Available Not Available amoxicillin 875 mg-potassiu m clavulanate 125 mg tablet TAKE 1 TABLET BY MOUTH EVERY 12 HOURS WITH MEALS FOR 7 DAYS 03/14 completed Not Available Not Available Not Available Microgestin Fe 1.5/30 (28) 1.5 mg-30 mcg (21)/75 mg (7) tablet TK 1 T PO QD 07/25 completed Not Available Not Available Not Available azithromyci n 500 mg tablet Take 2 tablets every day by oral route for 1 day. 03/14 completed Not Available Not Available Not Available Cryselle (28) 0.3 mg-30 mcg tablet TAKE 1 ACTIVE TABLET BY MOUTH TWICE DAILY FOR 10 DAYS 03/14 completed Not Available Not Available Not Available escitalopra m 10 mg tablet TK 1 T PO QD 05/03 completed Not Available Not Available Not Available cyclobenzap rine 5 mg tablet Take 1 tablet 3 times a day by oral route as needed. active Not Available Not Available No t Available Tri-Sprinte c (28) 0.18 mg(7)/0.215 mg(7)/0.25 mg(7)-35 mcg tablet Take 1 tablet every day by oral route. 08/25 completed Not Available Not Available Not Available escitalopra m 5 mg tablet TAKE 1 TABLET BY MOUTH EVERY DAY active Not Available Not Available No t Available Ertaczo 2 % topical cream APPLY TO RASH ON FACE TWICE A DAY 08/25 completed Not Available Not Available Not Available metformin ER 500 mg tablet,exte nded release 24hr (osmotic) Take 1 tablet every day by oral route. 02/06 completed Not Available Not Available Not Available nitrofurant oin monohydrate /macrocryst als 100 mg capsule TAKE 1 CAPSULE BY MOUTH TWICE DAILY FOR 7 DAYS active Not Available Not Available No t Available metformin ER 1,000 mg tablet,exte nded release 24 hr Take 1 tablet every day by oral route for 90 days. 03/14 completed Not Available Not Available Not Available ferrous gluconate 324 mg (38 mg iron) tablet TK 1 T PO BID active Not Available Not Available No t Available calcium 600 mg (as carbonate)- vitamin D3 10 mcg (400 unit) tablet TK 1 T PO BID 05/03 completed Not Available Not Available Not Available FreeStyle Lite Meter kit active Not Available Not Available Not Available FreeStyle Lite Strips USE TO TEST ONCE DAILY DIRECTED active Not Available Not Available No t Available Lo Loestrin Fe 1 mg-10 mcg (24)/10 mcg (2) tablet TAKE 1 TABLET BY MOUTH EVERY DAY 03/14 completed Not Available Not Available Not Available Vestura (28) 3 mg-0.02 mg tablet TAKE 1 TABLET BY MOUTH EVERY DAY 02/06 completed Not Available Not Available Not Available Virtussin AC 10 mg-100 mg/5 mL oral liquid Take 10 mL every 4 hours by oral route as needed. 01/10 completed Not Available Not Available Not Available Vol-Plus 27 mg iron-1 mg tablet 05/03 completed Not Available Not Available Not Available Ozempic 0.25 mg or 0.5 mg (2 mg/1.5 mL) subcutaneou s pen injector Inject 0.25mg weekly x 4 weeks, then increase to 0.5mg weekly 08/06 completed Not Available Not Available Not Available clindamycin 1 % topical gel, once daily active Not Available Not Available Not Available OneTouch Ultra2 Meter active Not Available Not Available Not Available OneTouch Delica Plus Lancet 30 gauge active Not Available Not Available Not Available Slynd 4 mg (28) tablet TK 1 T PO QD 03/14 completed Not Available Not Available Not Available Rybelsus 14 mg tablet Take 1 tablet every day by oral route for 90 days. active Not Available Not Available No t Available Rybelsus 7 mg tablet active Not Available Not Available No t Available Rybelsus 3 mg tablet Take 1 tablet every day by oral route. 08/06 completed Not Available Not Available Not Available Ozempic 0.25 mg or 0.5 mg (2 mg/3 mL) subcutaneou s pen injector Inject by subcutane ous route for 42 days. 12/24 completed Not Available Not Available Not Available Vitals Date Recorded Body height Provider Name an d Address Organization Details Last Updated DateTime 03/18/2023 152.4 cm Robina Babb CMA [facility] [employer] 03/18/2023 11:14:33 Date Recorded Body height Provider Name an d Address Organization Details Last Updated DateTime 10/01/2023 152.4 cm Teresita Arnold LPN [facility] [employer] 10/01/2023 12:26:38 Date Recorded Body height Body mass index (BMI) Body weight Body temperature Heart rate Oxygen saturation Oxygen saturation in Arterial blood by Pulse oximetry Systolic blood pressure Diastolic blood pressure Provider Name and Address Organization Details Last Updated DateTime 4 152.4 cm 35.5 kg/m2 86385.8 1 g 97.4 [degF] 84 /min 98 % 98 % 130 mm[Hg] 86 mm[Hg] Juli Nolan RN [facility] [employer] [facility] 4 14:01:00 Date Recorded Body height Body mass index (BMI) Body weight Body temperature Heart rate Oxygen saturation Oxygen saturation in Arterial blood by Pulse oximetry Systolic blood pressure Diastolic blood pressure Provider Name and Address Organization Details Last Updated DateTime 4 152.4 cm 35.5 kg/m2 78136.8 1 g 98 [degF] 103 /min 97 % 97 % 136 mm[Hg] 84 mm[Hg] Priti Araujo RN [facility] 4 15:00:26 Date Recorded Body height Body mass index (BMI) Body weight Body temperature Heart rate Oxygen saturation Oxygen saturation in Arterial blood by Pulse oximetry Systolic blood pressure Diastolic blood pressure Provider Name and Address Organization Details Last Updated DateTime 4 152.4 cm 33.6 kg/m2 23705.8 9 g 97.8 [degF] 92 /min 99 % 99 % 130 mm[Hg] 80 mm[Hg] Priti Araujo RN [place] [facility] 4 11:48:48 Social History Question Answer Notes LastModified by Organizat ion Details LastModified Time Tobacco Smoking Status Never Smoker Not Available [facility] 12/04/2022 06:39:16 What Is Your Level Of Alcohol Consumption? Occasional [id number] Information not available 12/04/2022 If You Are , What Was Your Level Of Alcohol Consumption Prior To ? None [id number] Information not available 12/04/2022 What Is Your Level Of Caffeine Consumption? Occasional [id number] Information not available 12/04/2022 In The 14 Days Before Symptom Onset, Have You Had Close Contact With A Laboratory-confirm ed COVID-19 While That Case Was Ill? No [id number] Information not available 12/04/2022 In The 14 Days Before Symptom Onset, Have You Had Close Contact With A Person Who Is Under Investigation For COVID-19 While That Person Was Ill? No [id number] Information not available 12/04/2022 What Type Of Diet Are You Following? REGULAR [id number] Information not available 12/04/2022 What Was The Date Of Your Most Recent Tobacco Screening? 05/03/2021 [id number] Information not available 12/04/2022 Have You Ever Been Counseled For Unhealthy Alcohol Use? No [id number] Information not available 12/04/2022 Do You Use Any Illicit Or Recreational Drugs? No [id number] Information not available 12/04/2022 Has Tobacco Cessation Counseling Been Provided? No [id number] Information not available 12/04/2022 Have You Recently Traveled Abroad? No [id number] Information not available 12/04/2022 Do You Have Any Dietary Restrictions? No [id number] Information not available 12/04/2022 Do You Or Have You Ever Used Any Other Forms Of Tobacco Or Nicotine? No [id number] Information not available 12/04/2022 Sex: Unknown Functional Status Question Answer Note LastModified by Organizat ion Details LastModified Time What is your exercise level? None [id number] Information not available 12/04/2022 Mental Status None recorded. Family History Relationship Description Onset Age of this Age Resolved Age Notes LastModified by Organization Details LastModified Time Maternal Grandfather Diabetes mellitus [id number] Not available 12/04/2022 06:39:40 Maternal Grandmother Diabetes mellitus [id number] Not available 12/04/2022 06:39:40 Medical History No medical history recorded. Gynecological History Statement/Question Response Abnormal Pap N Sexually Active? N Weight gain N Dislike of Light during Menstrual Headac he N Menses Monthly Y STIs/STDs N Current Control Method BCPs Breast Problems no Discharge no Obstetrics History GPAL:G 0 P 0 0 0 0 Past Encounters Encounter ID Performer Location Encounter Start Date Encounter Closed Date Diagnosis/Indication Diagnosis SNOMED-CT Code Diagnosis ICD10 Code Diagnosis Note [id number] [facility] [place] [address] [facility] [place] [address] 05/03/2021 00:00:00 05/04/2021 13:41:38 [id number] [facility] [address] [place] [address] 05/18/2021 00:00:00 05/18/2021 20:19:18 [id number] [facility] [address] [place] [address] 09/12/2021 00:00:00 09/12/2021 16:23:13 [id number] [facility] [address] [place] [address] 05/07/2022 00:00:00 05/07/2022 13:08:56 [id number] HUGO Morrell [facility] [address] [place] [address] 03/14/2023 11:43:02 03/14/2023 14:39:38 Diabetes mellitus 76048858 E11.9 Recheck A1C. Glucose at ER 523 (03/03/23). She has not checked home glucose since because she has not had supplies, she struggles with doing finger sticks so she only uses one type of glucometer and lancets that were no longer covered by her insurance. Advised we will try to send in scripts, but will need to put in new orders if she is unable to afford them.Discu ssed healthy eating and exercise.W ill continue metformin 500mg BID, will titrate after A1C results. (05/18/21) Not well controlled per pt reportWill repeat A1C b/c pt states it hasn't been checked latelyWill change from metformin 500mg BID to metformin 1000mg ER daily [id number] Dylan Santillan MD [facility] Primary [facility] [place] [address] [employer] [facility] [address] [place] [address] 03/18/2023 11:01:10 03/18/2023 11:17:37 [id number] Dylan Santillan MD [facility] Primary [facility] [place] [address] [facility] [address] [place] [address] 10/01/2023 12:20:34 10/01/2023 12:39:37 [id number] ALYSSA Alfredo-C [facility] Primary [facility] [place] [address] [facility] [address] [place] [address] 11/05/2023 13:51:49 11/05/2023 15:24:05 Diabetes mellitus 63379499 E11.9 -pt notes blood sugars in the 200s recently since stopping the glipizide- metformin, rybelsus-w ill increase the rybelsus to 14mg daily-f/u in 1 month [id number] Dylan Santillan MD [facility] Primary [facility] [place] [address] [facility] [address] [place] [address] 12/25/2023 14:54:16 12/25/2023 16:01:06 Diabetes mellitus 56449821 E11.9 stablecont inue current medscheck labs Cobalamin deficiency 190 727335 E53.8 Iron defic iency anemia 43068352 D50.9 [id number] ANA Patterson [facility] Primary [facility] [place] [address] [facility] [address] [place] [address] 06/23/2024 11:35:04 06/23/2024 12:14:15 Type 2 diabetes mellitus 83085796 E11.9 A1c 12/2023 9.0Will recheck A1c.Contin ue medication s as listed below. Health Concerns Section Related Observation LastModified by Organization Detai ls LastModified Time None Recorded Concern Status LastModified by Organization Details LastModified Time None Recorded Advance Directives Directive None Recorded Payers Encounter Date Sequence Insurance Name Policy Number Policy Pierce Covered Member ID Pierce Member ID Guarantor Name 03/18/2023 1 [facility] ON OR AFTER 04/05/21 (MEDICAID REPLACEMENT - HMO) Melissa Jackson [id number] Melissa Jackson 10/01/2023 1 [facility] ON OR AFTER 04/05/21 (MEDICAID REPLACEMENT - HMO) Melissa Jackson [id number] Melissa Jackson 11/05/2023 1 [facility] ON OR AFTER 04/05/21 (MEDICAID REPLACEMENT - HMO) Melissa Jackson [id number] Melissa Jackson 12/25/2023 1 [facility] ON OR AFTER 04/05/21 (MEDICAID REPLACEMENT - HMO) Melissa Jackson [id number] Melissa Jackson 06/23/2024 1 [facility] ON OR AFTER 04/05/21 (MEDICAID REPLACEMENT - HMO) Melissa Jackson [id number] Melissa Jackson Notes Date Note Type Note Provider Name and Address Organization Details Recorded Time 11/05/2023 text/html Pt is here to follow up for bloodwork and medications ANA Alfredo [address], [place], [address], [employer] 11/05/2023 14:48:54 12/25/2023 text/html here to f/u on diabetes. Home blood sugars are running 140s or lower. She has not had any lows Dylan Santillan MD [address], [place], [address], [employer] 01/04/2024 09:51:13 06/23/2024 text/html Patient is a 24 year old female that presents to the office for follow on A1c. Patient reports she stopped taking her Glipizide due to hypoglycemic episodes and vomiting. Patient is still taking her daily Metformin and Rybelsus. Patient checks her blood sugars one to two times daily. Patient denies all other concerns at this time including chest pain and shortness of breath. Cyndee Kimball, ALYSSA-C [address] [facility], [facility] [address], [place], [address], [place] [facility] [employer] [facility] 06/23/2024 12:14:08 OBGyn Episode No OBEpisode recorded.
--- OUTSIDE RECORDS SUMMARY | 2024-10-14 01:36 | XMS_ITS | Clinical Summary ---
Author Organization [facility] Address [address] [place] [address] Phone Care Team Providers Care Automation And Controls Instructor Name Role Phone Esperanza Santillan MD Primary Care Provider + Supriya Levine MD Unavailable Medications Blood Glucose Monitoring Suppl (FreeStyle Lite) Device Use to check blood sugar twice a day as directed. 5 Active Doxylamine Succinate, Sleep, (UNISOM) 25 MG Tablet Take 25 mg by mouth. 9 Active Glucose Blood Strip 1 Strip by Does not apply route. 9 Active FreeStyle Lancets Misc Use to check blood sugar twice a day or as directed. 5 Active metFORMIN (GLUCOPHAGE) 500 MG Tablet 2 tabs with breakfast and dinner or as directed. 90 day supply 4 Active naproxen (NAPROSYN) 500 MG Tablet Take 1 Tablet by mouth 2 times daily. 6 Active Norethindrone Acet-Ethinyl Est 1.5-30 MG-MCG Tablet Take 1 Tablet by mouth. Active ondansetron (ZOFRAN-ODT) 4 MG TABLET DISPERSIBLE Take 4 mg by mouth. 3 Active pyridoxine (VITMAIN B-6) 25 MG Tablet Take 1 Tablet by mouth daily. 9 Active glipiZIDE (GLUCOTROL XL) 2.5 MG TABLET SR 24 HR Take 2.5 mg by mouth daily. Active Semaglutide (Rybelsus) 14 MG Tablet Take by mouth. Activ e Immunizations Immunization Administration Dates Next Due DTAP VACCINE 11/30/2002 DTP Vaccine 1998 DTP-Hib 1998,1998 HEP B/HIB Combined Vaccine 1998,1998 Hepatitis B Vaccine, Pediatric/adolescent 1997,1998 Hib Vaccine,unspecified Formulation 09/03/1999 Inactivated Polio Vaccine 11/30/2002 MMR Vaccine 05/25/2003,05/05/2001 OPV 1998,1998,1998 Pneumococcal Vaccine Peds - 7 Valent 05/25/2003 TDAP Vaccine 04/24/2009 Varicella Vaccine Live 02/18/2000 Social History Tobacco Use Types Packs/Day Years [...] Mass Index 33.79 02/26/2024 11:09 AM CDT Plan of Treatment Health Maintenance Due Date Last Done Comments Hepatitis C Virus (HCV) Screening 1998 Human Papillomavirus (HPV) Immunization (1 - 3-dose series) 2013 Pneumococcal Immunization Combined (1 of 2 - PCV) 2017 05/25/2003 Pap Smear 2019 DTaP/Tdap/Td Immunization (6 - Td or Tdap) 04/24/2019 04/24/2009, 11/30/2002, 1998, Additional history exists Influenza Immunization (#1) 2024 SARS-COV-2 Immunization ( - 2023- season) 2024 Respiratory Syncytial Virus (RSV) Immunization (Adult) (1 - 1-dose 75+ series) 2073 Hepatitis B Immunization Completed 998, 1998, 1998, Additional history exists Meningococcal Immunization (ACWY) Aged Out No longer eligible based on patient's age to complete this topic Rotavirus Immunization Aged Out No lo nger eligible based on patient's age to complete this topic Insurance MEDICA[employer] Care Teams Automation And Controls Instructor Relationship Specialty Start Date End Date Esperanza Santillan MD [address] [place] [id number] PCP - General Family Medicine 01/01/24 Supriya Levine MD [address] [address] Consulting Physician Endocrinology 02/18/24
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
--- OUTSIDE RECORDS SUMMARY | 2024-10-14 01:36 | XMS_ITS | Encounter Summary ---
Author Organization [facility] Care Team Providers Care System Specialist Name Role Phone Esperanza Santillan MD Primary Care Provider + Supriya Levine MD Unavailable Encounter Details Date Type Department Care Team (Latest Contact Info) Description 02/26/2024 Travel Social History Tobacco Use Types Packs/Day Years Used Date Smoking Tobacco: Never Passive Smoke Exposure: Never Smokeless Tobacco: Never Alcohol Use Standard Drinks/Week Comments Never 0 [...] on filedocumented in this encounter Care Teams System Specialist Relationship Specialty Start Date End Date Esperanza Santillan MD [address] [place] [phone] PCP - General Family Medicine 01/01/24 Supriya Levine MD [address] [address] Consulting Physician Endocrinology 02/18/24 documented as of this encounter
--- OUTSIDE RECORDS SUMMARY | 2024-10-14 01:36 | XMS_ITS | Clinical Summary ---
Author Organization [facility] Address [address] [place] [address]. [place] [address] [place] [address] Care Team Providers Care Cheesemaker Name Role Phone None, Provider MD Primary Care Provider Unavaila ble Allergies No known active allergies Medications No known medications Social History Tobacco Use Types Packs/Day Years Used Date Smoking Tobacco: Never Smokeless Tobacco: Never Alcohol Use Standard Drinks/Week Comments Not Currently 0 (1 standard drink = 0.6 oz pur e alcohol) Comments No Sex and Gender Information Value Date Recorded Sex Assigned at Not on file Legal Sex Female 10:44 AM VICE PRESIDENT OF ENGINEERING Gender Identity Not on file Sexual Orientation Not on file Last Filed Vital Signs Vital Sign Reading Time Taken Comments Blood Pressure 130/91 09/06/2021 10:47 AM VICE PRESIDENT OF ENGINEERING Pulse 86 09/06/2021 10:47 AM VICE PRESIDENT OF ENGINEERING Temperature 36.4 ??C (97.6 ??F) 09/06/2021 10:[address] Respiratory Rate 18 09/06/2021 10:47 AM VICE PRESIDENT OF ENGINEERING Oxygen Saturation 100% 09/06/2021 10:47 AM VICE PRESIDENT OF ENGINEERING Inhaled Oxygen Concentration - - Weight 83.9 kg (185 lb) 09/06/2021 10:47 AM VICE PRESIDENT OF ENGINEERING Height 157.5 cm (5' 2 ) 09/06/2021 10:47 AM VICE PRESIDENT OF ENGINEERING Body Mass Index 33.84 09/06/2021 10:47 AM VICE PRESIDENT OF ENGINEERING Plan of Treatment Health Maintenance Due Date Last Done Comments Cervical Cancer Screening Pap Smear (Age 21 to 29) Every 3 Years 1998 Cervical Cancer Screening 1998 Annual Physical 2001 HPV Vaccines (1 - 3-dose series) 2013 Hepatitis C 2016 DTaP, Tdap and Td Vaccines (4 - Td or Tdap) 04/24/2019 04/24/2009, 11/30/2002, 1998, Additional history exists COVID-19 Vaccine ( season) 2024 Influenza Adult (#1) 2024 Hepatitis B Vaccines Completed 1998, 1998, 1998, Additional history exists Pneumococcal Vaccine: Pediatrics (0 to 5 Years) and At-Risk Patients (6 to 64 Years) Aged Out 05/25/2003 No longer eligible based on patient's age to complete this topic Meningococcal Vaccine Aged Out No aliya mark eligible based on patient's age to complete this topic RSV Immunizations Under 20 Months Aged Out No longer eligible based on patient's age to complete this topic Insurance [facility] Care Teams Cheesemaker Relationship Specialty Start Date End Date None, Provider, PCP - General 09/06/21
--- OUTSIDE RECORDS SUMMARY | 2024-10-14 01:37 | XMS_ITS | Referral Summary ---
Author Organization [facility] Address [address] [place] [address] Care Team Providers Care Laborer Operator Name Role Phone Esperanza Santillan MD Primary Care Provider + Allergies No known active allergies Medications ondansetron ODT (ZOFRAN-ODT) 4 mg disintegrating tablet Take 1 tablet (4 mg total) by mouth every 8 (eight) hours as needed for nausea or vomiting 20 tablet Active Social History Tobacco Use Types Packs/Day Years Used Date Smoking Tobacco: Never Assessed Personal Safety Answer Date Recorded Getting School Help Needed Not on file 04/24 Comments No Sex and Gender Information Value Date Recorded Sex Assigned at Not on file Legal Sex Female 7:12 PM FAMILY AND CONSUMER SCIENCE PROFESSOR Gender Identity Not on file Sexual Orientation Not on file Last Filed Vital Signs Vital Sign Reading Time Taken Comments Blood Pressure 126/81 03/01/2023 7:30 AM CDT Pulse 101 03/01/2023 7:30 AM CDT Temperature 36.4 ??C (97.6 ??F) 03/01/2023 4:41 AM CD T Respiratory Rate 18 03/01/2023 7:30 AM CDT Oxygen Saturation 98% 03/01/2023 7:30 AM CDT Inhaled Oxygen Concentration - - Weight 83.9 kg (185 lb) 03/01/2023 4:41 AM CDT Height 157.5 cm (5' 2 ) 03/01/2023 6:25 AM CDT Body Mass Index 33.84 03/01/2023 4:41 AM CDT Plan of Treatment Not on file Insurance [facility] Care Teams Laborer Operator Relationship Specialty Start Date End Date Esperanza Santillan MD [address] [place] [address] [place] [id number] PCP - General Family Medicine 03/01/23
--- OUTSIDE RECORDS SUMMARY | 2024-10-14 01:37 | XMS_ITS | Clinical Summary ---
Author Organization [facility] Address [address] [place] [address] Care Team Providers Care Peoplesoft Crm Developer Name Role Phone Esperanza Santillan MD [...] on file Legal Sex Female 7:12 PM CIVIL GEOTECHNICAL ENGINEER Gender Identity Not on file Sexual Orientation [...] 03/01/2023 4:41 AM CDT Plan of Treatment Health Maintenance Due Date Last Done Comments Cervical Cancer Screening 1998 Depression Screening 1998 Hepatitis C Screening 1998 DTaP/Tdap/Td Vaccine (1 - Tdap) 2009 Varicella Vaccines (1 of 2 - 13+ 2-dose series) 2011 HPV Vaccines (1 - 3-dose series) 2013 Hepatitis B Screening 2016 Regular Well Visit/Exam 18-64 2016 Influenza Vaccine (#1) 2024 Pneumococcal vaccine <65 Aged Out No longer eligible based on patient's age to complete this topic Insurance Care Teams Peoplesoft Crm Developer Relationship Specialty Start Date End Date Esperanza Santillan MD [address] [address] PCP - General Family Medicine 03/01/23
--- OUTSIDE RECORDS SUMMARY | 2024-10-14 01:37 | XMS_ITS | Encounter Summary ---
Author Organization [facility] Healthcare Address [address] [place] [id number] Care Team Providers Care Clinical Data Coordinator Name Role Phone Esperanza Santillan MD Primary Care Provider + Reason for Visit * Reason Comments Vomiting Encounter Details Date Type Department Care Team (Late st Contact Info) Description 03/01/2023 4:06 AM CDT - 03/01/2023 7:52 AM CDT Emergency [address] [id number] Rolando Barger DO [address] [place] [address] EMERGENCY DEPT [place], [place] [id number] Moshe Young MD [address] [place] [address] [id number] Alcohol intoxication with delirium (CMS/HCC) (HCC) (Primary Dx); Hyperglycemia Discharge Disposition: Discharge to home or self care Social History Tobacco Use Types Packs/Day Years Used Date Smoking Tobacco: Never Assessed Personal Safety Answer Date Recorded Have you ever been in or are you currently in a harmful physical or emotional relationship or is someone making you feel afraid or unsafe? Denies 03/01/2023 Comments No Sex and Gender Information Value Date Recorded Sex Assigned at Not on file Legal Sex Female 7:12 PM [employer] Gender Identity Not on file Sexual Orientation [...] Mass Index 33.84 03/01/2023 4:41 AM CDT documented in this encounter Discharge Instructions * Discharge Instructions* Moshe Young MD - 03/01/2023 7:32 AM CDT Please follow up with your primary care physician, as soon as possible and try your best to make anappointment in no less than 7 days. Please take your medications, as prescribed. Please drink plenty of water or and electrolyte solution. Please return to the emergency department for worsening of your symptoms or any new problems which may arise. It is mandatory that you must follow-up, as recommended. You have received emergency care only at your visit today. This is not a substitute for ongoing care, further evaluation and treatment and therefore follow-up as directed is not optional but mandatory. You MUST follow up for further evaluation of all incidental abnormal radiographic and laboratory findings. Have your physician obtain records from this visit and address all the incidental abnormal findings. This may include final results of lab testing, cultures and final x-ray reports, which may not have been available during the time of the visit. Return immediately for any new symptoms, worsening of symptoms, or persistent symptoms. We are open28/04 and will take care of you. * Attachments The following attachments cannot be sent through Care Everywhere. * Diabetic Hyperglycemia (AfterCare(R) Instructions(ER/ED)) ([place] Citizen) * Alcohol Intoxication (AfterCare(R) Instructions(ER/ED)) ([place] Citizen) documented in this encounter Medications at Time of Discharge ondansetron ODT (ZOFRAN-ODT) 4 mg disintegrating tablet Take 1 tablet (4 mg total) by mouth every 8 (eight) hours as needed for nausea or vomiting 20 tablet 03/01/2023 documented as of this encounter Ordered Prescriptions Prescription Sig Dispense Quantity Refills Last Filled Start Date End Date ondansetron ODT (ZOFRAN-ODT) 4 mg disintegrating tablet Take 1 tablet (4 mg total) by mouth every 8 (eight) hours as needed for nausea or vomiting 20 tablet 03/01/2023 documented in this encounter Discharge Disposition Disposition Code Departure Means Destination Comment s Discharge to home or self care documented in this encounter ED Notes * Rebecca Childers RN - 03/01/2023 7:41 AM CDT Pt ambulated to restroom with this RN with steady gait. Pt reports she feels well enough for discharge. Rebecca Childers RN 03/01/23 0742 * Rebecca Childers RN - 03/01/2023 7:12 AM CDT This RN at bedside to check BS. Pt refused to have BS checked. Pt A&Ox3. Pt has even&non-labored respirations. Pt remains on continuous personnel monitor and pulse oximetry. Mother at bedside. Bed in low and locked position, side rails up x 2. Call light within reach. Rebecca Childers RN 03/01/23 0713 * Kiley Marie RN - 03/01/2023 4:38 AM CDT S: pt biba for complaints of etoh, vomiting, defecating, and urinating on herself. Pt arrived somnelent, but responsive to painful stimuli. Covered in emesis, feces, and urine.. independent respirations * Rolando Barger DO - 03/01/2023 4:21 AM CDTAssociated Order(s): Critical Care HPI Chief Complaint Patient presents with Vomiting HPI 4:21 AM Melissa Jackson is a 22 y.o. female presenting to the ED for altered mental status. EMS report call for unresponsive patient. Patient found at aunt's house. Friend note that patient was at a green party and had a lot to drink. Unable to obtain further history from patient. EMS report vomiting, stool and urine incontinence in route. Patient History: No past medical history on file. No past surgical history on file. No family history on file. Social History Tobacco Use Smoking status: Not on file Smokeless tobacco: Not on file Substance and Sexual Activity Drug use: Not on file Sexual activity: Not on file Alcohol Use: Not on file No current facility-administered medications for this encounter. No current outpatient medications on file. Review of Systems Review of Systems Unable to perform ROS: Mental status change Physical Exam ED Triage Vitals [03/01/23 0441] Temp Pulse Resp BP SpO2 36.4 ??C (97.6 ??F) 101 18 116/69 100 % Temp src Heart Rate Source Patient Position BP Location FiO2 (%) Oral -- -- -- -- Height Height Method Weight Weight Method -- -- 83.9 kg (185 lb) Estimated Physical Exam Vitals and nursing note reviewed. Constitutional: Appearance: She is well-developed. Comments: Somnolent, sits up looks at me and shouts ow with sternal rub HENT: Head: Normocephalic and atraumatic. Nose: Nose normal. Mouth/Throat: Mouth: Mucous membranes are moist. Eyes: Pupils: Pupils are equal, round, and reactive to light. Cardiovascular: Rate and Rhythm: Normal rate and regular rhythm. Heart sounds: Normal heart sounds. Pulmonary: Effort: Pulmonary effort is normal. Breath sounds: Normal breath sounds. Abdominal: Palpations: Abdomen is soft. Tenderness: There is no abdominal tenderness. Musculoskeletal: General: No swelling. Cervical back: Neck supple. Skin: General: Skin is warm and dry. Neurological: Comments: Decreased responsiveness, not answering questions Psychiatric: Mood and Affect: Mood normal. Behavior: Behavior normal. Critical Care Performed by: Rolando Barger DO Authorized by: Moshe Young MD Critical care provider statement: As reflected in the history, physical exam, orders, notes, and/or MDM, I was personally present while the patient was critically ill and provided critical care services for 30 minutes, excluding timeinvolved in separately billable procedures. Critical care was necessary to treat or prevent imminent or life- threatening deterioration of the following condition(s): Decreased mental status, immediate evaluation and workup Labs showing possible DKA, treatment and monitoring Critical care was time spent by me providing the following: interpretation of bedside monitors, imaging, and arterial/venous lab draws I provided emergent necessary critical care medicine services to this patient. I ordered and reviewed test results and/or imaging studies. I spent time discussing the management and therapeutic options for this critically ill patient with the patient themselves or with the appropriate designated surrogate decision-maker. I spent time documenting in the medical record. MDM Labs Reviewed CBC WITH AUTO DIFFERENTIAL - Abnormal Result Value WBC 10.3 (*) Hgb 13.2 Hct 41.4 Plt 399 MPV 10.2 RBC 4.96 MCV 83.5 MCH 26.6 (*) MCHC 31.9 (*) RDW CV 12.8 RDW SD 38.7 NRBC abs 0.00 COMPREHENSIVE METABOLIC PANEL - Abnormal Sodium 135 Potassium, pl 4.1 Chloride 96 (*) CO2 19 (*) Anion gap 20 (*) BUN 10 Creatinine 0.70 Glucose 523 (*) Calcium 8.4 (*) Bilirubin, total <0.2 Protein, pl 7.4 Albumin 4.3 Alk phos 55 ALT 19 AST 17 ETHANOL - Abnormal Ethanol 164 (*) DIFFERENTIAL AUTO - Abnormal Neutrophil abs 7.6 (*) Imm gran abs 0.0 Lymphocyte abs 2.1 Monocyte abs 0.5 Eosinophil abs 0.0 Basophil abs 0.0 Neutrophil pct 73.9 Imm gran pct 0.3 Lymphocyte pct 20.6 Monocyte pct 4.5 Eosinophil pct 0.4 Basophil pct 0.3 BLOOD GAS, VENOUS - Abnormal pH, Venous 7.25 (*) PCO2, Venous 45 PO2, Venous 38 HCO3 Venous, Calculated 20 BE, venous -7 POCT GLUCOSE DEVICE - Abnormal Glucose, POC 395 (*) Glucose comment 1 RN/MD Notified POCT HCG, URINE - Normal HCG, ur, POC Negative Lot Number [id number] QC Backgroud Clear Acceptable QC Control Line Acceptable DRUGS OF ABUSE SCREEN, URINE WITHOUT CONFIRMATION Amphetamine, ur Not Detected Barbiturates, ur Not Detected Benzodiazepines, ur Not Detected Cannabinoids, ur Not Detected Cocaine, ur Not Detected Fentanyl, Ur Not Detected Methadone, ur Not Detected Opiates, ur Not Detected Oxycodone, ur Not Detected Phencyclidine, ur Not Detected Urine Creatinine 20 Narrative: Drug of Abuse screening is performed by immunoassay for medical purposes only. This is not to be used for Pain Management purposes. EGFR eGFR 124 BASIC METABOLIC PANEL POCT GLUCOSE DEVICE CT Head WO Contrast (Results Pending) BP 116/69 Pulse 101 Temp 36.4 ??C (97.6 ??F) (Oral) Resp 18 Wt 83.9 kg (185 lb) SpO2 100% MDM Amount and/or Complexity of Data Reviewed Clinical lab tests: reviewed ED Course as of 03/01/23 0610 Time: 03/01 532 Comment: Patient's aunt in the room, mom on the way. And requested not to do CT scan. Cousin in [facility] was with patient this evening and denies any trauma or hitting her head. CT scan deferred. By: Rolando Barger DO Time: 03/01 0595 Comment: Alcohol level 164, but also elevated blood sugar. 395 on fingerstick, but blood work [id number] with CO2 of 19 and gap of 20 consistent with possible mild DKA. Patient given 10 units of lispro and 2 L of IV fluids started. Patient more awake then on arrival. Will recheck labs after treatment to evaluate need for insulin drip. By: Rolando Barger DO Time: 03/01 06 Comment: Will recheck BMP after fluids are done. Patient signed out to Dr. Young who will follow up with disposition. By: Rolando Barger DO This examination was transcribed using the [employer] voice recognition system without human maintenance groundskeeper. In an effort to expedite patient care, this report has not been adjusted for typographical, grammatical, and syntax by a trained medical office professional instructor. Clinical Impression: Alcohol intoxication with delirium (CMS/HCC) (HCC) Hyperglycemia Rolando Barger DO 03/01/23 0610 documented in this encounter Miscellaneous Notes * ED Re-evaluation Note - Moshe Young MD - 03/01/2023 7:32 AM CDT ED Re-evaluation Pt signed out to me by Dr. Barger. Workup shows alcohol intoxication, dehydration with metabolic acidosis. She was given IV fluids with improved labs on the BMP. Anion gap closed. Pt was observed in the ED for about 3.5 hours and is now clinically sober. She was discharged home with family. She willf/u with her pcp regarding her DMII. Vitals stable on discharge. Moshe Young MD 03/01/23 0734 documented in this encounter Plan of Treatment Not on file documented as of this encounter Procedures Procedure Name Priority Date/Time Associated Diagnosis Comments EGFR STAT 03/01/2023 6:23 AM CDT BASIC METABOLIC PANEL STAT 03/01/2023 6:23 AM CDT BLOOD GAS, VENOUS STAT 03/01/2023 5:1 8 AM CDT DRUGS OF ABUSE SCREEN, URINE WITHOUT CONFIRMATION STAT 03/01/2023 5:05 AM CDT POCT HCG, URINE STAT 03/01/2023 4:32 AM CDT EGFR STAT 03/01/2023 4:32 AM CDT DIFFERENTIAL AUTO STAT 03/01/2023 4:3 2 AM CDT CBC WITH AUTO DIFFERENTIAL STAT 03/01/2023 4:32 AM CDT ETHANOL STAT 03/01/2023 4:32 AM CDT COMPREHENSIVE METABOLIC PANEL STAT 03/01/2023 4:32 AM CDT POCT GLUCOSE DEVICE Routine 03/01/2023 4 :23 AM CDT FL CRITICAL CARE ILL/INJURED PATIENT INIT 30-74 MIN Routine 03/01/2023 4:21 AM CDT documented in this encounter Results * eGFR (03/01/2023 6:23 AM CDT) [facility] eGFR 134 mL/min/1. 73 m2 NAM Comment: Interpretive Data Reference Interval Normal ?>/= 90 mL/min/1.73m2 Mildly decreased* ? 60 - 89 mL/min/1.73m2 Mildly to moderately decreased ?45 - 59 mL/min/1.73m2 Moderately to severely decreased ??30 - 44 mL/min/1.73m2 Severely decreased ?15 - 29 mL/min/1.73m2 Kidney Failure ?< 15 ??mL/min/1.73m2 *Relative to young adult level Estimated glomerular filtration rate is determined by the 2020 CKD-EPI equation recommended by the National Kidney Foundation (A Unifying Approach to GFR Estimation: Recommendations of the NKF-ASK Task Force on Reassessing the Inclusion of Race in Diagnosing Kidney Disease, JASN 2020). The CKD-EPI equation should not be used for patients with unstable renal function and has not been validated in children and those over 70. Current interpretive data was last reviewed 2021. Blood 03/01/2023 6:23 AM CDT 03/01/2023 6:27 AM CDT Rolando Barger DO LAB BLOOD ORDERABLES Final Result Performing Organization Address [facility]/ZIP Co de Phone Number [facility] [address] [facility] Department [place] [address] * (ABNORMAL) Basic metabolic panel (03/01/2023 6:23 AM CDT) Pathologist [facility] Sodium 135 135 - 145 mmol/L [facility] Potassium, pl 4.9 3.3 - 4.9 mmol/L [facility] Chloride 102 97 - 110 mmol/L [facility] CO2 19(L) 22 - 32 mmol/L [facility] Anion gap 14 2 - 15 mmol/L [facility] BUN 10 8 - 25 mg/dL [facility] Creatinine 0.50(L) 0.60 - 1.10 mg/dL [facility] Glucose 352(H) 70 - 199 mg/dL [facility] Comment: Delta - Results Reviewed Interpretive Data Fasting glucose >/= 126 mg/dl is diagnostic for diabetes. ?? Fasting is defined as no caloric intake for at least 8 hours. Fasting glucose between 100 mg/dl to 125 mg/dl is diagnostic of prediabetes. In a patient with classic symptoms of hyperglycemia or hyperglycemic crisis, a random glucose >/= 200 mg/dl is diagnostic for diabetes. In the absence of unequivocal hyperglycemia, results should be confirmed by repeat testing. The classification and Diagnosis of Diabetes Diabetes Care 202; 46: S19-S40. Current interpretive data was last revised 2022. Calcium 7.5(L) 8.5 - 10.3 mg/dL [facility] Blood 03/01/2023 6:23 AM CDT 03/01/2023 6:27 AM CDT Rolando Barger DO LAB BLOOD ORDERABLES Final Result Performing Organization Address [facility]/ZIP Co de Phone Number [facility] [address] [facility] [place] [address] * (ABNORMAL) Blood gas, venous (03/01/2023 5:18 AM CDT) Pathologist [facility] pH, Venous 7.25(C) 7.32 - 7.43 [facility] PCO2, Venous 45 40 - 50 mmHg [facility] PO2, Venous 38 mmHg [facility] Comment: Interpretive Data No Reference Range Established Current Interpretive Data was last revised on 2018. HCO3 Venous, Calculated 20 20 - 30 mmol/L [facility] BE, venous -7 mmol/L [facility] Comment: Interpretive Data No Reference Range Established Current Interpretive Data was last revised on 2018. Blood 03/01/2023 5:18 AM CDT 03/01/2023 5:20 AM CDT Rolando Barger DO LAB BLOOD ORDERABLES Final Result Performing Organization Address City/State/[facility] Co de Phone Number [facility] [address] [facility] [employer] [place] [place] [address] * Drugs of Abuse Screen, Urine without Confirmation (03/01/2023 5:05 AM CDT) [facility] Amphetamine, ur Not Detected CutOff 500ng/mL [facility] Comment: Interpretive Data - Amphetamines: ??Samples containing greater than 500 ng/mL d-methamphetamine ??or other cross-reacting amphetamine compounds are reported as positive. ??Amphetamine immunoassays are subject to significant false positive rates due to cross-reactivity of non-amphetamine drugs. Current Interpretive Data was last reviewed 2018. Barbiturates, ur Not Detected CutOff 200ng/mL [facility] Comment: Interpretive Data - Barbiturates: ??Samples containing greater than 200 ng/mL secobarbital or other cross-reacting barbiturate compounds are reported as positive. ??False positive and false negative results are possible. Current Interpretive Data was last reviewed 2018. Benzodiazepines, ur Not Detected CutOff 100ng/mL [facility] Comment: Interpretive Data - Benzodiazepines: ??Samples containing greater than 100 ng/mL nordiazepam or other cross-reacting compounds are reported as positive. ?? False positive and false negative results are possible. ?? Current Interpretive Data was last reviewed 2018. Cannabinoids, ur Not Detected CutOff 50 ng/mL [facility] Comment: Interpretive Data - Cannabinoids: ??Samples containing greater than 50 ng/mL delta-9 THC -COOH or other cross-reacting compounds are reported as positive. ??False positive and false negative results are possible. ?? Current Interpretive Data was last reviewed 2018. Cocaine, ur Not Detected CutOff 150ng/mL [facility] Comment: Interpretive Data - Cocaine: ??Samples containing greater than 150 ng/mL benzoylecgonine or other cross-reacting compounds are reported as positive. False positive and false negative results are possible. Current Interpretive Data was last reviewed 2018. Fentanyl, Ur Not Detected Cutoff 1 ng/mL [facility] Comment: Interpretive Data - Fentanyls: ??Samples containing greater than 1 ng/mL fentanyl or other cross-reacting fentanyl compounds are reported as detected. ??False positive and false negative results are possible. Current Interpretive Data was last reviewed 2019. Methadone, ur Not Detected CutOff 300ng/mL [facility] Comment: Interpretive Data - Methadone: ??Samples containing greater than 300 ng/mL d,l-methadone or other cross-reacting compounds are reported as positive. ??False positive and false negative results are possible. Current Interpretive Data was last reviewed 2018. Opiates, ur Not Detected CutOff 300ng/mL [facility] Comment: Interpretive Data - Opiates: ??Samples containing greater than 300 ng/mL morphine or other cross-reacting compounds are reported as positive. ??False positive and false negative results are possible. Current Interpretive Data was last reviewed 2018. Oxycodone, ur Not Detected CutOff 100ng/mL [facility] Comment: Interpretive Data - Oxycodone: ??Samples containing greater than 100 ng/mL oxycodone or other cross-reacting compounds are reported as positive. ??False positive and false negative results are possible. ?? Current Interpretive Data was last reviewed 2018. Phencyclidine, ur Not Detected CutOff 25 ng/mL [facility] Comment: Interpretive Data - Phencyclidine: ??Samples containing greater than 25 ng/mL phencyclidine or other cross-reacting compounds are reported as positive. ??False positive and false negative results are possible. ?? Current Interpretive Data was last reviewed 2018. Urine Creatinine 20 mg/dL [facility] Comment: Interpretive Data Urine Creatinine: < 10 mg/dL is extremely dilute = or > 10 but < 20 mg/dL is dilute = or > 20 mg/dL is normal Current Interpretive Data was last revised on 2017. Urine 03/01/2023 5:05 AM CDT 03/01/2023 5:08 AM CDT Narrative NAM - 03/01/2023 5:35 AM CDT Drug of Abuse screening is performed by immunoassay for medical purposes only. ??This is not to be used for Pain Management purposes. Rolando Barger DO LAB URINE ORDERABLES Final Result [facility] [address] Department [place] [address] * POCT hCG, urine (03/01/2023 4:32 AM CDT) HCG, ur, POC Negative Lot Number [id number] QC Backgroud Clear Acceptable QC Control Line Acceptable Urine 03/01/2023 4:32 AM CDT Rolando Barger DO POINT OF CARE TEST ORDERABL ES Final Result * eGFR (03/01/2023 4:32 AM CDT) eGFR 124 mL/min/1. 73 m2 [facility] Comment: Interpretive Data Reference Interval Normal ?>/= 90 mL/min/1.73m2 Mildly decreased* ? 60 - 89 mL/min/1.73m2 Mildly to moderately decreased ?45 - 59 mL/min/1.73m2 Moderately to severely decreased ??30 - 44 mL/min/1.73m2 Severely decreased ?15 - 29 mL/min/1.73m2 Kidney Failure ?< 15 ??mL/min/1.73m2 *Relative to young adult level Estimated glomerular filtration rate is determined by the 2020 CKD-EPI equation recommended by the National Kidney Foundation (A Unifying Approach to GFR Estimation: Recommendations of the NKF-ASK Task Force on Reassessing the Inclusion of Race in Diagnosing Kidney Disease, JASN 2020). The CKD-EPI equation should not be used for patients with unstable renal function and has not been validated in children and those over 70. Current interpretive data was last reviewed 2021. Blood 03/01/2023 4:32 AM CDT 03/01/2023 4:34 AM CDT Rolando Barger DO LAB BLOOD ORDERABLES Final Result [facility] [address] [facility] Department [place] [address] * (ABNORMAL) Differential, auto (03/01/2023 4:32 AM CDT) Neutrophil abs 7.6(H) 1.7 - 6.5 K/cumm [facility] Imm gran abs 0.0 0.0 - 0.1 K/cumm [facility] Lymphocyte abs 2.1 0.8 - 3.3 K/cumm [facility] Monocyte abs 0.5 0.2 - 0.8 K/cumm [facility] Eosinophil abs 0.0 0.0 - 0.5 K/cumm [facility] Basophil abs 0.0 0.0 - 0.1 K/cumm [facility] Neutrophil pct 73.9 % NAM Comment: Interpretive Data Percent cell count reference ranges are not reported, since discordance with absolute values may lead to misinterpretation of CBC data. Current Interpretive Data was last revised on 2018. Imm gran pct 0.3 % NAM Comment: Interpretive Data Percent cell count reference ranges are not reported, since discordance with absolute values may lead to misinterpretation of CBC data. Current Interpretive Data was last revised on 2018. Lymphocyte pct 20.6 % NAM Comment: Interpretive Data Percent cell count reference ranges are not reported, since discordance with absolute values may lead to misinterpretation of CBC data. Current Interpretive Data was last revised on 2018. Monocyte pct 4.5 % [facility]AM Comment: Interpretive Data Percent cell count reference ranges are not reported, since discordance with absolute values may lead to misinterpretation of CBC data. Current Interpretive Data was last revised on 2018. Eosinophil pct 0.4 % NAM Comment: Interpretive Data Percent cell count reference ranges are not reported, since discordance with absolute values may lead to misinterpretation of CBC data. Current Interpretive Data was last revised on 2018. Basophil pct 0.3 % [facility]AM Comment: Interpretive Data Percent cell count reference ranges are not reported, since discordance with absolute values may lead to misinterpretation of CBC data. Current Interpretive Data was last revised on 2018. Blood 03/01/2023 4:32 AM CDT 03/01/2023 4:34 AM CDT Rolando Barger DO LAB BLOOD ORDERABLES Final Result Performing Organization Address [facility] de Phone Number [place] [phone] [facility] [place] [address] * (ABNORMAL) Ethanol (03/01/2023 4:32 AM CDT) Ethanol 164(H) <=10 mg/dL [facility] Comment: Interpretive Data Legal limit of intoxication > or = 80 mg/dL Levels > or = 400 mg/dL are potentially TOXIC. Current interpretive data was last revised on 2018. Blood 03/01/2023 4:32 AM CDT 03/01/2023 4:34 AM CDT Rolando Barger DO LAB BLOOD ORDERABLES Final Result Performing Organization Address City/[facility] Co de Phone Number [place] [phone] [facility] Department [place] [address] * (ABNORMAL) Comprehensive metabolic panel (03/01/2023 4:32 AM CDT) Sodium 135 135 - 145 mmol/L [facility] Potassium, pl 4.1 3.3 - 4.9 mmol/L [facility] [facility] Chloride 96(L) 97 - 110 mmol/L [facility] CO2 19(L) 22 - 32 mmol/L [facility] Anion gap 20(H) 2 - 15 mmol/L [facility] BUN 10 8 - 25 mg/dL [facility] Creatinine 0.70 0.60 - 1.10 mg/dL [facility] Glucose 523(C) 70 - 199 mg/dL [facility] Comment: Critical Result called to and read back by [email or web address], DATE: 2023-03-01 05:02:29 BY: [email or web address] Interpretive Data Fasting glucose >/= 126 mg/dl is diagnostic for diabetes. ?? Fasting is defined as no caloric intake for at least 8 hours. Fasting glucose between 100 mg/dl to 125 mg/dl is diagnostic of prediabetes. In a patient with classic symptoms of hyperglycemia or hyperglycemic crisis, a random glucose >/= 200 mg/dl is diagnostic for diabetes. In the absence of unequivocal hyperglycemia, results should be confirmed by repeat testing. The classification and Diagnosis of Diabetes Diabetes Care 2021; 46: S19-S40. Current interpretive data was last revised 2022. Calcium 8.4(L) 8.5 - 10.3 mg/dL [facility] Bilirubin, total <0.2 0.1 - 1.2 mg/dL [facility] Protein, pl 7.4 6.5 - 8.5 g/dL [facility] Albumin 4.3 3.5 - 5.0 g/dL [facility] Alk phos 55 40 - 130 Units/L [facility] ALT 19 7 - 45 Units/L [facility] AST 17 10 - 45 Units/L [facility] Blood 03/01/2023 4:32 AM CDT 03/01/2023 4:34 AM CDT Rolando Barger DO LAB BLOOD ORDERABLES Final Result Performing Organization Address [facility] de Phone Number [address] [address] * (ABNORMAL) CBC with auto differential (03/01/2023 4:32 AM CDT) WBC 10.3(H) 3.8 - 9.9 K/cumm [facility] Hgb 13.2 11.9 - 15.5 g/dL [facility] Hct 41.4 35.6 - 45.5 % [facility] Plt 399 150 - 400 K/cumm [facility] MPV 10.2 9.1 - 12.3 fL [facility] RBC 4.96 3.90 - 5.20 M/cumm [facility] MCV 83.5 81.3 - 96.4 fL [facility] MCH 26.6(L) 27.1 - 33.3 pg [facility] MCHC 31.9(L) 32.3 - 35.7 g/dL [facility] RDW CV 12.8 11.1 - 14.9 % [facility] RDW SD 38.7 35.7 - 48.1 fL [facility] NRBC abs 0.00 0.00 - 0.01 K/cumm [facility] Blood 03/01/2023 4:32 AM CDT 03/01/2023 4:34 AM CDT Rolando Barger DO LAB BLOOD ORDERABLES Final Result Performing Organization Address [facility] de Phone Number NAM [address] [address] * (ABNORMAL) POCT glucose (03/01/2023 4:23 AM CDT) Glucose, POC 395(H) 70 - 199 mg/dL [facility] Glucose comment 1 RN/MD Notified [facility] Blood 03/01/2023 4:23 AM CDT 03/01/2023 4:23 AM CDT Rolando Barger LAB POCT ORDERABLES - DEVIC E Final Result [facility] [id number] [facility] Department [place] [address] * [place] CRITICAL CARE ILL/INJURED PATIENT INIT 30-74 MIN (03/01/2023 4:21 AM CDT) Narrative Rolando Barger DO - 03/01/2023 4:21 AM CDT Rolando Barger, ? 03/01/2023 ??6:10 AM Critical Care Performed by: Rolando Barger DO Authorized by: Moshe Young MD ?? Critical care provider statement: As reflected in the history, physical exam, orders, notes, and/or MDM, I was personally present while the patient was critically ill and provided critical care services for 30 minutes, excluding time involved in separately billable procedures. ??Critical care was necessary to treat or prevent imminent or life-threatening deterioration of the following condition(s): ?? Decreased mental status, immediate evaluation and workup Labs showing possible DKA, treatment and monitoring ??Critical care was time spent by me providing the following: ? interpretation of bedside monitors, imaging, and arterial/venous lab draws ?? I provided emergent necessary critical care medicine services to this patient. I ordered and reviewed test results and/or imaging studies. I spent time discussing the management and therapeutic options for this critically ill patient with the patient themselves or with the appropriate designated surrogate decision-maker. I spent time documenting in the medical record. us Moshe Young MD IN CLINIC/BEDSIDE ORDERAB LES Final Result documented in this encounter Visit Diagnoses Diagnosis Alcohol intoxication with delirium (CMS/HCC) (HCC)- Primary Hyperglycemia Other abnormal glucose documented in this encounter Administered Medications Inactive Administered Medications - up to 3 most recent administrations Medication Order MAR Action Action Date Dose Rate Site insulin lispro (HumaLOG, ADMELOG) 100 unit/mL injection 10 Units 10 Units, subcutaneous, Once, On 03/01/23 at 0515, For 1 dose Given 03/01/2023 5:23 AM CDT 10 Units Left Upper Arm ondansetron (ZOFRAN) 4 mg/2 mL injection - ADS Override Pull Starting on 03/01/23 at 0730, For 1 dose, Created by cabinet override ondansetron (ZOFRAN) injection 4 mg 4 mg, intravenous, Administer over 2 Minutes, Once, On 03/01/23 at 0731, For 1 dose Given 03/01/2023 7:32 AM CDT 4 mg sodium chloride 0.9% bolus 1,000 mL 1,000 mL, intravenous, Once, On 03/01/23 at 0515, For 1 dose New Bag 03/01/2023 5:27 AM CDT 1,000 mL sodium chloride 0.9% bolus 1,000 mL 1,000 mL, intravenous, Once, On 03/01/23 at 0515, For 1 dose New Bag 03/01/2023 5:27 AM CDT 1,000 mL documented in this encounter Active and Recently Administered Medications Times are shown in CDT. Scheduled Medication Order 02/27/2023 02/28/2023 03/01/2023 insulin lispro (HumaLOG, ADMELOG) 100 unit/mL injection 10 Units (COMPLETED) 10 Units, subcutaneous, Once, On 03/01/23 at 0515, For 1 dose 0523 (Given - Provid er: Kiley Marie RN) ondansetron (ZOFRAN) injection 4 mg (COMPLETED) 4 mg, intravenous, Administer over 2 Minutes, Once, On 03/01/23 at 0731, For 1 dose 0732 (Given - Provid er: Rebecca Childers RN) sodium chloride 0.9% bolus 1,000 mL (COMPLETED) 1,000 mL, intravenous, Once, On 03/01/23 at 0515, For 1 dose 0527 (New Bag - Prov ider: Kiley Marie RN)0609 (Stopped - Provider: Kiley Marie RN) sodium chloride 0.9% bolus 1,000 mL (COMPLETED) 1,000 mL, intravenous, Once, On 03/01/23 at 0515, For 1 dose 0527 (New Bag - Prov ider: Kiley Marie RN)0609 (Stopped - Provider: Kiley Marie RN) documented in this encounter Care Teams Clinical Data Coordinator Relationship Specialty Start Date End Date Esperanza Santillan MD [address] [place] [address] DR LUCAS [address] [place], [place] [id number] PCP - General Family Medicine 03/01/23 documented as of this encounter
== END 2024-10-07 11:16 | disposition home or self-care (01) ==
PROVIDERS: Student in an Organized Health Care Education/Training Program; Emergency Provider Physician Assistant; PCP Family Medicine
DX: J02.9 Acute pharyngitis, unspecified (principal); Z20.822 Contact with and (suspected) exposure to COVID-19; E11.9 Type 2 diabetes mellitus without complications; E28.2 Polycystic ovarian syndrome; K21.9 Gastro-esophageal reflux disease without esophagitis; K58.9 Irritable bowel syndrome, unspecified; G47.30 Sleep apnea, unspecified; Z87.440 Personal history of urinary (tract) infections; Z86.2 Personal history of diseases of the blood and blood-forming organs and certain disorders involving the immune mechanism; Z79.84 Long term (current) use of oral hypoglycemic drugs
CPT/HCPCS: 87637; 87651; 99283

== ENCOUNTER 2025-09-13 09:06 | Emergency (ER) | payer OTHER, SELFPAY ==
--- NOTE | 2025-09-13 09:10 | ED.URI ---
HPI - URI/Sore Throat General Chief Complaint: Upper Respiratory Infection Stated Complaint: Ear Pain / Sore Throat Source: patient and RN notes reviewed Mode of arrival: ambulatory Limitations: no limitations History of Present Illness HPI Narrative: Patient is a 25-year-old female who presents to the [facility] with complaints of bilateral ear pain and sore throat. She states that her symptoms started last night. Her sore throat has continued to worsen in severity. She denies known fevers. Unsure of any known sick contacts. States that she typically gets strep around this time of year every year. Related Data Home Medications ?Medication ?Instructions ?Recorded ?Confirmed ?Last Taken ?Type metformin 500 mg tablet 500 mg PO BID 04/29/21 04/29/21 Unknown History vitamins with calcium 1 tablet PO DAILY 01/19/25 01/19/25 Unknown History no.72-iron 27 mg-folic acid 1 mg tablet (WesTab Plus) semaglutide 14 mg tablet (Rybelsus) 14 mg PO DAILY 01/19/25 01/19/25 Unknown History Allergies Allergy/AdvReac Type Severity Reaction Status Date / Time No Known Allergies Allergy Verified 09/13/25 09:32 Review of Systems Review of Systems: CONSTITUTIONAL: Denies fever, chills, or sweats. EYES: Denies visual changes, redness, or discharge. ENT: Reports otalgia and sore throat CARDIOVASCULAR: Denies chest pain, palpitations, or edema. RESPIRATORY: Denies cough or dyspnea. GASTROINTESTINAL: Denies abdominal pain, nausea, vomiting, or diarrhea. GENITOURINARY: Denies dysuria or hematuria. SKIN: Denies rash or itching. MUSCULOSKELETAL: Denies back pain, joint pain, or myalgia. NEUROLOGIC: Denies headache, numbness, or weakness. Pertinent positives per HPI. [facility] Past Medical History Medical History 16 weeks Anemia Diabetes type 2 UTI (urinary tract infection) PCOS (polycystic ovarian syndrome) GERD (gastroesophageal reflux disease) IBS (irritable bowel syndrome) Sleep apnea Surgical History Surgical History No history of previous surgery Family History Family History Grandparent Diabetes mellitus Social History Social History Smoking status: Never smoker Alcohol intake: current Substance use: current Substance use type: marijuana Other substance usage details: occasional Lack of Transportation: No Lack of Food: Never True Current Housing: I Have Housing Concerned About Future Housing: No Difficulty Paying Gas/Electric Bills: No Difficulty Paying for Meds: No Currently Unemployed: No Education: High School Diploma/GED Difficulty w/ Childcare or Family Care: No Additional living arrangements comments: engaged Occupation/Education: occupation 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 There is no relevant family history pertinent to the patient complaint. Exam Narrative: GENERAL: This is a well-nourished, well-developed patient, in no apparent distress. HEAD: normocephalic, atraumatic. EYES: Sclera clear/white. Vision is grossly intact. EARS: External ears normal, auditory canals clear and without drainage. Bilateral TMs erythematous. Hearing grossly intact. NOSE: External nose normal with no obvious nasal discharge, nares without redness, no rhinorrhea. THROAT: Mucous membranes moist, oropharyngeal erythema. NECK: Neck supple, non-tender without lymphadenopathy, masses or thyromegaly. CARDIOVASCULAR: Regular rate and rhythm without murmurs, gallops, or rubs. RESPIRATORY: Clear to auscultation. Breath sounds equal bilaterally. No wheezes, rales, or rhonchi. GASTROINTESTINAL: Abdomen soft, non-tender, nondistended. Bowel sounds are active. No hepato-splenomegaly, or palpable masses. No guarding. SKIN: warm, intact with no suspicious lesions or rash, good texture and turgor. NEURO: awake, alert, and oriented to person, place and time. There were no obvious focal neurologic abnormalities. Course Course Level of Care: Express Care Visit Vital Signs Vital signs: Vital Signs Temperature 98.4 F 09/13/25 09:29 Pulse Rate 96 09/13/25 09:29 Respiratory Rate 20 09/13/25 09:29 Blood Pressure 119/79 09/13/25 09:29 Pulse Oximetry 99 09/13/25 09:29 Oxygen Delivery Room Air 09/13/25 09:29 Temperature 98.4 F 09/13/25 09:29 Pulse Rate 96 09/13/25 09:29 Respiratory Rate 20 09/13/25 09:29 Blood Pressure 119/79 09/13/25 09:29 Pulse Oximetry 99 09/13/25 09:29 Oxygen Delivery Room Air 09/13/25 09:29 Reviewed [facility] Narrative Medical decision making narrative: After 24 hours on antibiotics throw tooth brush away and start using a new one. Increase your Vitamin C. Do not share drinks. Take Motrin alternating with Tylenol for pain and/or fever alternating every 4 hours. Increase fluids, avoid caffeine. Take a probiotic daily or eat a low sugar yogurt while taking the antibiotic. Follow up with Primary provider if not getting better this week Differential Diagnosis Differential Diagnosis: otitis media, strep, pharyngitis, upper respiratory illness, viral illness Lab Data [facility] Lab Attestation statement: I personally reviewed the patient's lab results. Critical Care Time Critical Care Time Critical Care Time: No Discharge Plan Discharge Clinical Impression: Strep pharyngitis Patient Disposition: Home Condition: Stable Instructions: Antibiotic Form, Strep Throat (ED) Additional Instructions: After 24 hours on antibiotics throw tooth brush away and start using a new one. Increase your Vitamin C. Do not share drinks. Take Motrin alternating with Tylenol for pain and/or fever alternating every 4 hours. Increase fluids, avoid caffeine. Take a probiotic daily or eat a low sugar yogurt while taking the antibiotic. Follow up with Primary provider if not getting better this week Patient Language: Albanian Prescriptions: New amoxicillin 500 mg capsule 500 mg PO Q12H 10 Days Qty: 20 0RF No Action metformin 500 mg tablet 500 mg PO BID Rybelsus 14 mg tablet 14 mg PO DAILY WesTab Plus 27 mg iron- 1 mg tablet 1 tablet PO DAILY letrozole 2.5 mg tablet 5 mg PO DAILY 5 Days Qty: 10 3RF Rx Instructions: 1. Take days 3 through 7 of menstrual cycle 2. [place] on day 12, 14, 16 Follow-up/Referrals: Jigar,Cyndee Hoang [employer] [Primary Care Provider, Unknown] Stand Alone Forms: Work/School Release IP Time of Disposition: 09:41
[2025-09-13 09:29] VITALS: BP 119/79; PULSE 96; RESP 20; TEMP 36.9; O2SAT 99
[2025-09-13 09:42] LABS: EDSTREPNEGPOS1 Positive (Negative)
== END 2025-09-13 10:01 | disposition home or self-care (01) ==
PROVIDERS: Emergency Provider Nurse Practitioner; PCP Nurse Practitioner Family
DX: J02.0 Streptococcal pharyngitis (principal); E11.9 Type 2 diabetes mellitus without complications; Z79.84 Long term (current) use of oral hypoglycemic drugs; E28.2 Polycystic ovarian syndrome; K21.9 Gastro-esophageal reflux disease without esophagitis
CPT/HCPCS: 87880; 99213; G0463